=== PATIENT | female | born 1935 | race Caucasian/White ===

== ENCOUNTER 2020-06-15 11:13 | Inpatient (IN) ==
[2020-06-15] MEDS ORDERED: METOPROLOL TARTRATE 1 MG/ML VIAL IV STA ×2 (11:43→13:14)
[2020-06-15] MEDS ORDERED: FUROSEMIDE 40 MG/4 ML VIAL IV STA (11:43)
[2020-06-15 11:58] LABS: Basophils # (auto) 0.02 K/uL (0-0.2); Basophils % (auto) 0.1 %; Eosinophils # (auto) 0.01 K/uL (0-0.5); Eosinophils % (auto) 0.1 %; Hematocrit (blood only) 38.4 % (37-47); Hemoglobin 12.8 g/dL (12.0-16.0); Immature Granulocytes # (auto) 0.07 K/uL (0.00-0.02); Immature Granulocytes % (auto) 0.4 %; Lymphocytes # (auto) 1.89 K/uL (1.2-3.4); Lymphocytes % (auto) 11.7 %; Mean Corpuscular Hemoglobin 28.5 pg (25-34); Mean Corpuscular Hgb Conc 33.3 g/dL (32-36); Mean Corpuscular Volume 85.5 fL (80-100); Mean Platelet Volume 10.3 fL (7.4-10.4); Neutrophils # (auto) 12.91 K/uL (1.4-6.5); Neutrophils % (auto) 79.7 %; Platelet Count 317 K/uL (130-400); RDW Coefficient of Variation 15.2 % (11.5-14.5); RDW Standard Deviation 47.4 fL (36.4-46.3); Red Blood Count 4.49 M/uL (4.2-5.4)
[2020-06-15 12:24] LABS: Alanine Aminotransferase 39 U/L (12-78); Albumin Globulin Ratio 0.8 (0.9-2); Albumin Level 3.6 gm/dl (3.4-5.0); Alkaline Phosphatase 94 U/L (45-117); Aspartate Aminotransferase 27 U/L (15-37); BUN Creatinine Ratio 18.6 (10-20); Bilirubin,Total 0.8 mg/dl (0.2-1); Blood Urea Nitrogen 21 mg/dl (7-18); Calcium 9.2 mg/dl (8.5-10.1); Carbon Dioxide 23 mmol/L (21-32); Chloride 102 mmol/L (98-107); Creatinine Clr Calc Pharmacy 38.3 ml/min; Est GFR (African American) 52.4; Est GFR (Non-African American) 45.2; Globulin 4.6 gm/dl (2.5-4.0); Glucose 245 mg/dl (70-99); Magnesium 2.2 mg/dl (1.8-2.4); NT Pro B Type Natriuretic Pept 5803 pg/ml (0-1800); Potassium 4.8 mmol/L (3.5-5.1); Sodium 134 mmol/L (136-145); Total Protein 8.2 gm/dl (6.4-8.2); Troponin I < 0.015 ng/ml (0-0.045)
--- NOTE | 2020-06-15 12:33 | XRay Report ---
XR chest 1V portable HISTORY: Dyspnea COMPARISON: Chest 02/29/2016. FINDINGS: No pneumothorax. Small bilateral pleural effusions and bibasilar airspace opacities. The he art is mildly enlarged. There is mild diffuse interstitial thickening. Advanced degenerative changes within the shoulders. IMPRESSION: 1. Cardiomegaly and mild congestive change. 2. Small bilateral pleural effusions and bibasilar densities. This could represent atelectasis or pne umonia. ACT 112: Negative or not required by law. Electronically signed by: Brendan Carrillo M.D. 06/15/2020 12:32 PM
[2020-06-15] MEDS ORDERED: NovoLIN-R INSULIN PER UNIT CHARGE SC STA (13:11)
[2020-06-15] MEDS ORDERED: CARBOHYDRATES FOR HYPOGLYCEMIA PO PRN (15:18)
[2020-06-15] MEDS ORDERED: DEXTROSE 50% 50 ML SYRINGE IV PRN (15:18)
[2020-06-15] MEDS ORDERED: GLUCOSE 10 TABS/TUBE PO PRN (15:18)
[2020-06-15] MEDS ORDERED: GLUCOSE 40% GEL 15 GM TUBE PO PRN (15:18)
[2020-06-15] MEDS ORDERED: GLUCAGON FOR INJ 1 MG VIAL SQ PRN (15:18)
[2020-06-15] MEDS ORDERED: ACETAMINOPHEN 325 MG TAB PO PRN (15:18)
[2020-06-15] MEDS ORDERED: Heparin IV Standard *NO* Bolus IV SCH (15:30)
[2020-06-15] MEDS ORDERED: PHARMACY GLYCEMIC MGMT CONSULT PRN (15:40)
--- NOTE | 2020-06-15 16:09 | Emergency Department Note ---
History of Present Illness General Chief complaint: Congestion Stated complaint: CONGESTION W/COUGH Time Seen by Provider: 06/15/20 11:33 Source: patient and RN notes reviewed Mode of arrival: ambulatory Limitations: no limitations and clinical acuity (SOB, tachycardia) History of Present Illness Provider complaint: Shortness of breath, cough Maximum Pain Intensity: 5 This patient is an 85-year-old female who presents emergency department with several days worth of a cough. Home health nurses encouraged her to be evaluated last evening however the patient's son brought her to the emergency department today. The patient states she has had some increased work of breathing overnight and is having some difficulty lying flat. She denies any known fevers or chest pain. She denies any palpitations. She has had no vomiting or abdominal pain. She denies any dysuria. Patient denies any known Covid exposures. She denies any known history of heart problems. Home Medications Home Medications Medication Instructions Recorded Confirmed Type lisinopril 20 mg PO BID #0 06/24/10 06/15/20 History metoprolol tartrate 50 mg PO PM #0 06/24/10 06/15/20 History metoprolol tartrate 100 mg PO QAM #0 06/24/10 06/15/20 History acetaminophen [Tylenol Extra 500 mg PO HS #0 09/04/10 06/15/20 History Strength] aspirin 81 mg PO QAM 30 Days #30 tab 02/27/16 06/15/20 History nitroglycerin [Nitrostat] 0.4 mg BUCCAL DIRECTED PRN #0 02/27/16 06/15/20 History btl rosuvastatin 40 mg PO PM #0 tab 02/27/16 06/15/20 History amlodipine 10 mg PO QAM 06/15/20 06/15/20 History ezetimibe 10 mg PO QAM 06/15/20 06/15/20 History metformin 1,000 mg PO BID 06/15/20 06/15/20 History triamcinolone acetonide 1 applic TOPICAL BID 06/15/20 06/15/20 History Allergies Allergy/AdvReac Type Severity Reaction Status Date / Time itraconazole Allergy Intermediate HIVES Verified 06/15/20 12:26 Iodinated Contrast Media Allergy Unknown ` Verified 06/15/20 12:26 codeine AdvReac Mild N/V Verified 06/15/20 12:26 morphine AdvReac Mild N/V Verified 06/15/20 12:26 Imidazole Antifungals Allergy Unknown . Uncoded 06/15/20 12:26 Past Med/Surg History Medical History Hypertension Myocardial infarction Social History Smoking Status: Never smoker Hx Alcohol Use: No Hx Substance Use: No Preferred Language: Armenian Communication Ability: Effective Bottom Turning Lathe Tender Required: No Beliefs That Will Affect Care: None Current Living Situation: Alone Other Information That Helps Us Care for You: No Feels Safe at Home: Yes Assistive Devices: Oxygen - Continuous and Walker Review of Systems See HPI for pertinent positives & negatives. and A total of 10 systems reviewed and were otherwise negative Physical Exam Vital Signs Vital Signs - 24 hr 06/15/20 11:15 06/15/20 11:40 06/15/20 11:46 Temperature 37.1 C Temperature Source Oral Pulse Rate 129 H 105 H 123 H Pulse Rate from SpO2 Sensor 109 H 126 H Respiratory Rate 24 31 H 31 H Respiratory Effort / Characteristics Short of Breath Blood Pressure 124/80 Blood Pressure Mean 102 Blood Pressure Position Sitting Pulse Oximetry 90 97 97 Oxygen Delivery Method Room Air Oxygen Flow Rate Sepsis Recent Fever Within 48 Hours No Sepsis New/Unexplained Change in Mental Status N/A Sepsis Action Taken by Nursing No Action Required Oxygen Flow Rate - Titration Pulse Oximetry Post Tiitration 06/15/20 11:47 06/15/20 11:52 06/15/20 11:57 Temperature Temperature Source Pulse Rate 112 H 112 H Pulse Rate from SpO2 Sensor 106 H Respiratory Rate 32 H Respiratory Effort / Characteristics Blood Pressure 124/80 Blood Pressure Mean Blood Pressure Position Pulse Oximetry 96 97 Oxygen Delivery Method Nasal Cannula Oxygen Flow Rate 2 4 Sepsis Recent Fever Within 48 Hours Sepsis New/Unexplained Change in Mental Status Sepsis Action Taken by Nursing Oxygen Flow Rate - Titration Pulse Oximetry Post Tiitration 06/15/20 12:00 06/15/20 12:03 06/15/20 12:30 Temperature Temperature Source Pulse Rate 97 H 98 H Pulse Rate from SpO2 Sensor 99 H 95 H Respiratory Rate 33 H 29 H Respiratory Effort / Characteristics Blood Pressure 136/94 Blood Pressure Mean 112 Blood Pressure Position Pulse Oximetry 96 85 L 94 Oxygen Delivery Method Room Air Oxygen Flow Rate 2 2 Sepsis Recent Fever Within 48 Hours Sepsis New/Unexplained Change in Mental Status Sepsis Action Taken by Nursing Oxygen Flow Rate - Titration 4 Pulse Oximetry Post Tiitration 97 06/15/20 12:56 06/15/20 13:00 06/15/20 13:01 Temperature Temperature Source Pulse Rate 100 H 101 H 94 H Pulse Rate from SpO2 Sensor 107 H 108 H 103 H Respiratory Rate 27 H 29 H 26 H Respiratory Effort / Characteristics Blood Pressure 118/64 Blood Pressure Mean 73 Blood Pressure Position Pulse Oximetry 94 93 95 Oxygen Delivery Method Oxygen Flow Rate 2 2 2 Sepsis Recent Fever Within 48 Hours Sepsis New/Unexplained Change in Mental Status Sepsis Action Taken by Nursing Oxygen Flow Rate - Titration Pulse Oximetry Post Tiitration 06/15/20 13:02 Temperature Temperature Source Pulse Rate 113 H Pulse Rate from SpO2 Sensor 126 H Respiratory Rate 30 H Respiratory Effort / Characteristics Blood Pressure 132/80 Blood Pressure Mean 114 Blood Pressure Position Pulse Oximetry 93 Oxygen Delivery Method Oxygen Flow Rate 2 Sepsis Recent Fever Within 48 Hours Sepsis New/Unexplained Change in Mental Status Sepsis Action Taken by Nursing Oxygen Flow Rate - Titration Pulse Oximetry Post Tiitration Vital signs reviewed. Noted to be tachycardic and hypoxic General: Somewhat ill-appearing 85-year-old female, in no significant distress. HEENT: No scleral icterus, PERRLA, neck supple. Atraumatic. Cardiovascular: Tachycardic and irregular, no extra sounds. Pulmonary: Coarse breath sounds to the bases with faint scattered wheezes bilaterally, increased work of breathing. Abdomen: Soft, nontender, nondistended, positive bowel sounds. Musculoskeletal: Atraumatic, minimal peripheral edema. Neurologic: Patient awake alert and oriented x 3 Skin: Warm, dry, no rash Course Administered Medications Amlodipine Besylate (Amlodipine Besylate 5 Mg Tab) 10 mg PO QAM [facility] Stop: 07/16/20 08:59 Last Admin: 06/16/20 08:15 Dose: 10 mg Documented by: [id number] Aspirin (Aspirin 81 Mg Ectab) 81 mg PO QAM [facility] Stop: 07/16/20 08:59 Last Admin: 06/17/20 07:45 Dose: 81 mg Documented by: [id number] Admin: 06/16/20 08:16 Dose: 81 mg Documented by: [id number] Diltiazem HCl (Diltiazem Hcl 30 Mg Tab) 30 mg PO TID [facility] Stop: 11/26/20 08:59 Last Admin: 06/17/20 13:38 Dose: 30 mg Documented by: [id number] Admin: 06/17/20 09:33 Dose: 30 mg Documented by: [id number] Ezetimibe (Ezetimibe 10 Mg Tablet) 10 mg PO QAM [facility] Stop: 07/16/20 08:59 Last Admin: 06/17/20 07:45 Dose: 10 mg Documented by: [id number] Admin: 06/16/20 08:15 Dose: 10 mg Documented by: [id number] Guaifenesin (Guaifenesin 600 Mg Tabcr) 600 mg PO Q12 [facility] Stop: 07/17/20 09:59 Last Admin: 06/17/20 09:58 Dose: 600 mg Documented by: [id number] Heparin Sodium/Dextrose (Heparin Sodium/Dextrose) 25,000 units in 500 mls @ 22 mls/hr IV .[id number] [facility]; Protocol Stop: 07/15/20 15:17 Last Admin: 06/17/20 15:46 Dose: 1,100 units/hr, 22 mls/hr Documented by: [id number] Cosigned by: [id number] Titration: 06/17/20 14:50 Dose: 1,100 units/hr, 22 mls/hr Documented by: [id number] Cosigned by: [id number] Titration: 06/17/20 11:31 Dose: 1,100 units/hr, 22 mls/hr Documented by: [id number] Cosigned by: [id number] Titration: 06/17/20 10:41 Dose: 0 units/hr, 0 mls/hr Documented by: [id number] Cosigned by: [id number] Titration: 06/17/20 06:52 Dose: 1,300 units/hr, 26 mls/hr Documented by: [id number] Cosigned by: [id number] Titration: 06/17/20 04:26 Dose: 1,300 units/hr, 26 mls/hr Documented by: [id number] Cosigned by: [id number] Admin: 06/16/20 16:44 Dose: 1,150 units/hr, 23 mls/hr Documented by: [id number] Cosigned by: [id number] Titration: 06/16/20 14:59 Dose: 1,150 units/hr, 23 mls/hr Documented by: [id number] Cosigned by: [id number] Titration: 06/16/20 07:05 Dose: 1,150 units/hr, 23 mls/hr Documented by: [id number] Cosigned by: [id number] Titration: 06/16/20 06:59 Dose: 1,150 units/hr, 23 mls/hr Documented by: [id number] Cosigned by: [id number] Titration: 06/15/20 19:08 Dose: 1,150 units/hr, 23 mls/hr Documented by: [id number] Cosigned by: [id number] Admin: 06/15/20 17:14 Dose: 1,150 units/hr, 23 mls/hr Documented by: [id number] Cosigned by: [id number] Furosemide 40 mg/ Syringe 4 mls @ 4 mls/min IV Q12H [facility] Stop: 07/15/20 19:59 Last Admin: 06/17/20 07:44 Dose: 4 mls/min Documented by: [id number] Admin: 06/16/20 19:44 Dose: 4 mls/min Documented by: [id number] Admin: 06/16/20 08:17 Dose: 4 mls/min Documented by: [id number] Admin: 06/15/20 19:12 Dose: 4 mls/min Documented by: [id number] Ceftriaxone Sodium 2,000 mg/ (Dextrose) 70 mls @ 100 mls/hr IV Q24H [facility]; Protocol Stop: 06/24/20 07:59 Last Infusion: 06/17/20 08:50 Dose: 0 mls/hr Documented by: [id number] Admin: 06/17/20 08:03 Dose: 100 mls/hr Documented by: [id number] Insulin Aspart (Insulin Aspart 100 Units/Ml 3 Ml Pen) 0 units SC ACHS [facility]; Protocol Stop: 07/15/20 16:29 Last Admin: 06/17/20 12:35 Dose: 11 units Documented by: [id number] Cosigned by: [id number] Admin: 06/17/20 09:02 Dose: 8 units Documented by: [id number] Cosigned by: [id number] Admin: 06/16/20 20:47 Dose: 3 units Documented by: [id number] Cosigned by: [id number] Admin: 06/16/20 17:40 Dose: 5 units Documented by: [id number] Cosigned by: [id number] Admin: 06/16/20 12:22 Dose: 10 units Documented by: [id number] Cosigned by: [id number] Admin: 06/16/20 08:18 Dose: 5 units Documented by: [id number] Cosigned by: [id number] Admin: 06/15/20 20:36 Dose: 1 units Documented by: [id number] Cosigned by: [id number] Admin: 06/15/20 17:18 Dose: 5 units Documented by: [id number] Cosigned by: [id number] Insulin Glargine (Insulin Glargine Solostar 100 Units/Ml 3 Ml Pen) 10 units SC BID [facility]; Protocol Stop: 07/17/20 08:59 Last Admin: 06/17/20 09:02 Dose: 10 units Documented by: [id number] Cosigned by: [id number] Lisinopril (Lisinopril 20 Mg Tab) 20 mg PO BID [facility] Stop: 07/15/20 20:59 Last Admin: 06/17/20 07:46 Dose: 20 mg Documented by: [id number] Admin: 06/16/20 19:51 Dose: 20 mg Documented by: [id number] Admin: 06/16/20 08:15 Dose: 20 mg Documented by: [id number] Admin: 06/15/20 20:24 Dose: 20 mg Documented by: [id number] Metoprolol Tartrate (Metoprolol Tartrate 1 Mg/Ml Vial) 5 mg IV Q6 PRN PRN Reason: HR > 110 Stop: 07/15/20 15:17 Last Admin: 06/17/20 01:10 Dose: 5 mg Documented by: [id number] Admin: 06/15/20 19:04 Dose: 5 mg Documented by: [id number] Metoprolol Tartrate (Metoprolol Tartrate 100 Mg Tab) 100 mg PO BID [facility] Stop: 07/17/20 08:59 Last Admin: 06/17/20 07:45 Dose: 100 mg Documented by: [id number] Potassium Chloride (Potassium Chloride 20 Meq Tabcr) 40 meq PO BID [facility] Stop: 07/16/20 09:29 Last Admin: 06/17/20 07:45 Dose: 40 meq Documented by: [id number] Admin: 06/16/20 19:51 Dose: 40 meq Documented by: [id number] Admin: 06/16/20 11:17 Dose: 40 meq Documented by: [id number] Rosuvastatin Calcium (Rosuvastatin Calcium 20 Mg Tab) 40 mg PO PM [facility] Stop: 07/15/20 20:59 Last Admin: 06/16/20 19:50 Dose: 40 mg Documented by: [id number] Admin: 06/15/20 20:21 Dose: 40 mg Documented by: [id number] Triamcinolone Acetonide (Triamcinolone Acet 0.1% Oint 15 Gm Tube) 1 appln TOP BID [facility] Stop: 07/15/20 20:59 Last Admin: 06/17/20 07:45 Dose: 1 appln Documented by: [id number] Admin: 06/16/20 19:51 Dose: 1 appln Documented by: [id number] Admin: 06/16/20 08:25 Dose: 1 appln Documented by: [id number] Admin: 06/15/20 20:22 Dose: 1 appln Documented by: [id number] Discontinued Medications Diltiazem HCl (Diltiazem Hcl 5 Mg/Ml 5 Ml Vial) 20 mg IV NOW STA Stop: 06/17/20 02:28 Last Admin: 06/17/20 03:10 Dose: 20 mg Documented by: [id number] Cosigned by: [id number] Furosemide (Furosemide 40 Mg/4 Ml Vial) 40 mg IV NOW STA Stop: 06/15/20 11:44 Last Admin: 06/15/20 11:57 Dose: 40 mg Documented by: [id number] Magnesium Sulfate/Dextrose (Magnesium Sulfate / D5w) 1 gm in 100 mls @ 50 mls/hr IV ONE ONE Stop: 06/17/20 04:23 Last Infusion: 06/17/20 05:43 Dose: 0 mls/hr Documented by: [id number] Admin: 06/17/20 03:07 Dose: 50 mls/hr Documented by: [id number] Doxycycline Hyclate 100 mg/ (Dextrose) 110 mls @ 50 mls/hr IV NOW STA Stop: 06/17/20 05:39 Last Infusion: 06/17/20 05:43 Dose: 0 mls/hr Documented by: [id number] Admin: 06/17/20 03:43 Dose: 50 mls/hr Documented by: [id number] Heparin Sodium (Porcine) 3,000 (units/ Syringe) 3 mls @ 10 mls/min IV ONE ONE Stop: 06/17/20 04:16 Last Admin: 06/17/20 04:26 Dose: 10 mls/min Documented by: [id number] Cosigned by: [id number] Insulin Glargine (Insulin Glargine Solostar 100 Units/Ml 3 Ml Pen) 8 units SC ONE ONE Stop: 06/15/20 21:01 Last Admin: 06/15/20 21:15 Dose: 8 units Documented by: [id number] Cosigned by: [id number] Insulin Glargine (Insulin Glargine Solostar 100 Units/Ml 3 Ml Pen) 8 units SC BID [facility]; Protocol Stop: 07/16/20 08:59 Last Admin: 06/16/20 20:46 Dose: 8 units Documented by: [id number] Cosigned by: [id number] Admin: 06/16/20 08:17 Dose: 8 units Documented by: [id number] Cosigned by: [id number] Insulin Human Regular (Novolin-R Insulin Per Unit Charge) 4 units SC NOW STA Stop: 06/15/20 13:12 Last Admin: 06/15/20 13:31 Dose: 4 units Documented by: [id number] Cosigned by: [id number] Magnesium Oxide (Magnesium Oxide 400 Mg Tab) 400 mg PO NOW ONE Stop: 06/16/20 10:01 Last Admin: 06/16/20 11:17 Dose: 400 mg Documented by: [id number] Metoprolol Tartrate (Metoprolol Tartrate 1 Mg/Ml Vial) 5 mg IV NOW STA Stop: 06/15/20 11:44 Last Admin: 06/15/20 11:57 Dose: 5 mg Documented by: [id number] Metoprolol Tartrate (Metoprolol Tartrate 1 Mg/Ml Vial) 5 mg IV NOW STA Stop: 06/15/20 13:15 Last Admin: 06/15/20 13:31 Dose: 5 mg Documented by: [id number] Metoprolol Tartrate (Metoprolol Tartrate 50 Mg Tab) 50 mg PO PM [facility] Stop: 07/15/20 20:59 Last Admin: 06/16/20 19:51 Dose: 50 mg Documented by: [id number] Admin: 06/15/20 20:23 Dose: 50 mg Documented by: [id number] Metoprolol Tartrate (Metoprolol Tartrate 100 Mg Tab) 100 mg PO QAM [facility] Stop: 07/16/20 08:59 Last Admin: 06/16/20 08:16 Dose: 100 mg Documented by: [id number] Potassium Chloride (Potassium Chloride 10 Meq Tabcr) 50 meq PO NOW STA Stop: 06/17/20 02:25 Last Admin: 06/17/20 02:57 Dose: 50 meq Documented by: [id number] Critical Care Time Critical Care Time: Yes Total Critical Care Time: 35 I have personally spent greater than 35 minutes of critical care time in the direct management of this patient. This includes bedside care, interpretation of diagnostic studies, and testing, discussion with consultants, patient, and family members, and other required patient management activities. This 35 minutes is in excess of all separately billable procedures. Medical Decision Making Differential Diagnosis DDx: Dysrhythmia, reactive airway disease, pneumonia, pneumothorax, COPD, CHF, infections, cardiac ischemia, pulmonary embolism, musculoskeletal, gastrointestinal, as well as other pathologies. Medical Records Attestation: I reviewed the patient's medical records. Home Medications Current Medication List: was personally reviewed by me Laboratory Data Attestation: I reviewed the patient's lab results. Result diagrams: 06/17/20 02:45 06/17/20 02:45 Lab Results 06/15/20 06/15/20 06/15/20 Range/Units 11:41 11:41 11:41 WBC 16.20 H (4.8-10.8) K/uL RBC 4.49 (4.2-5.4) M/uL Hgb 12.8 (12.0-16.0) g/dL Hct 38.4 (37-47) % MCV 85.5 (80-100) fL MCH 28.5 (25-34) pg MCHC 33.3 (32-36) g/dL RDW Std Deviation 47.4 H (36.4-46.3) fL RDW Coeff of Matt 15.2 H (11.5-14.5) % Plt Count 317 (130-400) K/uL MPV 10.3 (7.4-10.4) fL Immature Gran % (Auto) 0.4 % Neut % (Auto) 79.7 % Lymph % (Auto) 11.7 % [place] % (Auto) 8.0 % Eos % (Auto) 0.1 % Baso % (Auto) 0.1 % Neut # (Auto) 12.91 H (1.4-6.5) K/uL Lymph # (Auto) 1.89 (1.2-3.4) K/uL [place] # (Auto) 1.30 H (0.11-0.59) K/uL Eos # (Auto) 0.01 (0-0.5) K/uL Baso # (Auto) 0.02 (0-0.2) K/uL Immature Gran # (Auto) 0.07 H (0.00-0.02) K/uL PT Cancelled INR Cancelled APTT Cancelled PTT Ratio Cancelled Sodium 134 L (136-145) mmol/L Potassium 4.8 (3.5-5.1) mmol/L Chloride 102 (98-107) mmol/L Carbon Dioxide 23 (21-32) mmol/L Anion Gap 9.0 (3-11) BUN 21 H (7-18) mg/dl Creatinine 1.11 (0.6-1.2) mg/dl Est Cr Clr Drug Dosing 38.3 ml/min Est GFR ( Amer) 52.4 Est GFR (Non-Af Amer) 45.2 BUN/Creatinine Ratio 18.6 (10-20) Glucose 245 H (70-99) mg/dl Calcium 9.2 (8.5-10.1) mg/dl Magnesium 2.2 (1.8-2.4) mg/dl Total Bilirubin 0.8 (0.2-1) mg/dl AST 27 (15-37) U/L ALT 39 (12-78) U/L Alkaline Phosphatase 94 (45-117) U/L Troponin I < 0.015 (0-0.045) ng/ml NT-Pro-B Natriuret Pep 5803 H (0-1800) pg/ml Total Protein 8.2 (6.4-8.2) gm/dl Albumin 3.6 (3.4-5.0) gm/dl Globulin 4.6 H (2.5-4.0) gm/dl Albumin/Globulin Ratio 0.8 L (0.9-2) Specimen Hemolysis COVID-19 Eval Order COVID-19 PCR (Negative) 06/15/20 06/15/20 06/15/20 Range/Units 12:00 12:00 12:28 WBC (4.8-10.8) K/uL RBC (4.2-5.4) M/uL Hgb (12.0-16.0) g/dL Hct (37-47) % MCV (80-100) fL MCH (25-34) pg MCHC (32-36) g/dL RDW Std Deviation (36.4-46.3) fL RDW Coeff of Matt (11.5-14.5) % Plt Count (130-400) K/uL MPV (7.4-10.4) fL Immature Gran % (Auto) % Neut % (Auto) % Lymph % (Auto) % [place] % (Auto) % Eos % (Auto) % Baso % (Auto) % Neut # (Auto) (1.4-6.5) K/uL Lymph # (Auto) (1.2-3.4) K/uL [place] # (Auto) (0.11-0.59) K/uL Eos # (Auto) (0-0.5) K/uL Baso # (Auto) (0-0.2) K/uL Immature Gran # (Auto) (0.00-0.02) K/uL PT Cancelled INR Cancelled APTT Cancelled PTT Ratio Cancelled Sodium (136-145) mmol/L Potassium (3.5-5.1) mmol/L Chloride (98-107) mmol/L Carbon Dioxide (21-32) mmol/L Anion Gap (3-11) BUN (7-18) mg/dl Creatinine (0.6-1.2) mg/dl Est Cr Clr Drug Dosing ml/min Est GFR ( Amer) Est GFR (Non-Af Amer) BUN/Creatinine Ratio (10-20) Glucose (70-99) mg/dl Calcium (8.5-10.1) mg/dl Magnesium (1.8-2.4) mg/dl Total Bilirubin (0.2-1) mg/dl AST (15-37) U/L ALT (12-78) U/L Alkaline Phosphatase (45-117) U/L Troponin I (0-0.045) ng/ml NT-Pro-B Natriuret Pep (0-1800) pg/ml Total Protein (6.4-8.2) gm/dl Albumin (3.4-5.0) gm/dl Globulin (2.5-4.0) gm/dl Albumin/Globulin Ratio (0.9-2) Specimen Hemolysis COVID-19 Eval Order Covid19 Done at [facility] COVID-19 PCR NEGATIVE (Negative) Imaging Data Radiologist's Impression: XR chest 1V portable HISTORY: Dyspnea COMPARISON: Chest 02/29/2016. FINDINGS: No pneumothorax. Small bilateral pleural effusions and bibasilar airspace opacities. The heart is mildly enlarged. There is mild diffuse interstitial thickening. Advanced degenerative changes within the shoulders. IMPRESSION: 1. Cardiomegaly and mild congestive change. 2. Small bilateral pleural effusions and bibasilar densities. This could represent atelectasis or pneumonia. ACT 112: Negative or not required by law. Electronically signed by: Brendan Carrillo M.D. 06/15/2020 12:32 PM Dictated: 06/15/20 1231 Transcribed: 06/15/20 1231 ECG Data Attestation: I personally reviewed and interpreted this ECG as follows: Indication: + SOB/dyspnea and + tachycardia Rate (beats per minute): 108 Rhythm: + atrial fibrillation ECG Intervals/blocks: + Prolonged QT (460) ECG ST segments: + Nonspecific ST abnormalities ECG Findings: + Other (poor quality baseline for interpretation) Blood Pressure Blood Pressure Findings: Normal blood pressure Blood Pressure Disposition: did not require urgent referral MDM Narrative This pt was evaluated and appeared to be in no distress. IV access was obtained and lab work was drawn. An order was placed for cardiac monitoring and pt was noted to be in an atrial fibrillation w RVR at 129 bpm. Pt was medicated with metoprolol 5 mg IV x2 doses, 40 mg IV lasix. COVID swab was obtained and is negative. CXR reveals congestive change with bilateral pleural effusions. Pt HR was much better controlled. Lab work reveals neg trop and elevated BNP. Pt's case was d/w the hospitalist service who will evaluate pt for further management. Impression & Plan Atrial fibrillation with RVR, CHF exacerbation Discharge Plan Visit Data Chief Complaint: Congestion Stated Complaint: CONGESTION W/COUGH ED Provider: Arlen Paiz Discharge Problem: Atrial fibrillation with RVR, CHF exacerbation Patient Disposition: Admitted As Inpatient Discharge Instructions Interventions: ED Discharge Assessment Last Done: 06/15/20 14:26 Discharge Problem: CHF exacerbation Qualifiers: Heart failure type: unspecified Qualified Code(s): I50.9 - Heart failure, unspecified
[2020-06-15 17:06] LABS: INR 1.1 (0.9-1.1); Partial Thromboplastin Ratio 0.9; Partial Thromboplastin Time 25.8 Seconds (21.0-31.0); Prothrombin Time 11.4 Seconds (9.0-12.0)
[2020-06-15] MEDS: HEPARIN SODIUM/DEXTROSE 25,000 UNITS/500 ML BAG IV SCH (17:14)
[2020-06-15] MEDS: INSULIN ASPART 100 UNITS/ML 3 ML PEN SC SCH ×2 (17:18→20:36)
[2020-06-15 17:26] LABS: Appearance Urine Clear (Clear); Bacteria Urine Automated Negative (Negative); Bilirubin Urine Negative (Negative); Blood Urine Negative (Negative); Color Urine Yellow; Epithelial Cell Urine Auto 0-5 /lpf (0-5); Glucose Urine UA Negative (Negative); Ketones Urine Negative (Negative); Leukocyte Esterase Urine Negative (Negative); Nitrite Urine Negative (Negative); Protein Urine Trace (Negative); RBC Urine Automated 0-4 /hpf (0-4); Specific Gravity Urine 1.013 (1.000-1.030); Urobilinogen Urine Negative (Negative); WBC Urine Automated 0 /hpf (0-5)
--- NOTE | 2020-06-15 18:37 | History & Physical Report ---
Date of Service June 15, 2020 Assessment & Plan (1) CHF exacerbation: 5-year-old female with history of diastolic CHF, CAD, status post stent placement, aortic stenosis, diabetes, hypertension, Presenting with shortness of breath that started this morning. Acute on chronic CHF exacerbation, diastolic type Usually on Lasix 20 mg p.o. daily Start Lasix 40 mg every 12 hours Echocardiogram ordered Monitor diuresis Fluid restriction Continue metoprolol tartrate [employer] Operations Agent consulted Atrial fibrillation RVR Likely secondary to #1 Blood pressure stable, asymptomatic Continue usual metoprolol p.o. 100 mg in a.m., 50 mg at bedtime IV Lopressor as needed for heart rate more than 110 Chads vasc score 6--> start heparin drip standard dosing with no bolus History of CAD, status post stent placement Continue metoprolol, Crestor, aspirin Hypertension Continue amlodipine and terazosin next Diabetes type 2 Usually on glimepiride and Metformin, hold for now Start sliding scale DVT prophylaxis Will be on heparin drip Status Full code per patient Disposition Lives alone at home with caregivers Of care discussed with patient and her daughter Corry at bedside in detail and at length All questions were answered They are understanding, agreeable, comfortable with the plan of care Admission and Anticipated Discharge Date Admission Date: June 15, 2020 History of Present Illness 85-year-old female with history of diastolic CHF, CAD status post stent placement, aortic valve stenosis, diabetes, hypertension Presenting with shortness of breath this morning. Patient states that she has noticed increased leg swelling for the past few days. She takes Lasix 20 mg daily. This morning, patient started to have progressive shortness of breath, associated with cough of yellow sputum. Denies chest pain, palpitations, dizziness, nausea or vomiting. Patient was then brought to the ER for evaluation. At the ER, patient was received with blood pressure of 124/80, heart rate 123, respiratory rate 31, saturating 96% on 2 L of nasal cannula. Chest x-ray showed small pleural effusions and bilateral airspace opacities. BNP elevated at 5803. EKG showed atrial fibrillation in RVR Patient given Lasix 40 mg IV and metoprolol tartrate IV 10 mg. On exam, the patient was seen sitting up in bed, on 2 L of nasal cannula, comfortable, not in distress. Reports feeling improved compared to earlier today. Denies active shortness of breath, chest pain, palpitations, dizziness, nausea vomiting during the time of my exam No other symptoms Denies history of intracranial hemorrhage, GI bleed, but she did have episode of epistaxis a few years ago. Primary Care Provider: Víctor Wright DO Allergies Allergy/AdvReac Type Severity Reaction Status Date / Time itraconazole Allergy Intermediate HIVES Verified 06/15/20 12:26 Iodinated Contrast Media Allergy Unknown ` Verified 06/15/20 12:26 codeine AdvReac Mild N/V Verified 06/15/20 12:26 morphine AdvReac Mild N/V Verified 06/15/20 12:26 Imidazole Antifungals Allergy Unknown . Uncoded 06/15/20 12:26 Home Medications Home Medications Medication Instructions Recorded Confirmed Type lisinopril 20 mg PO BID #0 06/24/10 06/15/20 History metoprolol tartrate 50 mg PO PM #0 06/24/10 06/15/20 History metoprolol tartrate 100 mg PO QAM #0 06/24/10 06/15/20 History acetaminophen [Tylenol Extra 500 mg PO HS #0 09/04/10 06/15/20 History Strength] aspirin 81 mg PO QAM 30 Days #30 tab 02/27/16 06/15/20 History nitroglycerin [Nitrostat] 0.4 mg BUCCAL DIRECTED PRN #0 02/27/16 06/15/20 History btl rosuvastatin 40 mg PO PM #0 tab 02/27/16 06/15/20 History amlodipine 10 mg PO QAM 06/15/20 06/15/20 History ezetimibe 10 mg PO QAM 06/15/20 06/15/20 History metformin 1,000 mg PO BID 06/15/20 06/15/20 History triamcinolone acetonide 1 applic TOPICAL BID 06/15/20 06/15/20 History Past Med/Surg History Medical History (Updated 06/15/20 @ 18:33 by Jabari Pham MD) Hypertension Myocardial infarction Social History Smoking Status: Never smoker Hx Alcohol Use: No Hx Substance Use: No Preferred Language: Korean Communication Ability: Effective Sausage Linker Required: No Beliefs That Will Affect Care: None Current Living Situation: Alone Other Information That Helps Us Care for You: No Feels Safe at Home: Yes Assistive Devices: Walker and Wheelchair Review of Systems Review of Systems: All systems reviewed & are unremarkable except as noted in Subjective Physical Exam Physical Exam: General- oriented x 3, not in distress, speaks in sentences with no effort or accessory muscle use Head- atraumatic Eyes- PERRL, EOMI, anicteric ENT- oropharynx clear Neck- supple, positive JVD, no adenopathy, no thyromegaly; carotids +2/2, no bruits appreciated Lungs-positive crackles bilateral mid to base Heart-mildly tachycardic, 109, irregularly regular rhythm, murmur difficult to assess, no gallop, no rub appreciated Abdomen- normal bowel sounds, nondistended, soft, nontender, no masses or hepatosplenomegaly Extremities-grade 1 bilateral lower extremity edema, but no erythema/warmth/tenderness; peripheral pulses intact Neuro- alert, oriented x 3; CN 2-12 grossly intact; motor 5/5 bilaterally;sensation 100% on all extremities; no other gross focal neurologic deficits Skin- warm & dry Results & Data Results & Data ([facility]) Vital Signs (Past 12 Hours) Vital Signs Temp Pulse Pulse Resp BP BP Pulse Ox 06/15/20 16:34 108 H 06/15/20 15:19 36.6 C 106 H 26 H 131/79 91 06/15/20 14:30 99 H 28 H 139/72 94 06/15/20 14:00 97 H 24 138/88 93 06/15/20 13:31 119 H 138/71 06/15/20 13:30 107 H 26 H 138/71 94 06/15/20 13:02 113 H 30 H 132/80 93 06/15/20 13:01 94 H 26 H 95 06/15/20 13:00 101 H 29 H 93 06/15/20 12:56 100 H 27 H 118/64 94 06/15/20 12:30 98 H 29 H 94 06/15/20 12:03 85 L 06/15/20 12:00 97 H 33 H 136/94 96 06/15/20 11:57 112 H 124/80 06/15/20 11:52 97 06/15/20 11:47 112 H 32 H 96 06/15/20 11:46 123 H 31 H 124/80 97 06/15/20 11:40 105 H 31 H 97 06/15/20 11:15 37.1 C 129 H 24 90 Laboratory Results Laboratory Results - last 24 hr 06/15/20 06/15/20 06/15/20 11:41 11:41 11:41 WBC 16.20 H RBC 4.49 Hgb 12.8 Hct 38.4 MCV 85.5 MCH 28.5 MCHC 33.3 RDW Std Deviation 47.4 H RDW Coeff of Matt 15.2 H Plt Count 317 MPV 10.3 Immature Gran % (Auto) 0.4 Neut % (Auto) 79.7 Lymph % (Auto) 11.7 [place] % (Auto) 8.0 Eos % (Auto) 0.1 Baso % (Auto) 0.1 Neut # (Auto) 12.91 H Lymph # (Auto) 1.89 [place] # (Auto) 1.30 H Eos # (Auto) 0.01 Baso # (Auto) 0.02 Immature Gran # (Auto) 0.07 H PT Cancelled INR Cancelled APTT Cancelled PTT Ratio Cancelled Sodium 134 L Potassium 4.8 Chloride 102 Carbon Dioxide 23 Anion Gap 9.0 BUN 21 H Creatinine 1.11 Est Cr Clr Drug Dosing 38.3 Est GFR ( Amer) 52.4 Est GFR (Non-Af Amer) 45.2 BUN/Creatinine Ratio 18.6 Glucose 245 H POC Glucose Calcium 9.2 Magnesium 2.2 Total Bilirubin 0.8 AST 27 ALT 39 Alkaline Phosphatase 94 Troponin I < 0.015 NT-Pro-B Natriuret Pep 5803 H Total Protein 8.2 Albumin 3.6 Globulin 4.6 H Albumin/Globulin Ratio 0.8 L Specimen Hemolysis Urine Color Urine Appearance Urine pH Ur Specific [place] Urine Protein Urine Glucose (UA) Urine Ketones Urine Blood Urine Nitrite Urine Bilirubin Urine Urobilinogen Ur Leukocyte Esterase Urine WBC (Auto) Urine RBC (Auto) U Hyaline Cast (Auto) U Epithel Cells (Auto) Urine Bacteria (Auto) COVID-19 Eval Order COVID-19 PCR 06/15/20 06/15/20 06/15/20 12:00 12:00 12:28 WBC RBC Hgb Hct MCV MCH MCHC RDW Std Deviation RDW Coeff of Matt Plt Count MPV Immature Gran % (Auto) Neut % (Auto) Lymph % (Auto) [place] % (Auto) Eos % (Auto) Baso % (Auto) Neut # (Auto) Lymph # (Auto) [place] # (Auto) Eos # (Auto) Baso # (Auto) Immature Gran # (Auto) PT Cancelled INR Cancelled APTT Cancelled PTT Ratio Cancelled Sodium Potassium Chloride Carbon Dioxide Anion Gap BUN Creatinine Est Cr Clr Drug Dosing Est GFR ( Amer) Est GFR (Non-Af Amer) BUN/Creatinine Ratio Glucose POC Glucose Calcium Magnesium Total Bilirubin AST ALT Alkaline Phosphatase Troponin I NT-Pro-B Natriuret Pep Total Protein Albumin Globulin Albumin/Globulin Ratio Specimen Hemolysis Urine Color Urine Appearance Urine pH Ur Specific [place] Urine Protein Urine Glucose (UA) Urine Ketones Urine Blood Urine Nitrite Urine Bilirubin Urine Urobilinogen Ur Leukocyte Esterase Urine WBC (Auto) Urine RBC (Auto) U Hyaline Cast (Auto) U Epithel Cells (Auto) Urine Bacteria (Auto) COVID-19 Eval Order Covid19 Done at [facility] COVID-19 PCR NEGATIVE 06/15/20 06/15/20 06/15/20 16:37 16:44 Unknown WBC RBC Hgb Hct MCV MCH MCHC RDW Std Deviation RDW Coeff of Matt Plt Count MPV Immature Gran % (Auto) Neut % (Auto) Lymph % (Auto) [place] % (Auto) Eos % (Auto) Baso % (Auto) Neut # (Auto) Lymph # (Auto) [place] # (Auto) Eos # (Auto) Baso # (Auto) Immature Gran # (Auto) PT 11.4 INR 1.1 APTT 25.8 PTT Ratio 0.9 Sodium Potassium Chloride Carbon Dioxide Anion Gap BUN Creatinine Est Cr Clr Drug Dosing Est GFR ( Amer) Est GFR (Non-Af Amer) BUN/Creatinine Ratio Glucose POC Glucose 177 H Calcium Magnesium Total Bilirubin AST ALT Alkaline Phosphatase Troponin I NT-Pro-B Natriuret Pep Total Protein Albumin Globulin Albumin/Globulin Ratio Specimen Hemolysis Urine Color Yellow Urine Appearance Clear Urine pH 7.0 Ur Specific [place] 1.013 Urine Protein Trace H Urine Glucose (UA) Negative Urine Ketones Negative Urine Blood Negative Urine Nitrite Negative Urine Bilirubin Negative Urine Urobilinogen Negative Ur Leukocyte Esterase Negative Urine WBC (Auto) 0 Urine RBC (Auto) 0-4 U Hyaline Cast (Auto) 1-5 U Epithel Cells (Auto) 0-5 Urine Bacteria (Auto) Negative COVID-19 Eval Order COVID-19 PCR Code Status & VTE Plan VTE Prophylaxis Plan VTE Prophylaxis will be ordered: Yes
[2020-06-15] MEDS: METOPROLOL TARTRATE 1 MG/ML VIAL IV PRN (19:04)
[2020-06-15] MEDS: FUROSEMIDE 40 MG in SYRINGE 0 ML IV SCH (19:12)
[2020-06-15] MEDS ORDERED: FUROSEMIDE 40 MG/4 ML VIAL IV SCH (20:00)
--- NOTE | 2020-06-15 20:02 | Pharmacy Report ---
Glycemic Control Consultation - Date of Service June 15, 2020 - Scope Scope: Glycemic Pharmacist consulted for glycemic control and to write orders per [facility] inpatient glycemic control protocol. - Objective Weight: 81.2 kg Accuchecks BSG (last 24hrs): 06/15/20 06/15/20 11:41 16:37 Glucose 245 H POC Glucose 177 H Laboratory Data (last 24hrs): 06/15/20 11:41 Potassium 4.8 Carbon Dioxide 23 Anion Gap 9.0 Creatinine 1.11 Est Cr Clr Drug Dosing 38.3 - Recent Pertinent Medications Outpatient Anti-diabetic Regimen: * Metformin 1 g PO BIDM * Glimepiride 1 mg PO daily * A1c ordered for tomorrow (06/16) - Assessment & Plan Assessment & Plan: ASSESSMENT: * PRAKASH is an 85 year old female admitted on 06/15 with increasing shortness of breath * Patient found to be in Afib w/ RVR + exacerbation of CHF * BSG in ED of 245 mg/dL - given 4 units of SC Novolin R * BSG at time of admission is 177 mg/dL - will cover with Novolog and give one- time Lantus this evening * Maintained on PO antidiabetic medications as an outpatient (HbA1c pending for tomorrow morning) PLAN FOR INPATIENT GLYCEMIC CONTROL: * Holding outpatient oral diabetes medications * Basal insulin * Lantus 8 units SC x 1 this evening * Reassess basal dose in AM * Bolus insulin * NovoLog per scale ACHS or Q6hrs while NPO * Goal Range: Low 120 mg/dL - High 160 mg/dL * Correction Factor: 30 mg/dL/unit * Nutritional / Prandial insulin per carb ratio of 1 unit per 10 grams CHO consumed * Please note that the plan above was derived based on current level of insulin resistance and hospital stress. These recommendations are appropriate for inpatient admission only. Plan of care upon discharge will need to be reassessed to avoid potential outpatient hypo/hyperglycemia. Thank you.
[2020-06-15] MEDS: ROSUVASTATIN CALCIUM 20 MG TAB PO SCH (20:21)
[2020-06-15] MEDS: TRIAMCINOLONE ACET 0.1% OINT 15 GM TUBE TOP SCH (20:22)
[2020-06-15] MEDS: METOPROLOL TARTRATE 50 MG TAB PO SCH (20:23)
[2020-06-15] MEDS: lisinopril 20 MG TAB PO SCH (20:24)
[2020-06-15] MEDS ORDERED: INSULIN GLARGINE SOLOSTAR 100 UNITS/ML 3 ML PEN SC ONE (21:00)
[2020-06-16 00:07] LABS: Partial Thromboplastin Ratio 1.8
--- NOTE | 2020-06-16 06:20 | Electrocardiogram Report ---
Test Reason : Blood Pressure : / mmHG Vent. Rate : 108 BPM Atrial Rate : 084 BPM P-R Int : 000 ms QRS Dur : 086 ms QT Int : 344 ms P-R-T Axes : 000 077 -03 degrees QTc Int : 460 ms Poor data quality, interpretation may be adversely affected Atrial fibrillation with rapid ventricular response Nonspecific ST and T wave abnormality Abnormal ECG When compared with ECG of 27-FEB-2016 21:18, Criteria for Inferior infarct are no longer Present Confirmed by Ravi Rodriguez ([id number]) on 06/16/2020 6:20:32 AM Referred By: Confirmed By:Ravi Rodriguez
[2020-06-16 06:32] LABS: Estimated Average Glucose 186 mg/dl; Hemoglobin A1C 8.1 % (4.5-5.6); Partial Thromboplastin Ratio 1.8
[2020-06-16] MEDS: EZETIMIBE 10 MG TABLET PO SCH (08:15)
[2020-06-16] MEDS: lisinopril 20 MG TAB PO SCH ×2 (08:15→19:51)
[2020-06-16] MEDS: ASPIRIN 81 MG ECTAB PO SCH (08:16)
--- NOTE | 2020-06-16 08:16 | Hospitalist Progress Note ---
Date of Service June 16, 2020 Assessment & Plan (1) CHF exacerbation: 85 yo F with history of diastolic CHF, CAD, status post stent placement, aortic stenosis, diabetes, hypertension, Presenting with shortness of breath that started morning of admission. Acute on chronic CHF exacerbation, diastolic type Usually on Lasix 20 mg p.o. daily Started Lasix 40 mg IV every 12 hours on admission, will continue Potassium PO 40 mg BID Echocardiogram ordered Monitor diuresis Fluid restriction Continue metoprolol tartrate [employer] consulted Atrial fibrillation RVR Likely secondary to #1 Blood pressure stable, asymptomatic Continue usual metoprolol p.o. 100 mg in a.m., 50 mg at bedtime IV Lopressor as needed for heart rate more than 110 Chads vasc score 6--> start heparin drip standard dosing with no bolus History of CAD, status post stent placement Continue metoprolol, Crestor, aspirin Hypertension Continue amlodipine and terazosin next Diabetes type 2 Usually on glimepiride and Metformin, hold for now Start sliding scale DVT prophylaxis Will be on heparin drip Code Status : Full code per patient Disposition: Lives alone at home with caregivers Plan ff care discussed with patient and her daughter Corry at bedside in detail and at length All questions were answered They are understanding, agreeable, comfortable with the plan of care Admission and Anticipated Discharge Date Admission Date: June 15, 2020 Subjective Patient is lying in bed, in no acute distress. Currently she denies any increased shortness of breath, however she is using supplemental oxygen via nasal cannula. Has occasional cough. Denies fevers chills. Denies abdominal pain, nausea or vomiting. Review of Systems Review of Systems: All systems reviewed & are unremarkable except as noted in HPI & below Constitutional: no fever and no chills Respiratory: + cough and + dyspnea Cardiovascular: no chest pain and no palpitations Gastrointestinal: no abdominal pain, no nausea and no vomiting Physical Exam Physical Exam: General: Elderly female lying in bed, in no acute distress, WD/WN HEENT: Normocephalic, atraumatic. PERRL, EOMI, Anicteric sclera. Moist mucous membranes. Neck: No JVD. No bruit. Cardiovascular: irregularly irregular, unable to appreciate murmur, rub or gallop. Pulmonary: Poor air movement in the bilateral bases with crackles. No wheezing or rhonchi Abdomen: Bowel sounds x 4, soft. No rebound, guarding or tenderness. No organomegaly. Extremities: No clubbing, cyanosis. +1 bilateral lower extremity pitting edema. +2 pedal pulses bilaterally. Neuro: Alert and oriented x3, no facial asymmetry, speech fluent, moves all 4 extremities spontaneously Skin: Warm and dry. Results & Data Results & Data ([facility]) Vital Signs (Past 12 Hours) Vital Signs Temp Pulse Pulse Resp BP Pulse Ox 06/16/20 07:12 37.0 C 101 H 18 150/83 H 92 06/16/20 04:47 36.9 C 102 H 18 133/70 94 06/16/20 00:04 113 H 06/15/20 23:22 36.9 C 101 H 20 157/80 H 92 Laboratory Results 06/16/20 06/16/20 06/16/20 Range/Units 07:33 05:43 05:43 WBC (4.8-10.8) K/uL RBC (4.2-5.4) M/uL Hgb (12.0-16.0) g/dL Hct (37-47) % MCV (80-100) fL MCH (25-34) pg MCHC (32-36) g/dL RDW Std Deviation (36.4-46.3) fL RDW Coeff of Matt (11.5-14.5) % Plt Count (130-400) K/uL MPV (7.4-10.4) fL Immature Gran % (Auto) % Neut % (Auto) % Lymph % (Auto) % [place] % (Auto) % Eos % (Auto) % Baso % (Auto) % Neut # (Auto) (1.4-6.5) K/uL Lymph # (Auto) (1.2-3.4) K/uL [place] # (Auto) (0.11-0.59) K/uL Eos # (Auto) (0-0.5) K/uL Baso # (Auto) (0-0.2) K/uL Immature Gran # (Auto) (0.00-0.02) K/uL PT INR APTT 50.0 H* PTT Ratio 1.8 Sodium (136-145) mmol/L Potassium (3.5-5.1) mmol/L Chloride (98-107) mmol/L Carbon Dioxide (21-32) mmol/L Anion Gap (3-11) BUN (7-18) mg/dl Creatinine (0.6-1.2) mg/dl Est Cr Clr Drug Dosing ml/min Est GFR ( Amer) Est GFR (Non-Af Amer) BUN/Creatinine Ratio (10-20) Glucose (70-99) mg/dl POC Glucose 167 H (70-99) mg/dl Estimat Average Glucose 186 mg/dl Hemoglobin A1c 8.1 H (4.5-5.6) % Calcium (8.5-10.1) mg/dl Phosphorus (2.5-4.9) mg/dl Magnesium (1.8-2.4) mg/dl Total Bilirubin (0.2-1) mg/dl AST (15-37) U/L ALT (12-78) U/L Alkaline Phosphatase (45-117) U/L Troponin I (0-0.045) ng/ml NT-Pro-B Natriuret Pep (0-1800) pg/ml Total Protein (6.4-8.2) gm/dl Albumin (3.4-5.0) gm/dl Globulin (2.5-4.0) gm/dl Albumin/Globulin Ratio (0.9-2) Specimen Hemolysis Urine Color Urine Appearance (Clear) Urine pH (4.5-7.5) Ur Specific [place] (1.000-1.030) Urine Protein (Negative) Urine Glucose (UA) (Negative) Urine Ketones (Negative) Urine Blood (Negative) Urine Nitrite (Negative) Urine Bilirubin (Negative) Urine Urobilinogen (Negative) Ur Leukocyte Esterase (Negative) Urine WBC (Auto) (0-5) /hpf Urine RBC (Auto) (0-4) /hpf U Hyaline Cast (Auto) (0-5) /lpf U Epithel Cells (Auto) (0-5) /lpf Urine Bacteria (Auto) (Negative) COVID-19 Eval Order COVID-19 PCR (Negative) 06/16/20 06/16/20 06/15/20 Range/Units 05:42 05:42 Unknown WBC 13.53 H (4.8-10.8) K/uL RBC 4.04 L (4.2-5.4) M/uL Hgb 11.3 L (12.0-16.0) g/dL Hct 34.3 L (37-47) % MCV 84.9 (80-100) fL MCH 28.0 (25-34) pg MCHC 32.9 (32-36) g/dL RDW Std Deviation 47.1 H (36.4-46.3) fL RDW Coeff of Matt 15.2 H (11.5-14.5) % Plt Count 284 (130-400) K/uL MPV 10.0 (7.4-10.4) fL Immature Gran % (Auto) % Neut % (Auto) % Lymph % (Auto) % [place] % (Auto) % Eos % (Auto) % Baso % (Auto) % Neut # (Auto) (1.4-6.5) K/uL Lymph # (Auto) (1.2-3.4) K/uL [place] # (Auto) (0.11-0.59) K/uL Eos # (Auto) (0-0.5) K/uL Baso # (Auto) (0-0.2) K/uL Immature Gran # (Auto) (0.00-0.02) K/uL PT INR APTT PTT Ratio Sodium 136 (136-145) mmol/L Potassium 3.5 D (3.5-5.1) mmol/L Chloride 102 (98-107) mmol/L Carbon Dioxide 26 (21-32) mmol/L Anion Gap 8.0 (3-11) BUN 18 (7-18) mg/dl Creatinine 0.91 (0.6-1.2) mg/dl Est Cr Clr Drug Dosing 43.4 ml/min Est GFR ( Amer) 66.7 Est GFR (Non-Af Amer) 57.5 BUN/Creatinine Ratio 20.0 (10-20) Glucose 154 H (70-99) mg/dl POC Glucose (70-99) mg/dl Estimat Average Glucose mg/dl Hemoglobin A1c (4.5-5.6) % Calcium 8.6 (8.5-10.1) mg/dl Phosphorus 3.4 (2.5-4.9) mg/dl Magnesium 2.0 (1.8-2.4) mg/dl Total Bilirubin 0.7 (0.2-1) mg/dl AST 17 (15-37) U/L ALT 30 (12-78) U/L Alkaline Phosphatase 79 (45-117) U/L Troponin I (0-0.045) ng/ml NT-Pro-B Natriuret Pep (0-1800) pg/ml Total Protein 6.6 (6.4-8.2) gm/dl Albumin 3.0 L (3.4-5.0) gm/dl Globulin 3.6 (2.5-4.0) gm/dl Albumin/Globulin Ratio 0.8 L (0.9-2) Specimen Hemolysis Urine Color Yellow Urine Appearance Clear (Clear) Urine pH 7.0 (4.5-7.5) Ur Specific [place] 1.013 (1.000-1.030) Urine Protein Trace H (Negative) Urine Glucose (UA) Negative (Negative) Urine Ketones Negative (Negative) Urine Blood Negative (Negative) Urine Nitrite Negative (Negative) Urine Bilirubin Negative (Negative) Urine Urobilinogen Negative (Negative) Ur Leukocyte Esterase Negative (Negative) Urine WBC (Auto) 0 (0-5) /hpf Urine RBC (Auto) 0-4 (0-4) /hpf U Hyaline Cast (Auto) 1-5 (0-5) /lpf U Epithel Cells (Auto) 0-5 (0-5) /lpf Urine Bacteria (Auto) Negative (Negative) COVID-19 Eval Order COVID-19 PCR (Negative) 06/15/20 06/15/20 06/15/20 Range/Units 23:22 20:23 16:44 WBC (4.8-10.8) K/uL RBC (4.2-5.4) M/uL Hgb (12.0-16.0) g/dL Hct (37-47) % MCV (80-100) fL MCH (25-34) pg MCHC (32-36) g/dL RDW Std Deviation (36.4-46.3) fL RDW Coeff of Matt (11.5-14.5) % Plt Count (130-400) K/uL MPV (7.4-10.4) fL Immature Gran % (Auto) % Neut % (Auto) % Lymph % (Auto) % [place] % (Auto) % Eos % (Auto) % Baso % (Auto) % Neut # (Auto) (1.4-6.5) K/uL Lymph # (Auto) (1.2-3.4) K/uL [place] # (Auto) (0.11-0.59) K/uL Eos # (Auto) (0-0.5) K/uL Baso # (Auto) (0-0.2) K/uL Immature Gran # (Auto) (0.00-0.02) K/uL PT 11.4 INR 1.1 APTT 49.0 H* 25.8 PTT Ratio 1.8 0.9 Sodium (136-145) mmol/L Potassium (3.5-5.1) mmol/L Chloride (98-107) mmol/L Carbon Dioxide (21-32) mmol/L Anion Gap (3-11) BUN (7-18) mg/dl Creatinine (0.6-1.2) mg/dl Est Cr Clr Drug Dosing ml/min Est GFR ( Amer) Est GFR (Non-Af Amer) BUN/Creatinine Ratio (10-20) Glucose (70-99) mg/dl POC Glucose 186 H (70-99) mg/dl Estimat Average Glucose mg/dl Hemoglobin A1c (4.5-5.6) % Calcium (8.5-10.1) mg/dl Phosphorus (2.5-4.9) mg/dl Magnesium (1.8-2.4) mg/dl Total Bilirubin (0.2-1) mg/dl AST (15-37) U/L ALT (12-78) U/L Alkaline Phosphatase (45-117) U/L Troponin I (0-0.045) ng/ml NT-Pro-B Natriuret Pep (0-1800) pg/ml Total Protein (6.4-8.2) gm/dl Albumin (3.4-5.0) gm/dl Globulin (2.5-4.0) gm/dl Albumin/Globulin Ratio (0.9-2) Specimen Hemolysis Urine Color Urine Appearance (Clear) Urine pH (4.5-7.5) Ur Specific [place] (1.000-1.030) Urine Protein (Negative) Urine Glucose (UA) (Negative) Urine Ketones (Negative) Urine Blood (Negative) Urine Nitrite (Negative) Urine Bilirubin (Negative) Urine Urobilinogen (Negative) Ur Leukocyte Esterase (Negative) Urine WBC (Auto) (0-5) /hpf Urine RBC (Auto) (0-4) /hpf U Hyaline Cast (Auto) (0-5) /lpf U Epithel Cells (Auto) (0-5) /lpf Urine Bacteria (Auto) (Negative) COVID-19 Eval Order COVID-19 PCR (Negative) 06/15/20 06/15/20 06/15/20 Range/Units 16:37 12:28 12:00 WBC (4.8-10.8) K/uL RBC (4.2-5.4) M/uL Hgb (12.0-16.0) g/dL Hct (37-47) % MCV (80-100) fL MCH (25-34) pg MCHC (32-36) g/dL RDW Std Deviation (36.4-46.3) fL RDW Coeff of Matt (11.5-14.5) % Plt Count (130-400) K/uL MPV (7.4-10.4) fL Immature Gran % (Auto) % Neut % (Auto) % Lymph % (Auto) % [place] % (Auto) % Eos % (Auto) % Baso % (Auto) % Neut # (Auto) (1.4-6.5) K/uL Lymph # (Auto) (1.2-3.4) K/uL [place] # (Auto) (0.11-0.59) K/uL Eos # (Auto) (0-0.5) K/uL Baso # (Auto) (0-0.2) K/uL Immature Gran # (Auto) (0.00-0.02) K/uL PT Cancelled INR Cancelled APTT Cancelled PTT Ratio Cancelled Sodium (136-145) mmol/L Potassium (3.5-5.1) mmol/L Chloride (98-107) mmol/L Carbon Dioxide (21-32) mmol/L Anion Gap (3-11) BUN (7-18) mg/dl Creatinine (0.6-1.2) mg/dl Est Cr Clr Drug Dosing ml/min Est GFR ( Amer) Est GFR (Non-Af Amer) BUN/Creatinine Ratio (10-20) Glucose (70-99) mg/dl POC Glucose 177 H (70-99) mg/dl Estimat Average Glucose mg/dl Hemoglobin A1c (4.5-5.6) % Calcium (8.5-10.1) mg/dl Phosphorus (2.5-4.9) mg/dl Magnesium (1.8-2.4) mg/dl Total Bilirubin (0.2-1) mg/dl AST (15-37) U/L ALT (12-78) U/L Alkaline Phosphatase (45-117) U/L Troponin I (0-0.045) ng/ml NT-Pro-B Natriuret Pep (0-1800) pg/ml Total Protein (6.4-8.2) gm/dl Albumin (3.4-5.0) gm/dl Globulin (2.5-4.0) gm/dl Albumin/Globulin Ratio (0.9-2) Specimen Hemolysis Urine Color Urine Appearance (Clear) Urine pH (4.5-7.5) Ur Specific [place] (1.000-1.030) Urine Protein (Negative) Urine Glucose (UA) (Negative) Urine Ketones (Negative) Urine Blood (Negative) Urine Nitrite (Negative) Urine Bilirubin (Negative) Urine Urobilinogen (Negative) Ur Leukocyte Esterase (Negative) Urine WBC (Auto) (0-5) /hpf Urine RBC (Auto) (0-4) /hpf U Hyaline Cast (Auto) (0-5) /lpf U Epithel Cells (Auto) (0-5) /lpf Urine Bacteria (Auto) (Negative) COVID-19 Eval Order COVID-19 PCR NEGATIVE (Negative) 06/15/20 06/15/20 06/15/20 Range/Units 12:00 11:41 11:41 WBC (4.8-10.8) K/uL RBC (4.2-5.4) M/uL Hgb (12.0-16.0) g/dL Hct (37-47) % MCV (80-100) fL MCH (25-34) pg MCHC (32-36) g/dL RDW Std Deviation (36.4-46.3) fL RDW Coeff of Matt (11.5-14.5) % Plt Count (130-400) K/uL MPV (7.4-10.4) fL Immature Gran % (Auto) % Neut % (Auto) % Lymph % (Auto) % [place] % (Auto) % Eos % (Auto) % Baso % (Auto) % Neut # (Auto) (1.4-6.5) K/uL Lymph # (Auto) (1.2-3.4) K/uL [place] # (Auto) (0.11-0.59) K/uL Eos # (Auto) (0-0.5) K/uL Baso # (Auto) (0-0.2) K/uL Immature Gran # (Auto) (0.00-0.02) K/uL PT Cancelled INR Cancelled APTT Cancelled PTT Ratio Cancelled Sodium 134 L (136-145) mmol/L Potassium 4.8 (3.5-5.1) mmol/L Chloride 102 (98-107) mmol/L Carbon Dioxide 23 (21-32) mmol/L Anion Gap 9.0 (3-11) BUN 21 H (7-18) mg/dl Creatinine 1.11 (0.6-1.2) mg/dl Est Cr Clr Drug Dosing 38.3 ml/min Est GFR ( Amer) 52.4 Est GFR (Non-Af Amer) 45.2 BUN/Creatinine Ratio 18.6 (10-20) Glucose 245 H (70-99) mg/dl POC Glucose (70-99) mg/dl Estimat Average Glucose mg/dl Hemoglobin A1c (4.5-5.6) % Calcium 9.2 (8.5-10.1) mg/dl Phosphorus (2.5-4.9) mg/dl Magnesium 2.2 (1.8-2.4) mg/dl Total Bilirubin 0.8 (0.2-1) mg/dl AST 27 (15-37) U/L ALT 39 (12-78) U/L Alkaline Phosphatase 94 (45-117) U/L Troponin I < 0.015 (0-0.045) ng/ml NT-Pro-B Natriuret Pep 5803 H (0-1800) pg/ml Total Protein 8.2 (6.4-8.2) gm/dl Albumin 3.6 (3.4-5.0) gm/dl Globulin 4.6 H (2.5-4.0) gm/dl Albumin/Globulin Ratio 0.8 L (0.9-2) Specimen Hemolysis Urine Color Urine Appearance (Clear) Urine pH (4.5-7.5) Ur Specific [place] (1.000-1.030) Urine Protein (Negative) Urine Glucose (UA) (Negative) Urine Ketones (Negative) Urine Blood (Negative) Urine Nitrite (Negative) Urine Bilirubin (Negative) Urine Urobilinogen (Negative) Ur Leukocyte Esterase (Negative) Urine WBC (Auto) (0-5) /hpf Urine RBC (Auto) (0-4) /hpf U Hyaline Cast (Auto) (0-5) /lpf U Epithel Cells (Auto) (0-5) /lpf Urine Bacteria (Auto) (Negative) COVID-19 Eval Order Covid19 Done at [facility] COVID-19 PCR (Negative) 06/15/20 Range/Units 11:41 WBC 16.20 H (4.8-10.8) K/uL RBC 4.49 (4.2-5.4) M/uL Hgb 12.8 (12.0-16.0) g/dL Hct 38.4 (37-47) % MCV 85.5 (80-100) fL MCH 28.5 (25-34) pg MCHC 33.3 (32-36) g/dL RDW Std Deviation 47.4 H (36.4-46.3) fL RDW Coeff of Matt 15.2 H (11.5-14.5) % Plt Count 317 (130-400) K/uL MPV 10.3 (7.4-10.4) fL Immature Gran % (Auto) 0.4 % Neut % (Auto) 79.7 % Lymph % (Auto) 11.7 % [place] % (Auto) 8.0 % Eos % (Auto) 0.1 % Baso % (Auto) 0.1 % Neut # (Auto) 12.91 H (1.4-6.5) K/uL Lymph # (Auto) 1.89 (1.2-3.4) K/uL [place] # (Auto) 1.30 H (0.11-0.59) K/uL Eos # (Auto) 0.01 (0-0.5) K/uL Baso # (Auto) 0.02 (0-0.2) K/uL Immature Gran # (Auto) 0.07 H (0.00-0.02) K/uL PT INR APTT PTT Ratio Sodium (136-145) mmol/L Potassium (3.5-5.1) mmol/L Chloride (98-107) mmol/L Carbon Dioxide (21-32) mmol/L Anion Gap (3-11) BUN (7-18) mg/dl Creatinine (0.6-1.2) mg/dl Est Cr Clr Drug Dosing ml/min Est GFR ( Amer) Est GFR (Non-Af Amer) BUN/Creatinine Ratio (10-20) Glucose (70-99) mg/dl POC Glucose (70-99) mg/dl Estimat Average Glucose mg/dl Hemoglobin A1c (4.5-5.6) % Calcium (8.5-10.1) mg/dl Phosphorus (2.5-4.9) mg/dl Magnesium (1.8-2.4) mg/dl Total Bilirubin (0.2-1) mg/dl AST (15-37) U/L ALT (12-78) U/L Alkaline Phosphatase (45-117) U/L Troponin I (0-0.045) ng/ml NT-Pro-B Natriuret Pep (0-1800) pg/ml Total Protein (6.4-8.2) gm/dl Albumin (3.4-5.0) gm/dl Globulin (2.5-4.0) gm/dl Albumin/Globulin Ratio (0.9-2) Specimen Hemolysis Urine Color Urine Appearance (Clear) Urine pH (4.5-7.5) Ur Specific [place] (1.000-1.030) Urine Protein (Negative) Urine Glucose (UA) (Negative) Urine Ketones (Negative) Urine Blood (Negative) Urine Nitrite (Negative) Urine Bilirubin (Negative) Urine Urobilinogen (Negative) Ur Leukocyte Esterase (Negative) Urine WBC (Auto) (0-5) /hpf Urine RBC (Auto) (0-4) /hpf U Hyaline Cast (Auto) (0-5) /lpf U Epithel Cells (Auto) (0-5) /lpf Urine Bacteria (Auto) (Negative) COVID-19 Eval Order COVID-19 PCR (Negative) Medications Administered Current Inpatient Medications Acetaminophen (Acetaminophen 325 Mg Tab) 650 mg PO Q4H PRN PRN Reason: Pain or Fever Stop: 07/15/20 15:17 Amlodipine Besylate (Amlodipine Besylate 5 Mg Tab) 10 mg PO [facility] Stop: 07/16/20 08:59 Last Admin: 06/16/20 08:15 Dose: 10 mg Documented by: Aspirin (Aspirin 81 Mg Ectab) [facility] Stop: 07/16/20 08:59 Last Admin: 06/16/20 08:16 Dose: 81 mg Documented by: Dextrose (Dextrose 50% 50 Ml Syringe) 25 - 50 ml IV UD PRN; Protocol PRN Reason: Hypoglycemia Protocol Stop: 07/15/20 15:17 Ezetimibe (Ezetimibe 10 Mg Tablet) 10 mg PO [facility] Stop: 07/16/20 08:59 Last Admin: 06/16/20 08:15 Dose: 10 mg Documented by: Glucagon (Glucagon For Inj 1 Mg Vial) 1 mg SQ UD PRN; Protocol PRN Reason: Hypoglycemia Protocol Stop: 07/15/20 15:17 Glucose (Glucose 10 Tabs/Tube) 4 - 8 tabs PO UD PRN; Protocol PRN Reason: Hypoglycemia Protocol Stop: 07/15/20 15:17 Glucose (Glucose 40% Gel 15 Gm Tube) 15 - 30 gm PO UD PRN; Protocol PRN Reason: Hypoglycemia Protocol Stop: 07/15/20 15:17 Heparin Sodium/Dextrose (Heparin Sodium/Dextrose) 25,000 units in 500 mls @ 23 mls/hr IV .[id number] [facility]; Protocol Stop: 07/15/20 15:17 Last Titration: 06/16/20 07:05 Dose: 1,150 units/hr, 23 mls/hr Documented by: Furosemide 40 mg/ Syringe 4 mls @ 4 mls/min IV Q12H [facility] Stop: 07/15/20 19:59 Last Admin: 06/16/20 08:17 Dose: 4 mls/min Documented by: Insulin Aspart (Insulin Aspart 100 Units/Ml 3 Ml Pen) 0 units SC ACHS [facility] Stop: 07/15/20 16:29 Last Admin: 06/16/20 08:18 Dose: 5 units Documented by: Insulin Glargine (Insulin Glargine Solostar 100 Units/Ml 3 Ml Pen) 8 units SC BID [facility]; Protocol Stop: 07/16/20 08:59 Last Admin: 06/16/20 08:17 Dose: 8 units Documented by: Lisinopril (Lisinopril 20 Mg Tab) 20 mg PO BID [facility] Stop: 07/15/20 20:59 Last Admin: 06/16/20 08:15 Dose: 20 mg Documented by: Metoprolol Tartrate (Metoprolol Tartrate 1 Mg/Ml Vial) 5 mg IV Q6 PRN PRN Reason: HR > 110 Stop: 07/15/20 15:17 Last Admin: 06/15/20 19:04 Dose: 5 mg Documented by: Metoprolol Tartrate (Metoprolol Tartrate 50 Mg Tab) 50 mg PO PM [facility] Stop: 07/15/20 20:59 Last Admin: 06/15/20 20:23 Dose: 50 mg Documented by: Metoprolol Tartrate (Metoprolol Tartrate 100 Mg Tab) 100 mg PO QAM [facility] Stop: 07/16/20 08:59 Last Admin: 06/16/20 08:16 Dose: 100 mg Documented by: Miscellaneous (Carbohydrates For Hypoglycemia ) 15 - 30 gm PO UD PRN PRN Reason: Hypoglycemia Protocol Stop: 07/15/20 15:17 Miscellaneous Information (Pharmacy Glycemic Mgmt Consult) 1 ea N/A UD PRN PRN Reason: Consult Stop: 07/15/20 15:39 Potassium Chloride (Potassium Chloride 20 Meq Tabcr) 40 meq PO BID [facility] Stop: 07/16/20 09:29 Potassium Chloride (Potassium Chloride 20 Meq Tabcr) 40 meq PO NOW STA Stop: 06/16/20 09:36 Rosuvastatin Calcium (Rosuvastatin Calcium 20 Mg Tab) 40 mg PO PM [facility] Stop: 07/15/20 20:59 Last Admin: 06/15/20 20:21 Dose: 40 mg Documented by: Triamcinolone Acetonide (Triamcinolone Acet 0.1% Oint 15 Gm Tube) 1 appln TOP BID [facility] Stop: 07/15/20 20:59 Last Admin: 06/16/20 08:25 Dose: 1 appln Documented by:
[2020-06-16] MEDS: FUROSEMIDE 40 MG in SYRINGE 0 ML IV SCH ×2 (08:17→19:44)
[2020-06-16] MEDS: INSULIN GLARGINE SOLOSTAR 100 UNITS/ML 3 ML PEN SC SCH ×2 (08:17→20:46)
[2020-06-16] MEDS: INSULIN ASPART 100 UNITS/ML 3 ML PEN SC SCH ×4 (08:18→20:47)
[2020-06-16] MEDS: TRIAMCINOLONE ACET 0.1% OINT 15 GM TUBE TOP SCH ×2 (08:25→19:51)
[2020-06-16 08:36] LABS: Hematocrit (blood only) 34.3 % (37-47); Hemoglobin 11.3 g/dL (12.0-16.0); Mean Corpuscular Hgb Conc 32.9 g/dL (32-36); Mean Corpuscular Volume 84.9 fL (80-100); Platelet Count 284 K/uL (130-400); RDW Coefficient of Variation 15.2 % (11.5-14.5); RDW Standard Deviation 47.1 fL (36.4-46.3); Red Blood Count 4.04 M/uL (4.2-5.4); White Blood Count 13.53 K/uL (4.8-10.8)
[2020-06-16] MEDS ORDERED: amLODIPine BESYLATE 5 MG TAB PO SCH (09:00)
[2020-06-16] MEDS ORDERED: METOPROLOL TARTRATE 100 MG TAB PO SCH (09:00)
[2020-06-16 09:24] LABS: Albumin Globulin Ratio 0.8 (0.9-2); Bilirubin,Total 0.7 mg/dl (0.2-1); Calcium 8.6 mg/dl (8.5-10.1); Creatinine Clr Calc Pharmacy 43.4 ml/min; Est GFR (African American) 66.7; Est GFR (Non-African American) 57.5; Globulin 3.6 gm/dl (2.5-4.0); Phosphorus 3.4 mg/dl (2.5-4.9); Potassium 3.5 mmol/L (3.5-5.1); Total Protein 6.6 gm/dl (6.4-8.2)
[2020-06-16] MEDS ORDERED: POTASSIUM CHLORIDE CRTAB 20 MEQ TABCR PO STA (09:35)
--- NOTE | 2020-06-16 09:54 | Cardiology Consultation ---
Date of Consultation June 16, 2020 Assessment & Plan (1) CHF exacerbation: (2) Atrial fibrillation with RVR: (3) Hypertension: (4) Chronic venous insufficiency: (5) Aortic stenosis: (6) Mitral regurgitation: (7) Cardiomyopathy: The patient does have remote history of atrial fibrillation. She is asymptomatic from an atrial fibrillation standpoint but my suspicion is that she went into AFib resulting in her decompensation. Echocardiogram shows unchanged valvular disease with mildly reduced LV systolic function, likely due to tachycardia. No sign of active ischemia. Agree with Lasix 40 mg IV twice daily. Continue strict I's and O's. Will supplement potassium as well. Will hold amlodipine going forward in [place] she may need Cardizem for further rate control. Continue current dose of metoprolol but may need to be uptitrated as necessary for rate control. Continue to follow on telemetry. History of Present Illness Reason for Consultation: Atrial fibrillation with rapid ventricular response and acute decompensated heart failure Requesting Physician: Dr. Madrid Attending Physician: Anup Bach MD History of Present Illness It was my pleasure to see Mrs. Mckinley in consultation today June 16, 2020. She is a very pleasant 85-year-old woman who normally follows with Dr. Giordano and Sergio Davila of our Cardiology practice. She presented to [facility] on June 15, 2020 with complaints of shortness of breath. She states that she has been in her normal state of health as of late but the day before presentation someone told her that she appeared to be breathing heavy year. She states that she did notice at that point but over the next several hours she started to become significantly winded. She denied experiencing any concomitant chest pain, palpitations, lightheadedness or dizziness. She tried to take her p.r.n. Lasix at home without any significant benefit. Upon arrival to the emergency department she was found to be significantly volume overloaded and in atrial fibrillation with rapid ventricular response. She was given IV Lasix and states that her breathing is significantly improved since admission. She continues to deny any chest pain or palpitations. Past medical history as per most recent outpatient visit: 1. Chronic multifactorial fluid overload - diastolic congestive heart failure, venous insufficiency, medications. 2. Intolerance to torsemide (dizziness) as well as chlorthalidone and hydrochlorothiazide (hyponatremia). 3. Aortic stenosis. Mild via May 2018 and April 2019 resting echocardiogram. 4. Mildly enlarged aortic root. 5. Hypertension. 6. ASCVD. History of postoperative non-ST elevation myocardial infarction in July 2010. Status post bare metal stenting to critical proximal circumflex lesion. Residual coronary artery disease with a 50% ostial LAD lesion as well as a 40% mid RCA lesion. Stable. 7. Paroxysmal atrial fibrillation in setting of severe sepsis during hospitalization 02/2016. Without documented recurrence. 8. Dyslipidemia. LDL goal less than 70 mg/dL. Zetia 10 mg/day added on 05/22/2019. 9. Carotid artery disease. Duplex in July 2014 revealed mild bilateral internal carotid artery disease. Carotid duplex on May 22, 2019 revealed moderate (50 to 69%) right internal carotid artery stenosis and mild (less than 50%) left internal carotid artery stenosis. 10. Type II diabetes mellitus. Followed by PCP Allergies Allergy/AdvReac Type Severity Reaction Status Date / Time itraconazole Allergy Intermediate HIVES Verified 06/15/20 12:26 Iodinated Contrast Media Allergy Unknown ` Verified 06/15/20 12:26 codeine AdvReac Mild N/V Verified 06/15/20 12:26 morphine AdvReac Mild N/V Verified 06/15/20 12:26 Imidazole Antifungals Allergy Unknown . Uncoded 06/15/20 12:26 Home Medications Home Medications Medication Instructions Recorded Confirmed Type lisinopril 20 mg PO BID #0 06/24/10 06/15/20 History metoprolol tartrate 50 mg PO PM #0 06/24/10 06/15/20 History metoprolol tartrate 100 mg PO QAM #0 06/24/10 06/15/20 History acetaminophen [Tylenol Extra 500 mg PO HS #0 09/04/10 06/15/20 History Strength] aspirin 81 mg PO QAM 30 Days #30 tab 02/27/16 06/15/20 History nitroglycerin [Nitrostat] 0.4 mg BUCCAL DIRECTED PRN #0 02/27/16 06/15/20 History btl rosuvastatin 40 mg PO PM #0 tab 02/27/16 06/15/20 History amlodipine 10 mg PO QAM 06/15/20 06/15/20 History ezetimibe 10 mg PO QAM 06/15/20 06/15/20 History metformin 1,000 mg PO BID 06/15/20 06/15/20 History triamcinolone acetonide 1 applic TOPICAL BID 06/15/20 06/15/20 History Patient History Medical History Hypertension Myocardial infarction Social History Smoking Status: Never smoker Hx Alcohol Use: No Hx Substance Use: No Preferred Language: Serbian Communication Ability: Effective Company Dancer Required: No Beliefs That Will Affect Care: None Current Living Situation: Alone Other Information That Helps Us Care for You: No Feels Safe at Home: Yes Assistive Devices: Walker Review of Systems Review of Systems: All systems reviewed & are unremarkable except as noted in HPI & below Physical Exam Physical Exam: General: Awake, alert and oriented x 3. No acute distress. HEENT: Normocephalic, atraumatic. Pupils equal, round and reactive to light and accommodation. Extraocular muscles are intact. Anicteric sclera. Moist mucous membranes. Neck: No JVD. No bruit. Cardiovascular: irregularly irregular, unable to appreciate murmur, rub or gallop. Pulmonary: Poor air movement in the bilateral bases with crackles. No wheezing or rhonchi Abdomen: Bowel sounds x 4, soft. No rebound, guarding or tenderness. No organomegaly. Extremities: No clubbing, cyanosis. Plus one bilateral lower extremity pitting edema. +2 pedal pulses bilaterally. Skin: Warm and dry. Results & Data ([facility]) Vital Signs (Past 12 Hours) Vital Signs Temp Pulse Pulse Resp BP Pulse Ox 06/16/20 09:26 96 H 06/16/20 07:12 37.0 C 101 H 18 150/83 H 92 06/16/20 04:47 36.9 C 102 H 18 133/70 94 06/16/20 00:04 113 H 06/15/20 23:22 36.9 C 101 H 20 157/80 H 92
[2020-06-16] MEDS ORDERED: MAGNESIUM OXIDE 400 MG TAB PO ONE (10:00)
[2020-06-16] MEDS: POTASSIUM CHLORIDE CRTAB 20 MEQ TABCR PO SCH ×2 (11:17→19:51)
[2020-06-16] MEDS: HEPARIN SODIUM/DEXTROSE 25,000 UNITS/500 ML BAG IV SCH (16:44)
[2020-06-16] MEDS: ROSUVASTATIN CALCIUM 20 MG TAB PO SCH (19:50)
[2020-06-16] MEDS: METOPROLOL TARTRATE 50 MG TAB PO SCH (19:51)
[2020-06-17] MEDS: METOPROLOL TARTRATE 1 MG/ML VIAL IV PRN (01:10)
[2020-06-17] MEDS ORDERED: MAGNESIUM SULFATE / D5W 1 GM/100 ML BAG IV ONE (02:24)
[2020-06-17] MEDS ORDERED: POTASSIUM CHLORIDE 10 MEQ TABCR PO STA (02:24)
[2020-06-17] MEDS ORDERED: dilTIAZem HCl 5 MG/ML 5 ML VIAL IV STA (02:27)
[2020-06-17 03:07] LABS: Basophils # (auto) 0.02 K/uL (0-0.2); Basophils % (auto) 0.1 %; Hematocrit (blood only) 34.7 % (37-47); Hemoglobin 11.6 g/dL (12.0-16.0); Immature Granulocytes # (auto) 0.06 K/uL (0.00-0.02); Immature Granulocytes % (auto) 0.3 %; Lymphocytes # (auto) 1.95 K/uL (1.2-3.4); Lymphocytes % (auto) 10.8 %; Mean Corpuscular Hemoglobin 28.4 pg (25-34); Mean Corpuscular Hgb Conc 33.4 g/dL (32-36); Mean Platelet Volume 9.8 fL (7.4-10.4); Monocytes # (auto) 2.35 K/uL (0.11-0.59); Neutrophils # (auto) 13.68 K/uL (1.4-6.5); Neutrophils % (auto) 75.8 %; Platelet Count 307 K/uL (130-400); RDW Coefficient of Variation 15.3 % (11.5-14.5); RDW Standard Deviation 47.8 fL (36.4-46.3); Red Blood Count 4.08 M/uL (4.2-5.4); White Blood Count 18.06 K/uL (4.8-10.8)
[2020-06-17 03:26] LABS: BUN Creatinine Ratio 19.4 (10-20); Calcium 8.6 mg/dl (8.5-10.1); Est GFR (African American) 56.7; Magnesium 2.1 mg/dl (1.8-2.4); Phosphorus 2.9 mg/dl (2.5-4.9); Potassium 4.1 mmol/L (3.5-5.1)
[2020-06-17] MEDS ORDERED: DOXYCYCLINE HYCLATE 100 MG in DEXTROSE 5% 100 ML IV STA (03:28)
[2020-06-17 03:30] LABS: Partial Thromboplastin Ratio 1.6; Partial Thromboplastin Time 44.7 Seconds (21.0-31.0)
[2020-06-17] MEDS ORDERED: HEPARIN IV BOLUS 3,000 UNITS in SYRINGE 0 ML IV ONE (04:15)
--- NOTE | 2020-06-17 07:18 | Communication Note ---
Date of Service: June 17, 2020 Rapid A. fib overnight. Patient comfortable as per RN. No cough symptoms reported as per RN. AP Rapid A. fib Possible sepsis secondary to atypical pneumonia (cough symptoms as per HP, increasing white count, possible bibasilar infiltrates on chest x-ray) Cardizem bolus 1 dose now Increase Lopressor dosing to 100 twice daily Doxycycline for possible atypical pneumonia Will relay to AM provider.
--- NOTE | 2020-06-17 07:41 | Hospitalist Progress Note ---
Date of Service June 17, 2020 Assessment & Plan (1) CHF exacerbation: 85 yo F with history of diastolic CHF, CAD, status post stent placement, aortic stenosis, diabetes, hypertension, Presenting with shortness of breath that started morning of admission. Acute on chronic CHF exacerbation, diastolic type Usually on Lasix 20 mg p.o. daily Started Lasix 40 mg IV every 12 hours on admission, will hold now in the setting of possible infection Potassium PO 40 mg BID Echocardiogram obtained -shows severe concentric LVH, mildly reduced LV systolic function with mild global hypokinesis EF 45 to 50%. Grade 3 diastolic dysfunction. Aortic valve poorly visualized, moderately calcified with mild aortic stenosis and moderate aortic regurg. Mild mitral regurg. Severe left atrial enlargement. Monitor diuresis Fluid restriction Continue metoprolol tartrate Internet Marketing Executive consulted -given continued tachycardia, Cardizem started Leukocytosis White blood cell count is now 18,000 (up from 13K), concern for possible pneumonia/sepsis Patient started on antibiotic coverage for community-acquired pneumonia, ceftriaxone and doxycycline Procalcitonin and lactic acid ordered Repeat chest x-ray ordered Continue to closely monitor Atrial fibrillation RVR Likely secondary to #1/ #2 Blood pressure stable, asymptomatic Continue usual metoprolol p.o. 100 mg in a.m., 50 mg at bedtime IV Lopressor as needed for heart rate more than 110 Chads vasc score 6--> start heparin drip standard dosing with no bolus Metoprolol now increased per cardiology, also patient started on Cardizem took control heart rate (06/17) History of CAD, status post stent placement Continue metoprolol, Crestor, aspirin Hypertension Continue amlodipine and terazosin next Diabetes type 2 Usually on glimepiride and Metformin, hold for now Cont. sliding scale DVT prophylaxis Will be on heparin drip Code Status : Full code per patient Disposition: Lives alone at home with caregivers Admission and Anticipated Discharge Date Admission Date: June 15, 2020 Subjective Overnight patient became more tachycardic, also leukocytosis worsened. Concern for possible underlying pneumonia/sepsis. Started on doxycycline by systems engineering manager. We will repeat chest x-ray, and ceftriaxone for now, obtain procalcitonin, and lactic acid. Patient denies any complaints, however she looks short of breath. She is tachypneic. Continues to be tachycardic. Cardizem started by cardiology to slow down the heart rate. Patient denies any fevers chills, chest pain, palpitations. Abdominal pain, nausea or vomiting. Review of Systems Review of Systems: All systems reviewed & are unremarkable except as noted in HPI & below Constitutional: no fever and no chills Respiratory: + cough and + dyspnea Cardiovascular: no chest pain and no palpitations Gastrointestinal: no abdominal pain, no nausea and no vomiting Physical Exam Physical Exam: General: Elderly female lying in bed, in no acute distress, WD/WN HEENT: Normocephalic, atraumatic. PERRL, EOMI, Anicteric sclera. Moist mucous membranes. Neck: No JVD. No bruit. Cardiovascular: + tachycardic, irregularly irregular, unable to appreciate murmur, rub or gallop. Pulmonary: Poor air movement in the bilateral bases with crackles. No wheezing or rhonchi Abdomen: Bowel sounds x 4, soft. No rebound, guarding or tenderness. No organomegaly. Extremities: No clubbing, cyanosis. +1 bilateral lower extremity pitting edema. +2 pedal pulses bilaterally. Neuro: Alert and oriented x3, no facial asymmetry, speech fluent, moves all 4 extremities spontaneously Skin: Warm and dry. Results & Data Results & Data ([facility]) Vital Signs (Past 12 Hours) Vital Signs Temp Pulse Pulse Resp BP BP Pulse Ox 06/17/20 04:00 37.2 C 130 H 26 H 123/76 91 06/17/20 01:10 125 H 120/70 06/17/20 00:06 93 H 06/16/20 21:46 37.3 C 97 H 18 120/70 92 Laboratory Results 06/17/20 06/17/20 06/17/20 Range/Units 02:45 02:45 02:45 WBC 18.06 H (4.8-10.8) K/uL RBC 4.08 L (4.2-5.4) M/uL Hgb 11.6 L (12.0-16.0) g/dL Hct 34.7 L (37-47) % MCV 85.0 (80-100) fL MCH 28.4 (25-34) pg MCHC 33.4 (32-36) g/dL RDW Std Deviation 47.8 H (36.4-46.3) fL RDW Coeff of Matt 15.3 H (11.5-14.5) % Plt Count 307 (130-400) K/uL MPV 9.8 (7.4-10.4) fL Immature Gran % (Auto) 0.3 % Neut % (Auto) 75.8 % Lymph % (Auto) 10.8 % [place] % (Auto) 13.0 % Eos % (Auto) 0.0 % Baso % (Auto) 0.1 % Neut # (Auto) 13.68 H (1.4-6.5) K/uL Lymph # (Auto) 1.95 (1.2-3.4) K/uL [place] # (Auto) 2.35 H (0.11-0.59) K/uL Eos # (Auto) 0.00 (0-0.5) K/uL Baso # (Auto) 0.02 (0-0.2) K/uL Immature Gran # (Auto) 0.06 H (0.00-0.02) K/uL APTT 44.7 H (21.0-31.0) Seconds PTT Ratio 1.6 Sodium 138 (136-145) mmol/L Potassium 4.1 D (3.5-5.1) mmol/L Chloride 105 (98-107) mmol/L Carbon Dioxide 26 (21-32) mmol/L Anion Gap 7.0 (3-11) BUN 20 H (7-18) mg/dl Creatinine 1.04 (0.6-1.2) mg/dl Est Cr Clr Drug Dosing 38.0 ml/min Est GFR ( Amer) 56.7 Est GFR (Non-Af Amer) 49.0 BUN/Creatinine Ratio 19.4 (10-20) Glucose 154 H (70-99) mg/dl POC Glucose (70-99) mg/dl Calcium 8.6 (8.5-10.1) mg/dl Phosphorus 2.9 (2.5-4.9) mg/dl Magnesium 2.1 (1.8-2.4) mg/dl Total Bilirubin (0.2-1) mg/dl AST (15-37) U/L ALT (12-78) U/L Alkaline Phosphatase (45-117) U/L Total Protein (6.4-8.2) gm/dl Albumin (3.4-5.0) gm/dl Globulin (2.5-4.0) gm/dl Albumin/Globulin Ratio (0.9-2) 06/16/20 06/16/20 06/16/20 Range/Units 19:47 16:35 11:33 WBC (4.8-10.8) K/uL RBC (4.2-5.4) M/uL Hgb (12.0-16.0) g/dL Hct (37-47) % MCV (80-100) fL MCH (25-34) pg MCHC (32-36) g/dL RDW Std Deviation (36.4-46.3) fL RDW Coeff of Matt (11.5-14.5) % Plt Count (130-400) K/uL MPV (7.4-10.4) fL Immature Gran % (Auto) % Neut % (Auto) % Lymph % (Auto) % [place] % (Auto) % Eos % (Auto) % Baso % (Auto) % Neut # (Auto) (1.4-6.5) K/uL Lymph # (Auto) (1.2-3.4) K/uL [place] # (Auto) (0.11-0.59) K/uL Eos # (Auto) (0-0.5) K/uL Baso # (Auto) (0-0.2) K/uL Immature Gran # (Auto) (0.00-0.02) K/uL APTT (21.0-31.0) Seconds PTT Ratio Sodium (136-145) mmol/L Potassium (3.5-5.1) mmol/L Chloride (98-107) mmol/L Carbon Dioxide (21-32) mmol/L Anion Gap (3-11) BUN (7-18) mg/dl Creatinine (0.6-1.2) mg/dl Est Cr Clr Drug Dosing ml/min Est GFR ( Amer) Est GFR (Non-Af Amer) BUN/Creatinine Ratio (-20) Glucose (70-99) mg/dl POC Glucose 221 H 144 H 174 H (70-99) mg/dl Calcium (8.5-10.1) mg/dl Phosphorus (2.5-4.9) mg/dl Magnesium (1.8-2.4) mg/dl Total Bilirubin (0.2-1) mg/dl AST (15-37) U/L ALT (12-78) U/L Alkaline Phosphatase (45-117) U/L Total Protein (6.4-8.2) gm/dl Albumin (3.4-5.0) gm/dl Globulin (2.5-4.0) gm/dl Albumin/Globulin Ratio (0.9-2) 06/16/20 06/16/20 Range/Units 05:42 05:42 WBC 13.53 H (4.8-10.8) K/uL RBC 4.04 L (4.2-5.4) M/uL Hgb 11.3 L (12.0-16.0) g/dL Hct 34.3 L (37-47) % MCV 84.9 (80-100) fL MCH 28.0 (25-34) pg MCHC 32.9 (32-36) g/dL RDW Std Deviation 47.1 H (36.4-46.3) fL RDW Coeff of Matt 15.2 H (11.5-14.5) % Plt Count 284 (130-400) K/uL MPV 10.0 (7.4-10.4) fL Immature Gran % (Auto) % Neut % (Auto) % Lymph % (Auto) % [place] % (Auto) % Eos % (Auto) % Baso % (Auto) % Neut # (Auto) (1.4-6.5) K/uL Lymph # (Auto) (1.2-3.4) K/uL [place] # (Auto) (0.11-0.59) K/uL Eos # (Auto) (0-0.5) K/uL Baso # (Auto) (0-0.2) K/uL Immature Gran # (Auto) (0.00-0.02) K/uL APTT (21.0-31.0) Seconds PTT Ratio Sodium 136 (136-145) mmol/L Potassium 3.5 D (3.5-5.1) mmol/L Chloride 102 (98-107) mmol/L Carbon Dioxide 26 (21-32) mmol/L Anion Gap 8.0 (3-11) BUN 18 (7-18) mg/dl Creatinine 0.91 (0.6-1.2) mg/dl Est Cr Clr Drug Dosing 43.4 ml/min Est GFR ( Amer) 66.7 Est GFR (Non-Af Amer) 57.5 BUN/Creatinine Ratio 20.0 (10-20) Glucose 154 H (70-99) mg/dl POC Glucose (70-99) mg/dl Calcium 8.6 (8.5-10.1) mg/dl Phosphorus 3.4 (2.5-4.9) mg/dl Magnesium 2.0 (1.8-2.4) mg/dl Total Bilirubin 0.7 (0.2-1) mg/dl AST 17 (15-37) U/L ALT 30 (12-78) U/L Alkaline Phosphatase 79 (45-117) U/L Total Protein 6.6 (6.4-8.2) gm/dl Albumin 3.0 L (3.4-5.0) gm/dl Globulin 3.6 (2.5-4.0) gm/dl Albumin/Globulin Ratio 0.8 L (0.9-2) Medications Administered Current Inpatient Medications Acetaminophen (Acetaminophen 325 Mg Tab) 650 mg PO Q4H PRN PRN Reason: Pain or Fever Stop: 07/15/20 15:17 Amlodipine Besylate (Amlodipine Besylate 5 Mg Tab) [facility] Stop: 07/16/20 08:59 Last Admin: 06/16/20 08:15 Dose: 10 mg Documented by: Aspirin (Aspirin 81 Mg Ectab) 81 mg PO QAM [facility] Stop: 07/16/20 08:59 Last Admin: 06/16/20 08:16 Dose: 81 mg Documented by: Dextrose (Dextrose 50% 50 Ml Syringe) 25 - 50 ml IV UD PRN; Protocol PRN Reason: Hypoglycemia Protocol Stop: 07/15/20 15:17 Doxycycline Hyclate (Doxycycline Hyclate 100 Mg Cap) 100 mg PO BID [facility] Stop: 06/24/20 20:59 Ezetimibe (Ezetimibe 10 Mg Tablet) 10 mg PO QAM [facility] Stop: 07/16/20 08:59 Last Admin: 06/16/20 08:15 Dose: 10 mg Documented by: Glucagon (Glucagon For Inj 1 Mg Vial) 1 mg SQ UD PRN; Protocol PRN Reason: Hypoglycemia Protocol Stop: 07/15/20 15:17 Glucose (Glucose 10 Tabs/Tube) 4 - 8 tabs PO UD PRN; Protocol PRN Reason: Hypoglycemia Protocol Stop: 07/15/20 15:17 Glucose (Glucose 40% Gel 15 Gm Tube) 15 - 30 gm PO UD PRN; Protocol PRN Reason: Hypoglycemia Protocol Stop: 07/15/20 15:17 Heparin Sodium/Dextrose (Heparin Sodium/Dextrose) 25,000 units in 500 mls @ 26 mls/hr IV .[id number] [facility]; Protocol Stop: 07/15/20 15:17 Last Titration: 06/17/20 06:52 Dose: 1,300 units/hr, 26 mls/hr Documented by: Furosemide 40 mg/ Syringe 4 mls @ 4 mls/min IV Q12H [facility] Stop: 07/15/20 19:59 Last Admin: 06/16/20 19:44 Dose: 4 mls/min Documented by: Ceftriaxone Sodium 2,000 mg/ (Dextrose) 70 mls @ 100 mls/hr IV Q24H [facility]; Protocol Stop: 06/24/20 07:59 Insulin Aspart (Insulin Aspart 100 Units/Ml 3 Ml Pen) 0 units SC ACHS [facility]; Protocol Stop: 07/15/20 16:29 Last Admin: 06/16/20 20:47 Dose: 3 units Documented by: Insulin Glargine (Insulin Glargine Solostar 100 Units/Ml 3 Ml Pen) 8 units SC BID [facility]; Protocol Stop: 07/16/20 08:59 Last Admin: 06/16/20 20:46 Dose: 8 units Documented by: Lisinopril (Lisinopril 20 Mg Tab) 20 mg PO BID [facility] Stop: 07/15/20 20:59 Last Admin: 06/16/20 19:51 Dose: 20 mg Documented by: Metoprolol Tartrate (Metoprolol Tartrate 1 Mg/Ml Vial) 5 mg IV Q6 PRN PRN Reason: HR > 110 Stop: 07/15/20 15:17 Last Admin: 06/17/20 01:10 Dose: 5 mg Documented by: Metoprolol Tartrate (Metoprolol Tartrate 100 Mg Tab) 100 mg PO BID [facility] Stop: 07/17/20 08:59 Miscellaneous (Carbohydrates For Hypoglycemia ) 15 - 30 gm PO UD PRN PRN Reason: Hypoglycemia Protocol Stop: 07/15/20 15:17 Miscellaneous Information (Pharmacy Glycemic Mgmt Consult) 1 ea N/A UD PRN PRN Reason: Consult Stop: 07/15/20 15:39 Potassium Chloride (Potassium Chloride 20 Meq Tabcr) 40 meq PO BID [facility] Stop: 07/16/20 09:29 Last Admin: 06/16/20 19:51 Dose: 40 meq Documented by: Rosuvastatin Calcium (Rosuvastatin Calcium 20 Mg Tab) 40 mg PO PM [facility] Stop: 07/15/20 20:59 Last Admin: 06/16/20 19:50 Dose: 40 mg Documented by: Triamcinolone Acetonide (Triamcinolone Acet 0.1% Oint 15 Gm Tube) 1 appln TOP BID [facility] Stop: 07/15/20 20:59 Last Admin: 06/16/20 19:51 Dose: 1 appln Documented by:
[2020-06-17] MEDS: FUROSEMIDE 40 MG in SYRINGE 0 ML IV SCH (07:44)
[2020-06-17] MEDS: ASPIRIN 81 MG ECTAB PO SCH (07:45)
[2020-06-17] MEDS: POTASSIUM CHLORIDE CRTAB 20 MEQ TABCR PO SCH ×2 (07:45→20:49)
[2020-06-17] MEDS: METOPROLOL TARTRATE 100 MG TAB PO SCH ×2 (07:45→20:48)
[2020-06-17] MEDS: EZETIMIBE 10 MG TABLET PO SCH (07:45)
[2020-06-17] MEDS: TRIAMCINOLONE ACET 0.1% OINT 15 GM TUBE TOP SCH ×2 (07:45→20:49)
[2020-06-17] MEDS: lisinopril 20 MG TAB PO SCH ×2 (07:46→20:50)
[2020-06-17] MEDS: cefTRIAXone SODIUM 2,000 MG in DEXTROSE 5% 50 ML IV SCH (08:03)
--- NOTE | 2020-06-17 08:51 | XRay Report ---
XR chest 1V portable CLINICAL HISTORY: follow up COMPARISON STUDY: Chest radiograph June 15, 2020. FINDINGS: Incidental note is made of severe osteoarthritis of both shoulders. There is no pneumothora x. Small bilateral pleural effusions persist. Pulmonary edema has slightly improved. There are persis tent bibasilar opacities. Cardiomegaly is again noted. IMPRESSION: 1. Pulmonary edema, slightly improved since prior exam. 2. Small bilateral pleural effusions with bibasilar opacities that may reflect atelectasis or consoli dation. ACT 112: Negative or not required by law. Electronically signed by: Hesham Rodrigues M.D. 06/17/2020 8:49 AM
[2020-06-17] MEDS: INSULIN GLARGINE SOLOSTAR 100 UNITS/ML 3 ML PEN SC SCH ×2 (09:02→20:47)
[2020-06-17] MEDS: INSULIN ASPART 100 UNITS/ML 3 ML PEN SC SCH ×4 (09:02→20:48)
[2020-06-17] MEDS: dilTIAZem HCL 30 MG TAB PO SCH ×3 (09:33→20:45)
[2020-06-17] MEDS: guaiFENesin 600 MG TABCR PO SCH ×2 (09:58→20:50)
--- NOTE | 2020-06-17 09:58 | Cardiology Progress Note ---
Date of Service June 17, 2020 Assessment & Plan (1) CHF exacerbation: (2) Atrial fibrillation with RVR: (3) Hypertension: (4) Chronic venous insufficiency: (5) Aortic stenosis: (6) Mitral regurgitation: (7) Cardiomyopathy: Pt is visibly more short of breath today but denies complaint possible pneumonia discovered overnight and started on abx output has slowed but renal function remains stable will hold off on further lasix at this point and follow volume status clinically given possible infection cont metoprolol, will increase to 100mg po bid po cardizem given this AM but if rates do not improve will start gtt dig may be of benefit but now concerned for possible tachy terry should she convert cont tele (8) Pneumonia: Admission and Anticipated Discharge Date Admission Date: June 15, 2020 Subjective Pt seen and examined. Chart reviewed. More sob overnight. Now require O2 mask. States that she feels well and states that her breathing is improving. Denies cp, sob, palpitations, lightheadedness or dizziness. tele reviewed: afib with rvr in 110's persistently Review of Systems Review of Systems: All systems reviewed & are unremarkable except as noted in HPI & below Physical Exam Physical Exam: General: Awake, alert and oriented x 3. No acute distress. Some conversational dyspnea HEENT: Normocephalic, atraumatic. Pupils equal, round and reactive to light and accommodation. Extraocular muscles are intact. Anicteric sclera. Moist mucous membranes. Neck: No JVD. No bruit. Cardiovascular: irregularly irregular, unable to appreciate murmur, rub or gallop. Pulmonary: Clear to auscultation bilaterally. No rales, rhonchi, or wheezing. Abdomen: Bowel sounds x 4, soft. No rebound, guarding or tenderness. No organomegaly. Extremities: No clubbing, cyanosis or edema. +2 pedal pulses bilaterally. Skin: Warm and dry. Results & Data ([facility]) Vital Signs (Past 12 Hours) Vital Signs Temp Pulse Pulse Pulse Resp BP BP 06/17/20 07:30 37 C 110 H 20 155/69 H 06/17/20 04:00 37.2 C 130 H 26 H 06/17/20 01:10 125 H 120/70 06/17/20 00:06 93 H BP Pulse Ox 06/17/20 07:30 90 06/17/20 04:00 123/76 91 06/17/20 01:10 06/17/20 00:06
[2020-06-17 10:36] LABS: Partial Thromboplastin Ratio 4.1
[2020-06-17 10:39] LABS: Partial Thromboplastin Time 114.6 Seconds (21.0-31.0)
--- NOTE | 2020-06-17 14:41 | Pharmacy Report ---
Pharmacy Glycemic Short Note 2 - Date of Service June 17, 2020 - Glycemic Short BSG Results (Last 24 hours): 06/16/20 06/16/20 06/17/20 16:35 19:47 02:45 Glucose 154 H POC Glucose 144 H 221 H 06/17/20 06/17/20 06/17/20 08:02 12:11 13:52 Glucose POC Glucose 180 H 352 H* 298 H OUTPATIENT ANTIDIABETIC REGIMEN: * Metformin 1gm PO BID * Glimepiride 1mg PO daily * HbA1c: 8.1% (06/16/20) ASSESSMENT: * Ms Mckinley received 39 units of insulin yesterday, with relatively well- controlled BSGs. * Basal: 16 units, Prandial/Correctional: 23 units * Basal insulin increased this morning for fasting BSG 180mg/dL * Pre-lunch BSG was markedly elevated today (352mg/dL). This is unexpected and the cause is unclear. * Novolog parameters were tightened slightly and will add overnight accu-rhianna cks in case hyperglycemia persists. PLAN FOR INPATIENT GLYCEMIC CONTROL: * Hold outpatient oral diabetes medications * Basal insulin * Lantus 10 units SQ BID * Bolus insulin * NovoLog per scale ACHS or Q6hrs while NPO, plus 0000 and 0400 until hyperglycemia has resolved * Goal Range: Low 120 mg/dL - High 160 mg/dL * Correction Factor: 20 mg/dL/unit * Nutritional / Prandial insulin per carb ratio of 1 unit per 7 grams CHO consumed PLAN FOR DISCHARGE: * Patient's A1c (8.1%) indicates acceptable glycemic control for an 85yo with multiple comorbidities. * Expect that pt may resume home regimen on discharge, as long as she does not report having episodes of hypoglycemia.
[2020-06-17] MEDS: HEPARIN SODIUM/DEXTROSE 25,000 UNITS/500 ML BAG IV SCH (15:46)
[2020-06-17 18:52] LABS: Partial Thromboplastin Ratio 2.1
[2020-06-17 19:15] LABS: Partial Thromboplastin Time 59.2 Seconds (21.0-31.0)
[2020-06-17] MEDS: DOXYCYCLINE HYCLATE 100 MG CAP PO SCH (20:46)
[2020-06-17] MEDS: ROSUVASTATIN CALCIUM 20 MG TAB PO SCH (20:50)
[2020-06-18] MEDS ORDERED: XOPENEX/ATROVENT 1.25mg/0.5MG NEB COMBO NEB PRN (00:49)
[2020-06-18] MEDS: INSULIN ASPART 100 UNITS/ML 3 ML PEN SC SCH ×6 (00:50→21:59)
[2020-06-18] MEDS ORDERED: methylPREDNISolone 20 MG in SYRINGE 0 ML IV STA (00:50)
[2020-06-18] MEDS ORDERED: COUGH DROP (SUGAR FREE) LOZ 24 LOZ/1 BOX BUCCAL PRN (00:54)
[2020-06-18] MEDS ORDERED: LEVALBUTEROL 1.25MG/0.5ML NEB INH PRN (01:00)
[2020-06-18] MEDS ORDERED: IPRATROPIUM BROMIDE NEB SOLN 0.02% 2.5 ML VIAL INH PRN (01:00)
[2020-06-18 06:46] LABS: Partial Thromboplastin Ratio 2.3
[2020-06-18 06:47] LABS: Partial Thromboplastin Time 63.3 Seconds (21.0-31.0)
[2020-06-18 07:00] LABS: BUN Creatinine Ratio 22.4 (10-20); Calcium 8.5 mg/dl (8.5-10.1); Creatinine Clr Calc Pharmacy 28.1 ml/min; Est GFR (African American) 38.9; Est GFR (Non-African American) 33.6; Hematocrit (blood only) 33.6 % (37-47); Hemoglobin 10.8 g/dL (12.0-16.0); Magnesium 2.4 mg/dl (1.8-2.4); Mean Corpuscular Hemoglobin 27.9 pg (25-34); Mean Corpuscular Hgb Conc 32.1 g/dL (32-36); Mean Corpuscular Volume 86.8 fL (80-100); Mean Platelet Volume 10.4 fL (7.4-10.4); Phosphorus 3.2 mg/dl (2.5-4.9); Platelet Count 302 K/uL (130-400); Potassium 5.3 mmol/L (3.5-5.1); RDW Coefficient of Variation 16.1 % (11.5-14.5); RDW Standard Deviation 51.5 fL (36.4-46.3); Red Blood Count 3.87 M/uL (4.2-5.4); White Blood Count 19.31 K/uL (4.8-10.8)
[2020-06-18] MEDS ORDERED: INSULIN GLARGINE SOLOSTAR 100 UNITS/ML 3 ML PEN SC ONE ×3 (09:00→22:00)
[2020-06-18] MEDS: cefTRIAXone SODIUM 2,000 MG in DEXTROSE 5% 50 ML IV SCH (09:11)
[2020-06-18] MEDS: POTASSIUM CHLORIDE CRTAB 20 MEQ TABCR PO SCH (09:13)
[2020-06-18] MEDS: guaiFENesin 600 MG TABCR PO SCH ×2 (09:13→21:59)
[2020-06-18] MEDS: lisinopril 20 MG TAB PO SCH (09:13)
[2020-06-18] MEDS: ASPIRIN 81 MG ECTAB PO SCH (09:13)
[2020-06-18] MEDS: EZETIMIBE 10 MG TABLET PO SCH (09:13)
[2020-06-18] MEDS: TRIAMCINOLONE ACET 0.1% OINT 15 GM TUBE TOP SCH ×2 (09:14→21:58)
[2020-06-18] MEDS: METOPROLOL TARTRATE 100 MG TAB PO SCH ×2 (09:14→21:59)
[2020-06-18] MEDS: DOXYCYCLINE HYCLATE 100 MG CAP PO SCH ×2 (09:14→22:00)
[2020-06-18] MEDS: dilTIAZem HCL 30 MG TAB PO SCH ×3 (09:14→21:57)
--- NOTE | 2020-06-18 10:01 | Cardiology Progress Note ---
Date of Service June 18, 2020 Assessment & Plan (1) CHF exacerbation: (2) Atrial fibrillation with RVR: (3) Hypertension: (4) Chronic venous insufficiency: (5) Aortic stenosis: (6) Mitral regurgitation: (7) Cardiomyopathy: She is responding very well to heart rate control along with antibiotic therapy. Clinically improving. Will continue current doses of metoprolol Will change to Cardizem CD in the a.m. 120 mg daily. Continue heparin for now. Did discuss at lengths the risks and benefits of anticoagulation therapy for cardioembolic prophylaxis. Patient is not very ambulatory at baseline but she does live at home. She has family visiting often and her granddaughter notes that there there with her for every meal Would consider initiation of Eliquis blood believe PT OT eval would be warranted 1st. Will order at this time. cont tele (8) Pneumonia: Admission and Anticipated Discharge Date Admission Date: June 15, 2020 Subjective Patient seen and examined, chart reviewed. Granddaughter at bedside. Patient states she is feeling better today. Breathing is much easier and she is no longer requiring oxygen via mask. Denies chest pain, palpitations, lightheadedness, dizziness or syncope. Telemetry reviewed: Atrial fibrillation with rates controlled in the 70s to 80s. Review of Systems Review of Systems: All systems reviewed & are unremarkable except as noted in HPI & below Physical Exam Physical Exam: General: Awake, alert and oriented x 3. No acute distress. Some conversational dyspnea HEENT: Normocephalic, atraumatic. Pupils equal, round and reactive to light and accommodation. Extraocular muscles are intact. Anicteric sclera. Moist mucous membranes. Neck: No JVD. No bruit. Cardiovascular: irregularly irregular, unable to appreciate murmur, rub or gallop. Pulmonary: Clear to auscultation bilaterally. No rales, rhonchi, or wheezing. Abdomen: Bowel sounds x 4, soft. No rebound, guarding or tenderness. No organomegaly. Extremities: No clubbing, cyanosis or edema. +2 pedal pulses bilaterally. Skin: Warm and dry. Results & Data ([facility]) Vital Signs (Past 12 Hours) Vital Signs Temp Pulse Pulse Resp BP Pulse Ox 06/18/20 08:00 83 06/18/20 07:40 37.3 C 72 16 130/68 92 06/18/20 04:38 36.8 C 78 20 137/79 91 06/18/20 00:38 37.3 C 76 26 H 151/82 H 96 (1) CHF exacerbation Heart failure type: unspecified Qualified Code(s): I50.9 - Heart failure, unspecified
[2020-06-18] MEDS: HEPARIN SODIUM/DEXTROSE 25,000 UNITS/500 ML BAG IV SCH (11:51)
[2020-06-18] MEDS ORDERED: INSULIN HUMAN REGULAR PER UNIT 5 UNITS in SYRINGE 0 ML IV ONE (12:15)
--- NOTE | 2020-06-18 14:08 | Pharmacy Report ---
Pharmacy Glycemic Short Note 2 - Date of Service June 18, 2020 - Glycemic Short BSG Results (Last 24 hours): 06/17/20 06/17/20 06/18/20 16:12 20:32 00:35 Glucose POC Glucose 229 H 225 H 191 H 06/18/20 06/18/20 06/18/20 05:19 05:44 07:22 Glucose 222 H POC Glucose 239 H 233 H 06/18/20 06/18/20 11:33 11:35 Glucose POC Glucose 404 H* 333 H* OUTPATIENT ANTIDIABETIC REGIMEN: * Metformin 1gm PO BID * Glimepiride 1mg PO daily * HbA1c: 8.1% (06/16/20) ASSESSMENT: 06/18: * Patient received total 53 units of insulin yesterday: 20 units basal + 33 units bolus * Fasting BSG was high this AM at 222 mg/dl. Post prandial BSGs have also been elevated since yesterday. It tiesha to 333 mg/dl before lunch today in spite of increased Lantus dose of 20 units given this AM and tightened Novolog parameters with breakfast today. * Patient was given regular IV insulin 5 unit bolus for the BSG above 300 around noon today. Also Novolog parameters were further tightened with lunch. * Lantus HS dose based on a BSG scale is ordered for tonight. 06/17: * Ms Mckinley received 39 units of insulin yesterday, with relatively well- controlled BSGs. * Basal: 16 units, Prandial/Correctional: 23 units * Basal insulin increased this morning for fasting BSG 180mg/dL * Pre-lunch BSG was markedly elevated today (352mg/dL). This is unexpected and the cause is unclear. * Novolog parameters were tightened slightly and will add overnight accu- checks in case hyperglycemia persists. PLAN FOR INPATIENT GLYCEMIC CONTROL: * Hold outpatient oral diabetes medications * Basal insulin: increased * Lantus 20 units SQ this AM * Lantus 10-15 units based on BSG scale SQ at HS * Bolus insulin: tightened * NovoLog per scale ACHS or Q6hrs while NPO, plus 0000 and 0400 until hyperglycemia has resolved * Goal Range: Low 120 mg/dL - High 160 mg/dL * Correction Factor: 12 mg/dL/unit * Nutritional / Prandial insulin per carb ratio of 1 unit per 5 grams CHO consumed PLAN FOR DISCHARGE: * Patient's A1c (8.1%) indicates acceptable glycemic control for an 85yo with multiple comorbidities. * Expect that pt may resume home regimen on discharge, as long as she does not r eport having episodes of hypoglycemia.
--- NOTE | 2020-06-18 18:17 | Hospitalist Progress Note ---
Date of Service June 18, 2020 Assessment & Plan (1) CHF exacerbation: Acute on chronic CHF exacerbation, diastolic type/HFpEF Usually on Lasix 20 mg p.o. daily Patient started with aggressive diuresis with Lasix 40 mg IV every 12 hours Kept on hold for now for acute renal failure DC potassium supplement for borderline hyperkalemia Echocardiogram obtained -shows severe concentric LVH, mildly reduced LV systolic function with mild global hypokinesis EF 45 to 50%. Grade 3 diastolic dysfunction. Aortic valve poorly visualized, moderately calcified with mild aortic stenosis and moderate aortic regurg. Mild mitral regurg. Severe left atrial enlargement. Fluid restriction Continue metoprolol tartrate Meter Attendant consult appreciated: On p.o. Cardizem Acute renal failure on CKD stage III To diuresis, hold Lasix, and lisinopril Hyperkalemia: Due to above, hold p.o. potassium supplement, ordered. Hold the lisinopril Repeat BMP Leukocytosis White blood cell count is now 19,000 (up from 18K), Patient started on antibiotic coverage for community-acquired pneumonia, ceftriaxone and doxycycline Procalcitonin and lactic acid within limit, blood cultures no growth Ordered for urine culture, repeat CBC in a.m. Atrial fibrillation RVR Stable secondary to decompensated CHF Patient started on Cardizem during this admission by cardiology At present on sinus rhythm rate, Patient is continued on metoprolol Chads vasc score 6--> start heparin drip standard dosing with no bolus Will need long-term anticoagulation, possible Eliquis, PT OT eval requested to assess fall risk Type 2 diabetes: On oral meds at home, Hypoglycemic episode noted possible secondary to acute illness Hemoglobin A1c 8.1 Pharmacy consulted for glycemic management appreciate input, patient is continued with basal Lantus and insulin sliding scale History of CAD, status post stent placement Continue metoprolol, Crestor, aspirin DVT prophylaxis on heparin drip Code Status : Full code per patient Disposition: Lives alone at home with caregivers Ordered for PT OT evaluation Admission and Anticipated Discharge Date Admission Date: June 15, 2020 Subjective Reports of feeling better today, She is requiring supplemental oxygen via nasal cannula (was not on home O2) Complain of orthopnea, does have some dyspnea on exertion, no cough noted chest heaviness or chest pain Offers no other complain Review of Systems Review of Systems: All systems reviewed & are unremarkable except as noted in HPI & below Physical Exam Constitutional: WD/WN, vitals as above Eyes: PERRL, conjunctivae normal, anicteric sclerae ENMT: external ear and nose normal, oropharynx normal Neck: trachea midline, no thyromegaly Respiratory: normal respiratory effort; no respiratory distress and no cough Auscultation: + rales Cardiovascular: Rate/Rhythm: regular rate and regular rhythm Extremities: no edema Gastrointestinal (Abdomen): Percussion/Palpation: abdomen soft; abdomen nontender Musculoskeletal: no cyanosis or clubbing, extremities motor strength 5/5 Neurologic: PERRL, EOMI, accommodation nl, no face palsy, no dysarthria Psychiatric: A+Ox3, euthymic affect Results & Data Results & Data ([facility]) Vital Signs (Past 12 Hours) Vital Signs Temp Pulse Pulse Resp BP Pulse Ox 06/18/20 16:00 74 06/18/20 15:33 36.8 C 71 18 122/57 L 93 06/18/20 11:31 36.7 C 89 18 124/72 98 06/18/20 08:00 83 06/18/20 07:40 37.3 C 72 16 130/68 92 (1) CHF exacerbation Heart failure type: unspecified Qualified Code(s): I50.9 - Heart failure, unspecified
[2020-06-18 18:55] LABS: BUN Creatinine Ratio 27.3 (10-20); Calcium 8.6 mg/dl (8.5-10.1); Creatinine Clr Calc Pharmacy 26.5 ml/min; Est GFR (African American) 36.1; Est GFR (Non-African American) 31.2
[2020-06-18] MEDS ORDERED: INSULIN HUMAN REGULAR PER UNIT 10 UNITS in SYRINGE 0 ML IV STA (18:59)
[2020-06-18] MEDS ORDERED: INSULIN HUMAN REGULAR PER UNIT 10 UNITS in SYRINGE 0 ML IV ONE (19:00)
--- NOTE | 2020-06-18 19:03 | Communication Note ---
Date of Service: June 18, 2020 P.m. lab work reviewed, worsening of hyperkalemia potassium 6.1 Creatinine worsened to 1.5, Ordered for 10 unit of IV insulin-for hyperkalemia, IV dextrose not ordered as patient is persistently hyperglycemic-BSG above 300 Ordered for gentle hydration NSS at 80 mL/h for 1 L only Repeat BMP at midnight, Nephrology consult requested Rayna Álvarez MD
[2020-06-18] MEDS ORDERED: SODIUM CHLORIDE 0.9% 1000ML 1,000 ML IV SCH (19:15)
[2020-06-18] MEDS: ROSUVASTATIN CALCIUM 20 MG TAB PO SCH (21:58)
[2020-06-19] MEDS: INSULIN ASPART 100 UNITS/ML 3 ML PEN SC SCH ×6 (00:55→21:13)
[2020-06-19 00:58] LABS: BUN Creatinine Ratio 32.9 (10-20); Calcium 8.1 mg/dl (8.5-10.1); Creatinine Clr Calc Pharmacy 31.2 ml/min; Est GFR (African American) 44.1; Est GFR (Non-African American) 38.1; Potassium 5.3 mmol/L (3.5-5.1)
[2020-06-19 06:32] LABS: Hematocrit (blood only) 34.8 % (37-47); Hemoglobin 11.1 g/dL (12.0-16.0); Mean Corpuscular Hemoglobin 27.6 pg (25-34); Mean Corpuscular Hgb Conc 31.9 g/dL (32-36); Mean Corpuscular Volume 86.6 fL (80-100); Mean Platelet Volume 9.8 fL (7.4-10.4); Platelet Count 347 K/uL (130-400); RDW Coefficient of Variation 15.8 % (11.5-14.5); RDW Standard Deviation 50.6 fL (36.4-46.3); Red Blood Count 4.02 M/uL (4.2-5.4); White Blood Count 22.19 K/uL (4.8-10.8)
[2020-06-19 06:51] LABS: Partial Thromboplastin Ratio 2.1
[2020-06-19 06:52] LABS: Partial Thromboplastin Time 57.6 Seconds (21.0-31.0)
[2020-06-19 07:01] LABS: BUN Creatinine Ratio 34.2 (10-20); Calcium 8.4 mg/dl (8.5-10.1); Creatinine Clr Calc Pharmacy 35.1 ml/min; Est GFR (African American) 50.8; Est GFR (Non-African American) 43.8
[2020-06-19] MEDS: ASPIRIN 81 MG ECTAB PO SCH (08:49)
[2020-06-19] MEDS: DOXYCYCLINE HYCLATE 100 MG CAP PO SCH ×2 (08:49→21:12)
[2020-06-19] MEDS: dilTIAZem HCL 120 MG CAPCR PO SCH (08:49)
[2020-06-19] MEDS: EZETIMIBE 10 MG TABLET PO SCH (08:49)
[2020-06-19] MEDS: cefTRIAXone SODIUM 2,000 MG in DEXTROSE 5% 50 ML IV SCH (08:49)
[2020-06-19] MEDS: dilTIAZem HCL 30 MG TAB PO SCH ×2 (08:50→10:16)
[2020-06-19] MEDS: guaiFENesin 600 MG TABCR PO SCH ×2 (08:50→21:11)
[2020-06-19] MEDS: METOPROLOL TARTRATE 100 MG TAB PO SCH ×2 (08:50→21:12)
[2020-06-19] MEDS ORDERED: INSULIN GLARGINE SOLOSTAR 100 UNITS/ML 3 ML PEN SC ONE (09:00)
[2020-06-19] MEDS: HEPARIN SODIUM/DEXTROSE 25,000 UNITS/500 ML BAG IV SCH (09:04)
[2020-06-19] MEDS: TRIAMCINOLONE ACET 0.1% OINT 15 GM TUBE TOP SCH ×2 (09:06→21:16)
--- NOTE | 2020-06-19 09:46 | Nephrology Consultation ---
Date of Consultation June 19, 2020 Assessment & Plan (1) History of acute renal failure: baseline creatinine 1.1; no exposure to IV contrast; prerenal and resolved wtih holding lisinopril and diuretics. no hemodynamic extremes this admission; peak creatinine 1.5 yesterday evening, resolved to baseline today. admission urinalysis remarkable only for trace dipstick protein -resume diuretics lasix 20 MG iv bid -daily bmp -repeat UACM only if FLORENCE recurs -hold lisinopril until d/c Present on Admission?: No (2) History of hyperkalemia: on high dose K supplements, bid ACEI and w/ lasix on hold >> -ACEI d/c'd -lasix resumed as above -hold K for now -no need for low K diet -recheck bmp 1700 today ordered >>based on this increased lasix to 30 mg IV tid Present on Admission?: No (3) CHF exacerbation: even this admission based on i/o -resume lower dose IV lasix as above -bmp as above -cont FR 1.2L Present on Admission?: Yes History of Present Illness Reason for Consultation: hyperkalemia Requesting Physician: Dr Álvarez Attending Physician: Rayna Álvarez MD History of Present Illness 85 y/o F whom I' m asked to see for hyperkalemia, FLORENCE after she was admitted 06/15 for HFpEF exacerbation and AF w/ RVR. Other PMH includes ASCVD, CAD s/p coronary stent 2009, mild , pAF transiently in past w/o recurrence until this admission, HTN, DM. Noted yesterday evening to have worsened creatinine to 1.5 and K 6.1, managed w/ 10 units IV insulin and NS at 80 Ml/hr overnight. K this AM 5.o, creat 1.1. She is on 4L NC, is 900 mL positive past 24 hrs and about even for the admission. Lasix 40 mg iv bid held currently; last dose was 06/17 AM. She takes 20 mg po daily as OP. Home dose of BID Lisinopril on hold > last dose yesterday AM. Pt had been on 40 mEq bid K supplements from 06/16 AM through yesterday AM. Pt w/ hx of intolerance to torsemide and TZ diuretics per cardiology service which knows her well Allergies Allergy/AdvReac Type Severity Reaction Status Date / Time itraconazole Allergy Intermediate HIVES Verified 06/15/20 12:26 Iodinated Contrast Media Allergy Unknown ` Verified 06/15/20 12:26 codeine AdvReac Mild N/V Verified 06/15/20 12:26 morphine AdvReac Mild N/V Verified 06/15/20 12:26 Imidazole Antifungals Allergy Unknown . Uncoded 06/15/20 12:26 Home Medications Home Medications Medication Instructions Recorded Confirmed Type lisinopril 20 mg PO BID #0 06/24/10 06/15/20 History metoprolol tartrate 50 mg PO PM #0 06/24/10 06/15/20 History metoprolol tartrate 100 mg PO QAM #0 06/24/10 06/15/20 History acetaminophen [Tylenol Extra 500 mg PO HS #0 09/04/10 06/15/20 History Strength] aspirin 81 mg PO QAM 30 Days #30 tab 02/27/16 06/15/20 History nitroglycerin [Nitrostat] 0.4 mg BUCCAL DIRECTED PRN #0 02/27/16 06/15/20 History btl rosuvastatin 40 mg PO PM #0 tab 02/27/16 06/15/20 History amlodipine 10 mg PO QAM 06/15/20 06/15/20 History ezetimibe 10 mg PO QAM 06/15/20 06/15/20 History metformin 1,000 mg PO BID 06/15/20 06/15/20 History triamcinolone acetonide 1 applic TOPICAL BID 06/15/20 06/15/20 History Patient History Medical History (Updated 06/19/20 @ 09:56 by Batsheva Connor MD, PhD) ASCVD (arteriosclerotic cardiovascular disease) Diabetes Hypertension Myocardial infarction Social History Smoking Status: Never smoker Hx Alcohol Use: No Hx Substance Use: No Preferred Language: Kyrgyz Communication Ability: Effective [place] [employer]inter Required: No Beliefs That Will Affect Care: None Current Living Situation: Alone Other Information That Helps Us Care for You: No Feels Safe at Home: Yes Assistive Devices: Oxygen - Continuous Review of Systems Review of Systems: All systems reviewed & are unremarkable except as noted in HPI & below Respiratory: + cough (productive) and + dyspnea (improving) Cardiovascular: + edema (improving) Musculoskeletal: + joint pain (slight R shoulder) Physical Exam Constitutional: well developed and well nourished; no acute distress Eyes: EOM intact bilaterally ENMT: Ears: no external ear abnormality Nose: no external nose abnormality Mouth: + dry oral mucous membranes Neck: no nuchal rigidity Respiratory: normal respiratory effort, + labored breathing, + cough (thick) and + prolonged expiratory phase Auscultation: + diminished lung sounds Cardiovascular: RRR, no murmur, no edema Gastrointestinal (Abdomen): Inspection/Auscultation: normal bowel sounds Percussion/Palpation: abdomen soft; abdomen nontender Musculoskeletal: Extremities: + abnormal strength (2 person assist to sit forward in bed) Skin: no rashes, warm and dry normal turgor Neurologic: ruiz, fluent speech, no tremor; generalized weakness Psychiatric: A+Ox3, euthymic affect Genitourinary: bridges w/ ampe urine Results & Data ([facility]) Vital Signs (Past 12 Hours) Vital Signs Temp Pulse Pulse Resp BP Pulse Ox 06/19/20 07:26 36.9 C 78 20 127/64 92 06/19/20 07:05 75 06/19/20 04:02 36.4 C L 67 18 118/72 93 06/18/20 23:20 36.8 C 66 24 112/68 92 Laboratory Results 06/19/20 06:17 06/19/20 06:17 Diagnostic Findings cxr 06/17 1. Pulmonary edema, slightly improved since prior exam. 2. Small bilateral pleural effusions with bibasilar opacities that may reflect atelectasis or consolidation. TTE 06/16 severe CLVH; EF 45%; grade 3 D dysfnx; can't see aortic valve well (1) CHF exacerbation Heart failure type: unspecified Qualified Code(s): I50.9 - Heart failure, unspecified
[2020-06-19] MEDS ORDERED: FUROSEMIDE 20 MG in SYRINGE 0 ML IV SCH (10:15)
--- NOTE | 2020-06-19 14:25 | Pharmacy Report ---
Pharmacy Glycemic Short Note 2 - Date of Service June 19, 2020 - Glycemic Short BSG Results (Last 24 hours): 06/18/20 06/18/20 06/18/20 16:54 18:07 20:10 Glucose 307 H* POC Glucose 292 H 321 H* 06/18/20 06/19/20 06/19/20 20:11 00:23 00:46 Glucose 193 H POC Glucose 313 H* 185 H 06/19/20 06/19/20 06/19/20 03:55 06:17 07:54 Glucose 164 H POC Glucose 148 H 185 H 06/19/20 11:43 Glucose POC Glucose 263 H OUTPATIENT ANTIDIABETIC REGIMEN: * Metformin 1gm PO BID * Glimepiride 1mg PO daily * HbA1c: 8.1% (06/16/20) ASSESSMENT: 06/19: * Pt received total 128 units of insulin yesterday: 35 units basal + 93 units bolus. This is a significant increase from the day before. * Fasting BSG was 164 this AM. Post prandial BSGs yesterday were all elevated. * Lantus dose increased this AM and tonight based on weight and stress factor of 3 on the insulin calculator. * Last night, the Novolog parameters were tightened further. Will continue this. 06/18: * Patient received total 53 units of insulin yesterday: 20 units basal + 33 units bolus * Fasting BSG was high this AM at 222 mg/dl. Post prandial BSGs have also been elevated since yesterday. It tiesha to 333 mg/dl before lunch today in spite of increased Lantus dose of 20 units given this AM and tightened Novolog parameters with breakfast today. * Patient was given regular IV insulin 5 unit bolus for the BSG above 300 around noon today. Also Novolog parameters were further tightened with lunch. * Lantus HS dose based on a BSG scale is ordered for tonight. 06/17: * Ms Mckinley received 39 units of insulin yesterday, with relatively well- controlled BSGs. * Basal: 16 units, Prandial/Correctional: 23 units * Basal insulin increased this morning for fasting BSG 180mg/dL * Pre-lunch BSG was markedly elevated today (352mg/dL). This is unexpected and the cause is unclear. * Novolog parameters were tightened slightly and will add overnight accu- checks in case hyperglycemia persists. PLAN FOR INPATIENT GLYCEMIC CONTROL: * Hold outpatient oral diabetes medications * Basal insulin: increased * Lantus 25 units SQ BID * Bolus insulin: tightened * NovoLog per scale ACHS or Q6hrs while NPO, plus 0000 and 0400 until hyperglycemia has resolved * Goal Range: Low 120 mg/dL - High 150 mg/dL * Correction Factor: 10 mg/dL/unit * Nutritional / Prandial insulin per carb ratio of 1 unit per 4 grams CHO consumed PLAN FOR DISCHARGE: * Patient's A1c (8.1%) indicates acceptable glycemic control for an 85yo with multiple comorbidities. * Expect that pt may resume home regimen on discharge, as long as she does not report having episodes of hypoglycemia.
--- NOTE | 2020-06-19 15:18 | Cardiology Consultation ---
Date of Consultation June 19, 2020 Assessment & Plan (1) CHF exacerbation: (2) Atrial fibrillation with RVR: (3) Hypertension: (4) Chronic venous insufficiency: (5) Aortic stenosis: (6) Mitral regurgitation: (7) Cardiomyopathy: She is responding very well to heart rate control along with antibiotic therapy. Clinically improving. Will continue current doses of metoprolol Cardizem CD started today. At this point given significant ambulatory dysfunction do not believe that she is a long-term anticoagulation candidate. Can continue heparin while inpatient. Medical treatment as per the primary team Okay to DC telemetry from a cardiac standpoint. (8) Pneumonia: History of Present Illness Attending Physician: Rayna Álvarez MD History of Present Illness Error: This note is a cardiac reevaluation. Patient seen and examined, chart reviewed. States that she is doing okay today. States her breathing is still not back to baseline despite being on sup plemental O2 but denies any other complaints. Denies chest pain, palpitations, lightheadedness, dizziness or syncope. Telemetry reviewed: Atrial fibrillation rate controlled with rates in the 70s to 80s. Allergies Allergy/AdvReac Type Severity Reaction Status Date / Time itraconazole Allergy Intermediate HIVES Verified 06/15/20 12:26 Iodinated Contrast Media Allergy Unknown ` Verified 06/15/20 12:26 codeine AdvReac Mild N/V Verified 06/15/20 12:26 morphine AdvReac Mild N/V Verified 06/15/20 12:26 Imidazole Antifungals Allergy Unknown . Uncoded 06/15/20 12:26 Home Medications Home Medications Medication Instructions Recorded Confirmed Type lisinopril 20 mg PO BID #0 06/24/10 06/15/20 History metoprolol tartrate 50 mg PO PM #0 06/24/10 06/15/20 History metoprolol tartrate 100 mg PO QAM #0 06/24/10 06/15/20 History acetaminophen [Tylenol Extra 500 mg PO HS #0 09/04/10 06/15/20 History Strength] aspirin 81 mg PO QAM 30 Days #30 tab 02/27/16 06/15/20 History nitroglycerin [Nitrostat] 0.4 mg BUCCAL DIRECTED PRN #0 02/27/16 06/15/20 History btl rosuvastatin 40 mg PO PM #0 tab 02/27/16 06/15/20 History amlodipine 10 mg PO QAM 06/15/20 06/15/20 History ezetimibe 10 mg PO QAM 06/15/20 06/15/20 History metformin 1,000 mg PO BID 06/15/20 06/15/20 History triamcinolone acetonide 1 applic TOPICAL BID 06/15/20 06/15/20 History Patient History Medical History (Updated 06/19/20 @ 09:56 by Batsheva Connor MD, PhD) ASCVD (arteriosclerotic cardiovascular disease) Diabetes Hypertension Myocardial infarction Social History Smoking Status: Never smoker Hx Alcohol Use: No Hx Substance Use: No Preferred Language: Jordanian Communication Ability: Effective Tread [place] Required: No Beliefs That Will Affect Care: None Current Living Situation: Alone Other Information That Helps Us Care for You: No Feels Safe at Home: Yes Assistive Devices: Oxygen - Continuous Review of Systems Review of Systems: All systems reviewed & are unremarkable except as noted in HPI & below Physical Exam Physical Exam: General: Awake, alert and oriented x 3. No acute distress. Some conversational dyspnea HEENT: Normocephalic, atraumatic. Pupils equal, round and reactive to light and accommodation. Extraocular muscles are intact. Anicteric sclera. Moist mucous membranes. Neck: No JVD. No bruit. Cardiovascular: irregularly irregular, unable to appreciate murmur, rub or gallop. Pulmonary: Clear to auscultation bilaterally. No rales, rhonchi, or wheezing. Abdomen: Bowel sounds x 4, soft. No rebound, guarding or tenderness. No organomegaly. Extremities: No clubbing, cyanosis or edema. +2 pedal pulses bilaterally. Skin: Warm and dry. Results & Data ([facility]) Vital Signs (Past 12 Hours) Vital Signs Temp Pulse Pulse Resp BP Pulse Ox 06/19/20 11:40 36.8 C 70 22 121/61 93 06/19/20 07:26 36.9 C 78 20 127/64 92 06/19/20 07:05 75 06/19/20 04:02 36.4 C L 67 18 118/72 93 (1) CHF exacerbation Heart failure type: unspecified Qualified Code(s): I50.9 - Heart failure, unspecified
[2020-06-19 17:17] LABS: BUN Creatinine Ratio 32.8 (10-20); Calcium 8.5 mg/dl (8.5-10.1); Est GFR (African American) 52.4; Est GFR (Non-African American) 45.2; Potassium 4.7 mmol/L (3.5-5.1)
--- NOTE | 2020-06-19 18:30 | Hospitalist Progress Note ---
Date of Service June 19, 2020 Assessment & Plan (1) CHF exacerbation: Acute on chronic CHF exacerbation, diastolic type/HFpEF presented with vol overload /pulmonary congestion /hypoxia Lasix resumed 40 mg IV TID cont to monitor vol status cardiology following Echocardiogram -shows severe concentric LVH, mildly reduced LV systolic function with mild global hypokinesis EF 45 to 50%. Grade 3 diastolic dysfunction. Aortic valve poorly visualized, moderately calcified with mild aortic stenosis and moderate aortic regurg. Mild mitral regurg. Severe left atrial enlargement. Fluid restriction 1200ml/day Acute renal failure on CKD stage III cr improved to baseline after holding diuretics ( Lasix and ACEI ) appreciate input from Nephrology Lasix resumed Hyperkalemia: resolved cont to follow labs Leukocytosis WBC 22k with no focal source of infection /follow daily CBC with diff /ordered for peripheral blood smear cont on antibiotic coverage for community-acquired pneumonia, ceftriaxone and doxycycline ordered for repeat blood culture repeat Lactic acid /procalcitonin -normal pt reports of loose bowel movement ordered for stool C diff will start empirically with PO vancomycin Atrial fibrillation RVR Stable secondary to decompensated CHF Patient started on Cardizem during this admission by cardiology At present on sinus rhythm rate, Patient is continued on metoprolol Chads vasc score 6--> start heparin drip standard dosing with no bolus Will need long-term anticoagulation, possible Eliquis, PT OT eval requested to assess fall risk Type 2 diabetes: On oral meds at home, Hypoglycemic episode noted possible secondary to acute illness Hemoglobin A1c 8.1 Pharmacy consulted for glycemic management appreciate input, patient is continued with basal Lantus and insulin sliding scale History of CAD, status post stent placement Continue metoprolol, Crestor, aspirin DVT prophylaxis on heparin drip Code Status : Full code per patient Disposition: Lives alone at home with caregivers Ordered for PT OT evaluation Admission and Anticipated Discharge Date Admission Date: June 15, 2020 Subjective remains significantly hypoxic on 4 L 02 via nasal canula ( was not on home 02 ) says : experiencing SOB with minimum exertion , feels very weak no cough /no fever or chills has episodes of loose bowel movements today Review of Systems Gastrointestinal: + diarrhea/loose stools Physical Exam Constitutional: WD/WN, vitals as above Eyes: PERRL, conjunctivae normal, anicteric sclerae ENMT: external ear and nose normal, oropharynx normal Neck: trachea midline, no thyromegaly Respiratory: normal respiratory effort; no respiratory distress and no cough Auscultation: + rales Cardiovascular: Rate/Rhythm: regular rate and regular rhythm Extremities: no edema Gastrointestinal (Abdomen): Percussion/Palpation: abdomen soft; abdomen nontender Musculoskeletal: no cyanosis or clubbing, extremities motor strength 5/5 Neurologic: PERRL, EOMI, accommodation nl, no face palsy, no dysarthria Psychiatric: A+Ox3, euthymic affect Results & Data Results & Data ([facility]) Vital Signs (Past 12 Hours) Vital Signs Temp Pulse Pulse Resp BP Pulse Ox 06/19/20 16:41 94 H 06/19/20 13:21 36.5 C 95 H 18 155/51 H 93 06/19/20 11:40 36.8 C 70 22 121/61 93 06/19/20 07:26 36.9 C 78 20 127/64 92 06/19/20 07:05 75 (1) CHF exacerbation Heart failure type: unspecified Qualified Code(s): I50.9 - Heart failure, unspecified
[2020-06-19] MEDS: FUROSEMIDE 30 MG in SYRINGE 0 ML IV SCH (21:11)
[2020-06-19] MEDS: ROSUVASTATIN CALCIUM 20 MG TAB PO SCH (21:12)
[2020-06-19] MEDS: INSULIN GLARGINE SOLOSTAR 100 UNITS/ML 3 ML PEN SC SCH (21:16)
[2020-06-20] MEDS: INSULIN ASPART 100 UNITS/ML 3 ML PEN SC SCH ×6 (00:30→21:27)
[2020-06-20 06:40] LABS: Basophils # (auto) 0.02 K/uL (0-0.2); Basophils % (auto) 0.1 %; Eosinophils # (auto) 0.03 K/uL (0-0.5); Eosinophils % (auto) 0.2 %; Hematocrit (blood only) 34.9 % (37-47); Hemoglobin 11.3 g/dL (12.0-16.0); Immature Granulocytes # (auto) 0.05 K/uL (0.00-0.02); Immature Granulocytes % (auto) 0.4 %; Mean Corpuscular Hemoglobin 27.8 pg (25-34); Mean Corpuscular Hgb Conc 32.4 g/dL (32-36); Mean Corpuscular Volume 85.7 fL (80-100); Mean Platelet Volume 9.9 fL (7.4-10.4); Monocytes # (auto) 1.25 K/uL (0.11-0.59); Neutrophils # (auto) 10.02 K/uL (1.4-6.5); Neutrophils % (auto) 72.3 %; Nucleated RBC # (auto) 0.02 K/uL (0-0); Nucleated RBC % (auto) 0.2 %; Platelet Count 419 K/uL (130-400); RDW Coefficient of Variation 15.4 % (11.5-14.5); RDW Standard Deviation 48.8 fL (36.4-46.3); Red Blood Count 4.07 M/uL (4.2-5.4); White Blood Count 13.87 K/uL (4.8-10.8)
[2020-06-20 07:09] LABS: BUN Creatinine Ratio 30.2 (10-20); Calcium 8.6 mg/dl (8.5-10.1); Creatinine Clr Calc Pharmacy 38.3 ml/min; Est GFR (African American) 57.4; Est GFR (Non-African American) 49.5; Potassium 4.1 mmol/L (3.5-5.1)
[2020-06-20 07:25] LABS: Partial Thromboplastin Ratio 1.8
[2020-06-20 07:51] LABS: Partial Thromboplastin Time 49.3 Seconds (21.0-31.0)
[2020-06-20] MEDS: HEPARIN SODIUM/DEXTROSE 25,000 UNITS/500 ML BAG IV SCH (08:28)
[2020-06-20] MEDS: INSULIN GLARGINE SOLOSTAR 100 UNITS/ML 3 ML PEN SC SCH ×2 (08:31→21:24)
[2020-06-20] MEDS: DOXYCYCLINE HYCLATE 100 MG CAP PO SCH ×2 (08:50→21:26)
[2020-06-20] MEDS: cefTRIAXone SODIUM 2,000 MG in DEXTROSE 5% 50 ML IV SCH (08:50)
[2020-06-20] MEDS: ASPIRIN 81 MG ECTAB PO SCH (08:50)
[2020-06-20] MEDS: FUROSEMIDE 30 MG in SYRINGE 0 ML IV SCH ×3 (08:50→21:25)
[2020-06-20] MEDS: EZETIMIBE 10 MG TABLET PO SCH (08:51)
[2020-06-20] MEDS: dilTIAZem HCL 120 MG CAPCR PO SCH (08:51)
[2020-06-20] MEDS: METOPROLOL TARTRATE 100 MG TAB PO SCH ×2 (08:51→21:26)
[2020-06-20] MEDS: guaiFENesin 600 MG TABCR PO SCH ×2 (08:51→21:26)
[2020-06-20] MEDS: TRIAMCINOLONE ACET 0.1% OINT 15 GM TUBE TOP SCH ×2 (08:51→21:24)
--- NOTE | 2020-06-20 09:44 | Nephrology Progress Note ---
Date of Service June 20, 2020 Assessment & Plan (1) History of acute renal failure: baseline creatinine 1.1; no exposure to IV contrast; prerenal and resolved wtih holding lisinopril and diuretics. no hemodynamic extremes this admission; peak creatinine 1.5 10 PM, resolved to baseline 06/19 adn remains there today. admission urinalysis remarkable only for trace dipstick protein -continue diuretics lasix 30 MG iv tid -daily bmp -repeat UACM only if FLORENCE recurs -hold lisinopril until d/c (2) History of hyperkalemia: due to high dose K supplements, bid ACEI and w/ lasix on hold >> resolved quickly w/ medical tx -ACEI d/c'd for now -lasix resumed as above -no need for low K diet >>>given K trend, I will resume some standing K dosing 40 mEq daily and recheck bmp 1600 today; may need dose adjustments (3) CHF exacerbation: even this admission based on i/o -resume lower dose IV lasix as above -bmp as above -cont FR 1.2L Admission and Anticipated Discharge Date Admission Date: June 15, 2020 Subjective seen on rounds this am at 0900; breathing unchanged; edema better. minimal po but no abd pain. no diarreha. Review of Systems Review of Systems: All systems reviewed & are unremarkable except as noted in HPI & below Respiratory: + cough Physical Exam Constitutional: well developed and well nourished; no acute distress Eyes: EOM intact bilaterally ENMT: Ears: no external ear abnormality Nose: no external nose abnormality Mouth: + dry oral mucous membranes Neck: no nuchal rigidity Respiratory: normal respiratory effort, + labored breathing (less so than y ) and + cough (thick) Auscultation: + diminished lung sounds Cardiovascular: RRR, no murmur, no edema Gastrointestinal (Abdomen): Inspection/Auscultation: normal bowel sounds Percussion/Palpation: abdomen soft; abdomen nontender Musculoskeletal: Extremities: + abnormal strength (2 person assist to sit forward in bed) Skin: no rashes, warm and dry normal turgor Neurologic: ruiz, fluent speech, 2 person assist to lean forward in bed Psychiatric: A+Ox3, euthymic affect Genitourinary: bridges w/ ample clear urine Results & Data ([facility]) Vital Signs (Past 12 Hours) Vital Signs Temp Pulse Pulse Resp BP Pulse Ox 06/20/20 07:18 75 06/20/20 07:00 36.6 C 113 H 18 117/82 96 06/20/20 03:48 36.6 C 73 18 138/73 93 06/20/20 00:20 74 06/19/20 23:00 36.8 C 72 18 146/65 H 93 Laboratory Results 06/20/20 05:04 06/20/20 05:04 (1) CHF exacerbation Heart failure type: unspecified Qualified Code(s): I50.9 - Heart failure, unspecified
[2020-06-20] MEDS ORDERED: POTASSIUM CHLORIDE CRTAB 20 MEQ TABCR PO ONE (10:00)
[2020-06-20] MEDS ORDERED: APIXABAN 2.5 MG TAB PO SCH (10:15)
[2020-06-20 10:20] LABS: Base Excess ABG -0.5 mEq/L (-9-1.8); HCO3 ABG 23 mmol/L (19-24); Oxygen Saturation ABG 96.6 % (90-95); PCO2 ABG 32 mmHg (35-46); PO2 ABG 82 mmHg (80-95); pH ABG 7.47 (7.35-7.45)
[2020-06-20 10:21] LABS: Allen Test Pos (Pos)
--- NOTE | 2020-06-20 11:00 | Cardiology Progress Note ---
Date of Service June 20, 2020 Assessment & Plan (1) CHF exacerbation: (2) Atrial fibrillation with RVR: (3) Hypertension: (4) Chronic venous insufficiency: (5) Aortic stenosis: (6) Mitral regurgitation: (7) Cardiomyopathy: She is responding very well to heart rate control along with antibiotic therapy. Clinically improving. Will continue current doses of metoprolol and Cardizem CD. Given the fact that she lives alone with significant ambulatory dysfunction I do not believe that she is a long-term anticoagulation candidate. Can continue heparin will inpatient. Okay to DC telemetry from a cardiac standpoint. (8) Pneumonia: Admission and Anticipated Discharge Date Admission Date: June 15, 2020 Subjective Patient seen and examined, chart reviewed. States that she feels relatively well. Breathing is improved but still requiring supplemental O2. Denies chest pain, palpitations, lightheadedness, dizziness or syncope. Telemetry reviewed: Atrial fibrillation rate controlled in the 70s to 80s. Review of Systems Review of Systems: All systems reviewed & are unremarkable except as noted in HPI & below Physical Exam Physical Exam: General: Awake, alert and oriented x 3. No acute distress. HEENT: Normocephalic, atraumatic. Pupils equal, round and reactive to light and accommodation. Extraocular muscles are intact. Anicteric sclera. Moist mucous membranes. Neck: No JVD. No bruit. Cardiovascular: irregularly irregular, unable to appreciate murmur, rub or gallop. Pulmonary: Clear to auscultation bilaterally. No rales, rhonchi, or wheezing. Abdomen: Bowel sounds x 4, soft. No rebound, guarding or tenderness. No organomegaly. Extremities: No clubbing, cyanosis or edema. +2 pedal pulses bilaterally. Skin: Warm and dry. Results & Data ([facility]) Vital Signs (Past 12 Hours) Vital Signs Temp Pulse Pulse Resp BP Pulse Ox 06/20/20 07:18 75 06/20/20 07:00 36.6 C 113 H 18 117/82 96 06/20/20 03:48 36.6 C 73 18 138/73 93 06/20/20 00:20 74 06/19/20 23:00 36.8 C 72 18 146/65 H 93 (1) CHF exacerbation Heart failure type: unspecified Qualified Code(s): I50.9 - Heart failure, unspecified
[2020-06-20] MEDS ORDERED: APIXABAN 2.5 MG TAB PO ONE (11:15)
[2020-06-20] MEDS: RASPBERRY SYRUP 5 ML UDP PO SCH ×2 (11:57→17:29)
[2020-06-20] MEDS: VANCOMYCIN HCL 125 MG/2.5ML SOLN PO SCH ×2 (11:57→18:06)
[2020-06-20] MEDS: LACTOBACILLUS ACIDOPHILUS 1 GM PACK PO SCH ×2 (11:58→17:28)
--- NOTE | 2020-06-20 13:25 | XRay Report ---
XR chest 1V portable CLINICAL HISTORY: Shortness of breath COMPARISON STUDY: 06/17/2020 FINDINGS: The heart is enlarged. There is continued radiographic evidence of pulmonary edema, slightl y progressive with bilateral pleural effusions. Bilateral basilar airspace opacities while nonspecifi c likely represent compressive atelectatic change[. There are advanced arthritic changes within the s houlders. IMPRESSION: 1. Progressive pulmonary edema 2. Persistent bilateral pleural effusions with bibasilar opacity statistically representing compressi ve atelectasis ACT 112: Negative or not required by law. Electronically signed by: Brent Caballero M.D. 06/20/2020 1:24 PM
--- NOTE | 2020-06-20 13:32 | XRay Report ---
XR hip RT 2V w pelvis HISTORY: 85 years-old Female hip pain acute right-sided hip pain without reported trauma COMPARISON: CT abdomen pelvis 02/27/2000 TECHNIQUE: AP view the pelvis with 2 views the right hip FINDINGS: Demineralized appearance the bones. Degenerative changes of the lumbar spine. Moderate fecal retentio n. Orthopedic anchors are noted within the right greater trochanter. Bilateral hip total joint arthro plasties. No evidence of hardware complication, acute fracture or dislocation. IMPRESSION: 1. No acute fracture or dislocation. 2. Bilateral hip total joint arthroplasties without evidence of hardware complication. ACT 112: Negative or not required by law. The above report was generated using voice recognition software. It may contain grammatical, syntax o r spelling errors. Electronically signed by: Juan Hebert M.D. 06/20/2020 1:31 PM
[2020-06-20 14:11] LABS: Appearance Urine Clear (Clear); Bacteria Urine Automated Negative (Negative); Bilirubin Urine Negative (Negative); Blood Urine 2+ (Negative); Color Urine Yellow; Epithelial Cell Urine Auto >30 /lpf (0-5); Glucose Urine UA Negative (Negative); Ketones Urine Negative (Negative); Leukocyte Esterase Urine 1+ (Negative); Nitrite Urine Negative (Negative); Protein Urine 1+ (Negative); RBC Urine Automated >30 /hpf (0-4); Specific Gravity Urine 1.018 (1.000-1.030); Urobilinogen Urine Negative (Negative)
[2020-06-20 16:04] LABS: BUN Creatinine Ratio 27.9 (10-20); Calcium 8.7 mg/dl (8.5-10.1); Creatinine Clr Calc Pharmacy 36.2 ml/min; Est GFR (African American) 53.6; Est GFR (Non-African American) 46.3; Potassium 4.7 mmol/L (3.5-5.1)
--- NOTE | 2020-06-20 18:43 | Hospitalist Progress Note ---
Date of Service June 20, 2020 Assessment & Plan (1) CHF exacerbation: Acute on chronic CHF exacerbation, diastolic type/HFpEF presented with vol overload /pulmonary congestion /hypoxia Patient was on aggressive diuresis, continue to be hypoxic, requiring supplem ental O2 4 L(was not on home O2 prior to admission) Chest x-ray shows progression of pulmonary edema, Lasix was kept on hold for acute renal failure, renal function normalized Lasix resumed, Added torsemide, We will discussed with nephrology for diuretics adjustments Echocardiogram -shows severe concentric LVH, mildly reduced LV systolic function with mild global hypokinesis EF 45 to 50%. Grade 3 diastolic dysfunction. Aortic valve poorly visualized, moderately calcified with mild aortic stenosis and moderate aortic regurg. Mild mitral regurg. Severe left atrial enlargement. Fluid restriction 1200ml/day Acute renal failure on CKD stage III cr improved to baseline after holding diuretics ( Lasix and ACEI ) appreciate input from Nephrology Lasix resumed /Lasix dose needs to be adjusted, will discuss with nephrology Hyperkalemia: resolved cont to follow labs Leukocytosis Improved, WBC 13 K now Blood cultures no growth repeat Lactic acid /procalcitonin -normal No further episode of loose bowel movements ordered for stool C diff DC PO vancomycin Atrial fibrillation RVR Stable secondary to decompensated CHF Patient started on Cardizem during this admission by cardiology Patient is continued on metoprolol Chads vasc score 6--> was on IV heparin, changed to p.o. Eliquis for long-term anticoagulation Type 2 diabetes: On oral meds at home, Hypoglycemic episode noted possible secondary to acute illness Hemoglobin A1c 8.1 Pharmacy consulted for glycemic management appreciate input, patient is continued with basal Lantus and insulin sliding scale History of CAD, status post stent placement Continue metoprolol, Crestor, aspirin DVT prophylaxis Eliquis Code Status : Full code per patient Disposition: Lives alone at home with caregivers Ordered for PT OT evaluation-significant deconditioning noted, will benefit with short-term rehab, less than 3 hours daily physical therapy: Patient's daughter present at bedside, updated, agreeable with the plan of care and short-term rehab after discharge from hospital Admission and Anticipated Discharge Date Admission Date: June 15, 2020 Subjective Patient still requiring 4 L oxygen, gets short of breath with minimum activity Denies of any complaint of chest pain chest heaviness or palpitation No cough no fever or chills Daughter present at bedside updated Physical Exam Constitutional: WD/WN, vitals as above Eyes: PERRL, conjunctivae normal, anicteric sclerae ENMT: external ear and nose normal, oropharynx normal Neck: trachea midline, no thyromegaly Respiratory: normal respiratory effort; no respiratory distress and no cough Auscultation: + rales Cardiovascular: Rate/Rhythm: + irregularly irregular Extremities: no edema Gastrointestinal (Abdomen): Percussion/Palpation: abdomen soft; abdomen nontender Musculoskeletal: no cyanosis or clubbing, extremities motor strength 5/5 Neurologic: PERRL, EOMI, accommodation nl, no face palsy, no dysarthria Psychiatric: A+Ox3, euthymic affect Results & Data Results & Data ([facility]) Vital Signs (Past 12 Hours) Vital Signs Temp Pulse Pulse Resp BP Pulse Ox 06/20/20 16:39 36.9 C 70 20 131/79 97 06/20/20 15:09 73 06/20/20 12:07 86 139/78 06/20/20 11:31 37.1 C 97 H 18 170/68 H 94 06/20/20 07:18 75 06/20/20 07:00 36.6 C 113 H 18 117/82 96 (1) CHF exacerbation Heart failure type: unspecified Qualified Code(s): I50.9 - Heart failure, unspecified
[2020-06-20] MEDS: TORSEMIDE 10 MG TAB PO SCH (20:57)
[2020-06-20] MEDS: APIXABAN 5 MG TABLET PO SCH (21:25)
[2020-06-20] MEDS: ROSUVASTATIN CALCIUM 20 MG TAB PO SCH (21:25)
[2020-06-21] MEDS: RASPBERRY SYRUP 5 ML UDP PO SCH ×2 (00:17→05:22)
[2020-06-21] MEDS: VANCOMYCIN HCL 125 MG/2.5ML SOLN PO SCH ×2 (00:17→05:22)
[2020-06-21 06:27] LABS: Basophils # (auto) 0.01 K/uL (0-0.2); Basophils % (auto) 0.1 %; Eosinophils # (auto) 0.04 K/uL (0-0.5); Eosinophils % (auto) 0.3 %; Hematocrit (blood only) 35.6 % (37-47); Hemoglobin 11.7 g/dL (12.0-16.0); Immature Granulocytes # (auto) 0.06 K/uL (0.00-0.02); Immature Granulocytes % (auto) 0.5 %; Lymphocytes # (auto) 2.15 K/uL (1.2-3.4); Lymphocytes % (auto) 17.6 %; Mean Corpuscular Hemoglobin 27.7 pg (25-34); Mean Corpuscular Hgb Conc 32.9 g/dL (32-36); Mean Corpuscular Volume 84.2 fL (80-100); Mean Platelet Volume 9.3 fL (7.4-10.4); Monocytes # (auto) 1.23 K/uL (0.11-0.59); Neutrophils # (auto) 8.76 K/uL (1.4-6.5); Neutrophils % (auto) 71.5 %; Platelet Count 403 K/uL (130-400); RDW Standard Deviation 46.3 fL (36.4-46.3); Red Blood Count 4.23 M/uL (4.2-5.4); White Blood Count 12.25 K/uL (4.8-10.8)
[2020-06-21 06:38] LABS: Partial Thromboplastin Ratio 1.1; Partial Thromboplastin Time 30.6 Seconds (21.0-31.0)
[2020-06-21 07:12] LABS: BUN Creatinine Ratio 24.4 (10-20); Calcium 8.9 mg/dl (8.5-10.1); Creatinine Clr Calc Pharmacy 36.3 ml/min; Est GFR (African American) 54.8; Est GFR (Non-African American) 47.3; Potassium 3.8 mmol/L (3.5-5.1)
[2020-06-21] MEDS: METOPROLOL TARTRATE 100 MG TAB PO SCH ×2 (08:08→20:24)
[2020-06-21] MEDS: FUROSEMIDE 30 MG in SYRINGE 0 ML IV SCH (08:09)
[2020-06-21] MEDS: LACTOBACILLUS ACIDOPHILUS 1 GM PACK PO SCH ×3 (08:09→17:33)
[2020-06-21] MEDS: EZETIMIBE 10 MG TABLET PO SCH (08:09)
[2020-06-21] MEDS: TORSEMIDE 10 MG TAB PO SCH (08:09)
[2020-06-21] MEDS: dilTIAZem HCL 120 MG CAPCR PO SCH (08:09)
[2020-06-21] MEDS: ASPIRIN 81 MG ECTAB PO SCH (08:09)
[2020-06-21] MEDS: guaiFENesin 600 MG TABCR PO SCH ×2 (08:10→20:25)
[2020-06-21] MEDS: DOXYCYCLINE HYCLATE 100 MG CAP PO SCH ×2 (08:10→20:25)
[2020-06-21] MEDS: TRIAMCINOLONE ACET 0.1% OINT 15 GM TUBE TOP SCH ×2 (08:10→20:24)
[2020-06-21] MEDS: APIXABAN 5 MG TABLET PO SCH ×2 (08:10→20:23)
[2020-06-21] MEDS: POTASSIUM CHLORIDE CRTAB 20 MEQ TABCR PO SCH (08:10)
[2020-06-21] MEDS: INSULIN ASPART 100 UNITS/ML 3 ML PEN SC SCH ×4 (08:27→20:21)
[2020-06-21] MEDS ORDERED: INSULIN GLARGINE SOLOSTAR 100 UNITS/ML 3 ML PEN SC ONE (09:00)
--- NOTE | 2020-06-21 10:30 | Nephrology Progress Note ---
Date of Service June 21, 2020 Assessment & Plan (1) History of acute renal failure: baseline creatinine 1.1; no exposure to IV contrast; prerenal and resolved wtih holding lisinopril and diuretics. no hemodynamic extremes this admission; peak creatinine 1.5 06/18 PM, resolved to baseline 06/19 adn remains there today. admission urinalysis remarkable only for trace dipstick protein -We will increase Lasix to 80 mg twice daily -daily bmp -hold lisinopril until d/c (2) History of hyperkalemia: due to high dose K supplements, bid ACEI and w/ lasix on hold >> resolved quickly w/ medical tx -ACEI d/c'd for now -lasix resumed as above -no need for low K diet (3) CHF exacerbation: even this admission based on i/o. Patient continues to require oxygen by nasal cannula. -We will continue Lasix -bmp as above -cont FR 1.2L Admission and Anticipated Discharge Date Admission Date: June 15, 2020 Subjective Patient reports to be feeling fine. She still requiring oxygen by nasal cannula. She is intermittently confused. Heart rate is controlled. She was only -200 mL Review of Systems Review of Systems: All systems reviewed & are unremarkable except as noted in HPI & below Physical Exam Physical Exam: General exam: Appears comfortable, no acute distress HEENT: Pupils are equal and reactive to light Neck: No JVD, neck is supple trachea is midline Respiratory system: Reduced breath sounds bilaterally. Gastrointestinal: Abdomen is soft, non distended, non tender, bowel sounds are present CVS: Regular rate and rhythm. No murmurs, rubs or gallops Musculoskeletal: No joint or muscle tenderness Extremities: Non tender, no edema, peripheral pulses are present Neuro: Oriented, no tremors, no focal neurological deficits Skin: No rashes Results & Data ([facility]) Vital Signs (Past 12 Hours) Vital Signs Temp Pulse Pulse Resp BP Pulse Ox 06/21/20 08:15 36.8 C 104 H 18 123/69 93 06/21/20 07:22 94 H 06/21/20 03:30 36.6 C 89 20 144/73 H 94 06/21/20 00:12 36.7 C 68 21 126/75 97 Laboratory Results 06/21/20 06:05 06/21/20 06:05 WBC 12.25 H RBC 4.23 MCV 84.2 MCH 27.7 MCHC 32.9 RDW Std Deviation 46.3 RDW Coeff of Matt 15.0 H Plt Count 403 H MPV 9.3 (1) CHF exacerbation Heart failure type: unspecified Qualified Code(s): I50.9 - Heart failure, unspecified
[2020-06-21] MEDS: FUROSEMIDE 80 MG in SYRINGE 0 ML IV SCH ×2 (11:30→20:19)
--- NOTE | 2020-06-21 14:35 | Cardiology Progress Note ---
Date of Service June 21, 2020 Assessment & Plan (1) CHF exacerbation: (2) Atrial fibrillation with RVR: (3) Hypertension: (4) Chronic venous insufficiency: (5) Aortic stenosis: (6) Mitral regurgitation: (7) Cardiomyopathy: She is responding very well to heart rate control along with antibiotic therapy. Continue current doses of metoprolol and Cardizem. May increase Cardizem as needed for rapid ventricular response. I had a long discussion with the patient and her granddaughter in regards to long-term anticoagulation and potentially fatal bleeding with falls. They both agree that she is not an anticoagulation candidate based on her ambulatory status. Can continue heparin while inpatient. Medical treatment as per the primary team. Diuretics being managed by our nephrology colleagues. Okay to DC telemetry from a cardiac standpoint. (8) Pneumonia: Admission and Anticipated Discharge Date Admission Date: June 15, 2020 Subjective Patient seen and examined, chart reviewed. Granddaughter at bedside. Patient states that she is feeling relatively well today except for her breathing. Still requiring oxygen supplementation. States that she is urinating without issue. Denies chest pain, palpitations, lightheadedness, dizziness or syncope. Telemetry reviewed: Atrial fibrillation rate controlled. Review of Systems Review of Systems: All systems reviewed & are unremarkable except as noted in HPI & below Physical Exam Physical Exam: General: Awake, alert and oriented x 3. No acute distress. HEENT: Normocephalic, atraumatic. Pupils equal, round and reactive to light and accommodation. Extraocular muscles are intact. Anicteric sclera. Moist mucous membranes. Neck: No JVD. No bruit. Cardiovascular: irregularly irregular, unable to appreciate murmur, rub or g allop. Pulmonary: Clear to auscultation bilaterally. No rales, rhonchi, or wheezing. Abdomen: Bowel sounds x 4, soft. No rebound, guarding or tenderness. No organomegaly. Extremities: No clubbing, cyanosis or edema. +2 pedal pulses bilaterally. Skin: Warm and dry. Results & Data ([facility]) Vital Signs (Past 12 Hours) Vital Signs Temp Pulse Pulse Resp BP Pulse Ox 06/21/20 12:07 36.9 C 93 H 17 137/88 91 06/21/20 08:15 36.8 C 104 H 18 123/69 93 06/21/20 07:22 94 H 06/21/20 03:30 36.6 C 89 20 144/73 H 94 (1) CHF exacerbation Heart failure type: unspecified Qualified Code(s): I50.9 - Heart failure, unspecified
--- NOTE | 2020-06-21 15:02 | Pharmacy Report ---
Pharmacy Glycemic Short Note 2 - Date of Service June 21, 2020 - Glycemic Short BSG Results (Last 24 hours): 06/20/20 06/20/20 06/20/20 15:33 16:55 20:46 Glucose 174 H POC Glucose 172 H 140 H 06/21/20 06/21/20 06/21/20 06:05 08:01 11:27 Glucose 97 POC Glucose 90 128 H OUTPATIENT ANTIDIABETIC REGIMEN: * Metformin 1gm PO BID * Glimepiride 1mg PO daily * HbA1c: 8.1% (06/16/20) ASSESSMENT: 06/21: * Pt received total of 71 units of insulin which is significantly less than the day before (101 units). * Heparin drip was discontinued yesterday. * Fasting BSG this AM = 90 mg/dl. Since pt has required less insulin, her basal dose was reduced to 15 units this AM. HS Lantus dose ordered based on a BSG scale. * Novolog carb ratio was also loosened. Nurse said pt has been eating less at meals. 06/19: * Pt received total 128 units of insulin yesterday: 35 units basal + 93 units bolus. This is a significant increase from the day before. * Fasting BSG was 164 this AM. Post prandial BSGs yesterday were all elevated. * Lantus dose increased this AM and tonight based on weight and stress factor of 3 on the insulin calculator. * Last night, the Novolog parameters were tightened further. Will continue this. 06/18: * Patient received total 53 units of insulin yesterday: 20 units basal + 33 units bolus * Fasting BSG was high this AM at 222 mg/dl. Post prandial BSGs have also been elevated since yesterday. It tiesha to 333 mg/dl before lunch today in spite of increased Lantus dose of 20 units given this AM and tightened Novolog parameters with breakfast today. * Patient was given regular IV insulin 5 unit bolus for the BSG above 300 around noon today. Also Novolog parameters were further tightened with lunch. * Lantus HS dose based on a BSG scale is ordered for tonight. PLAN FOR INPATIENT GLYCEMIC CONTROL: * Hold outpatient oral diabetes medications * Basal insulin: decreased * Lantus 15 units SQ today AM * Lantus 10-15 units HS today based on BSG scale. * Bolus insulin: loosened * NovoLog per scale ACHS or Q6hrs while NPO * Goal Range: Low 120 mg/dL - High 150 mg/dL * Correction Factor: 10 mg/dL/unit * Nutritional / Prandial insulin per carb ratio of 1 unit per 5 grams CHO consumed PLAN FOR DISCHARGE: * Patient's A1c (8.1%) indicates acceptable glycemic control for an 85yo with multiple comorbidities. * Expect that pt may resume home regimen on discharge, as long as she does not report having episodes of hypoglycemia.
--- NOTE | 2020-06-21 17:59 | Hospitalist Progress Note ---
Date of Service June 21, 2020 Assessment & Plan (1) CHF exacerbation: Acute on chronic CHF exacerbation, diastolic type/HFpEF presented with vol overload /pulmonary congestion /hypoxia hypoxia improved , now on 2 L 02 Lasix dose increased to 80 mg IV twice daily, appreciate input from nephrology Echocardiogram -shows severe concentric LVH, mildly reduced LV systolic function with mild global hypokinesis EF 45 to 50%. Grade 3 diastolic dysfunction. Aortic valve poorly visualized, moderately calcified with mild aortic stenosis and moderate aortic regurg. Mild mitral regurg. Severe left atrial enlarge ment. Fluid restriction 1200ml/day CONFUSION /POSSIBLE [facility]OSPITAL ACQUIRED DELIRIUM : nursing reports : pt was seeing animals in her room but able to get reoriented easily as nursing corrects her no agitation or combativeness cont to monitor Acute renal failure on CKD stage III cr improved to baseline after holding diuretics ( Lasix and ACEI ) appreciate input from Nephrology Continue high-dose Lasix 80 mg IV twice daily repeat BMP in a.m. Hyperkalemia: resolved cont to follow labs Leukocytosis Continues to improve WBC 1312 now No evidence of infection Blood cultures no growth repeat Lactic acid /procalcitonin -normal Atrial fibrillation RVR Stable possible caused secondary to decompensated CHF or vice versa Patient started on Cardizem during this admission by cardiology Patient is continued on metoprolol Chads vasc score 6--> was on IV heparin, changed to p.o. Eliquis for long-term anticoagulation Appreciate tissue coordinator input and discussion with family members, Due to patient's high risk for fall remains a poor candidate for long-term ant icoagulation We will continue Eliquis during this hospital stay Patient will discharge home with aspirin only, continue PT OT patient will benefit with short-term rehab post discharge Type 2 diabetes: On oral meds at home, Hypoglycemic episode noted possible secondary to acute illness Hemoglobin A1c 8.1 Pharmacy consulted for glycemic management appreciate input, patient is continued with basal Lantus and insulin sliding scale History of CAD, status post stent placement Continue metoprolol, Crestor, aspirin DVT prophylaxis Eliquis Code Status : Full code per patient Disposition: Lives alone at home with caregivers Ordered for PT OT evaluation-significant deconditioning noted, will benefit with short-term rehab, less than 3 hours daily physical therapy: Admission and Anticipated Discharge Date Admission Date: June 15, 2020 Subjective pt was having episodes of confusion on and off through out the day breathing much better on 2 L o2 no cough or fever or chills Review of Systems Review of Systems: All systems reviewed & are unremarkable except as noted in HPI & below Physical Exam Constitutional: WD/WN, vitals as above Eyes: PERRL, conjunctivae normal, anicteric sclerae ENMT: external ear and nose normal, oropharynx normal Neck: trachea midline, no thyromegaly Respiratory: normal respiratory effort; no respiratory distress and no cough Auscultation: + rales Cardiovascular: Rate/Rhythm: + irregularly irregular Extremities: no edema Gastrointestinal (Abdomen): Percussion/Palpation: abdomen soft; abdomen nontender Musculoskeletal: no cyanosis or clubbing, extremities motor strength 5/5 Neurologic: PERRL, EOMI, accommodation nl, no face palsy, no dysarthria Psychiatric: A+Ox3, euthymic affect Results & Data Results & Data ([facility]) Vital Signs (Past 12 Hours) Vital Signs Temp Pulse Pulse Resp BP Pulse Ox 06/21/20 16:07 36.3 C L 74 18 138/74 98 06/21/20 15:00 82 06/21/20 12:07 36.9 C 93 H 17 137/88 91 06/21/20 08:15 36.8 C 104 H 18 123/69 93 06/21/20 07:22 94 H (1) CHF exacerbation Heart failure type: unspecified Qualified Code(s): I50.9 - Heart failure, unspecified
[2020-06-21] MEDS: INSULIN GLARGINE SOLOSTAR 100 UNITS/ML 3 ML PEN SC SCH (20:20)
[2020-06-21] MEDS: ROSUVASTATIN CALCIUM 20 MG TAB PO SCH (20:22)
[2020-06-22 05:54] LABS: Partial Thromboplastin Ratio 1.1; Partial Thromboplastin Time 29.7 Seconds (21.0-31.0)
[2020-06-22 06:09] LABS: BUN Creatinine Ratio 27.7 (10-20); Creatinine Clr Calc Pharmacy 34.7 ml/min; Est GFR (African American) 52.4; Est GFR (Non-African American) 45.2
[2020-06-22] MEDS: dilTIAZem HCL 120 MG CAPCR PO SCH (08:43)
[2020-06-22] MEDS: TRIAMCINOLONE ACET 0.1% OINT 15 GM TUBE TOP SCH ×2 (08:43→21:46)
[2020-06-22] MEDS: LACTOBACILLUS ACIDOPHILUS 1 GM PACK PO SCH ×3 (08:43→17:28)
[2020-06-22] MEDS: APIXABAN 5 MG TABLET PO SCH ×2 (08:43→21:45)
[2020-06-22] MEDS: ASPIRIN 81 MG ECTAB PO SCH (08:43)
[2020-06-22] MEDS: DOXYCYCLINE HYCLATE 100 MG CAP PO SCH ×2 (08:44→21:53)
[2020-06-22] MEDS: FUROSEMIDE 80 MG in SYRINGE 0 ML IV SCH ×2 (08:44→21:47)
[2020-06-22] MEDS: EZETIMIBE 10 MG TABLET PO SCH (08:44)
[2020-06-22] MEDS: guaiFENesin 600 MG TABCR PO SCH ×2 (08:44→21:49)
[2020-06-22] MEDS: INSULIN GLARGINE SOLOSTAR 100 UNITS/ML 3 ML PEN SC SCH ×2 (08:44→21:47)
[2020-06-22] MEDS: INSULIN ASPART 100 UNITS/ML 3 ML PEN SC SCH ×4 (08:44→21:51)
[2020-06-22] MEDS: METOPROLOL TARTRATE 100 MG TAB PO SCH ×2 (08:44→21:44)
[2020-06-22] MEDS: POTASSIUM CHLORIDE CRTAB 20 MEQ TABCR PO SCH (08:44)
--- NOTE | 2020-06-22 10:27 | Nephrology Progress Note ---
Date of Service June 22, 2020 Assessment & Plan (1) History of acute renal failure: baseline creatinine 1.1; no exposure to IV contrast; prerenal and resolved with holding lisinopril and diuretics. no hemodynamic extremes this admission; peak creatinine 1.5 06/18 PM, resolved to baseline 06/19 adn remains there today. admission urinalysis remarkable only for trace dipstick protein. -We we will continue Lasix to 80 mg twice daily -daily bmp -hold lisinopril until d/c (2) History of hyperkalemia: due to high dose K supplements, bid ACEI and w/ lasix on hold >> resolved quickly w/ medical tx. Potassium of 4 today. -ACEI d/c'd for now -no need for low K diet (3) CHF exacerbation: even this admission based on i/o. Patient continues to require oxygen by nasal cannula. -We will continue Lasix -bmp as above -cont FR 1.2L Admission and Anticipated Discharge Date Admission Date: June 15, 2020 Subjective Patient feels better today. She denies shortness of breath. She is on oxygen 2 L by nasal cannula. Review of Systems Review of Systems: All systems reviewed & are unremarkable except as noted in HPI & below Physical Exam Physical Exam: General exam: Appears comfortable, no acute distress HEENT: Pupils are equal and reactive to light Neck: No JVD, neck is supple trachea is midline Respiratory system: Clear breath sounds bilaterally. Gastrointestinal: Abdomen is soft, non distended, non tender, bowel sounds are present CVS: Regular rate and rhythm. No murmurs, rubs or gallops Musculoskeletal: No joint or muscle tenderness Extremities: Non tender, no edema, peripheral pulses are present Neuro: Oriented, no tremors, no focal neurological deficits Skin: No rashes Results & Data ([facility]) Vital Signs (Past 12 Hours) Vital Signs Temp Pulse Resp BP Pulse Ox 06/22/20 07:40 36.8 C 98 H 16 154/85 H 94 06/22/20 05:46 36.7 C 82 18 158/83 H 95 Laboratory Results 06/22/20 05:18 (1) CHF exacerbation Heart failure type: unspecified Qualified Code(s): I50.9 - Heart failure, unspecified
--- NOTE | 2020-06-22 13:12 | Cardiology Progress Note ---
Date of Service June 22, 2020 Assessment & Plan (1) CHF exacerbation: (2) Atrial fibrillation with RVR: (3) Hypertension: (4) Chronic venous insufficiency: (5) Aortic stenosis: (6) Mitral regurgitation: (7) Cardiomyopathy: She is responding very well to heart rate control along with antibiotic therapy. Continue current doses of metoprolol and Cardizem. May increase Cardizem as needed for rapid ventricular response. I had a long discussion with the patient and her son in regards to long-term anticoagulation and potentially fatal bleeding with falls. They both agree that she is not an anticoagulation candidate based on her ambulatory status. Can continue heparin while inpatient. Medical treatment as per the primary team. Diuretics being managed by our nephrology colleagues. Okay to DC telemetry from a cardiac standpoint. (8) Pneumonia: Admission and Anticipated Discharge Date Admission Date: June 15, 2020 Subjective Patient seen and examined, chart reviewed. Son at bedside. Patient states that she is feeling relatively well today and feels that her breathing is improving. Still requiring oxygen supplementation. States that she is urinating without issue. Denies chest pain, palpitations, lightheadedness, dizziness or syncope. Telemetry reviewed: Atrial fibrillation rate controlled. Review of Systems Review of Systems: All systems reviewed & are unremarkable except as noted in HPI & below Physical Exam Physical Exam: General: Awake, alert and oriented x 3. No acute distress. HEENT: Normocephalic, atraumatic. Pupils equal, round and reactive to light an d accommodation. Extraocular muscles are intact. Anicteric sclera. Moist mucous membranes. Neck: No JVD. No bruit. Cardiovascular: irregularly irregular, unable to appreciate murmur, rub or gall op. Pulmonary: Clear to auscultation bilaterally. No rales, rhonchi, or wheezing. Abdomen: Bowel sounds x 4, soft. No rebound, guarding or tenderness. No organomegaly. Extremities: No clubbing, cyanosis or edema. +2 pedal pulses bilaterally. Skin: Warm and dry. Results & Data ([facility]) Vital Signs (Past 12 Hours) Vital Signs Temp Pulse Resp BP Pulse Ox 06/22/20 07:40 36.8 C 98 H 16 154/85 H 94 06/22/20 05:46 36.7 C 82 18 158/83 H 95 (1) CHF exacerbation Heart failure type: unspecified Qualified Code(s): I50.9 - Heart failure, unspecified
--- NOTE | 2020-06-22 17:25 | Hospitalist Progress Note ---
Date of Service June 22, 2020 Assessment & Plan (1) CHF exacerbation: Acute on chronic CHF exacerbation, diastolic type/HFpEF presented with vol overload /pulmonary congestion /hypoxia hypoxia improved , now on 2 L 02 Lasix dose increased to 80 mg IV twice daily, appreciate input from nephrology Echocardiogram -shows severe concentric LVH, mildly reduced LV systolic function with mild global hypokinesis EF 45 to 50%. Grade 3 diastolic dysfunction. Aortic valve poorly visualized, moderately calcified with mild aortic stenosis and moderate aortic regurg. Mild mitral regurg. Severe left atrial enlarge ment. Fluid restriction 1200ml/day CONFUSION /[facility] ACQUIRED DELIRIUM : nursing reports : pt was seeing animals in her room but able to get reoriented easily as nursing corrects her no agitation or combativeness cont to monitor Acute renal failure on CKD stage III cr improved to baseline after holding diuretics ( Lasix and ACEI ) appreciate input from Nephrology Continue high-dose Lasix 80 mg IV twice daily repeat BMP in a.m. Hyperkalemia: resolved cont to follow labs Leukocytosis Continues to improve WBC 1312 now No evidence of infection Blood cultures no growth repeat Lactic acid /procalcitonin -normal Atrial fibrillation RVR Stable possible caused secondary to decompensated CHF or vice versa Patient started on Cardizem during this admission by cardiology Patient is continued on metoprolol Chads vasc score 6--> was on IV heparin, changed to p.o. Eliquis for long-term anticoagulation Appreciate specialist physicians input and discussion with family members, Due to patient's high risk for fall remains a poor candidate for long-term ant icoagulation We will continue Eliquis during this hospital stay Patient will discharge home with aspirin only, continue PT OT patient will benefit with short-term rehab post discharge Type 2 diabetes: On oral meds at home, Hypoglycemic episode noted possible secondary to acute illness Hemoglobin A1c 8.1 Pharmacy consulted for glycemic management appreciate input, patient is continued with basal Lantus and insulin sliding scale History of CAD, status post stent placement Continue metoprolol, Crestor, aspirin DVT prophylaxis Eliquis Code Status : Full code per patient Disposition: Lives alone at home with caregivers Ordered for PT OT evaluation-significant deconditioning noted, will benefit with short-term rehab, less than 3 hours daily physical therapy: Admission and Anticipated Discharge Date Admission Date: June 15, 2020 Subjective more awake and alert today no confusion or agitation noted very forgetful but recalls easily with minimum cue no sob or cough hypoxia improved on 2 L 02 via nasal canula Physical Exam Constitutional: WD/WN, vitals as above Eyes: PERRL, conjunctivae normal, anicteric sclerae ENMT: external ear and nose normal, oropharynx normal Neck: trachea midline, no thyromegaly Respiratory: normal respiratory effort; no respiratory distress and no cough Auscultation: + rales Cardiovascular: Rate/Rhythm: + irregularly irregular Extremities: no edema Gastrointestinal (Abdomen): Percussion/Palpation: abdomen soft; abdomen nontender Musculoskeletal: no cyanosis or clubbing, extremities motor strength 5/5 Neurologic: PERRL, EOMI, accommodation nl, no face palsy, no dysarthria Psychiatric: A+Ox3, euthymic affect Results & Data Results & Data ([facility]) Vital Signs (Past 12 Hours) Vital Signs Temp Pulse Resp BP Pulse Ox 06/22/20 15:18 36.5 C 67 18 143/72 H 97 06/22/20 07:40 36.8 C 98 H 16 154/85 H 94 06/22/20 05:46 36.7 C 82 18 158/83 H 95 (1) CHF exacerbation Heart failure type: unspecified Qualified Code(s): I50.9 - Heart failure, unspecified
[2020-06-22] MEDS: ROSUVASTATIN CALCIUM 20 MG TAB PO SCH (21:45)
[2020-06-23 07:21] LABS: Partial Thromboplastin Ratio 1.1; Partial Thromboplastin Time 30.3 Seconds (21.0-31.0)
[2020-06-23 07:48] LABS: Creatinine Clr Calc Pharmacy 31.5 ml/min; Est GFR (African American) 46.8; Est GFR (Non-African American) 40.4
[2020-06-23] MEDS: LACTOBACILLUS ACIDOPHILUS 1 GM PACK PO SCH ×3 (08:46→17:15)
[2020-06-23] MEDS: EZETIMIBE 10 MG TABLET PO SCH (08:47)
[2020-06-23] MEDS: ASPIRIN 81 MG ECTAB PO SCH (08:47)
[2020-06-23] MEDS: APIXABAN 5 MG TABLET PO SCH (08:47)
[2020-06-23] MEDS: dilTIAZem HCL 120 MG CAPCR PO SCH (08:47)
[2020-06-23] MEDS: guaiFENesin 600 MG TABCR PO SCH ×2 (08:48→20:53)
[2020-06-23] MEDS: FUROSEMIDE 80 MG in SYRINGE 0 ML IV SCH (08:48)
[2020-06-23] MEDS: POTASSIUM CHLORIDE CRTAB 20 MEQ TABCR PO SCH (08:48)
[2020-06-23] MEDS: METOPROLOL TARTRATE 100 MG TAB PO SCH ×2 (08:48→20:54)
[2020-06-23] MEDS: TRIAMCINOLONE ACET 0.1% OINT 15 GM TUBE TOP SCH ×2 (08:50→20:52)
[2020-06-23] MEDS: INSULIN ASPART 100 UNITS/ML 3 ML PEN SC SCH ×4 (08:53→20:48)
[2020-06-23] MEDS: INSULIN GLARGINE SOLOSTAR 100 UNITS/ML 3 ML PEN SC SCH ×2 (08:53→20:37)
--- NOTE | 2020-06-23 10:00 | Pharmacy Report ---
Pharmacy Glycemic Short Note 2 - Date of Service June 23, 2020 - Glycemic Short BSG Results (Last 24 hours): OUTPATIENT ANTIDIABETIC REGIMEN: * Metformin 1gm PO BID * Glimepiride 1mg PO daily * HbA1c: 8.1% (06/16/20) ASSESSMENT: 06/23: * Ninfa received a total of 48 units of insulin yesterday * 25 units basal + 23 units bolus * BSGs were 521-443-829-136 mg/dL - adequate control * Fasting BSG this AM was 146 mg/dL - controlled * Fasting BSGs have been trending upwards over the last 72 hours: 90-119-146 mg/dL * Will increase HS basal scale this evening * Lunchtime BSG was 191 mg/dL * No changes necessary to Novolog parameters 06/21: * Pt received total of 71 units of insulin which is significantly less than the day before (101 units). * Heparin drip was discontinued yesterday. * Fasting BSG this AM = 90 mg/dl. Since pt has required less insulin, her basal dose was reduced to 15 units this AM. HS Lantus dose ordered based on a BSG scale. * Novolog carb ratio was also loosened. Nurse said pt has been eating less at meals. PLAN FOR INPATIENT GLYCEMIC CONTROL: * Hold outpatient oral diabetes medications * Basal insulin - increased * Lantus 15 units SC qAM * Lantus 15-20 units SC HS per scale (see eMAR for more details) * Bolus insulin - tightened goal range * NovoLog per scale ACHS or Q6hrs while NPO * Goal Range: Low 110 mg/dL - High 140 mg/dL * Correction Factor: 10 mg/dL/unit * Nutritional / Prandial insulin per carb ratio of 1 unit per 5 grams CHO consumed PLAN FOR DISCHARGE: * Patient's A1c (8.1%) indicates acceptable glycemic control for an 85yo with multiple comorbidities. * Expect that pt may resume home regimen on discharge, as long as she does not report having episodes of hypoglycemia.
--- NOTE | 2020-06-23 17:11 | Hospitalist Progress Note ---
Date of Service June 23, 2020 Assessment & Plan (1) CHF exacerbation: Acute on chronic CHF exacerbation, diastolic type/HFpEF resolved volume status stable now presented with vol overload /pulmonary congestion /hypoxia hypoxia improved , now on 2 L 02 Lasix dose changed to 80 mg po twice daily, appreciate input from nephrology Echocardiogram -shows severe concentric LVH, mildly reduced LV systolic function with mild global hypokinesis EF 45 to 50%. Grade 3 diastolic dysfunction. Aortic valve poorly visualized, moderately calcified with mild aortic stenosis and moderate aortic regurg. Mild mitral regurg. Severe left atrial enlargement. Fluid restriction 1200ml/day CONFUSION /[facility] ACQUIRED DELIRIUM : resolved awake and alert and oriented answering questions appropriately no confusion or agitation Acute renal failure on CKD stage III resolved ,cr improved to baseline appreciate input from Nephrology on Lasix 80 mg PO twice daily repeat BMP in a.m. Hyperkalemia: resolved d/c lisinopril Leukocytosis resolved No evidence of infection Blood cultures no growth repeat Lactic acid /procalcitonin -normal Atrial fibrillation RVR remains in rate control on metoprolol/added Diltiazem Appreciate ingot header input and discussion with family members, Due to patient's high risk for fall remains a poor candidate for long-term anticoagulation Eliquis D/lobo Pt will be discharged on aspirin only Type 2 diabetes: On oral meds at home, Hemoglobin A1c 8.1 Pharmacy consulted for glycemic management appreciate input, patient is continued with basal Lantus and insulin sliding scale History of CAD, status post stent placement Continue metoprolol, Crestor, aspirin DVT prophylaxis Eliquis Code Status : Full code per patient Disposition: Lives alone at home with caregivers plan to return home with home health tomorrow Admission and Anticipated Discharge Date Admission Date: June 15, 2020 Subjective pt sitting up chair , feels much better , no cough or SOB,no fever or chills on 2 L wants to return home with home health and home PT Review of Systems Review of Systems: All systems reviewed & are unremarkable except as noted in HPI & below Physical Exam Constitutional: WD/WN, vitals as above Eyes: PERRL, conjunctivae normal, anicteric sclerae ENMT: external ear and nose normal, oropharynx normal Neck: trachea midline, no thyromegaly Respiratory: normal respiratory effort; no respiratory distress and no cough Cardiovascular: Rate/Rhythm: + irregularly irregular Extremities: no edema Gastrointestinal (Abdomen): Percussion/Palpation: abdomen soft; abdomen nontender Musculoskeletal: no cyanosis or clubbing, extremities motor strength 5/5 Neurologic: PERRL, EOMI, accommodation nl, no face palsy, no dysarthria Psychiatric: A+Ox3, euthymic affect Results & Data Results & Data ([facility]) Vital Signs (Past 12 Hours) Vital Signs Temp Pulse Resp BP BP Pulse Ox 06/23/20 16:00 99 06/23/20 15:35 16 99 06/23/20 15:11 36.3 C L 68 16 122/69 99 06/23/20 07:15 36.8 C 96 H 18 123/62 98 (1) CHF exacerbation Heart failure type: unspecified Qualified Code(s): I50.9 - Heart failure, unspecified
[2020-06-23] MEDS: FUROSEMIDE 80 MG TAB PO SCH (17:21)
[2020-06-23] MEDS: ROSUVASTATIN CALCIUM 20 MG TAB PO SCH (20:52)
[2020-06-23 20:54] LABS: Appearance Urine Clear (Clear); Bacteria Urine Automated Negative (Negative); Bilirubin Urine Negative (Negative); Blood Urine 1+ (Negative); Color Urine Yellow; Epithelial Cell Urine Auto 20-30 /lpf (0-5); Glucose Urine UA Negative (Negative); Ketones Urine Negative (Negative); Leukocyte Esterase Urine Negative (Negative); Nitrite Urine Negative (Negative); Protein Urine Trace (Negative); Specific Gravity Urine 1.015 (1.000-1.030); Urobilinogen Urine Negative (Negative)
[2020-06-24] MEDS: ASPIRIN 81 MG ECTAB PO SCH (08:35)
[2020-06-24] MEDS: TRIAMCINOLONE ACET 0.1% OINT 15 GM TUBE TOP SCH ×2 (08:35→20:29)
[2020-06-24] MEDS: EZETIMIBE 10 MG TABLET PO SCH (08:35)
[2020-06-24] MEDS: FUROSEMIDE 80 MG TAB PO SCH ×2 (08:35→17:37)
[2020-06-24] MEDS: LACTOBACILLUS ACIDOPHILUS 1 GM PACK PO SCH ×3 (08:35→17:39)
[2020-06-24] MEDS: guaiFENesin 600 MG TABCR PO SCH ×2 (08:35→20:29)
[2020-06-24] MEDS: POTASSIUM CHLORIDE CRTAB 20 MEQ TABCR PO SCH (08:35)
[2020-06-24] MEDS: dilTIAZem HCL 120 MG CAPCR PO SCH (08:36)
[2020-06-24] MEDS: METOPROLOL TARTRATE 100 MG TAB PO SCH ×2 (08:36→20:29)
[2020-06-24] MEDS: INSULIN ASPART 100 UNITS/ML 3 ML PEN SC SCH ×4 (08:42→20:33)
[2020-06-24] MEDS: INSULIN GLARGINE SOLOSTAR 100 UNITS/ML 3 ML PEN SC SCH ×2 (08:42→20:32)
--- NOTE | 2020-06-24 12:04 | Hospitalist Progress Note ---
Date of Service June 24, 2020 Assessment & Plan (1) CHF exacerbation: Acute hypoxemic resp failure : due to decompensated CHF respiratory status improved asked resp to to do 2 step exercise for home 02 assessment -unable to complete pt is 96% in RA , non ambulatory /wheel chair bound at baseline will keep pt off 02 today if any episode of desaturation noted , will need ABG in room air to qualify for home 02 pt will be on continued Pulse 0x Acute on chronic CHF exacerbation, diastolic type/HFpEF resolved volume status stable now no hypoxia or SOB /orthpnea now will reduce Lasix dose to 40 mg BID , will be discharged home on that dose Echocardiogram -shows severe concentric LVH, mildly reduced LV systolic function with mild global hypokinesis EF 45 to 50%. Grade 3 diastolic dysfunction. Aortic valve poorly visualized, moderately calcified with mild aortic stenosis and moderate aortic regurg. Mild mitral regurg. Severe left atrial enlargement. Fluid restriction 1200ml/day CONFUSION /[facility] ACQUIRED DELIRIUM : resolved awake and alert and oriented answering questions appropriately no confusion or agitation Acute renal failure on CKD stage III resolved ,cr improved to baseline appreciate input from Nephrology Hyperkalemia: resolved d/c lisinopril Atrial fibrillation RVR remains in rate control on metoprolol/added Diltiazem Appreciate medical technologist blood bank input and discussion with family members, Due to patient's high risk for fall remains a poor candidate for long-term anticoagulation Felicia D/lobo Pt will be discharged on aspirin only Type 2 diabetes: On oral meds at home, Hemoglobin A1c 8.1 Pharmacy consulted for glycemic management appreciate input, patient is continued with basal Lantus and insulin sliding scale History of CAD, status post stent placement Continue metoprolol, Crestor, aspirin DVT prophylaxis Eliquis Code Status : Full code per patient Disposition: Lives alone at home with caregivers plan to return home with home health tomorrow 06/25/20 Dr Arenas will follow this patient starting from tomorrow Admission and Anticipated Discharge Date Admission Date: June 15, 2020 Subjective sitting up on chair , feels fine no complain of SOB or cough . very pleasant feels comfortable to return home with home health Physical Exam Constitutional: WD/WN, vitals as above Eyes: PERRL, conjunctivae normal, anicteric sclerae ENMT: external ear and nose normal, oropharynx normal Neck: trachea midline, no thyromegaly Respiratory: normal respiratory effort; no respiratory distress and no cough Auscultation: + rales Cardiovascular: Rate/Rhythm: + irregularly irregular Extremities: no edema Gastrointestinal (Abdomen): Percussion/Palpation: abdomen soft; abdomen nontender Musculoskeletal: no cyanosis or clubbing, extremities motor strength 5/5 Neurologic: PERRL, EOMI, accommodation nl, no face palsy, no dysarthria Psychiatric: A+Ox3, euthymic affect Results & Data Results & Data ([facility]) Vital Signs (Past 12 Hours) Vital Signs Temp Pulse Resp BP BP Pulse Ox 06/24/20 07:30 36.7 C 58 L 16 151/79 H 93 06/24/20 00:05 36.4 C L 68 18 118/70 97 (1) CHF exacerbation Heart failure type: unspecified Qualified Code(s): I50.9 - Heart failure, unspecified
[2020-06-24] MEDS: ROSUVASTATIN CALCIUM 20 MG TAB PO SCH (20:29)
[2020-06-25] MEDS: ASPIRIN 81 MG ECTAB PO SCH (07:30)
[2020-06-25] MEDS: guaiFENesin 600 MG TABCR PO SCH (07:30)
[2020-06-25] MEDS: FUROSEMIDE 80 MG TAB PO SCH (07:30)
[2020-06-25] MEDS: LACTOBACILLUS ACIDOPHILUS 1 GM PACK PO SCH ×2 (07:30→12:52)
[2020-06-25] MEDS: EZETIMIBE 10 MG TABLET PO SCH (07:30)
[2020-06-25] MEDS: dilTIAZem HCL 120 MG CAPCR PO SCH (07:30)
[2020-06-25] MEDS: POTASSIUM CHLORIDE CRTAB 20 MEQ TABCR PO SCH (07:31)
[2020-06-25] MEDS: TRIAMCINOLONE ACET 0.1% OINT 15 GM TUBE TOP SCH (07:31)
[2020-06-25] MEDS: METOPROLOL TARTRATE 100 MG TAB PO SCH (07:31)
--- NOTE | 2020-06-25 08:43 | Pharmacy Report ---
Pharmacy Glycemic Short Note 2 - Date of Service June 25, 2020 - Glycemic Short BSG Results (Last 24 hours): 06/24/20 06/24/20 06/24/20 12:10 17:11 20:28 POC Glucose 211 H 138 H 161 H 06/25/20 08:24 POC Glucose 103 H OUTPATIENT ANTIDIABETIC REGIMEN: * Metformin 1gm PO BID * Glimepiride 1mg PO daily * HbA1c: 8.1% (06/16/20) ASSESSMENT: 06/25: * Ninfa received 67 units of insulin yesterday with adequate glycemic control: * 35 units of basal and 32 units of bolus * BSGs: 119, 211, 138, 161 * Fasting BSG is at goal (119 mg/dL). Since her basal needs have remained relatively stable the past few days, I will change Lantus order to set dose of 16 units BID rather than dose per scale. * Post prandial BSGs improved yesterday after tightening carb ratio from 5 to 4. Will continue same today. 06/23: * Ninfa received a total of 48 units of insulin yesterday * 25 units basal + 23 units bolus * BSGs were [phone] mg/dL - adequate control * Fasting BSG this AM was 146 mg/dL - controlled * Fasting BSGs have been trending upwards over the last 72 hours: 90-119-146 mg/dL * Will increase HS basal scale this evening * Lunchtime BSG was 191 mg/dL * No changes necessary to Novolog parameters 06/21: * Pt received total of 71 units of insulin which is significantly less than the day before (101 units). * Heparin drip was discontinued yesterday. * Fasting BSG this AM = 90 mg/dl. Since pt has required less insulin, her basal dose was reduced to 15 units this AM. HS Lantus dose ordered based on a BSG scale. * Novolog carb ratio was also loosened. Nurse said pt has been eating less at m eals. PLAN FOR INPATIENT GLYCEMIC CONTROL: * Hold outpatient oral diabetes medications * Basal insulin * Lantus 16 units SC BID * Bolus insulin - tightened carb coverage on 06/24 * NovoLog per scale ACHS or Q6hrs while NPO * Goal Range: Low 110 mg/dL - High 140 mg/dL * Correction Factor: 10 mg/dL/unit * Nutritional / Prandial insulin per carb ratio of 1 unit per 4 grams CHO consumed PLAN FOR DISCHARGE: * Patient's A1c (8.1%) indicates acceptable glycemic control for an 85yo with multiple comorbidities. * Expect that pt may resume home regimen on discharge, as long as she does not report having episodes of hypoglycemia.
[2020-06-25] MEDS ORDERED: INSULIN GLARGINE SOLOSTAR 100 UNITS/ML 3 ML PEN SC SCH ×2 (09:00)
[2020-06-25] MEDS: INSULIN ASPART 100 UNITS/ML 3 ML PEN SC SCH ×2 (09:14→12:53)
[2020-06-25 10:04] LABS: BUN Creatinine Ratio 30.8 (10-20); Calcium 9.4 mg/dl (8.5-10.1); Creatinine Clr Calc Pharmacy 32.8 ml/min; Est GFR (African American) 49.2; Est GFR (Non-African American) 42.5; Potassium 3.5 mmol/L (3.5-5.1)
--- NOTE | 2020-06-25 14:18 | Ultrasound Report ---
US venous doppler UE RT HISTORY: 85 years-old Female r/o DVT acute pain and swelling of the right upper extremity COMPARISON: None TECHNIQUE: Multiple real-time sonographic images of the right upper extremity deep venous structures were obtained assessing grayscale appearance, color and spectral flow FINDINGS: Normal flow, compressibility, phasicity and augmentation of the right upper extremity deep venous str uctures. IMPRESSION: No sonographic evidence of deep venous thrombosis. ACT 112: Negative or not required by law. The above report was generated using voice recognition software. It may contain grammatical, syntax o r spelling errors. Electronically signed by: Juan Hebert M.D. 06/25/2020 2:16 PM
--- NOTE | 2020-06-25 15:00 | Hospitalist Progress Note ---
Date of Service delayed entry date of service 06/25/20 June 25, 2020 Assessment & Plan (1) CHF exacerbation: Acute on chronic CHF exacerbation, Systolic and Diastolic Type resolved given IV Lasix, improved volume status stable now no hypoxia or SOB /orthopnea now transitioned to Lasix dose to 40 mg BID Fluid restriction 1200ml/day Echocardiogram -shows severe concentric LVH, mildly reduced LV systolic function with mild global hypokinesis EF 45 to 50%. Grade 3 diastolic dysfunction. Aortic valve poorly visualized, moderately calcified with mild aortic stenosis and moderate aortic regurg. Mild mitral regurg. Severe left atrial enlargement. Acute hypoxemic resp failure : due to decompensated CHF respiratory status improved per Dr. Álvarez's notes: asked resp to to do 2 step exercise for home 02 assessment -unable to complete pt is 96% in RA , non ambulatory /wheel chair bound at baseline Hospital Acquired Delirium resolved Acute Renal Failure, on CKD stage III resolved ,creatinine improved to baseline appreciate input from Nephrology Hyperkalemia: resolved d/c lisinopril Atrial fibrillation RVR remains rate controlled on metoprolol, added Diltiazem Due to patient's high risk for fall remains a poor candidate for long-term anticoagulation Eliquis discontinued Pt will be discharged on aspirin only Type 2 diabetes: On oral meds at home, Hemoglobin A1c 8.1 History of CAD, status post stent placement Continue metoprolol, Crestor, aspirin DVT prophylaxis Eliquis Code Status : Full code per patient Disposition: Lives alone at home with caregivers return home with home health Admission and Anticipated Discharge Date Admission Date: June 15, 2020 Subjective ff up for CHF exacerbation seen resting in bed, sitting up, watching TV states she feels fine overall denies shortness of breath, chest pain, palpitations, dizziness no arm pain denies other symptoms states she is ready for discharge Review of Systems Review of Systems: All systems reviewed & are unremarkable except as noted in Subjective Physical Exam Physical Exam: General- oriented x 2, not in distress, speaks in sentences with no effort or accessory muscle use Eyes- anicteric Neck- no JVD Lungs- clear breath sounds bilaterally, no rales/wheezes Heart- normal rate, regular rhythm; no murmurs Abdomen- normal bowel sounds, nondistended, soft, nontender Extremities- (+) RUE mild-moderate edema but no warmth/tenderness/erythema, no pretibial edema, no calf tenderness Neuro- alert, oriented x 2; no gross focal neurologic deficits Skin- warm & dry Results & Data Results & Data ([facility]) Vital Signs (Past 12 Hours) Vital Signs Temp Pulse Resp BP Pulse Ox 06/25/20 07:21 36.6 C 72 18 147/74 H 96 Laboratory Results noted and reviewed (1) CHF exacerbation Heart failure type: unspecified Qualified Code(s): I50.9 - Heart failure, unspecified
[2020-06-25] MEDS ORDERED: FUROSEMIDE 40 MG TAB PO SCH (17:00)
--- NOTE | 2020-06-27 11:23 | Discharge Summary ---
Date of Service June 27, 2020 Admission HPI Per Admitting Provider 85-year-old female with history of diastolic CHF, CAD status post stent placement, aortic valve stenosis, diabetes, hypertension Presenting with shortness of breath this morning. Patient states that she has noticed increased leg swelling for the past few days. She takes Lasix 20 mg daily. This morning, patient started to have progressive shortness of breath, associated with cough of yellow sputum. Denies chest pain, palpitations, dizziness, nausea or vomiting. Patient was then brought to the ER for evaluation. At the ER, patient was received with blood pressure of 124/80, heart rate 123, respiratory rate 31, saturating 96% on 2 L of nasal cannula. Chest x-ray showed small pleural effusions and bilateral airspace opacities. BNP elevated at 5803. EKG showed atrial fibrillation in RVR Patient given Lasix 40 mg IV and metoprolol tartrate IV 10 mg. On exam, the patient was seen sitting up in bed, on 2 L of nasal cannula, comfortable, not in distress. Reports feeling improved compared to earlier today. Denies active shortness of breath, chest pain, palpitations, dizziness, nausea vomiting during the time of my exam No other symptoms Denies history of intracranial hemorrhage, GI bleed, but she did have episode of epistaxis a few years ago. Admission Exam Per Admitting Provider General- oriented x 3, not in distress, speaks in sentences with no effort or accessory muscle use Head- atraumatic Eyes- PERRL, EOMI, anicteric ENT- oropharynx clear Neck- supple, positive JVD, no adenopathy, no thyromegaly; carotids +2/2, no bruits appreciated Lungs-positive crackles bilateral mid to base Heart-mildly tachycardic, 109, irregularly regular rhythm, murmur difficult to assess, no gallop, no rub appreciated Abdomen- normal bowel sounds, nondistended, soft, nontender, no masses or hepatosplenomegaly Extremities-grade 1 bilateral lower extremity edema, but no erythema/warmth/tenderness; peripheral pulses intact Neuro- alert, oriented x 3; CN 2-12 grossly intact; motor 5/5 bilaterally;sensation 100% on all extremities; no other gross focal neurologic deficits Skin- warm & dry Principal Diagnosis Acute on chronic CHF exacerbation, Systolic and Diastolic Type Discharge Exam General- oriented x 2, not in distress, speaks in sentences with no effort or accessory muscle use Eyes- anicteric Neck- no JVD Lungs- clear breath sounds bilaterally, no rales/wheezes Heart- normal rate, regular rhythm; no murmurs Abdomen- normal bowel sounds, nondistended, soft, nontender Extremities- (+) RUE mild-moderate edema but no warmth/tenderness/erythema, no pretibial edema, no calf tenderness Neuro- alert, oriented x 2; no gross focal neurologic deficits Skin- warm & dry Discharge Data Allergies Allergy/AdvReac Type Severity Reaction Status Date / Time itraconazole Allergy Intermediate HIVES Verified 06/15/20 12:26 Iodinated Contrast Media Allergy Unknown ` Verified 06/15/20 12:26 codeine AdvReac Mild N/V Verified 06/15/20 12:26 morphine AdvReac Mild N/V Verified 06/15/20 12:26 Imidazole Antifungals Allergy Unknown . Uncoded 06/15/20 12:26 Consultations 06/15/20 15:18 Consult Cardiology Routine 06/18/20 18:59 Consult Nephrology Routine Ordered Studies 06/25/20 11:30 US venous doppler UE RT Stat FINDINGS: Normal flow, compressibility, phasicity and augmentation of the right upper extremity deep venous structures. IMPRESSION: No sonographic evidence of deep venous thrombosis. Hospital Course (1) CHF exacerbation: Acute on chronic CHF exacerbation, Systolic and Diastolic Type resolved given IV Lasix, improved Quill Fixer consulted volume status stable now no hypoxia or SOB /orthopnea now transitioned to Lasix dose to 40 mg BID Fluid restriction 1200ml/day Echocardiogram -shows severe concentric LVH, mildly reduced LV systolic function with mild global hypokinesis EF 45 to 50%. Grade 3 diastolic dysfunction. Aortic valve poorly visualized, moderately calcified with mild aortic stenosis and moderate aortic regurg. Mild mitral regurg. Severe left atrial enlargement. Acute hypoxemic respiratory failure due to decompensated CHF respiratory status improved per Dr. Álvarez's notes: asked resp to to do 2 step exercise for home 02 assessment -unable to complete pt is 96% in RA , non ambulatory /wheel chair bound at baseline Hospital Acquired Delirium resolved Acute Renal Failure, on CKD stage III resolved ,creatinine improved to baseline consulted Nephrology Hyperkalemia: resolved d/c lisinopril Atrial fibrillation RVR remains rate controlled on metoprolol, added Diltiazem Due to patient's high risk for fall remains a poor candidate for long-term anticoagulation Eliquis discontinued Pt will be discharged on aspirin only Type 2 diabetes: On oral meds at home, Hemoglobin A1c 8.1 History of CAD, status post stent placement Continue metoprolol, Crestor, aspirin DVT prophylaxis Eliquis Code Status : Full code per patient Disposition: Lives alone at home with caregivers return home with home health Total Time Total Time Spent Total Time Spent (In Minutes): 50 minutes Discharge Plan Discharge Items Patient Disposition: Home - Home Health Services Reason For Visit: CHF EXACERBATION, A FIB IN RVR Discharge Diagnosis: CONGESTIVE HEART FAILURE ATRIAL FIBRILLATION ACUTE RENAL FAILURE Activity: Resume your previous activity Non-emergency contact: Primary Care Provider Call non-emergency contact if: you have any medication questions, your symptoms worsen, your pain is not controlled and you have a fever Follow-up/Referrals: Víctor Wright DO [Primary Care Provider] - 06/27/20 10:00 am (Date & Time 06/27/2020 10:00 AM Provider Víctor Wright DO Department General Internal Medicine [facility] ) Diet: Carb Consistent or DM2 Fluids: 1200ml (5 cups) Ambulatory Orders: Basic Metabolic Panel (Routine) Timeframe: 1 Week Location: Determined by Patient Ordered By: Rayna Patterson Attending Provider Instructions: PLEASE REVIEW YOUR NEW MEDICATION LIST AND FOLLOW INSTRUCTIONS CAREFULLY. DO NOT TAKE HIGH DOSE ASPIRIN , ALEVE , MOTRIN , IBUPROFEN , NAPROXEN -NO NSAID'S WILL CAUSE FURTHER DAMAGE TO YOUR KIDNEYS CALL PRIMARY CARE PHYSICIAN OR RETURN TO THE ER IMMEDIATELY IF WITH RECURRENCE OF SYMPTOMS, INCLUDING SWELLING OF LEGS, SHORTNESS OF BREATH, ETC. Call 911 and go to the Emergency Room if: * You have tightness or pain in your chest that does not go away with rest or Nitroglycerin * You are very short of breath even with rest Call your doctor if any of the following symptoms or problems start or get worse: * Shortness of breath or difficulty breathing * Wake up at night short of breath * Chest pain * Cough * Swelling of your hands, fee, or legs * More fatigued or tired with your normal activity * Palpitations - sudden fast heart beats WEIGHT * Weigh yourself every morning after using the bathroom. * Use the same scale. * Wear the same amount of clothing. * Write your weight down on your chart. * Call your doctor if you gain more than 2-3 pounds in 1-2 days. MEDICATIONS * Use this discharge instruction sheet for instructions. * Take your medications at the time your doctor ordered. * Do not skip a dose of your medicines. * If you miss a dose of medicine, take as soon as possible, but DO NOT DOUBLE A DOSE. * Read your medicine information when you get home. * Know all of the side effects of your medicine. * Call your doctor's office if you have any side effects. * Be sure all of your doctors know what medicine and herbs you take (including cold, flu, and herbal medicine). * Pain Medicine: If you do not get relief from your pain, please call your doctor for help. Take the following with you to your follow-up doctor appointments: * Weight Chart * Medication List * List of questions Do not drink excessive alcohol, beer or wine. Pending Studies at Discharge: Yes Studies:: BASIC METABOLIC PANEL IN 1 WEEK Stand-Alone Forms: [facility] PPTV, Smoking Cessation Medications and DC Order Prescriptions: New potassium chloride [Klor-Con M20] 20 mEq Tablet,Er Particles/Crystals 20 meq PO QAM 30 Days Qty: 30 RF: 0 diltiazem HCl 120 mg Capsule,Extended Release 24hr 120 mg PO QAM 30 Days Qty: 30 RF: 0 furosemide [Lasix] 40 mg tablet 40 mg PO BID Qty: 60 RF: 3 Continued metoprolol tartrate 50 mg Tablet 50 mg PO PM Qty: 0 RF: 0 metoprolol tartrate 50 mg Tablet 100 mg PO QAM Qty: 0 RF: 0 acetaminophen [Tylenol Extra Strength] 500 mg Tablet 500 mg PO HS Qty: 0 RF: 0 nitroglycerin [Nitrostat] 0.4 mg Tablet, Sublingual 0.4 mg buccal DIRECTED PRN (Reason: Chest Pain) Qty: 0 RF: 0 rosuvastatin 40 mg Tablet 40 mg PO PM Qty: 0 RF: 0 aspirin 81 mg Tablet,Delayed Release (Dr/Ec) 81 mg PO QAM 30 Days Qty: 30 RF: 3 metformin 1,000 mg tablet 1,000 mg PO BID RF: 0 triamcinolone acetonide 0.1 % ointment 1 applic TOPICAL BID RF: 0 ezetimibe 10 mg tablet 10 mg PO QAM RF: 0 Discontinued lisinopril 20 mg Tablet 20 mg PO BID Qty: 0 RF: 0 amlodipine 10 mg tablet 10 mg PO QAM RF: 0 Discharge Orders: Discharge Order (Routine); Ordered 06/25/20 Ordered By: Jabari Elizabeth/Other Patient Handouts: Managing Type 2 Diabetes Admission Data Admit Date/Time: 06/15/20 13:26 Attending Provider: Jabari Pham Admit Provider: Jabari Pham Primary Care Provider: Víctor Wright Other Providers: Jabari Pham ; Anup Bach ; Michael Murdock ; Batsheva Connor ; [facility] ; Rayna Álvarez Other Interventions: Discharge Summary Assessment (RN) Last Done: 06/25/20 15:40
--- NOTE | 2020-07-07 14:18 | Coding Query ---
To promote full compliance with coding requirements relating to patient care, provider participation is requested in all cases of bus driver/monitor uncertainty. Please assist us with the question(s) below: Coding Question(s): The diagnosis(es) below was documented beginning on 06/17/20 Communication Note and in Progress Notes after that until 06/19/20, then subsequently fell off all further documentation. Please indicate if it is still a possible diagnosis or ruled out. Physician's Response(s): SEPSIS ( ) Diagnosed and POA ( ) Diagnosed and not POA ( x ) Ruled out ( ) Other (please specify) PNEUMONIA ( ) Diagnosed and POA ( ) Diagnosed and not POA ( x ) Ruled out ( ) Other (please specify) MTDD
--- NOTE | 2020-07-07 14:20 | Coding Query ---
PRESENT ON ADMISSION QUERY To promote full compliance with coding requirements relating to pateint care, physician participation is requested in all cases of business records manager uncertainty. Please assist us with the question(s) below: Please place an X within the parenthesis (x). The following diagnosis listed in this patient's medical record require physician assistance to determine if they were present on admission (POA) or not. Please advise for each diagnosis whether it was present on admission, not present on admission, or if it was clinically undetermined. 1. ACUTE HYPOXEMIC RESPIRATORY FAILURE (documentation begins on Progress Note 06/24/20) ( x) Present On Admission ( ) Not Present On Admission ( ) Clinically Undetermined Thank you Anna Saha *Definition of the present on admission (POA)-Present on admission is defined as present at the time the order for inpatient admission occurs. Conditions that develop during an outpatient encounter prior to a written order for inpatient admission (including emergency department, observation, or outpatient surgery) are considered present on admission. MTDD
--- NOTE | 2020-07-07 14:32 | Coding Query ---
CODING QUERY To promote full compliance with coding requirements relating to patient care, provider participation is requested in all cases of physiotherapy practice manager uncertainty. Please assist us with the question(s) below: Coding Question(s): The CHF Exacerbation is documented on H&P and early Progress Notes as Acute on Chronic CHF exacerbation, Diastolic type and on Progress Note 06/25/20 and on Discharge Summary it is documented as Acute on Chronic exacerbation, Systolic and Diastolic type. Please clarify below, in your clinical opinion, regarding the type of CHF Exacerbation. ( ) Diastolic CHF Exacerbation - Acute on Chronic CHF exacerbation, Diastolic type ( x ) Systolic and Diastolic CHF Exacerbation - Acute on Chronic CHF exacerbation, Systolic and Diastolic type ( ) Other CHF Exacerbation type: Please Specify Physician's Response(s): Thank you Anna Saha Principal Diagnosis: "that condition established after study, to be chiefly responsible for occasioning the admission of the patient to the hospital for care." Co-Existing Principal Diagnosis: "when two or more diagnoses equally meet the criteria for principal diagnosis as determined by the circumstances of admission, diagnostic work up, and/or therapy provided, and the Alphabetic Index, Tabular List, or another coding guideline does not provide sequencing direction, any one of the diagnoses may be sequenced first." "When the physician has documented what appears to be a current diagnosis in the body of the record, but has not included the diagnosis in the final diagnostic statement, the physician should be asked whether the diagnosis should be added." (Source Coding [facility] 2 QTR90. p3-4) RYNE
== END 2020-06-25 16:23 | disposition home health service (06) | DRG 291 ==
LOC: ED 11:13 → SUATTDRO 13:26 → 2N 13:26 → 3N 06-22 20:15

== ENCOUNTER 2022-09-02 10:43 | Inpatient (IN) ==
[~2022-09-02 10:43] MED LIST: diphenhydrAMINE 50 MG/ML VIAL IV ONE; methylPREDNISolone 40 MG in SYRINGE 0 ML IV ONE
[2022-09-02] MEDS ORDERED: OPTIRAY 320 500ml IV ONE (10:58)
--- NOTE | 2022-09-02 10:59 | Emergency Department Note ---
Impression & Plan Stroke-like symptom, Ischemic cerebrovascular accident (CVA) ED Provider Note NAME: KELLI KAPADIA AGE: 87 SEX: F : 1935 ARRIVES VIA: Ambulance INFORMANT: Patient, EMS personnel, the patient's family members ED PROVIDER(S): Linus Braun DO CHIEF COMPLAINT: Strokelike symptoms HPI: The patient is an 87-year-old female who presented to the emergency department for an evaluation of strokelike symptoms. The patient had an acute onset of strokelike symptoms at 09 30 this morning. Apparently she did wake up at her normal time. She did have breakfast in the usual fashion. The patient was noted to have an acute change in her mental status including a facial droop and left-sided weakness at approximately 930. 911 was called. The patient was made a stroke alert prior to arrival. At this time the patient does not have any complaints. She denies having any nausea vomiting or headache. She does have a history of atrial fibrillation and currently does not take anticoagulation because of a fall risk. She does have a history of underlying dementia. ROS: See above HPI for pertinent positives & negatives. A total of 10 systems reviewed and were otherwise negative. PAST MEDICAL HISTORY: See Below PAST SURGICAL HISTORY: See Below FAMILY HISTORY: See Below SOCIAL HISTORY: See Below HOME MEDICATIONS: See Below ALLERGIES: See Below VITALS: See Below PHYSICAL EXAMINATION: GENERAL: Patient is awake and alert. She is somewhat anxious appearing. EYES: The conjunctivae are clear. The pupils are round and reactive. EARS, NOSE, MOUTH AND THROAT: The nose is without any evidence of any deformity. NECK: The neck is nontender and supple. RESPIRATORY: Normal respiratory effort is noted there is no evidence of wheezing rhonchi or rales CARDIOVASCULAR: Tachycardic and irregular heart sounds were noted auscultation. GASTROINTESTINAL: The abdomen is soft. Abdomen is nontender. MUSCULOSKELETAL/EXTREMITIES: There is no evidence of gross deformity full range of motion is noted in the hips and shoulders. SKIN: Skin is warm and dry. Trace pedal edema was noted. NEUROLOGIC: Patient is awake and following commands. She appears to be oriented to person place but not time. She is unable to move her left upper or left lower extremity. Speech is dysarthric. MEDICAL DECISION MAKING: The patient is an 87-year-old female who presented to the emergency department for an evaluation of strokelike symptoms. The patient reportedly had an acute onset of left-sided facial droop left upper and left lower extremity weakness. The patient had significant findings on my initial evaluation. The onset of symptoms was at approximately 09 30 according to the visiting nurse. History was obtained from prehospital personnel. The patient has a history of atrial fibrillation but does not take blood thinners because she is a fall risk. The patient was made a stroke alert prior to arrival. Plain CT did not show any acute disease. For this reason the patient was considered a good candidate for thrombolytics. I discussed the patient's condition with her son. He was agreeable and verbally consented to thrombolytics. There was a slight delay in thrombolytic administration as the patient required premedication before she received a CT angiography because of a dye allergy and also we had to wait for the patient's son to arrive so I could explain the risks and benefits of thrombolytics. She was reevaluated multiple times. I discussed her condition with the on-call [facility] hospitalist. I also discussed the patient's condition with the [facility] telestroke neurologist. Triage Nursing notes reviewed. Prior medical records reviewed Vital Signs: reviewed and remarkable for no significant abnormalities Differential diagnosis: Infection, dehydration, metabolic abnormality, hypo/hyperglycemia, electrolyte disturbance, anemia, hypoxia, cardiac sources, intracerebral event, toxicologic, neurologic, as well as other pathologies. ER treatment provided: See below Diagnostics interpreted by me: ECG: EKG was obtained in the emergency department. My interpretation is atrial fibrillation at 107 bpm. No PVCs were noted. Nonspecific ST segment abnormalities were appreciated. This was compared to a tracing from March 07, 2021. No changes were noted. Cardiac Monitoring: An order was placed for continuous cardiac monitoring. The monitor shows a rate of 80 bpm with atrial fibrillation. Laboratory studies: As stated above and show below. Imaging studies: See below. Radiographic imaging was reviewed by myself Consultation(s): I discussed this case with Dr. Quiros who is on-call for the telestroke neurology group with [facility] I discussed this case with the [facility] Hospitalist group. ED COURSE: Procedures: none Critical Care: I have personally spent greater than 45 minutes of critical care time in the direct management of this patient. This includes bedside care, interpretation of diagnostic studies, and testing, discussion with consultants, patient, and family members, and other required patient management activities. This 45 minutes is in excess of all separately billable procedures. 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 CKD (chronic kidney disease), stage III Combined systolic and diastolic heart failure Diabetes Diabetes mellitus, type II History of hyperkalemia Hypertension Mitral regurgitation Myocardial infarction Persistent atrial fibrillation Skin ulcer of sacrum Surgical History History of hip replacement Hx of tonsillectomy Family History Other Alzheimer disease Cancer Social History Smoking Status: Never smoker Hx Alcohol Use: No Hx Substance Use: No Preferred Language: Slovenian Communication Ability: Effective Human Resources Representative Required: No Beliefs That Will Affect Care: Jain Current Living Situation: Alone Current Living Situation Comment: home health care during days Feels Safe at Home: Yes Safety Concerns: Feels Safe At This Time Assistive Devices: Wheelchair Allergies Allergies Allergy/AdvReac Type Severity Reaction Status Date / Time itraconazole Allergy Intermediate HIVES Verified 03/07/21 08:36 Imidazole Alkylating Agents Allergy Unknown Unknown Unverified 03/07/21 08:36 Iodinated Contrast Media Allergy Unknown ` Verified 03/07/21 08:36 codeine AdvReac Mild N/V Verified 03/07/21 08:36 morphine AdvReac Mild N/V Verified 03/07/21 08:36 Home Meds Home Medications Medication Instructions Recorded Confirmed metoprolol tartrate 50 mg tablet 50 mg PO PM ##0 06/24/10 09/02/22 metoprolol tartrate 50 mg tablet 100 mg PO QAM ##0 06/24/10 09/02/22 acetaminophen 500 mg tablet 500 mg PO HS ##0 09/04/10 09/02/22 (Tylenol Extra Strength) aspirin 81 mg tablet,delayed 81 mg PO QAM 30 days #30 tabs 02/27/16 09/02/22 release nitroglycerin 0.4 mg sublingual 0.4 mg buccal DIRECTED PRN 02/27/16 09/02/22 tablet (Nitrostat) Chest Pain #0 BTLS rosuvastatin 40 mg tablet 40 mg PO PM #0 tabs 02/27/16 09/02/22 ezetimibe 10 mg tablet 10 mg PO QAM 06/15/20 09/02/22 glimepiride 1 mg tablet 1 mg PO DAILYBB 03/07/21 09/02/22 hydrocortisone 2.5 % topical cream 1 applic topical BID 03/07/21 09/02/22 potassium chloride 20 mEq 20 meq PO DAILY 03/07/21 09/02/22 tablet,extended release(part/cryst) (Klor-Con M) docusate sodium 100 mg tablet 100 mg PO BID PRN Constipation 09/02/22 09/02/22 meclizine 25 mg tablet 25 mg PO TID PRN Vertigo 09/02/22 09/02/22 metformin 500 mg tablet 1,000 mg PO BID 09/02/22 09/02/22 tamsulosin 0.4 mg capsule 0.4 mg PO DAILY 09/02/22 09/02/22 Previous Rx's Medication Instructions Recorded furosemide 40 mg tablet (Lasix) 40 mg PO BID #60 tabs 06/25/20 Results & Data (ED) Vital Signs Vital Signs - 24 hr 09/02/22 10:58 09/02/22 11:23 09/02/22 11:31 Pulse Rate 100 H Pulse Rate [Apical] 84 82 Pulse Rhythm [Apical] Irregular Respiratory Rate 16 16 19 Respiratory Effort / Characteristics Spontaneous Spontaneous Respiratory Depth Normal Normal Respiratory Pattern Regular Regular Blood Pressure 131/71 Blood Pressure [Right Arm] 144/65 H 122/78 Blood Pressure Mean 91 Blood Pressure Mean [Right Arm] 91 92 Blood Pressure Position Lying Blood Pressure Position [Right Arm] Semi-fowlers Pulse Oximetry 94 96 97 Oxygen Delivery Method Room Air Room Air Nasal Cannula Oxygen Flow Rate 2 Sepsis Recent Fever Within 48 Hours No Sepsis New/Unexplained Change in Mental Status No Sepsis Action Taken by Nursing No Action Required 09/02/22 11:42 09/02/22 11:57 09/02/22 12:13 Pulse Rate Pulse Rate [Apical] 99 H 86 87 Pulse Rhythm [Apical] Respiratory Rate 15 22 19 Respiratory Effort / Characteristics Respiratory Depth Respiratory Pattern Blood Pressure Blood Pressure [Right Arm] 136/96 119/79 134/63 Blood Pressure Mean Blood Pressure Mean [Right Arm] 109 92 86 Blood Pressure Position Blood Pressure Position [Right Arm] Pulse Oximetry 96 97 97 Oxygen Delivery Method Room Air Nasal Cannula Nasal Cannula Oxygen Flow Rate 2 2 2 Sepsis Recent Fever Within 48 Hours Sepsis New/Unexplained Change in Mental Status Sepsis Action Taken by [facility] Medications Current Medication List: was personally reviewed by me Laboratory Data Attestation: I reviewed the patient's lab results. 09/02/22 11:06 09/02/22 11:06 Lab Results 09/02/22 09/02/22 09/02/22 Range/Units 11:01 11:06 11:06 WBC 11.15 H (4.8-10.8) K/ul RBC 3.69 L (3.93-5.22) M/uL Hgb 10.7 L (12.0-16.0) g/dl Hct 32.0 L (34.1-44.9) % MCV 86.7 (80.0-100.0) fL MCH 29.0 (25.0-34.0) pg MCHC 33.4 (32.0-36.0) g/dL RDW Std Deviation 54.8 H (36.4-46.3) fL RDW Coeff of Matt 17.3 H (11.5-14.5) % Plt Count 258 (130-400) K/uL MPV 10.1 (9.4-12.3) fL Immature Gran % (Auto) 0.4 % Neut % (Auto) 57.4 % Lymph % (Auto) 30.3 % Randolph % (Auto) 10.5 % Eos % (Auto) 0.8 % Baso % (Auto) 0.6 % Neut # (Auto) 6.40 (1.4-6.5) K/uL Lymph # (Auto) 3.38 (1.2-3.4) K/uL Randolph # (Auto) 1.17 H (0.24-0.82) K/uL Eos # (Auto) 0.09 (0-0.50) K/uL Baso # (Auto) 0.07 (0-0.2) K/uL Immature Gran # (Auto) 0.04 H (0.00-0.02) K/uL PT 12.4 H (9.0-12.0) Seconds INR 1.2 H (0.9-1.1) APTT 27.7 (21.0-31.0) Seconds PTT Ratio 1.0 Sodium (136-145) mmol/L Potassium (3.5-5.1) mmol/L Chloride (98-107) mmol/L Carbon Dioxide (21-32) mmol/L Anion Gap (3-11) BUN (6-23) mg/dl Creatinine (0.6-1.2) mg/dl Est Cr Clr Drug Dosing ml/min Est GFR ( Amer) ml/min Est GFR (Non-Af Amer) ml/min BUN/Creatinine Ratio (10-20) Glucose (70-99(Fasting)) mg/dl POC Glucose 155 H (70-99) mg/dl Calcium (8.5-10.1) mg/dl Magnesium (1.7-2.4) mg/dl Total Bilirubin (0.2-1.0) mg/dl AST (13-39) U/L ALT (7-52) U/L Alkaline Phosphatase (34-104) U/L Troponin I High Sens (0-14) pg/ml Total Protein (6.0-8.3) gm/dl Albumin (3.4-5.0) gm/dl Globulin (2.5-4.0) gm/dl Albumin/Globulin Ratio (0.9-2) Urine Color Urine Appearance (Clear) Urine pH (4.5-7.5) Ur Specific Hessel (1.000-1.030) Urine Protein (Negative) Urine Glucose (UA) (Negative) Urine Ketones (Negative) Urine Blood (Negative) Urine Nitrite (Negative) Urine Bilirubin (Negative) Urine Urobilinogen (Negative) Ur Leukocyte Esterase (Negative) Urine WBC (Auto) (0-5) /hpf Urine RBC (Auto) (0-4) /hpf U Hyaline Cast (Auto) (0-5) /lpf U Epithel Cells (Auto) (0-5) /lpf Urine Bacteria (Auto) (Negative) SARS-CoV-2, RNA, NAAT (NEGATIVE) 09/02/22 09/02/22 09/02/22 Range/Units 11:06 11:10 11:55 WBC (4.8-10.8) K/ul RBC (3.93-5.22) M/uL Hgb (12.0-16.0) g/dl Hct (34.1-44.9) % MCV (80.0-100.0) fL MCH (25.0-34.0) pg MCHC (32.0-36.0) g/dL RDW Std Deviation (36.4-46.3) fL RDW Coeff of Matt (11.5-14.5) % Plt Count (130-400) K/uL MPV (9.4-12.3) fL Immature Gran % (Auto) % Neut % (Auto) % Lymph % (Auto) % Randolph % (Auto) % Eos % (Auto) % Baso % (Auto) % Neut # (Auto) (1.4-6.5) K/uL Lymph # (Auto) (1.2-3.4) K/uL Randolph # (Auto) (0.24-0.82) K/uL Eos # (Auto) (0-0.50) K/uL Baso # (Auto) (0-0.2) K/uL Immature Gran # (Auto) (0.00-0.02) K/uL PT (9.0-12.0) Seconds INR (0.9-1.1) APTT (21.0-31.0) Seconds PTT Ratio Sodium 135 L (136-145) mmol/L Potassium 4.1 (3.5-5.1) mmol/L Chloride 103 (98-107) mmol/L Carbon Dioxide 24 (21-32) mmol/L Anion Gap 8 (3-11) BUN 24 H (6-23) mg/dl Creatinine 1.03 (0.6-1.2) mg/dl Est Cr Clr Drug Dosing 33.0 ml/min Est GFR ( Amer) 56.6 ml/min Est GFR (Non-Af Amer) 48.8 ml/min BUN/Creatinine Ratio 23.3 H (10-20) Glucose 152 H (70-99(Fasting)) mg/dl POC Glucose (70-99) mg/dl Calcium 9.0 (8.5-10.1) mg/dl Magnesium 2.1 (1.7-2.4) mg/dl Total Bilirubin 0.5 (0.2-1.0) mg/dl AST 22 (13-39) U/L ALT 28 (7-52) U/L Alkaline Phosphatase 46 (34-104) U/L Troponin I High Sens 31.3 H (0-14) pg/ml Total Protein 6.0 (6.0-8.3) gm/dl Albumin 3.4 (3.4-5.0) gm/dl Globulin 2.6 (2.5-4.0) gm/dl Albumin/Globulin Ratio 1.3 (0.9-2) Urine Color Yellow Urine Appearance Clear (Clear) Urine pH 6.0 (4.5-7.5) Ur Specific Hessel 1.021 (1.000-1.030) Urine Protein Trace H (Negative) Urine Glucose (UA) Negative (Negative) Urine Ketones Negative (Negative) Urine Blood Negative (Negative) Urine Nitrite Negative (Negative) Urine Bilirubin Negative (Negative) Urine Urobilinogen Negative (Negative) Ur Leukocyte Esterase Negative (Negative) Urine WBC (Auto) 1-5 (0-5) /hpf Urine RBC (Auto) 0-4 (0-4) /hpf U Hyaline Cast (Auto) 1-5 (0-5) /lpf U Epithel Cells (Auto) 5-10 H (0-5) /lpf Urine Bacteria (Auto) Negative (Negative) SARS-CoV-2, RNA, NAAT NEGATIVE (NEGATIVE) Administered Medications Parenteral Electrolytes (Normosol-R) 1,000 mls @ 75 mls/hr IV .[id number] BIJU Stop: 10/02/22 14:59 Last Admin: 09/03/22 03:26 Dose: 75 mls/hr Documented By: Infusion: 09/03/22 03:26 Dose: 75 mls/hr Documented By: Admin: 09/02/22 15:00 Dose: 75 mls/hr Documented By: VEENA Insulin Aspart (Insulin Aspart Per Unit) 0 units SC ACHS BIJU Stop: 10/02/22 20:59 Last Admin: 09/03/22 07:13 Dose: Not Given Documented By: KRISTAN Co-signed By: REBA Admin: 09/02/22 19:57 Dose: Not Given Documented By: REBA Metoprolol Tartrate (Metoprolol Tartrate 50 Mg Tab) 50 mg PO PM BIJU Stop: 10/02/22 20:59 Last Admin: 09/02/22 19:33 Dose: 50 mg Documented By: REBA Rosuvastatin Calcium (Rosuvastatin Calcium 20 Mg Tab) 40 mg PO PM BIJU Stop: 10/02/22 20:59 Last Admin: 09/02/22 23:00 Dose: 40 mg Documented By: AMB Discontinued Medications Diphenhydramine HCl (Diphenhydramine 50 Mg/Ml Vial) 50 mg IV ONE ONE Stop: 09/02/22 10:35 Last Admin: 09/02/22 10:43 Dose: 50 mg Documented By: FABI Gadobutrol (Gadobutrol 65ml Vial) 6.5 ml IV ONCE ONE Stop: 09/02/22 18:53 Last Admin: 09/02/22 18:53 Dose: 6.5 ml Documented By: MANAN Methylprednisolone 40 mg/ (Syringe) 0.64 mls @ 1.5 mls/min IV ONE ONE Stop: 09/02/22 10:35 Last Admin: 09/02/22 11:22 Dose: Not Given Documented By: FABI Tenecteplase 16 mg/ Syringe 3.2 mls @ 38.4 mls/min IV NOW ONE; Protocol Stop: 09/02/22 11:23 Last Admin: 09/02/22 11:25 Dose: 38.4 mls/min Documented By: FABI Co-signed By: LOBITO Sodium Chloride (Nss) 500 mls @ 999 mls/hr IV .Q31M ONE Stop: 09/02/22 11:53 Last Infusion: 09/02/22 11:59 Dose: 0 mls/hr Documented By: Admin: 09/02/22 11:27 Dose: 999 mls/hr Documented By: FABI Ioversol (Optiray 320 500ml) 108 ml IV ONCE ONE Stop: 09/02/22 10:59 Last Admin: 09/02/22 10:48 Dose: 108 ml Documented By: FERMÍN Methylprednisolone (Methylprednisolone 40 Mg/Ml Vial) Confirm Administered Dose 40 mg .ROUTE .STK-MED ONE Stop: 09/02/22 10:42 Last Admin: 09/02/22 10:43 Dose: 40 mg Documented By: FABI Miscellaneous (Icu Protocol For Hyperglycemia) 1 each N/A ACHS BIJU Stop: 09/04/22 16:29 Last Admin: 09/03/22 07:13 Dose: Not Given Documented By: Admin: 09/02/22 19:56 Dose: Not Given Documented By: Admin: 09/02/22 16:49 Dose: Not Given Documented By: VEENA Sodium Chloride (Sodium Chloride 0.9% 10ml Flush) 20 ml IV NOW STA Stop: 09/02/22 11:13 Last Admin: 09/02/22 11:29 Dose: 20 ml Documented By: ML Imaging Data Radiologist's Impression: Chest X-Ray 09/02/22 10:34 XR chest 1V portable CLINICAL HISTORY: neuro deficit, acute stroke suspected TECHNIQUE: Single frontal radiograph of the chest was obtained. Comparison: Comparison is made to chest radiograph 03/07/2021 FINDINGS: No lines and tubes are seen. Cardiomegaly is noted. The aortic arch is calcified. Reticular interstitial opacities are seen. No evidence of pleural effusion or pneumothorax. Extensive degenerative changes are seen in the right shoulder joint. IMPRESSION: No acute chest disease. ACT 112: Negative or not required by law. Electronically signed by: Raphael Sage M.D. 09/02/2022 11:[address] 09/02/22 10:[address] OF THE BRAIN; CT ANGIOGRAM OF THE BRAIN; CT ANGIOGRAM OF THE NECK CLINICAL HISTORY: Strokelike symptoms. Neurological deficits. COMPARISON STUDY: CT of the brain dated 03/07/2021. TECHNIQUE: Unenhanced axial CT scan of the brain is performed. Subsequently, following the IV administration of 108 of Optiray 320, CT angiogram of the head and neck was performed from the aortic arch to the vertex. Images are reviewed in the axial, sagittal, and coronal planes. 3-D MIPS images are created and assessed. IV contrast was administered without complication. All measurements were calculated based on NASCET criteria. A dose lowering technique was utilized adhering to the principles of ALARA. CT DOSE: 1538.39 mGy.cm FINDINGS: Brain parenchyma: There is age-related involutional change noting moderate subcortical and periventricular microangiopathic disease. There is no hemorrhage, mass effect, or evidence of acute territorial ischemia by CT criteria. There is no evidence of enhancing mass lesion on the angiogram phase images. The ventricles, sulci, and cisterns are prominent secondary to involutional change. Modi-white matter differentiation is preserved. A subcentimeter colloid cyst is suggested at the roof of the third ventricle. No extra-axial fluid collection is seen. Thoracic aorta: There is atherosclerotic calcification of the thoracic aorta. Visualized portions of the thoracic aorta are normal in caliber. The aortic arch demonstrates standard 3-vessel anatomy. Right carotid arterial system: The right common carotid artery is widely patent. Advanced atherosclerotic plaque in the carotid bulb causes approximately 50% stenosis at the origin of the right internal carotid artery. The remainder of the right internal carotid artery is widely patent, as is the external carotid artery. Left carotid arterial system: The left common carotid artery is widely patent, as are the left internal and external carotid arteries. Atherosclerotic plaque and irregularity is seen throughout. Vertebral arteries: The vertebral arteries are widely patent bilaterally and codominant. Subclavian arteries: Widely patent bilaterally. Intracranial vasculature: There is atherosclerotic calcification of the cavernous carotid and vertebral arteries. The internal carotid arteries are patent at the skull base, as are the anterior and middle cerebral arteries bilaterally. 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 This is difficult to assess due to advanced calcified plaque. The left A1 segment is atretic. There is origin of the right posterior cerebral artery. The vertebrobasilar system and posterior cerebral arteries are patent. Atherosclerotic plaque and irregularity seen throughout both vertebral arteries. The vertebral arteries are codominant. No aneurysm or focal vessel cut off seen throughout the intracranial circulation. Jugular veins: Patent bilaterally. The left transverse sinus is diminutive. Dural sinuses: Patent. Lung apices: Partially visualized upper lobe lung parenchyma appears clear. Soft tissues: The visualized pharyngeal soft tissues are normal in appearance noting angiographic phase technique. The oropharyngeal airway appears widely patent. The salivary and thyroid glands are normal in appearance. No cervical lymphadenopathy is seen. Skeletal structures: The skeletal structures are osteopenic. The calvarium appears intact. The cervical spine is maintained noting advanced spondylosis. No lytic or blastic lesion is seen. Orbits: The bony orbits are intact. Orbital contents are normal as visualized noting bilateral ocular lens implant. Sinuses and mastoids: The paranasal sinuses are clear. The mastoid air cells are well pneumatized. IMPRESSION: 1. There is no hemorrhage, mass effect, or evidence of acute territorial ischemia by CT criteria. 2. 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 3. The remaining intracranial vessels are patent. 4. Atherosclerotic plaque causes approximately 50% focal stenosis at the origin of the right internal carotid artery. 5. Otherwise unremarkable CT angiogram of the neck. ACT 112: Negative or not required by law. Electronically signed by: Brenton Dalal M.D. 09/02/2022 11:10 AM Head CTA 09/02/22 10:[address] OF THE BRAIN; CT ANGIOGRAM OF THE BRAIN; CT ANGIOGRAM OF THE NECK CLINICAL HISTORY: Strokelike symptoms. Neurological deficits. COMPARISON STUDY: CT of the brain dated 03/07/2021. TECHNIQUE: Unenhanced axial CT scan of the brain is performed. Subsequently, following the IV administration of 108 of Optiray 320, CT angiogram of the head and neck was performed from the aortic arch to the vertex. Images are reviewed in the axial, sagittal, and coronal planes. 3-D MIPS images are created and assessed. IV contrast was administered without complication. All measurements were calculated based on NASCET criteria. A dose lowering technique was utilized adhering to the principles of ALARA. CT DOSE: 1538.39 mGy.cm FINDINGS: Brain parenchyma: There is age-related involutional change noting moderate subcortical and periventricular microangiopathic disease. There is no hemorrhag e, mass effect, or evidence of acute territorial ischemia by CT criteria. There is no evidence of enhancing mass lesion on the angiogram phase images. The ventricles, sulci, and cisterns are prominent secondary to involutional change. Modi-white matter differentiation is preserved. A subcentimeter colloid cyst is suggested at the roof of the third ventricle. No extra-axial fluid collection is seen. Thoracic aorta: There is atherosclerotic calcification of the thoracic aorta. Visualized portions of the thoracic aorta are normal in caliber. The aortic arch demonstrates standard 3-vessel anatomy. Right carotid arterial system: The right common carotid artery is widely patent. Advanced atherosclerotic plaque in the carotid bulb causes approximately 50% stenosis at the origin of the right internal carotid artery. The remainder of the right internal carotid artery is widely patent, as is the external carotid artery. Left carotid arterial system: The left common carotid artery is widely patent, as are the left internal and external carotid arteries. Atherosclerotic plaque and irregularity is seen throughout. Vertebral arteries: The vertebral arteries are widely patent bilaterally and codominant. Subclavian arteries: Widely patent bilaterally. Intracranial vasculature: There is atherosclerotic calcification of the cavernous carotid and vertebral arteries. The internal carotid arteries are patent at the skull base, as are the anterior and middle cerebral arteries bilaterally. 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 This is difficult to assess due to advanced calcified plaque. The left A1 segment is atretic. There is origin of the right posterior cerebral artery. The vertebrobasilar system and posterior cerebral arteries are patent. Atherosclerotic plaque and irregularity seen throughout both vertebral arteries. The vertebral arteries are codominant. No aneurysm or focal vessel cut off seen throughout the intracranial circulation. Jugular veins: Patent bilaterally. The left transverse sinus is diminutive. Dural sinuses: Patent. Lung apices: Partially visualized upper lobe lung parenchyma appears clear. Soft tissues: The visualized pharyngeal soft tissues are normal in appearance noting angiographic phase technique. The oropharyngeal airway appears widely patent. The salivary and thyroid glands are normal in appearance. No cervical lymphadenopathy is seen. Skeletal structures: The skeletal structures are osteopenic. The calvarium appears intact. The cervical spine is maintained noting advanced spondylosis. No lytic or blastic lesion is seen. Orbits: The bony orbits are intact. Orbital contents are normal as visualized noting bilateral ocular lens implant. Sinuses and mastoids: The paranasal sinuses are clear. The mastoid air cells are well pneumatized. IMPRESSION: 1. There is no hemorrhage, mass effect, or evidence of acute territorial ischemia by CT criteria. 2. 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 3. The remaining intracranial vessels are patent. 4. Atherosclerotic plaque causes approximately 50% focal stenosis at the origin of the right internal carotid artery. 5. Otherwise unremarkable CT angiogram of the neck. ACT 112: Negative or not required by law. Electronically signed by: Brenton Dalal M.D. 09/02/2022 11:10 AM Neck CTA 09/02/22 10:[address] OF THE BRAIN; CT ANGIOGRAM OF THE BRAIN; CT ANGIOGRAM OF THE NECK CLINICAL HISTORY: Strokelike symptoms. Neurological deficits. COMPARISON STUDY: CT of the brain dated 03/07/2021. TECHNIQUE: Unenhanced axial CT scan of the brain is performed. Subsequently, following the IV administration of 108 of Optiray 320, CT angiogram of the head and neck was performed from the aortic arch to the vertex. Images are reviewed in the axial, sagittal, and coronal planes. 3-D MIPS images are created and assessed. IV contrast was administered without complication. All measurements were calculated based on NASCET criteria. A dose lowering technique was utilized adhering to the principles of ALARA. CT DOSE: 1538.39 mGy.cm FINDINGS: Brain parenchyma: There is age-related involutional change noting moderate subcortical and periventricular microangiopathic disease. There is no hemorrhage, mass effect, or evidence of acute territorial ischemia by CT crit eria. There is no evidence of enhancing mass lesion on the angiogram phase images. The ventricles, sulci, and cisterns are prominent secondary to involutional change. Modi-white matter differentiation is preserved. A subcentimeter colloid cyst is suggested at the roof of the third ventricle. No extra-axial fluid collection is seen. Thoracic aorta: There is atherosclerotic calcification of the thoracic aorta. Visualized portions of the thoracic aorta are normal in caliber. The aortic arch demonstrates standard 3-vessel anatomy. Right carotid arterial system: The right common carotid artery is widely patent. Advanced atherosclerotic plaque in the carotid bulb causes approximately 50% stenosis at the origin of the right internal carotid artery. The remainder of the right internal carotid artery is widely patent, as is the external carotid artery. Left carotid arterial system: The left common carotid artery is widely patent, as are the left internal and external carotid arteries. Atherosclerotic plaque and irregularity is seen throughout. Vertebral arteries: The vertebral arteries are widely patent bilaterally and codominant. Subclavian arteries: Widely patent bilaterally. Intracranial vasculature: There is atherosclerotic calcification of the cavernous carotid and vertebral arteries. The internal carotid arteries are patent at the skull base, as are the anterior and middle cerebral arteries bilaterally. 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 This is difficult to assess due to advanced calcified plaque. The left A1 segment is atretic. There is origin of the right posterior cerebral artery. The vertebrobasilar system and posterior cerebral arteries are patent. Atherosclerotic plaque and irregularity seen throughout both vertebral arteries. The vertebral arteries are codominant. No aneurysm or focal vessel cut off seen throughout the intracranial circulation. Jugular veins: Patent bilaterally. The left transverse sinus is diminutive. Dural sinuses: Patent. Lung apices: Partially visualized upper lobe lung parenchyma appears clear. Soft tissues: The visualized pharyngeal soft tissues are normal in appearance noting angiographic phase technique. The oropharyngeal airway appears widely patent. The salivary and thyroid glands are normal in appearance. No cervical lymphadenopathy is seen. Skeletal structures: The skeletal structures are osteopenic. The calvarium appears intact. The cervical spine is maintained noting advanced spondylosis. No lytic or blastic lesion is seen. Orbits: The bony orbits are intact. Orbital contents are normal as visualized noting bilateral ocular lens implant. Sinuses and mastoids: The paranasal sinuses are clear. The mastoid air cells are well pneumatized. IMPRESSION: 1. There is no hemorrhage, mass effect, or evidence of acute territorial ischemia by CT criteria. 2. 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 3. The remaining intracranial vessels are patent. 4. Atherosclerotic plaque causes approximately 50% focal stenosis at the origin of the right internal carotid artery. 5. Otherwise unremarkable CT angiogram of the neck. ACT 112: Negative or not required by law. Electronically signed by: Brenton Dalal M.D. 09/02/2022 11:10 AM Discharge Plan Visit Data Chief Complaint: Stroke Alert Stated Complaint: STROKE SX ED Provider: Linus Braun Discharge Problem: Stroke-like symptom, Ischemic cerebrovascular accident (CVA) Patient Disposition: Admitted As Inpatient Discharge Instructions Interventions: ED Discharge Assessment Last Done: 09/02/22 13:14
--- NOTE | 2022-09-02 11:11 | CT Scan Report ---
UNENHANCED CT OF THE BRAIN; CT ANGIOGRAM OF THE BRAIN; CT ANGIOGRAM OF THE NECK CLINICAL HISTORY: Strokelike symptoms. Neurological deficits. COMPARISON STUDY: CT of the brain dated 03/07/2021. TECHNIQUE: Unenhanced axial CT scan of the brain is performed. Subsequently, following the IV adminis tration of 108 of Optiray 320, CT angiogram of the head and neck was performed from the aortic arch t o the vertex. Images are reviewed in the axial, sagittal, and coronal planes. 3-D MIPS images are cre ated and assessed. IV contrast was administered without complication. All measurements were calculate d based on NASCET criteria. A dose lowering technique was utilized adhering to the principles of ALA RA. CT DOSE: 1538.39 mGy.cm FINDINGS: Brain parenchyma: There is age-related involutional change noting moderate subcortical and periventri cular microangiopathic disease. There is no hemorrhage, mass effect, or evidence of acute territorial ischemia by CT criteria. There is no evidence of enhancing mass lesion on the angiogram phase images . The ventricles, sulci, and cisterns are prominent secondary to involutional change. Modi-white robert er differentiation is preserved. A subcentimeter colloid cyst is suggested at the roof of the third v entricle. No extra-axial fluid collection is seen. Thoracic aorta: There is atherosclerotic calcification of the thoracic aorta. Visualized portions of the thoracic aorta are normal in caliber. The aortic arch demonstrates standard 3-vessel anatomy. Right carotid arterial system: The right common carotid artery is widely patent. Advanced atheroscler otic plaque in the carotid bulb causes approximately 50% stenosis at the origin of the right internal carotid artery. The remainder of the right internal carotid artery is widely patent, as is the exter nal carotid artery. Left carotid arterial system: The left common carotid artery is widely patent, as are the left internal affairs investigator al and external carotid arteries. Atherosclerotic plaque and irregularity is seen throughout. Vertebral arteries: The vertebral arteries are widely patent bilaterally and codominant. Subclavian arteries: Widely patent bilaterally. Intracranial vasculature: There is atherosclerotic calcification of the cavernous carotid and vertebr al arteries. The internal carotid arteries are patent at the skull base, as are the anterior and midd le cerebral arteries bilaterally. There is moderate to high-grade stenosis of the left cavernous barrett tid artery seen on axial image #99. This is difficult to assess due to advanced calcified plaque. The left A1 segment is atretic. There is origin of the right posterior cerebral artery. The verteb robasilar system and posterior cerebral arteries are patent. Atherosclerotic plaque and irregularity seen throughout both vertebral arteries. The vertebral arteries are codominant. No aneurysm or focal vessel cut off seen throughout the intracranial circulation. Jugular veins: Patent bilaterally. The left transverse sinus is diminutive. Dural sinuses: Patent. Lung apices: Partially visualized upper lobe lung parenchyma appears clear. Soft tissues: The visualized pharyngeal soft tissues are normal in appearance noting angiographic pha se technique. The oropharyngeal airway appears widely patent. The salivary and thyroid glands are nor mal in appearance. No cervical lymphadenopathy is seen. Skeletal structures: The skeletal structures are osteopenic. The calvarium appears intact. The cervic al spine is maintained noting advanced spondylosis. No lytic or blastic lesion is seen. Orbits: The bony orbits are intact. Orbital contents are normal as visualized noting bilateral ocular lens implant. Sinuses and mastoids: The paranasal sinuses are clear. The mastoid air cells are well pneumatized. IMPRESSION: 1. There is no hemorrhage, mass effect, or evidence of acute territorial ischemia by CT criteria. 2. 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 3. The remaining intracranial vessels are patent. 4. Atherosclerotic plaque causes approximately 50% focal stenosis at the origin of the right internal carotid artery. 5. Otherwise unremarkable CT angiogram of the neck. ACT 112: Negative or not required by law. Electronically signed by: Brenton Dalal M.D. 09/02/2022 11:10 AM
[2022-09-02] MEDS ORDERED: STAT IV STA (11:12)
[2022-09-02] MEDS ORDERED: SODIUM CHLORIDE 0.9% 10ML FLUSH IV STA (11:12)
[2022-09-02] MEDS ORDERED: No Aspirin within 24hrs of THROMBOLYTIC-Stroke PO SCH (11:15)
[2022-09-02] MEDS ORDERED: TENECTEPLASE 16 MG in SYRINGE 0 ML IV ONE (11:22)
[2022-09-02] MEDS ORDERED: SODIUM CHLORIDE 0.9% 500 ML IV ONE (11:23)
[2022-09-02 11:27] LABS: Basophils # (auto) 0.07 K/uL (0-0.2); Basophils % (auto) 0.6 %; Eosinophils # (auto) 0.09 K/uL (0-0.50); Eosinophils % (auto) 0.8 %; Hemoglobin 10.7 g/dl (12.0-16.0); Immature Granulocytes # (auto) 0.04 K/uL (0.00-0.02); Immature Granulocytes % (auto) 0.4 %; Lymphocytes # (auto) 3.38 K/uL (1.2-3.4); Lymphocytes % (auto) 30.3 %; Mean Corpuscular Hgb Conc 33.4 g/dL (32.0-36.0); Mean Corpuscular Volume 86.7 fL (80.0-100.0); Mean Platelet Volume 10.1 fL (9.4-12.3); Monocytes # (auto) 1.17 K/uL (0.24-0.82); Monocytes % (auto) 10.5 %; Neutrophils % (auto) 57.4 %; Platelet Count 258 K/uL (130-400); RDW Coefficient of Variation 17.3 % (11.5-14.5); RDW Standard Deviation 54.8 fL (36.4-46.3); Red Blood Count 3.69 M/uL (3.93-5.22); White Blood Count 11.15 K/ul (4.8-10.8)
--- NOTE | 2022-09-02 11:37 | XRay Report ---
XR chest 1V portable CLINICAL HISTORY: neuro deficit, acute stroke suspected TECHNIQUE: Single frontal radiograph of the chest was obtained. Comparison: Comparison is made to chest radiograph 03/07/2021 FINDINGS: No lines and tubes are seen. Cardiomegaly is noted. The aortic arch is calcified. Reticular interstit ial opacities are seen. No evidence of pleural effusion or pneumothorax. Extensive degenerative nobles es are seen in the right shoulder joint. IMPRESSION: No acute chest disease. ACT 112: Negative or not required by law. Electronically signed by: Raphael Sage M.D. 09/02/2022 11:36 AM
[2022-09-02 11:50] LABS: Albumin Globulin Ratio 1.3 (0.9-2); Albumin Level 3.4 gm/dl (3.4-5.0); BUN Creatinine Ratio 23.3 (10-20); Bilirubin,Total 0.5 mg/dl (0.2-1.0); Est GFR (African American) 56.6 ml/min; Est GFR (Non-African American) 48.8 ml/min; Globulin 2.6 gm/dl (2.5-4.0); INR 1.2 (0.9-1.1); Magnesium 2.1 mg/dl (1.7-2.4); Partial Thromboplastin Time 27.7 Seconds (21.0-31.0); Potassium 4.1 mmol/L (3.5-5.1); Prothrombin Time 12.4 Seconds (9.0-12.0)
[2022-09-02 11:54] LABS: Troponin I High Sensitivity 31.3 pg/ml (0-14)
--- NOTE | 2022-09-02 12:06 | History & Physical Report ---
Date of Service September 02, 2022 Assessment & Plan (1) Left-sided weakness: Plan: This is an 87-year-old female with PMH of chronic combined systolic and diastolic heart failure, CAD status post stent placement history of atrial fibrillation not anticoagulated due to fall risk, type 2 diabetes, hypertension, aortic valve stenosis, CAD, CKD 3 and other medical problems listed below who presents with left-sided weakness at 930 this morning. Presenting with new left-sided weakness and facial droop noted at 915 this morning History of atrial fibrillation not on anticoagulation due to fall risk Was a stroke alert and is status post TNKase Head/neck CTA with no e/o hemorrhage, mass-effect or acute territorial ischemia by CT criteria. [id number] stenosis of L cavernous carotid artery. Atherosclerotic plaque causes approx.50% focal stenosis of the R ICA MRI brain with/without contrast and echo with bubble study pending Will be monitored in the ICU following post TNKase protocol Repeat CT head 24 hours post TNK Continue statin therapy, PT OT evaluation and neuro consultation (2) Diabetes mellitus, type II: Plan: A1c 6.9 in Jul 2022 Hold home agents SSI while in-patient BSG AC HS (3) Persistent atrial fibrillation: Plan: Continue Lopressor twice daily, not on anticoagulation historically due to fall risk. EKG independently reviewed with reviewed with a flutter at [address] changes. Managed by [facility] (4) Aortic stenosis: (5) Combined systolic and diastolic heart failure: Plan: Appears euvolemic. Chest x-ray without any acute findings. Monitor volume status closely (6) Hypertension: Plan: Normotensive. SBP < 180 and DBP <105 for 24 hours following TNK (7) CKD (chronic kidney disease), stage III: Plan: Creatinine at baseline. Continue to monitor with daily BMP (8) Skin ulcer of sacrum: Plan: History of sacral skin ulcer Per outpatient chart. Repositioning, wound care nurse as needed Code status: Per son (who is POA along with his sister), want FULL code for now but will readdress once sister is also at bedside PCP: Cecile Dispo: Admitted to ICU Patient seen in collaboration with Dr. Belle. Please see addendum. History of Present Illness Chief Complaint: Strokelike symptoms Primary Care Provider: Yesi Huber, DO This is an 87-year-old female with PMH of chronic combined systolic and diastolic heart failure, CAD status post stent placement history of atrial fibrillation not anticoagulated due to fall risk, type 2 diabetes, hypertension, aortic valve stenosis, CAD, CKD 3 and other medical problems listed below who presents with left-sided weakness at 915 this morning. Did wake up at her normal time and had breakfast and took medications without issue. Patient is wheelchair-bound and requires help to transfer but when home health providers were preparing to transfer, they noted profound weakness on left side. Was then brought in by EMS for further evaluation and stroke alert was called. Due to ongoing weakness and facial droop in the ED, patient was administered TNK and underwent Lauren telestroke evaluation. Patient states she is feeling better but still foggy. Is alert and oriented to self, son at bedside. Knows she is in [place] but surprised when she is in the hospital and not oriented to situation. Son states she has history of dementia with intermittent disorientation, especially in moments of stress. Still with weakness and inability to move left upper extremity independently. Also feeling weak in left lower extremity. Denies any fever, chills, recent illness, lightheadedness, chest pain, shortness of breath, nausea, vomiting, abdominal pain, dysuria, diar hiro constipation. Allergies Allergy/AdvReac Type Severity Reaction Status Date / Time itraconazole Allergy Intermediate HIVES Verified 03/07/21 08:36 Imidazole Alkylating Agents Allergy Unknown Unknown Unverified 03/07/21 08:36 Iodinated Contrast Media Allergy Unknown ` Verified 03/07/21 08:36 codeine AdvReac Mild N/V Verified 03/07/21 08:36 morphine AdvReac Mild N/V Verified 03/07/21 08:36 Home Medications Medication Instructions Recorded Confirmed Type metoprolol tartrate 50 mg tablet 50 mg PO PM ##0 06/24/10 09/02/22 History metoprolol tartrate 50 mg tablet 100 mg PO QAM ##0 06/24/10 09/02/22 History acetaminophen 500 mg tablet 500 mg PO HS ##0 09/04/10 09/02/22 History (Tylenol Extra Strength) aspirin 81 mg tablet,delayed 81 mg PO QAM 30 days #30 tabs 02/27/16 09/02/22 History release nitroglycerin 0.4 mg sublingual 0.4 mg buccal DIRECTED PRN 02/27/16 09/02/22 History tablet (Nitrostat) Chest Pain #0 BTLS rosuvastatin 40 mg tablet 40 mg PO PM #0 tabs 02/27/16 09/02/22 History ezetimibe 10 mg tablet 10 mg PO QAM 06/15/20 09/02/22 History furosemide 40 mg tablet (Lasix) 40 mg PO BID #60 tabs 06/25/20 09/02/22 Rx glimepiride 1 mg tablet 1 mg PO DAILYBB 03/07/21 09/02/22 History hydrocortisone 2.5 % topical cream 1 applic topical BID 03/07/21 09/02/22 History potassium chloride 20 mEq 20 meq PO DAILY 03/07/21 09/02/22 History tablet,extended release(part/cryst) (Klor-Con M) docusate sodium 100 mg tablet 100 mg PO BID PRN Constipation 09/02/22 09/02/22 History meclizine 25 mg tablet 25 mg PO TID PRN Vertigo 09/02/22 09/02/22 History metformin 500 mg tablet 1,000 mg PO BID 09/02/22 09/02/22 History tamsulosin 0.4 mg capsule 0.4 mg PO DAILY 09/02/22 09/02/22 History 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 CKD (chronic kidney disease), stage III Combined systolic and diastolic heart failure Diabetes Diabetes mellitus, type II History of hyperkalemia Hypertension Mitral regurgitation Myocardial infarction Persistent atrial fibrillation Skin ulcer of sacrum Surgical History History of hip replacement Hx of tonsillectomy Family History Other Alzheimer disease Cancer Social History Smoking Status: Never smoker Hx Alcohol Use: No Hx Substance Use: No Preferred Language: Swazi Communication Ability: Effective Locks Tender Required: No Beliefs That Will Affect Care: Sabianist Current Living Situation: Alone Current Living Situation Comment: home health care during days Feels Safe at Home: Yes Safety Concerns: Feels Safe At This Time Assistive Devices: Wheelchair Review of Systems Review of Systems: At least ten systems reviewed and negative except as noted in the HPI. Physical Exam Physical Exam: General Appearance: WD/WN, vitals as above, NAD, lying in bed, pleasant, able to communicate with slowed response Head: normocephalic, atraumatic Eyes: normal inspection, PERRL, conjunctivae normal, anicteric sclerae ENT: external ear and nose normal, oropharynx normal Neck: normal visual inspection, trachea midline, no thyromegaly Respiratory: normal respiratory effort, lungs clear to auscultation, no wheeze, rales, rhonchi. No accessory muscle use Cardiovascular: irregular rate & rhythm, no murmur, normal peripheral pulses, trace BLE edema. Vessels: no JVD Chest: normal inspection of chest Abdomen/GI: normal bowel sounds, soft, nontender, no hepatosplenomegaly Extremities/Musculoskeletal: no cyanosis or clubbing, extremities motor strength 5/5 Neurologic: PERRL, EOMI, accommodation nl, + left facial droop, speech with mild dysarthria. LUE passive ROM with L hand contracted, 2/5 KEVIN, LLE 3/5 Psychiatric: A+O x self only, euthymic affect Skin: no rashes, normal color, warm/dry Results & Data Results & Data ([facility] [place]) Vital Signs (Past 12 Hours) Vital Signs Pulse Pulse Resp BP BP Pulse Ox O2 Del Method 09/02/22 11:57 86 22 119/79 97 Nasal Cannula 09/02/22 11:42 99 H 15 136/96 96 Room Air 09/02/22 11:31 82 19 122/78 97 Nasal Cannula 09/02/22 11:23 84 16 144/65 H 96 Room Air 09/02/22 10:58 100 H 16 131/71 94 Room Air O2 Flow Rate 09/02/22 11:57 2 09/02/22 11:42 2 09/02/22 11:31 2 09/02/22 11:23 09/02/22 10:58 Laboratory Results Short CBC 09/02/22 Range/Units 11:06 WBC 11.15 H (4.8-10.8) K/ul Hgb 10.7 L (12.0-16.0) g/dl Hct 32.0 L (34.1-44.9) % Plt Count 258 (130-400) K/uL BMP 09/02/22 11:06 Sodium 135 L Potassium 4.1 Chloride 103 Carbon Dioxide 24 BUN 24 H Creatinine 1.03 Glucose 152 H Calcium 9.0 Liver Function 09/02/22 Range/Units 11:06 Total Bilirubin 0.5 (0.2-1.0) mg/dl AST 22 (13-39) U/L ALT 28 (7-52) U/L Alkaline Phosphatase 46 (34-104) U/L Albumin 3.4 (3.4-5.0) gm/dl Diagnostic Findings Chest X-Ray 09/02/22 10:34 XR chest 1V portable CLINICAL HISTORY: neuro deficit, acute stroke suspected TECHNIQUE: Single frontal radiograph of the chest was obtained. Comparison: Comparison is made to chest radiograph 03/07/2021 FINDINGS: No lines and tubes are seen. Cardiomegaly is noted. The aortic arch is calcified. Reticular interstitial opacities are seen. No evidence of pleural effusion or pneumothorax. Extensive degenerative changes are seen in the right shoulder joint. IMPRESSION: No acute chest disease. ACT 112: Negative or not required by law. Electronically signed by: Raphael Sage M.D. 09/02/2022 11:[address] 09/02/22 10:[address] OF THE BRAIN; CT ANGIOGRAM OF THE BRAIN; CT ANGIOGRAM OF THE NECK CLINICAL HISTORY: Strokelike symptoms. Neurological deficits. COMPARISON STUDY: CT of the brain dated 03/07/2021. TECHNIQUE: Unenhanced axial CT scan of the brain is performed. Subsequently, following the IV administration of 108 of Optiray 320, CT angiogram of the head and neck was performed from the aortic arch to the vertex. Images are reviewed in the axial, sagittal, and coronal planes. 3-D MIPS images are created and assessed. IV contrast was administered without complication. All measurements were calculated based on NASCET criteria. A dose lowering technique was utilized adhering to the principles of ALARA. CT DOSE: 1538.39 mGy.cm FINDINGS: Brain parenchyma: There is age-related involutional change noting moderate subcortical and periventricular microangiopathic disease. There is no hemorrhage, mass effect, or evidence of acute territorial ischemia by CT criteria. There is no evidence of enhancing mass lesion on the angiogram phase images. The ventricles, sulci, and cisterns are prominent secondary to involutional change. Modi-white matter differentiation is preserved. A subcentimeter colloid cyst is suggested at the roof of the third ventricle. No extra-axial fluid collection is seen. Thoracic aorta: There is atherosclerotic calcification of the thoracic aorta. Visualized portions of the thoracic aorta are normal in caliber. The aortic arch demonstrates standard 3-vessel anatomy. Right carotid arterial system: The right common carotid artery is widely patent. Advanced atherosclerotic plaque in the carotid bulb causes approximately 50% stenosis at the origin of the right internal carotid artery. The remainder of the right internal carotid artery is widely patent, as is the external carotid artery. Left carotid arterial system: The left common carotid artery is widely patent, as are the left internal and external carotid arteries. Atherosclerotic plaque and irregularity is seen throughout. Vertebral arteries: The vertebral arteries are widely patent bilaterally and codominant. Subclavian arteries: Widely patent bilaterally. Intracranial vasculature: There is atherosclerotic calcification of the cavernous carotid and vertebral arteries. The internal carotid arteries are patent at the skull base, as are the anterior and middle cerebral arteries bilaterally. 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 This is difficult to assess due to advanced calcified plaque. The left A1 segment is atretic. There is origin of the right posterior cerebral artery. The vertebrobasilar system and posterior cerebral arteries are patent. Atherosclerotic plaque and irregularity seen throughout both vertebral arteries. The vertebral arteries are codominant. No aneurysm or focal vessel cut off seen throughout the intracranial circulation. Jugular veins: Patent bilaterally. The left transverse sinus is diminutive. Dural sinuses: Patent. Lung apices: Partially visualized upper lobe lung parenchyma appears clear. Soft tissues: The visualized pharyngeal soft tissues are normal in appearance noting angiographic phase technique. The oropharyngeal airway appears widely patent. The salivary and thyroid glands are normal in appearance. No cervical lymphadenopathy is seen. Skeletal structures: The skeletal structures are osteopenic. The calvarium appears intact. The cervical spine is maintained noting advanced spondylosis. No lytic or blastic lesion is seen. Orbits: The bony orbits are intact. Orbital contents are normal as visualized noting bilateral ocular lens implant. Sinuses and mastoids: The paranasal sinuses are clear. The mastoid air cells are well pneumatized. IMPRESSION: 1. There is no hemorrhage, mass effect, or evidence of acute territorial ischemia by CT criteria. 2. 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 3. The remaining intracranial vessels are patent. 4. Atherosclerotic plaque causes approximately 50% focal stenosis at the origin of the right internal carotid artery. 5. Otherwise unremarkable CT angiogram of the neck. ACT 112: Negative or not required by law. Electronically signed by: Brenton Dalal M.D. 09/02/2022 11:10 AM Head CTA 09/02/22 10:[address] OF THE BRAIN; CT ANGIOGRAM OF THE BRAIN; CT ANGIOGRAM OF THE NECK CLINICAL HISTORY: Strokelike symptoms. Neurological deficits. COMPARISON STUDY: CT of the brain dated 03/07/2021. TECHNIQUE: Unenhanced axial CT scan of the brain is performed. Subsequently, following the IV administration of 108 of Optiray 320, CT angiogram of the head and neck was performed from the aortic arch to the vertex. Images are reviewed in the axial, sagittal, and coronal planes. 3-D MIPS images are created and assessed. IV contrast was administered without complication. All measurements were calculated based on NASCET criteria. A dose lowering technique was utilized adhering to the principles of ALARA. CT DOSE: 1538.39 mGy.cm FINDINGS: Brain parenchyma: There is age-related involutional change noting moderate subcortical and periventricular microangiopathic disease. There is no hemorrhage, mass effect, or evidence of acute territorial ischemia by CT criteria. There is no evidence of enhancing mass lesion on the angiogram phase images. The ventricles, sulci, and cisterns are prominent secondary to involutional change. Modi-white matter differentiation is preserved. A subcentimeter colloid cyst is suggested at the roof of the third ventricle. No extra-axial fluid collection is seen. Thoracic aorta: There is atherosclerotic calcification of the thoracic aorta. Visualized portions of the thoracic aorta are normal in caliber. The aortic arch demonstrates standard 3-vessel anatomy. Right carotid arterial system: The right common carotid artery is widely patent. Advanced atherosclerotic plaque in the carotid bulb causes approximately 50% stenosis at the origin of the right internal carotid artery. The remainder of the right internal carotid artery is widely patent, as is the external carotid artery. Left carotid arterial system: The left common carotid artery is widely patent, as are the left internal and external carotid arteries. Atherosclerotic plaque and irregularity is seen throughout. Vertebral arteries: The vertebral arteries are widely patent bilaterally and codominant. Subclavian arteries: Widely patent bilaterally. Intracranial vasculature: There is atherosclerotic calcification of the cavernous carotid and vertebral arteries. The internal carotid arteries are patent at the skull base, as are the anterior and middle cerebral arteries bilaterally. 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 This is difficult to assess due to advanced calcified plaque. The left A1 segment is atretic. There is origin of the right posterior cerebral artery. The vertebrobasilar system and posterior cerebral arteries are patent. Atherosclerotic plaque and irregularity seen throughout both vertebral arteries. The vertebral arteries are codominant. No aneurysm or focal vessel cut off seen throughout the intracranial circulation. Jugular veins: Patent bilaterally. The left transverse sinus is diminutive. Dural sinuses: Patent. Lung apices: Partially visualized upper lobe lung parenchyma appears clear. Soft tissues: The visualized pharyngeal soft tissues are normal in appearance noting angiographic phase technique. The oropharyngeal airway appears widely patent. The salivary and thyroid glands are normal in appearance. No cervical lymphadenopathy is seen. Skeletal structures: The skeletal structures are osteopenic. The calvarium appears intact. The cervical spine is maintained noting advanced spondylosis. No lytic or blastic lesion is seen. Orbits: The bony orbits are intact. Orbital contents are normal as visualized noting bilateral ocular lens implant. Sinuses and mastoids: The paranasal sinuses are clear. The mastoid air cells are well pneumatized. IMPRESSION: 1. There is no hemorrhage, mass effect, or evidence of acute territorial ischemia by CT criteria. 2. 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 3. The remaining intracranial vessels are patent. 4. Atherosclerotic plaque causes approximately 50% focal stenosis at the origin of the right internal carotid artery. 5. Otherwise unremarkable CT angiogram of the neck. ACT 112: Negative or not required by law. Electronically signed by: Brenton Dalal M.D. 09/02/2022 11:10 AM Neck CTA 09/02/22 10:[address] OF THE BRAIN; CT ANGIOGRAM OF THE BRAIN; CT ANGIOGRAM OF THE NECK CLINICAL HISTORY: Strokelike symptoms. Neurological deficits. COMPARISON STUDY: CT of the brain dated 03/07/2021. TECHNIQUE: Unenhanced axial CT scan of the brain is performed. Subsequently, following the IV administration of 108 of Optiray 320, CT angiogram of the head and neck was performed from the aortic arch to the vertex. Images are reviewed in the axial, sagittal, and coronal planes. 3-D MIPS images are created and assessed. IV contrast was administered without complication. All measurements were calculated based on NASCET criteria. A dose lowering technique was utilized adhering to the principles of ALARA. CT DOSE: 1538.39 mGy.cm FINDINGS: Brain parenchyma: There is age-related involutional change noting moderate subcortical and periventricular microangiopathic disease. There is no hemorrhage, mass effect, or evidence of acute territorial ischemia by CT criteria. There is no evidence of enhancing mass lesion on the angiogram phase images. The ventricles, sulci, and cisterns are prominent secondary to involutional change. Modi-white matter differentiation is preserved. A s ubcentimeter colloid cyst is suggested at the roof of the third ventricle. No extra-axial fluid collection is seen. Thoracic aorta: There is atherosclerotic calcification of the thoracic aorta. Visualized portions of the thoracic aorta are normal in caliber. The aortic arch demonstrates standard 3-vessel anatomy. Right carotid arterial system: The right common carotid artery is widely patent. Advanced atherosclerotic plaque in the carotid bulb causes approximately 50% stenosis at the origin of the right internal carotid artery. The remainder of the right internal carotid artery is widely patent, as is the external carotid artery. Left carotid arterial system: The left common carotid artery is widely patent, as are the left internal and external carotid arteries. Atherosclerotic plaque and irregularity is seen throughout. Vertebral arteries: The vertebral arteries are widely patent bilaterally and codominant. Subclavian arteries: Widely patent bilaterally. Intracranial vasculature: There is atherosclerotic calcification of the cavernous carotid and vertebral arteries. The internal carotid arteries are patent at the skull base, as are the anterior and middle cerebral arteries bilaterally. 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 This is difficult to assess due to advanced calcified plaque. The left A1 segment is atretic. There is origin of the right posterior cerebral artery. The vertebrobasilar system and posterior cerebral arteries are patent. Atherosclerotic plaque and irregularity seen throughout both vertebral arteries. The vertebral arteries are codominant. No aneurysm or focal vessel cut off seen throughout the intracranial circulation. Jugular veins: Patent bilaterally. The left transverse sinus is diminutive. Dural sinuses: Patent. Lung apices: Partially visualized upper lobe lung parenchyma appears clear. Soft tissues: The visualized pharyngeal soft tissues are normal in appearance noting angiographic phase technique. The oropharyngeal airway appears widely patent. The salivary and thyroid glands are normal in appearance. No cervical lymphadenopathy is seen. Skeletal structures: The skeletal structures are osteopenic. The calvarium appears intact. The cervical spine is maintained noting advanced spondylosis. No lytic or blastic lesion is seen. Orbits: The bony orbits are intact. Orbital contents are normal as visualized noting bilateral ocular lens implant. Sinuses and mastoids: The paranasal sinuses are clear. The mastoid air cells are well pneumatized. IMPRESSION: 1. There is no hemorrhage, mass effect, or evidence of acute territorial ischemia by CT criteria. 2. 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 3. The remaining intracranial vessels are patent. 4. Atherosclerotic plaque causes approximately 50% focal stenosis at the origin of the right internal carotid artery. 5. Otherwise unremarkable CT angiogram of the neck. ACT 112: Negative or not required by law. Electronically signed by: Brenton Dalal M.D. 09/02/2022 11:10 AM Supervising Physician Co-Signing Physician Notes The patient is an 87-year-old female who is wheelchair-bound with multiple medication problems who presented as a stroke alert. She had left-sided weakness and left-sided facial droop that was concerning. Daughter states that she underwent an angioplasty of her tibial artery on 08/[address] Boykin from outpatient vascular surgery. She was told she has 100% occlusions of her arteries (report unavailable) and no intervention was pursued beyond that. The following day on 09/01 she was confused and weak generally. This predated her acute left-sided weakness that was seen this morning. She was administered to neck to place [place] 25 in the ER and was transferred to the ICU for monitoring. She reports no headache, no visual changes and states she feels somewhat better. She does have some rust colored sputum that is present but no hank bleeding. At baseline daughter reports that she has some dementia/disorientation. She is also wheelchair-bound secondary to severe osteoarthritis for the last 5+ years. Patient denies any pain or trouble breathing. On physical exam she appears well-nourished well-developed and in no acute distress. She has a clear strength deficit unable to move her left upper extremity at all. Her left hand is balled up in a fist. She was somewhat resistant to left upper extremity passive movement. There is no hank facial drooping by my exam now. Sensation is normal to the face and cranial nerves are intact (2 through 12). She is able to move her right leg but has minimal to no movement of her left leg. She has an arterial ulcer on the tip of the left great toe and there is no evidence of atheromatous emboli in her feet or toes bilaterally. Feet are cool to touch at the distal forefoot bilaterally. Cardiac and pulmonary exam is unremarkable. Skin is warm and dry. Work-up includes a CBC with a white count of 11, H&H of 10.7/32 and a normal platelet count. Chemistry is within normal limits, highly sensitive troponin is elevated in setting of stroke to 32. Urine is benign CTA of the head and neck revealed moderate to high-grade stenosis of the left cavernous carotid artery and plaque causing approximately 50% stenosis at the origin of the right internal carotid artery. Chest x-ray reveals no acute disease. Brain MRI is pending. EKG reveals atrial flutter with variable AV block. Overall this is a 87-year-old female who is wheelchair-bound with peripheral arterial disease and chronic atrial fib/flutter without anticoagulation presenting with acute stroke. Presumed stroke is of cardiac etiology however this may also be related to atherosclerotic plaque seen on CTA of head and neck that is age-related. We will ask cardiology for an opinion on anticoagulation at this point given recent events. She will continue to remain in the ICU status post fibrinolytic administration for close monitoring. MEds and workup as above. I did speak with her son this evening and confirmed with him that patient and family would like to be a DNR CODE STATUS. This was updated in the chart. DO Yoshi
[2022-09-02 12:14] LABS: Appearance Urine Clear (Clear); Bacteria Urine Automated Negative (Negative); Bilirubin Urine Negative (Negative); Blood Urine Negative (Negative); Color Urine Yellow; Glucose Urine UA Negative (Negative); Ketones Urine Negative (Negative); Leukocyte Esterase Urine Negative (Negative); Nitrite Urine Negative (Negative); Protein Urine Trace (Negative); RBC Urine Automated 0-4 /hpf (0-4); Specific Gravity Urine 1.021 (1.000-1.030); Urobilinogen Urine Negative (Negative)
--- NOTE | 2022-09-02 13:30 | Electrocardiogram Report ---
Test Reason : Blood Pressure : / mmHG Vent. Rate : 107 BPM Atrial Rate : 288 BPM P-R Int : 000 ms QRS Dur : 094 ms QT Int : 342 ms P-R-T Axes : 000 045 015 degrees QTc Int : 456 ms Atrial flutter with variable A-V block Nonspecific ST and T wave abnormality Abnormal ECG When compared with ECG of 07-MAR-2021 08:48, HR has increased by 29 bpm Otherwise no significant change Confirmed by Ketan Roberts ([id number]) on 09/02/2022 1:30:45 PM Referred By: ED Confirmed By:Ketan Roberts
[2022-09-02] MEDS ORDERED: LABETALOL HCL IV 5 MG/ML 20ML IV PRN (13:55)
[2022-09-02] MEDS ORDERED: PHARMACIST DISCHARGE MED REC CONSULT PRN (13:55)
--- NOTE | 2022-09-02 14:37 | Critical Care Consultation ---
Date of Consultation September 02, 2022 Assessment & Plan (1) Left-sided weakness: Reason Critically Ill: 87-year-old female presenting with acute onset of WAS left facial droop and LEFT-sided weakness who received TNKase in the setting of CVA symptoms requiring close hemodynamic monitoring and neurochecks status post thrombolytic administration. NEURO - * CAM ICU: Positive * CVA: * Patient presenting with new LEFT-sided weakness and LEFT-sided facial droop. She is status post TNKase administration. * Admitted to ICU for frequent neurochecks and post TNKase protocol. * Follow-up CT head brain in 24 hours post TNKase administration. * Would obtain echocardiogram for evaluation of possible cardiac source in the A. fib patient. Of note, there had been extensive discussion with cardiology during previous admission on 06/22/2020 at the risks for long- term anticoagulation given her frequency of falls and risk for catastrophic bleeding. At that point, shared decision-making was to opt out of of long- term anticoagulation therapy. * Continue with patient's home antihypertensives and statin therapy. * PT/OT evaluation when appropriate. * Appreciate neurology consultation CARDIAC/VASCULAR - * Elevated Troponin: * Of questionable significance at this point in the patient in chronic A. fib w/ CKD III. * EKG w/o acute findings. * Patient w/o complaints of chest pain. * Trend trops to peak. * Will be obtaining echo as part of Neuro w/o. * A. fib: * Chronic - managed by [facility] cardiology. * Continue metoprolol dosing as tolerated. * Currently rate controlled. * EKG: A. flutter @ [address] elevations noted. QTc 456 ms. * Monitor on telemetry. RESPIRATORY - * No h/o pulmonary disease. * Saturating well on room air. * Will need swallow eval for risk of aspiration s/p CVA. GI/NUTRITION - * NPO until she passes swallow evaluation. RENAL/LYTES - * CKD III * No significant electrolyte derangements at this time. * Gentle hydration while NPO - * Marquez in place - Strict I&Os. ENDO - * DMII: * BSGs per unit protocol. ISS --> gtt per unit policy. HEME - * Stable H&H * Monitor for s/s bleeding s/p TNKase administration. ID - * No apparent infectious sources at this time. LINES/IV ACCESS - * PIVs x2 * Marquez DVT PROPHYLAXIS - * Hold on chemoprophylaxis s/p TNKase administration. * SCDs I have personally spent 37 minutes of critical care time in the direct management of this patient. This is a life/limb threatening event. This includes time spent evaluating patient, direct bedside care, chart review, placing orders, interpretation of diagnostic studies, discussion with consultants, patient, and family members, as well as other required patient management activities. This time is exclusive of all separately billable procedures, and teaching time and separate from and in addition to any other critical care service time. Thank you for allowing us to participate in the care of this patient. Please refer to my attending physician's documentation for any further recommendations. (2) Persistent atrial fibrillation: (3) Diabetes mellitus, type II: (4) Hypertension: (5) Elevated troponin: Supervising Physician Co-Signing Physician Notes Patient reviewed. EMR reviewed. Discussed with OLGA. Agree with assessment plan as noted. Complete post stroke order set. Neurology consultation pending. Echocardiogram and MRI of the brain. Observe for signs of bleeding status post thrombolytics. Follow-up CT scan in 24 hours. If negative, patient can transfer out of the ICU to the floor. Will follow while in the ICU History of Present Illness Reason for Consultation: CVA Requesting Physician: Dr. Yoshi DO Attending Physician: Jaelyn Belle DO History of Present Illness Patient is an 87-year-old female with a significant past medical history of hypertension, prior NH, cardiomyopathy, type 2 diabetes, A. fib, CHF, and CKD 3. She was enjoying her typical state of health up until neither this morning when she was noted to have a slight LEFT-sided facial droop and LEFT upper extremity weakness. She was promptly brought to the emergency department where she was evaluated by teleneurology and did TNKase for acute presumed thromboembolic CVA. Post tPA, the patient has persistent LEFT upper extremity weakness with a slight LEFT-sided facial droop. She is pleasantly demented and provides no significant historical information otherwise. Allergies Allergy/AdvReac Type Severity Reaction Status Date / Time itraconazole Allergy Intermediate HIVES Verified 03/07/21 08:36 Imidazole Alkylating Agents Allergy Unknown Unknown Unverified 03/07/21 08:36 Iodinated Contrast Media Allergy Unknown ` Verified 03/07/21 08:36 codeine AdvReac Mild N/V Verified 03/07/21 08:36 morphine AdvReac Mild N/V Verified 03/07/21 08:36 Home Medications Medication Instructions Recorded Confirmed Type metoprolol tartrate 50 mg tablet 50 mg PO PM ##0 06/24/10 09/02/22 History metoprolol tartrate 50 mg tablet 100 mg PO QAM ##0 06/24/10 09/02/22 History acetaminophen 500 mg tablet 500 mg PO HS ##0 09/04/10 09/02/22 History (Tylenol Extra Strength) aspirin 81 mg tablet,delayed 81 mg PO QAM 30 days #30 tabs 02/27/16 09/02/22 History release nitroglycerin 0.4 mg sublingual 0.4 mg buccal DIRECTED PRN 02/27/16 09/02/22 History tablet (Nitrostat) Chest Pain #0 BTLS rosuvastatin 40 mg tablet 40 mg PO PM #0 tabs 02/27/16 09/02/22 History ezetimibe 10 mg tablet 10 mg PO QAM 06/15/20 09/02/22 History furosemide 40 mg tablet (Lasix) 40 mg PO BID #60 tabs 06/25/20 09/02/22 Rx glimepiride 1 mg tablet 1 mg PO DAILYBB 03/07/21 09/02/22 History hydrocortisone 2.5 % topical cream 1 applic topical BID 03/07/21 09/02/22 History potassium chloride 20 mEq 20 meq PO DAILY 03/07/21 09/02/22 History tablet,extended release(part/cryst) (Klor-Con M) docusate sodium 100 mg tablet 100 mg PO BID PRN Constipation 09/02/22 09/02/22 History meclizine 25 mg tablet 25 mg PO TID PRN Vertigo 09/02/22 09/02/22 History metformin 500 mg tablet 1,000 mg PO BID 09/02/22 09/02/22 History tamsulosin 0.4 mg capsule 0.4 mg PO DAILY 09/02/22 09/02/22 History Patient History Medical History Aortic stenosis ASCVD (arteriosclerotic cardiovascular disease) 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 CKD (chronic kidney disease), stage III Combined systolic and diastolic heart failure Diabetes Diabetes mellitus, type II History of hyperkalemia Hypertension Mitral regurgitation Myocardial infarction Persistent atrial fibrillation Skin ulcer of sacrum Surgical History History of hip replacement Hx of tonsillectomy Family History Other Alzheimer disease Cancer Social History Smoking Status: Never smoker Hx Alcohol Use: No Hx Substance Use: No Preferred Language: [place] Communication Ability: Effective Broadcast Correspondent Required: No Beliefs That Will Affect Care: Druze Current Living Situation: Alone Current Living Situation Comment: home health care during days Feels Safe at Home: Yes Safety Concerns: Feels Safe At This Time Assistive Devices: Wheelchair Review of Systems Review of Systems: Limited secondary to patient's mental status. Offers no significant complaints of pain otherwise per Physical Exam Physical Exam: VITAL SIGNS - Vital signs and nursing notes were reviewed. GENERAL - 87-year-old female appearing her stated age who is in no acute distress. Pleasantly demented. HEAD - Normocephalic, Atraumatic. EYES - PERRL with EOMI bilaterally. Sclera anicteric. EARS - No deformities of external structures noted on gross examination bilaterally. NOSE - Midline and without cyanosis. No epistaxis or purulent drainage noted. MOUTH/OROPHARYNX - Without perioral cyanosis. Buccal mucosa pink and moist. NECK - Neck with FROM. Supple to palpation. No nuchal rigidity. LUNGS - Chest wall symmetric without accessory muscle use, intercostals retractions, or central cyanosis. Normal vesicular breath sounds CTA B/L. No wheezes, rales, or rhonchi appreciated. CARDIAC - RRR with S1/S2. No murmur, rubs, or gallops appreciated. ABDOMEN - Abdominal contour flat without pulsations or visible masses. BS normoactive all four quadrants. No tenderness, palpable masses, hepatosplenomegaly, or ascites noted. EXTREMITIES - No pretibial edema present. LUE weakness. Able to slightly wiggle fingers. NEUROLOGIC - Slight LEFT sided facial droop. LUE near flaccid paralysis. LLE weakness when compared to the right. Difficult to assess otherwise 2/2 baseline mental status. PSYCH - Alert and oriented to person and location. Pleasantly demented. Results & Data Results & Data ([facility]) Vital Signs (Past 12 Hours) Vital Signs Pulse Pulse Resp BP BP Pulse Ox O2 Del Method 09/02/22 13:45 80 20 138/48 L 95 Room Air 09/02/22 13:14 89 23 137/63 98 Nasal Cannula 09/02/22 12:58 83 18 140/64 96 Nasal Cannula 09/02/22 12:43 85 23 148/69 H 96 Nasal Cannula 09/02/22 12:28 78 18 145/68 H 96 Nasal Cannula 09/02/22 12:13 87 19 134/63 97 Nasal Cannula 09/02/22 11:57 86 22 119/79 97 Nasal Cannula 09/02/22 11:42 99 H 15 136/96 96 Room Air 09/02/22 11:31 82 19 122/78 97 Nasal Cannula 09/02/22 11:23 84 16 144/65 H 96 Room Air 09/02/22 10:58 100 H 16 131/71 94 Room Air O2 Flow Rate 09/02/22 13:45 09/02/22 13:14 2 09/02/22 12:58 2 09/02/22 12:43 2 09/02/22 12:28 2 09/02/22 12:13 2 09/02/22 11:57 2 09/02/22 11:42 2 09/02/22 11:31 2 09/02/22 11:23 09/02/22 10:58 Coding Level of Care Code Critical Care 1st 30-74 mins Diagnoses Left-sided weakness R53.1 Persistent atrial fibrillation I48.19 Diabetes mellitus, type II E11.9 Hypertension I10 Elevated troponin R77.8 Time Spent (min) 37
[2022-09-02] MEDS: NORMOSOL-R 1,000 ML IV SCH (15:00)
[2022-09-02] MEDS: ICU Protocol for HYPERglycemia SCH ×2 (16:49→19:56)
[2022-09-02] MEDS ORDERED: GLUCAGON FOR INJ 1 MG VIAL SQ PRN (17:13)
[2022-09-02] MEDS ORDERED: GLUCOSE 10 TAB/TUBE PO PRN (17:13)
[2022-09-02] MEDS ORDERED: CARBOHYDRATES FOR HYPOGLYCEMIA PO PRN (17:13)
[2022-09-02] MEDS ORDERED: GLUCOSE 40% GEL 15 GM TUBE PO PRN (17:13)
[2022-09-02] MEDS ORDERED: DEXTROSE 50% 50 ML SYRINGE IV PRN (17:13)
[2022-09-02] MEDS ORDERED: GADOXETATE DISODIUM IV ONE (18:49)
[2022-09-02] MEDS ORDERED: GADOBUTROL 65ML VIAL IV ONE (18:52)
[2022-09-02] MEDS: METOPROLOL TARTRATE 50 MG TAB PO SCH (19:33)
[2022-09-02] MEDS: INSULIN ASPART PER UNIT SC SCH (19:57)
--- NOTE | 2022-09-02 22:27 | Magnetic Resonance Report ---
MR brain wo/w con CLINICAL HISTORY: left sided weakness TECHNIQUE: Multiplanar and multisequence MR images of the brain were obtained prior to and following administration of gadolinium contrast. Comparison: Comparison is made to CTA head 09/02/2022 FINDINGS: Exam is limited by patient motion. No abnormal restricted diffusion is identified. Foci of T2 and FLA IR hyperintensity are noted in the paraventricular areas consistent with chronic small vessel ischemi c disease. Ex vacuo ventriculomegaly and sulcal enlargement is noted compatible with diffuse encephal omalacia. No mass or abnormal enhancement is seen. There is no mass effect or midline shift. There is no evidence of acute intraparenchymal hemorrhage. No extra axial fluid collections are seen. The cor pus callosum, pituitary gland, and cerebellar tonsils appear grossly unremarkable. Flow voids of the major intracranial arterial vessels are identified. The imaged portions of the para nasal sinuses, mastoid air cells, and orbits are unremarkable. IMPRESSION: Highly limited exam due to patient motion. No evidence of acute infarct. ACT 112: Negative or not required by law. Electronically signed by: Raphael Sage M.D. 09/02/2022 10:25 PM
[2022-09-02] MEDS: ROSUVASTATIN CALCIUM 20 MG TAB PO SCH (23:00)
[2022-09-03] MEDS: NORMOSOL-R 1,000 ML IV SCH ×2 (03:26→20:44)
[2022-09-03] MEDS: ICU Protocol for HYPERglycemia SCH (07:13)
[2022-09-03] MEDS: INSULIN ASPART PER UNIT SC SCH ×4 (07:13→21:00)
--- NOTE | 2022-09-03 08:26 | Critical Care Progress Note ---
Date of Service September 03, 2022 Assessment & Plan (1) Left-sided weakness: Plan: Reason Critically Ill: 87-year-old female presenting with acute onset of left facial droop and LEFT-sided weakness who received TNKase in the setting of CVA symptoms requiring close hemodynamic monitoring and neuro checks status post thrombolytic administration. NEURO - * CAM ICU: Negative * CVA: * Patient presented with new LEFT-sided weakness and LEFT-sided facial droop. Now s/p TNKase administration. * Follow-up CT head brain 24 hours post TNKase administration. * Possible cardiac source in the A. fib patient. Of note, there had been extensive discussion with cardiology during previous admission on 06/22/2020 at the risks for long-term anticoagulation given her frequency of falls and risk for catastrophic bleeding. At that point, shared decision-making was to opt out of of long-term anticoagulation therapy. * Continue with home antihypertensives and statin therapy. * PT/OT evaluation when appropriate. * Appreciate neurology consultation CARDIAC/VASCULAR - * Elevated Troponin: * Of questionable significance at this point in the patient in chronic A. fib w/ CKD III. Trend, however suspect due to demand * EKG w/o acute findings * Echo pending * A. fib: * Chronic - managed by [facility] cardiology. Remains in afib on tele. * Continue metoprolol dosing as tolerated. RESPIRATORY - * No h/o pulmonary disease. * Saturating well on room air. * Swallow eval for risk of aspiration s/p CVA. GI/NUTRITION - * NPO until she passes swallow evaluation. RENAL/LYTES - * CKD III * No significant electrolyte derangements at this time. * Gentle hydration while NPO - * Marquez in place - Strict I&Os. ENDO - * DMII: * BSGs per unit protocol. ISS --> gtt per unit policy. HEME - * Stable H&H * Monitor for s/s bleeding s/p TNKase administration. ID - * No apparent infectious sources at this time. LINES/IV ACCESS - * PIVs x2 * Marquez DVT PROPHYLAXIS - * Hold on chemoprophylaxis s/p TNKase administration. * SCDs Thank you for allowing us to participate in the care of this patient. Please refer to my attending physician's documentation for any further recommendations. (2) Diabetes mellitus, type II: (3) Persistent atrial fibrillation: (4) Elevated troponin: (5) Skin ulcer of sacrum: Admission and Anticipated Discharge Date Admission Date: September 02, 2022 Supervising Physician Co-Signing Physician Notes Patient seen and examined. EMR reviewed. Discussed with family practice resident as well as with critical care nurse at bedside and on multidisciplinary rounds. Patient is not had any bleeding complications associated with thrombolytic administration. She remains about the same clinically. Her blood pressures have been within acceptable parameters. She is pending physical therapy occupational therapy and speech therapy consultations. Echocardiogram pending. MRI reviewed. Suspect that this stroke is related to cardioembolic phenomenon. Unfortunately the patient's not been felt to be a candidate for long-term anticoagulation with her atrial fibrillation. Unfortunately I suspect these events may continue to occur if the patient is not anticoagulated. This represents somewhat of a therapeutic dilemma for this patient and will need to be addressed with her family and caregivers prior to discharge. Will complete a follow-up CT scan around noon. If there is no evidence of hemorrhage, the patient can be transferred to the floor. Critical care services will then sign off. Subjective Patient seen at bedside this morning. Thinks she is somewhat improved from yesterday but didn't sleep well and still having left sided weakness. Denies headache, chest pain, sob, abd pain, N/V. Review of Systems Review of Systems: All systems reviewed & are unremarkable except as noted in HPI & below Physical Exam Physical Exam: GENERAL - in no acute distress. Pleasantly demented. HEENT - Normocephalic, Atraumatic. EOMI bilaterally. Sclera anicteric. Moist mucous membranes. LUNGS - Chest wall symmetric without accessory muscle use, intercostals retractions, or central cyanosis. Normal vesicular breath sounds CTA B/L. No wheezes, rales, or rhonchi appreciated. CARDIAC - RRR with S1/S2. No murmur, rubs, or gallops appreciated. ABDOMEN - BS normoactive all four quadrants. No tenderness, palpable masses, hepatosplenomegaly, or ascites noted. EXTREMITIES - No lower extremity edema. NEUROLOGIC - Slight LEFT sided facial droop. 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 LLE weakness when compared to the right. Difficult to assess otherwise 2/2 baseline mental status. PSYCH - Alert and oriented to person. Results & Data Results & Data ([facility]) Vital Signs (Past 12 Hours) Vital Signs Temp Pulse Pulse Resp BP BP Pulse Ox 09/03/22 06:27 36.5 C 96 H 20 141/61 H 96 09/03/22 07:56 09/03/22 07:51 142/70 H 09/03/22 07:27 36.5 C 91 H 20 96 09/03/22 05:27 36.8 C 74 21 134/60 94 09/03/22 04:27 36.4 C L 86 23 131/76 93 09/03/22 03:27 72 21 141/64 H 95 09/03/22 02:27 80 24 140/58 L 95 09/03/22 01:27 36.5 C 85 18 141/70 H 93 09/03/22 00:27 36.5 C 84 18 124/57 L 95 09/03/22 00:21 94 H 09/02/22 23:27 36.8 C 79 20 141/66 H 96 09/02/22 22:27 36.7 C 91 H 21 136/64 96 09/02/22 21:27 85 18 132/55 L 100 09/02/22 20:27 36.5 C 78 18 137/80 91 09/02/22 21:00 87 14 140/68 97 09/02/22 20:30 75 25 H 137/80 96 O2 Del Method 09/03/22 06:27 Room Air 09/03/22 07:56 Room Air 09/03/22 07:51 09/03/22 07:27 Room Air 09/03/22 05:27 Room Air 09/03/22 04:27 Room Air 09/03/22 03:27 Room Air 09/03/22 02:27 Room Air 09/03/22 01:27 Room Air 09/03/22 00:27 Room Air 09/03/22 00:21 09/02/22 23:27 Room Air 09/02/22 22:27 Room Air 09/02/22 21:27 Room Air 09/02/22 20:27 Room Air 09/02/22 21:00 09/02/22 20:30 Laboratory Results 09/02/22 09/02/22 09/02/22 Range/Units Unknown 11:55 11:10 WBC (4.8-10.8) K/ul RBC (3.93-5.22) M/uL Hgb (12.0-16.0) g/dl Hct (34.1-44.9) % MCV (80.0-100.0) fL MCH (25.0-34.0) pg MCHC (32.0-36.0) g/dL RDW Std Deviation (36.4-46.3) fL RDW Coeff of Matt (11.5-14.5) % Plt Count (130-400) K/uL MPV (9.4-12.3) fL Immature Gran % (Auto) % Neut % (Auto) % Lymph % (Auto) % Tate % (Auto) % Eos % (Auto) % Baso % (Auto) % Neut # (Auto) (1.4-6.5) K/uL Lymph # (Auto) (1.2-3.4) K/uL Tate # (Auto) (0.24-0.82) K/uL Eos # (Auto) (0-0.50) K/uL Baso # (Auto) (0-0.2) K/uL Immature Gran # (Auto) (0.00-0.02) K/uL PT (9.0-12.0) Seconds INR (0.9-1.1) APTT (21.0-31.0) Seconds PTT Ratio Sodium (136-145) mmol/L Potassium (3.5-5.1) mmol/L Chloride (98-107) mmol/L Carbon Dioxide (21-32) mmol/L Anion Gap (3-11) BUN (6-23) mg/dl Creatinine (0.6-1.2) mg/dl Est Cr Clr Drug Dosing ml/min Est GFR ( Amer) ml/min Est GFR (Non-Af Amer) ml/min BUN/Creatinine Ratio (10-20) Glucose (70-99(Fasting)) mg/dl POC Glucose (70-99) mg/dl Calcium (8.5-10.1) mg/dl Magnesium (1.7-2.4) mg/dl Total Bilirubin (0.2-1.0) mg/dl AST (13-39) U/L ALT (7-52) U/L Alkaline Phosphatase (34-104) U/L Troponin I High Sens (0-14) pg/ml Total Protein (6.0-8.3) gm/dl Albumin (3.4-5.0) gm/dl Globulin (2.5-4.0) gm/dl Albumin/Globulin Ratio (0.9-2) Urine Color Yellow Urine Appearance Clear (Clear) Urine pH 6.0 (4.5-7.5) Ur Specific Erie 1.021 (1.000-1.030) Urine Protein Trace H (Negative) Urine Glucose (UA) Negative (Negative) Urine Ketones Negative (Negative) Urine Blood Negative (Negative) Urine Nitrite Negative (Negative) Urine Bilirubin Negative (Negative) Urine Urobilinogen Negative (Negative) Ur Leukocyte Esterase Negative (Negative) Urine WBC (Auto) 1-5 (0-5) /hpf Urine RBC (Auto) 0-4 (0-4) /hpf U Hyaline Cast (Auto) 1-5 (0-5) /lpf U Epithel Cells (Auto) 5-10 H (0-5) /lpf Urine Bacteria (Auto) Negative (Negative) Nasal Screen MRSA (PCR) Negative (Negative) SARS-CoV-2, RNA, NAAT NEGATIVE (NEGATIVE) 09/02/22 09/02/22 09/02/22 Range/Units 11:06 11:06 11:06 WBC 11.15 H (4.8-10.8) K/ul RBC 3.69 L (3.93-5.22) M/uL Hgb 10.7 L (12.0-16.0) g/dl Hct 32.0 L (34.1-44.9) % MCV 86.7 (80.0-100.0) fL MCH 29.0 (25.0-34.0) pg MCHC 33.4 (32.0-36.0) g/dL RDW Std Deviation 54.8 H (36.4-46.3) fL RDW Coeff of Matt 17.3 H (11.5-14.5) % Plt Count 258 (130-400) K/uL MPV 10.1 (9.4-12.3) fL Immature Gran % (Auto) 0.4 % Neut % (Auto) 57.4 % Lymph % (Auto) 30.3 % Tate % (Auto) 10.5 % Eos % (Auto) 0.8 % Baso % (Auto) 0.6 % Neut # (Auto) 6.40 (1.4-6.5) K/uL Lymph # (Auto) 3.38 (1.2-3.4) K/uL Tate # (Auto) 1.17 H (0.24-0.82) K/uL Eos # (Auto) 0.09 (0-0.50) K/uL Baso # (Auto) 0.07 (0-0.2) K/uL Immature Gran # (Auto) 0.04 H (0.00-0.02) K/uL PT 12.4 H (9.0-12.0) Seconds INR 1.2 H (0.9-1.1) APTT 27.7 (21.0-31.0) Seconds PTT Ratio 1.0 Sodium 135 L (136-145) mmol/L Potassium 4.1 (3.5-5.1) mmol/L Chloride 103 (98-107) mmol/L Carbon Dioxide 24 (21-32) mmol/L Anion Gap 8 (3-11) BUN 24 H (6-23) mg/dl Creatinine 1.03 (0.6-1.2) mg/dl Est Cr Clr Drug Dosing 33.0 ml/min Est GFR ( Amer) 56.6 ml/min Est GFR (Non-Af Amer) 48.8 ml/min BUN/Creatinine Ratio 23.3 H (10-20) Glucose 152 H (70-99(Fasting)) mg/dl POC Glucose (70-99) mg/dl Calcium 9.0 (8.5-10.1) mg/dl Magnesium 2.1 (1.7-2.4) mg/dl Total Bilirubin 0.5 (0.2-1.0) mg/dl AST 22 (13-39) U/L ALT 28 (7-52) U/L Alkaline Phosphatase 46 (34-104) U/L Troponin I High Sens 31.3 H (0-14) pg/ml Total Protein 6.0 (6.0-8.3) gm/dl Albumin 3.4 (3.4-5.0) gm/dl Globulin 2.6 (2.5-4.0) gm/dl Albumin/Globulin Ratio 1.3 (0.9-2) Urine Color Urine Appearance (Clear) Urine pH (4.5-7.5) Ur Specific Erie (1.000-1.030) Urine Protein (Negative) Urine Glucose (UA) (Negative) Urine Ketones (Negative) Urine Blood (Negative) Urine Nitrite (Negative) Urine Bilirubin (Negative) Urine Urobilinogen (Negative) Ur Leukocyte Esterase (Negative) Urine WBC (Auto) (0-5) /hpf Urine RBC (Auto) (0-4) /hpf U Hyaline Cast (Auto) (0-5) /lpf U Epithel Cells (Auto) (0-5) /lpf Urine Bacteria (Auto) (Negative) Nasal Screen MRSA (PCR) (Negative) SARS-CoV-2, RNA, NAAT (NEGATIVE) 09/02/22 Range/Units 11:01 WBC (4.8-10.8) K/ul RBC (3.93-5.22) M/uL Hgb (12.0-16.0) g/dl Hct (34.1-44.9) % MCV (80.0-100.0) fL MCH (25.0-34.0) pg MCHC (32.0-36.0) g/dL RDW Std Deviation (36.4-46.3) fL RDW Coeff of Matt (11.5-14.5) % Plt Count (130-400) K/uL MPV (9.4-12.3) fL Immature Gran % (Auto) % Neut % (Auto) % Lymph % (Auto) % Tate % (Auto) % Eos % (Auto) % Baso % (Auto) % Neut # (Auto) (1.4-6.5) K/uL Lymph # (Auto) (1.2-3.4) K/uL Tate # (Auto) (0.24-0.82) K/uL Eos # (Auto) (0-0.50) K/uL Baso # (Auto) (0-0.2) K/uL Immature Gran # (Auto) (0.00-0.02) K/uL PT (9.0-12.0) Seconds INR (0.9-1.1) APTT (21.0-31.0) Seconds PTT Ratio Sodium (136-145) mmol/L Potassium (3.5-5.1) mmol/L Chloride (98-107) mmol/L Carbon Dioxide (21-32) mmol/L Anion Gap (3-11) BUN (6-23) mg/dl Creatinine (0.6-1.2) mg/dl Est Cr Clr Drug Dosing ml/min Est GFR ( Amer) ml/min Est GFR (Non-Af Amer) ml/min BUN/Creatinine Ratio (10-20) Glucose (70-99(Fasting)) mg/dl POC Glucose 155 H (70-99) mg/dl Calcium (8.5-10.1) mg/dl Magnesium (1.7-2.4) mg/dl Total Bilirubin (0.2-1.0) mg/dl AST (13-39) U/L ALT (7-52) U/L Alkaline Phosphatase (34-104) U/L Troponin I High Sens (0-14) pg/ml Total Protein (6.0-8.3) gm/dl Albumin (3.4-5.0) gm/dl Globulin (2.5-4.0) gm/dl Albumin/Globulin Ratio (0.9-2) Urine Color Urine Appearance (Clear) Urine pH (4.5-7.5) Ur Specific Erie (1.000-1.030) Urine Protein (Negative) Urine Glucose (UA) (Negative) Urine Ketones (Negative) Urine Blood (Negative) Urine Nitrite (Negative) Urine Bilirubin (Negative) Urine Urobilinogen (Negative) Ur Leukocyte Esterase (Negative) Urine WBC (Auto) (0-5) /hpf Urine RBC (Auto) (0-4) /hpf U Hyaline Cast (Auto) (0-5) /lpf U Epithel Cells (Auto) (0-5) /lpf Urine Bacteria (Auto) (Negative) Nasal Screen MRSA (PCR) (Negative) SARS-CoV-2, RNA, NAAT (NEGATIVE) Resident Activity Tracking Resident Involvement: Resident Care Provided Care Provided: Adult Hospital Medicine
--- NOTE | 2022-09-03 08:53 | Cardiology Consultation ---
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 Presumed cause of CVA due to cardiac etiology (AFIB) differential cause possibly related to atherosclerotic plaque seen on CTA of head and neck. -Echo with questionable senile amyloid characteristics. No evidence of shunting- per preliminary report -CHADsVASC of 8 (age 2, female, HTN, CHF, arthrosclerotic disease, CVA 2), formally on AC- discontinued in 2019 due to fall risk. However, patient is now wheel chair bound with 24 hour care. -HS trop minimally elevated, no angina symptoms- EKG without acute ST segment changes. Trop elevation not off premise service representative of ACS. Recommendations: Brain MRI again showing-- "There is restricted diffusion identified in the high right frontoparietal cortex consistent with an acute to subacute SHAYY territory infarct. There are foci of hemorrhage within the infarcted territory with mild mass effect. This is best seen on the axial gradient echo sequence". Patient does have significant risk factors encouraging the use of anticoagulation including new CVA, permanent afib with high CHADsVASC, and possible senile amyloid. However, due to CVA associated hemorrhage seen on MRI yesterday will hold off starting AC until cleared by lj douglas. Patient is due for CT later this morning. Case discussed with Dr. Murdock- will follow. Supervising Physician Co-Signing Physician Notes Patient seen and examined, chart, telemetry reviewed. 87-year-old frail female cared for at home but wheelchair-bound. Longstanding A. fib flutter currently not anticoagulated due to concerns regarding falls and bleeding issues. Presents now with acute right-sided stroke treated with thrombolytic therapy with post imaging small area of focal hemorrhage Patient awake but with left-sided deficit Impression/plan: Well outlined as above. [id number] 2 score of 8 with acute stroke. Will recommend anticoagulation once hemorrhagic risk resolved other cardiac issues stable. History of Present Illness Reason for Consultation: CVA status post TNKase. Persistent A. fib Requesting Physician: Storm hospitalist Attending Physician: Thalia Tolbert MD History of Present Illness 87-year-old female with peripheral arterial disease and chronic atrial fib/flutter without anticoagulation who initially presented to the [facility] emergency department due to left-sided weakness and facial droop yesterday around 9:15 AM. Patient was diagnosed with an acute CVA and did receive TNKase in the emergency room. Patient is a very poor historian and history was limited to chart review and nursing eval. Patient is primarily wheelchair bound and has 24 hour care at home. Currently she is denying and chest pain, sob, or palpitations. Notes ongoing weakness of her left arm and leg. Patient follows with Sergio Davila PA-C as an outpatient. EKG: Atrial flutter 107 bpm Telemetry: atrial fibrillation 80-100s with PVCs Labs: WBC 11.15, hemoglobin 10.7, Platelets 258, sodium 135, creatinine 1.03, potassium 4.1, magnesium 2.1, high-sensitivity troponin 31.3, COVID-negative Head CT 09/02: No hemorrhage or evidence of acute territorial ischemia, moderate to high-grade stenosis of the left cavernous carotid artery, atherosclerotic plaque of the right internal carotid artery of approximately 50% Brain MRI 09/02: Acute to subacute SHAYY territory infarct there are foci of hemorrhage within the infarcted territory with mild mass-effect. Echocardiogram 09/03. Formal results pending. Preliminary review revealed a low normal LVEF, moderate aortic stenosis with mild AI. Severe MR. No shunting. Imaging consistent with senile amyloid. 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 Status post BMS to protocol proximal left circumflex lesion. Residual coronary artery disease with 50% ostial LAD lesion as well as 40% mid RCA lesion Tachybradycardia syndrome Permanent atrial fibrillation/flutter-anticoagulation discontinued 05/2020 Severe nosebleeds on aspirin and Plavix, 2010 History of rectal bleeding-treated for posterior midline anal fissure, 2012 Hypertension Dyslipidemia Carotid artery disease Type 2 diabetes Allergies Allergy/AdvReac Type Severity Reaction Status Date / Time itraconazole Allergy Intermediate HIVES Verified 03/07/21 08:36 Imidazole Alkylating Agents Allergy Unknown Unknown Unverified 03/07/21 08:36 Iodinated Contrast Media Allergy Unknown ` Verified 03/07/21 08:36 codeine AdvReac Mild N/V Verified 03/07/21 08:36 morphine AdvReac Mild N/V Verified 03/07/21 08:36 Home Medications Medication Instructions Recorded Confirmed Type metoprolol tartrate 50 mg tablet 50 mg PO PM ##0 06/24/10 09/02/22 History metoprolol tartrate 50 mg tablet 100 mg PO QAM ##0 06/24/10 09/02/22 History acetaminophen 500 mg tablet 500 mg PO HS ##0 09/04/10 09/02/22 History (Tylenol Extra Strength) aspirin 81 mg tablet,delayed 81 mg PO QAM 30 days #30 tabs 02/27/16 09/02/22 History release nitroglycerin 0.4 mg sublingual 0.4 mg buccal DIRECTED PRN 02/27/16 09/02/22 History tablet (Nitrostat) Chest Pain #0 BTLS rosuvastatin 40 mg tablet 40 mg PO PM #0 tabs 02/27/16 09/02/22 History ezetimibe 10 mg tablet 10 mg PO QAM 06/15/20 09/02/22 History furosemide 40 mg tablet (Lasix) 40 mg PO BID #60 tabs 06/25/20 09/02/22 Rx glimepiride 1 mg tablet 1 mg PO DAILYBB 03/07/21 09/02/22 History hydrocortisone 2.5 % topical cream 1 applic topical BID 03/07/21 09/02/22 History potassium chloride 20 mEq 20 meq PO DAILY 03/07/21 09/02/22 History tablet,extended release(part/cryst) (Klor-Con M) docusate sodium 100 mg tablet 100 mg PO BID PRN Constipation 09/02/22 09/02/22 History meclizine 25 mg tablet 25 mg PO TID PRN Vertigo 09/02/22 09/02/22 History metformin 500 mg tablet 1,000 mg PO BID 09/02/22 09/02/22 History tamsulosin 0.4 mg capsule 0.4 mg PO DAILY 09/02/22 09/02/22 History Patient History Medical History Aortic stenosis ASCVD (arteriosclerotic cardiovascular disease) 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 CKD (chronic kidney disease), stage III Combined systolic and diastolic heart failure Diabetes Diabetes mellitus, type II History of hyperkalemia Hypertension Mitral regurgitation Myocardial infarction Persistent atrial fibrillation Skin ulcer of sacrum Surgical History History of hip replacement Hx of tonsillectomy Family History Other Alzheimer disease Cancer Social History Smoking Status: Never smoker Hx Alcohol Use: No Hx Substance Use: No Preferred Language: Tanzanian Communication Ability: Effective Camera Tuning Engineer Required: No Beliefs That Will Affect Care: Yazidi Current Living Situation: Alone Current Living Situation Comment: home health care during days Feels Safe at Home: Yes Safety Concerns: Feels Safe At This Time Assistive Devices: Wheelchair Review of Systems Review of Systems: All systems reviewed & are unremarkable except as noted in HPI & below limited due to underlying dementia/memory lapse Physical Exam Constitutional: + thin; no acute distress Eyes: PERRL, conjunctivae normal, anicteric sclerae ENMT: external ear and nose normal, oropharynx normal Neck: normal visual inspection and trachea midline Respiratory: normal respiratory effort, lungs clear to auscultation Cardiovascular: Rate/Rhythm: regular rate and + irregularly irregular Heart Sounds: normal S1, normal S2 and + murmur (+2-3/6 systolic murmur) Vessels: no JVD Gastrointestinal (Abdomen): normal bowel sounds, soft, nontender, no hepatosplenomegaly Musculoskeletal: Extremities: + limited ROM of extremities (weakness of left arm and leg. ) Skin: no rashes, warm and dry Psychiatric: Orientation: alert and oriented to person poor memory Results & Data ([facility]) Vital Signs (Past 12 Hours) Vital Signs Temp Pulse Pulse Resp BP BP Pulse Ox 09/03/22 08:28 82 24 95 09/03/22 08:28 151/65 H 09/03/22 08:15 91 H 21 95 09/03/22 08:00 83 22 96 09/03/22 08:00 144/72 H 09/03/22 07:50 87 22 97 09/03/22 06:27 36.5 C 96 H 20 141/61 H 96 09/03/22 07:56 09/03/22 07:51 142/70 H 09/03/22 07:27 36.5 C 91 H 20 96 09/03/22 05:27 36.8 C 74 21 134/60 94 09/03/22 04:27 36.4 C L 86 23 131/76 93 09/03/22 03:27 72 21 141/64 H 95 09/03/22 02:27 80 24 140/58 L 95 09/03/22 01:27 36.5 C 85 18 141/70 H 93 09/03/22 00:27 36.5 C 84 18 124/57 L 95 09/03/22 00:21 94 H 09/02/22 23:27 36.8 C 79 20 141/66 H 96 09/02/22 22:27 36.7 C 91 H 21 136/64 96 09/02/22 21:27 85 18 132/55 L 100 09/02/22 21:00 87 14 140/68 97 O2 Del Method 09/03/22 08:28 Room Air 09/03/22 08:28 09/03/22 08:15 09/03/22 08:00 09/03/22 08:00 09/03/22 07:50 09/03/22 06:27 Room Air 09/03/22 07:56 Room Air 09/03/22 07:51 09/03/22 07:27 Room Air 09/03/22 05:27 Room Air 09/03/22 04:27 Room Air 09/03/22 03:27 Room Air 09/03/22 02:27 Room Air 09/03/22 01:27 Room Air 09/03/22 00:27 Room Air 09/03/22 00:21 09/02/22 23:27 Room Air 09/02/22 22:27 Room Air 09/02/22 21:27 Room Air 09/02/22 21:00 Laboratory Results Cardiac Enzymes 09/02/22 Range/Units 11:06 AST 22 (13-39) U/L Troponin I High Sens 31.3 H (0-14) pg/ml Coagulation 09/02/22 Range/Units 11:06 PT 12.4 H (9.0-12.0) Seconds APTT 27.7 (21.0-31.0) Seconds CBC 09/02/22 Range/Units 11:06 WBC 11.15 H (4.8-10.8) K/ul RBC 3.69 L (3.93-5.22) M/uL Hgb 10.7 L (12.0-16.0) g/dl Hct 32.0 L (34.1-44.9) % Plt Count 258 (130-400) K/uL Neut # (Auto) 6.40 (1.4-6.5) K/uL Lymph # (Auto) 3.38 (1.2-3.4) K/uL Gove # (Auto) 1.17 H (0.24-0.82) K/uL Eos # (Auto) 0.09 (0-0.50) K/uL Baso # (Auto) 0.07 (0-0.2) K/uL Comprehensive Metabolic Panel 09/02/22 Range/Units 11:06 Sodium 135 L (136-145) mmol/L Potassium 4.1 (3.5-5.1) mmol/L Chloride 103 (98-107) mmol/L Carbon Dioxide 24 (21-32) mmol/L BUN 24 H (6-23) mg/dl Creatinine 1.03 (0.6-1.2) mg/dl Glucose 152 H (70-99(Fasting)) mg/dl Calcium 9.0 (8.5-10.1) mg/dl AST 22 (13-39) U/L ALT 28 (7-52) U/L Alkaline Phosphatase 46 (34-104) U/L Total Protein 6.0 (6.0-8.3) gm/dl Albumin 3.4 (3.4-5.0) gm/dl Intake and Output 09/02/22 09/03/22 09/03/22 22:59 06:59 14:59 Intake Total 0 / 1432.5 932.5 / 1432.5 Output Total 850 / 1300 450 / 1300 Balance -850 / 132.5 482.5 / 132.5 Intake: IV 932.5 / 1432.5 Normosol-R 1,000 ml @ 75 mls/hr 932.5 / 932.5 IV .[id number] [facility] Rx#:[id number] Oral 0 / 0 Output: Urine Amount (Catheter) 850 / 1300 450 / 1300 Marquez/Indwelling 850 / 1300 450 / 1300 Other: Weight 64.1 kg 64.7 kg Weight Measurement Method Built in [facility]
[2022-09-03] MEDS: METOPROLOL TARTRATE 100 MG TAB PO SCH (09:04)
[2022-09-03] MEDS: TAMSULOSIN HCL 0.4 MG CAP PO SCH (09:04)
--- NOTE | 2022-09-03 10:08 | Neurology Consultation ---
Date of Consultation September 03, 2022 Assessment & Plan (1) Acute right SHAYY stroke: (2) Persistent atrial fibrillation: (3) Carotid stenosis: Plan 87-year-old female presenting with left-sided weakness, leg greater than arm, consistent with right anterior cerebral artery territory infarct as identified on MRI. She did receive TNKase in the emergency department. There is a focus of hemorrhage associated with her acute infarct as well. This acute stroke is probably cardioembolic in light of her history of atrial fibrillation, not on anticoagulation. Other stroke risk factors for this patient include type 2 diabetes mellitus and hypertension. Her CT angiography did reveal a clinically asymptomatic moderate to high-grade stenosis of the left cavernous carotid artery. And a probable incidental 50% stenosis at the origin of the right internal carotid artery. Would hold on re-starting low-dose aspirin given presence of stroke associated hemorrhage as seen on MRI yesterday. Would recommend obtaining a follow-up CT of the head this afternoon to assess stability. We will likely need to delay restarting low-dose aspirin in this patient further until we can ensure stability or resolution of the small focus of hemorrhage. Would also recommend checking an echocardiogram. Furthermore, as patient has had an embolic appearing stroke in the context of atrial fibrillation, would need to consider anticoagulation with Eliquis. Of course, we would need to hold off on starting an anticoagulant until we can ensure that the above hemorrhage has resolved. Allow for permissive hypertension acutely, systolic blood pressure goal range 140 to 160 mmHg. Consultations with PT/OT/speech therapy. History of Present Illness Reason for Consultation: stroke Requesting Physician: Yaritza Diana PA-C Attending Physician: Thalia Tolbert MD History of Present Illness The patient is an 87-year-old female who presented to the emergency department yesterday morning with a chief complaint of left-sided weakness beginning at approximately 9:30 AM. She has a history of atrial fibrillation but does not take an anticoagulant due to fall risk. History also notable for dementia. Patient was found to have a left hemiparesis at the time of her initial assessment, left facial droop, unable to move the left arm or leg, dysarthric speech. She underwent CT of the head including CT angiography of the head and neck. There is no evidence of hemorrhage or acute process. There was a high- grade stenosis of the left cavernous carotid artery and atherosclerotic plaque resulting in 50% stenosis at the origin of the right internal carotid artery. She did have a telestroke consultation and was administered TNKase. A follow-up brain MRI was mildly limited by motion artifact but initially read as normal. I did review the images and was able to identify multiple areas of restricted diffusion within the high right cerebral convexity following the anterior cerebral artery territory. There was an associated focus of hemorrhage seen on gradient echo sequences as well with mild mass-effect. I discussed these findings with radiology, an addendum was made to the initial radiology report. After receiving TNKase, patient has not received any blood thinners. This morning, she continues to endorse left-sided weakness, especially the leg. She denies any associated sensory loss. Her speech is not grossly dysarthric at this time. Allergies Allergy/AdvReac Type Severity Reaction Status Date / Time itraconazole Allergy Intermediate HIVES Verified 03/07/21 08:36 Imidazole Alkylating Agents Allergy Unknown Unknown Unverified 03/07/21 08:36 Iodinated Contrast Media Allergy Unknown ` Verified 03/07/21 08:36 codeine AdvReac Mild N/V Verified 03/07/21 08:36 morphine AdvReac Mild N/V Verified 03/07/21 08:36 Home Medications Medication Instructions Recorded Confirmed Type metoprolol tartrate 50 mg tablet 50 mg PO PM ##0 06/24/10 09/02/22 History metoprolol tartrate 50 mg tablet 100 mg PO QAM ##0 06/24/10 09/02/22 History acetaminophen 500 mg tablet 500 mg PO HS ##0 09/04/10 09/02/22 History (Tylenol Extra Strength) aspirin 81 mg tablet,delayed 81 mg PO QAM 30 days #30 tabs 02/27/16 09/02/22 History release nitroglycerin 0.4 mg sublingual 0.4 mg buccal DIRECTED PRN 02/27/16 09/02/22 History tablet (Nitrostat) Chest Pain #0 BTLS rosuvastatin 40 mg tablet 40 mg PO PM #0 tabs 02/27/16 09/02/22 History ezetimibe 10 mg tablet 10 mg PO QAM 06/15/20 09/02/22 History furosemide 40 mg tablet (Lasix) 40 mg PO BID #60 tabs 06/25/20 09/02/22 Rx glimepiride 1 mg tablet 1 mg PO DAILYBB 03/07/21 09/02/22 History hydrocortisone 2.5 % topical cream 1 applic topical BID 03/07/21 09/02/22 History potassium chloride 20 mEq 20 meq PO DAILY 03/07/21 09/02/22 History tablet,extended release(part/cryst) (Klor-Con M) docusate sodium 100 mg tablet 100 mg PO BID PRN Constipation 09/02/22 09/02/22 History meclizine 25 mg tablet 25 mg PO TID PRN Vertigo 09/02/22 09/02/22 History metformin 500 mg tablet 1,000 mg PO BID 09/02/22 09/02/22 History tamsulosin 0.4 mg capsule 0.4 mg PO DAILY 09/02/22 09/02/22 History Patient History Medical History Aortic stenosis ASCVD (arteriosclerotic cardiovascular disease) 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 CKD (chronic kidney disease), stage III Combined systolic and diastolic heart failure Diabetes Diabetes mellitus, type II History of hyperkalemia Hypertension Mitral regurgitation Myocardial infarction Persistent atrial fibrillation Skin ulcer of sacrum Surgical History History of hip replacement Hx of tonsillectomy Family History Other Alzheimer disease Cancer Social History Smoking Status: Never smoker Hx Alcohol Use: No Hx Substance Use: No Preferred Language: Burmese Communication Ability: Effective Agency Service Representative Required: No Beliefs That Will Affect Care: [facility] Current Living Situation: Alone Current Living Situation Comment: home health care during days Feels Safe at Home: Yes Safety Concerns: Feels Safe At This Time Assistive Devices: Wheelchair Review of Systems Constitutional: no fever and no chills Eyes: no blind spots and no diplopia Ear, Nose, Mouth, Throat: no tinnitus and no hearing loss Respiratory: no cough and no dyspnea Cardiovascular: no chest pain and no palpitations Gastrointestinal: no nausea and no vomiting Genitourinary: no dysuria Musculoskeletal: no neck pain and no myalgia Integumentary: no rash and no lesions Neurologic: as per Subjective / HPI and + localized weakness; no headache(s) Psychiatric: no depression and no anxiety Hematologic / Lymphatic: no easy bleeding and no lymphadenopathy Exam (Neuro) Constitutional: well developed and + frail appearing Eyes: normal visual phelps by confrontation, PERRL and EOM intact bilaterally; no fundoscopic abnormality and no papilledema Cardiovascular: Vessels: normal carotid upstroke; no carotid bruit Neurologic: Oriented to:: Person and Place; negative Time Memory: Remote Intact; negative Short Term Intact Attention: Span Intact; negative Concentration Intact Speech Fluency: negative Dysarthria or Dysfluency Speech Aphasia: negative Aphasia Fund of Knowledge: Past History and Vocabulary; negative Current Events Cranial Nerves: Normal II, III, IV, , V, VII, VIII, IX, X, XI and XII Motor Strength: Hemiplegia (leg>arm) Laterality: Left Motor Tone: Normal Lower Extremities and Normal Upper Extremities Muscle Bulk/Involuntary Movements: No Involuntary Movements; negative Muscle Atrophy Sensation: Light Touch Intact; negative Pain/Temperature Intact or Vibration Intact Coordination: Finger-Nose Abnormal Laterality: Left and Heel-Grier Abnormal Laterality: Left Deep Tendon Reflexes: Rt Triceps: 1+, Lt Triceps: 1+, Rt Biceps: 1+, Lt Biceps: 1+, Rt Brachioradialis: 1+, Lt Brachioradialis: 1+, Rt Patellar: 1+, Lt Patellar: 1+, Rt Ankle: 0 and Lt Ankle: 0 Special Tests: Babinski Present (left) Details: Gait cannot be tested in the context of patient's current neurological status. Results & Data ([facility]) Vital Signs (Past 12 Hours) Vital Signs Temp Pulse Pulse Resp BP BP Pulse Ox 09/03/22 08:28 82 24 95 09/03/22 08:28 151/65 H 09/03/22 08:15 91 H 21 95 09/03/22 08:00 83 22 96 09/03/22 08:00 144/72 H 09/03/22 07:50 87 22 97 09/03/22 06:27 36.5 C 96 H 20 141/61 H 96 09/03/22 07:56 09/03/22 07:51 142/70 H 09/03/22 07:27 36.5 C 91 H 20 96 09/03/22 05:27 36.8 C 74 21 134/60 94 09/03/22 04:27 36.4 C L 86 23 131/76 93 09/03/22 03:27 72 21 141/64 H 95 09/03/22 02:27 80 24 140/58 L 95 09/03/22 01:27 36.5 C 85 18 141/70 H 93 09/03/22 00:27 36.5 C 84 18 124/57 L 95 09/03/22 00:21 94 H 09/02/22 23:27 36.8 C 79 20 141/66 H 96 09/02/22 22:27 36.7 C 91 H 21 136/64 96 O2 Del Method 09/03/22 08:28 Room Air 09/03/22 08:28 09/03/22 08:15 09/03/22 08:00 09/03/22 08:00 09/03/22 07:50 09/03/22 06:27 Room Air 09/03/22 07:56 Room Air 09/03/22 07:51 09/03/22 07:27 Room Air 09/03/22 05:27 Room Air 09/03/22 04:27 Room Air 09/03/22 03:27 Room Air 09/03/22 02:27 Room Air 09/03/22 01:27 Room Air 09/03/22 00:27 Room Air 09/03/22 00:21 09/02/22 23:27 Room Air 09/02/22 22:27 Room Air Laboratory Results WBC 11.15, hemoglobin 10.7, hematocrit 32.0, platelet count 258, sodium 135, potassium 4.1, BUN 24, creatinine 1.03, glucose 152, magnesium 2.1, AST 22, ALT 28, high-sensitivity troponin 31.[address] of the head, CT angiography of the neck, and brain MRI are as described in the history of present illness. I independently reviewed these images. An electrocardiogram reveals atrial flutter with variable AV block. (An electrocardiogram completed in February 2021 revealed atrial fibrillation.) PG Care Time/CCT Total # of Minutes Spent Total Time Spent with Patient: Total time spent is greater than 50% in coordination of care (as documented) at patient's floor/unit and/or counseling patient: Coding Level of Care Code 32995 INT INP/OBS CARE 3/75MIN Diagnoses Acute right SHAYY stroke I63.521 Persistent atrial fibrillation I48.19 Carotid stenosis I65.29
--- NOTE | 2022-09-03 11:09 | Billing Data ---
Date of Service September 03, 2022 Coding Level of Care Code 22014 SUB INP/OBS CARE
--- NOTE | 2022-09-03 12:52 | CT Scan Report ---
CT head/brain wo con CLINICAL HISTORY: r/o hemorrhagic conversion Technique: Contiguous axial CT images of the head were acquired from the base of the skull to the lisesth alysha without intravenous contrast administration. Images were viewed in brain, subdural and bone windo ws. Automated dose lowering techniques and/or adjustment according to patient size were utilized for this exam. Comparison: Comparison is made to CT head 09/02/2022 and MRI brain 09/02/2022 Findings: There are foci of parenchymal hemorrhage in the right frontal lobe. Very ill-defined hypodensity is s een in the right SHAYY distribution compatible with previously noted infarct. Imaged portions of the paranasal sinuses and mastoid air cells are clear. The orbits appear normal. There are no acute fractures of the calvaria or scalp swelling. Impression: Findings are compatible with hemorrhagic conversion of previously noted right SHAYY distribution infarc t. ACT 112: Negative or not required by law. Electronically signed by: Raphael Sage M.D. 09/03/2022 12:49 PM
[2022-09-03 13:12] LABS: Hematocrit (blood only) 32.5 % (34.1-44.9); Hemoglobin 10.9 g/dl (12.0-16.0); Mean Corpuscular Hemoglobin 29.4 pg (25.0-34.0); Mean Corpuscular Hgb Conc 33.5 g/dL (32.0-36.0); Mean Corpuscular Volume 87.6 fL (80.0-100.0); Mean Platelet Volume 10.3 fL (9.4-12.3); Platelet Count 271 K/uL (130-400); RDW Coefficient of Variation 17.4 % (11.5-14.5); RDW Standard Deviation 56.5 fL (36.4-46.3); Red Blood Count 3.71 M/uL (3.93-5.22); White Blood Count 13.03 K/ul (4.8-10.8)
[2022-09-03 13:44] LABS: Troponin I High Sensitivity 46.7 pg/ml (0-14)
[2022-09-03 14:04] LABS: BUN Creatinine Ratio 25.8 (10-20); Calcium 9.3 mg/dl (8.5-10.1); Chol HDL Ratio 2.9 (0-5); Creatinine Clr Calc Pharmacy 36.7 ml/min; Est GFR (Non-African American) 55.3 ml/min; Magnesium 2.3 mg/dl (1.7-2.4); Phosphorus 4.2 mg/dl (2.5-4.9); Potassium 4.4 mmol/L (3.5-5.1)
[2022-09-03 14:53] LABS: Estimated Average Glucose 140 mg/dl; Hemoglobin A1C 6.5 % (4.5-5.6)
--- NOTE | 2022-09-03 14:56 | Fluoroscopy Report ---
FL video swallow CLINICAL HISTORY: assess for aspiration TECHNIQUE: Video fluoroscopy of the pharyngeal region was performed as barium mixtures of varying con sistencies were administered to the patient by the speech pathologist. A formal esophagram was not pe rformed. Comparison: None available at the time of this dictation. FINDINGS: Total fluoroscopy time: 3.1 minutes. The patient swallowed the different barium consistencies without difficulty. Silent aspiration is see n with thin liquid. Pooling of barium was noted in the bilateral piriform sinuses and valleculae. IMPRESSION: Silent aspiration is seen within liquid. Please see the speech pathology report for further details. ACT 112: Negative or not required by law. Electronically signed by: Raphael Sage M.D. 09/03/2022 2:55 PM
--- NOTE | 2022-09-03 15:34 | Communication Note ---
Date of Service: September 03, 2022 Reviewed 24-hour post TNKase CT scan. Areas of focal hemorrhage. Patient's neurological exam is unchanged. Neurology was notified by the resident. Di scussed with family members at bedside. Will defer to neurology initiation of prophylactic antiepileptic medications. Plan on follow-up CT scan without contrast in the morning. Obviously no additional anticoagulants or antiplatelet agents are possible. Should the hemorrhage progress, I think the patient is a poor candidate for aggressive interventions. Confirmed DNR/DNI status. Additional 40 minutes of critical care time managing life-threatening illness Coding Level of Care Code Critical Care kelly addt'l 30 min
--- NOTE | 2022-09-03 17:33 | Hospitalist Progress Note ---
Date of Service September 03, 2022 Assessment & Plan (1) Left-sided weakness: Plan: This is an 87-year-old female with PMH of chronic combined systolic and diastolic heart failure, CAD status post stent placement history of atrial fibrillation not anticoagulated due to fall risk, type 2 diabetes, hypertension, aortic valve stenosis, CAD, CKD 3 presentedto the ER with left-sided weakness and facial drop. Stroke alert was called and TNKase was administered CT head no hemorrhage, mass effect, or evidence of acute territorial ischemia. 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 Atherosclerotic plaque causes approximately 50% focal stenosis at the origin of the right internal carotid artery. CTA head/neck showed no hemorrhage, mass effect, or evidence of acute territorial ischemia. 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 MRI brain showed restricted diffusion identified in the high right frontoparietal cortex consistent with an acute to subacute SHAYY territory infarct. There are foci of hemorrhage within the infarcted territory with mild mass effect. Repeat CT head showed Findings are compatible with hemorrhagic conversion of previously noted right SHAYY distribution infarct ECHO showed echo showed mild to moderate global hypokinesis of the left ventricle. Severe concentric left ventricular hypertrophy. Ejection fraction 40 to 45% Neuro on board recommended to continue to hold on restarting daily low-dose aspirin therapy or anticoagulation. Will get a follow-up noncontrast CT of the head tomorrow morning to continue to ensure stability. Continue permissive hypertension with systolic blood pressure goal range 140 to 160 mmHg. Continue statin PT / OT and speech eval (2) Diabetes mellitus, type II: Plan: Most recent hemoglobin A1c 6.5 Continue to hold home agents SSI while in-patient Continue monitor blood sugar (3) Persistent atrial fibrillation: Plan: Not on anticoagulation historically due to fall risk. [id number] 2 score of 8 with acute stroke. Cardiology recommended anticoagulation once hemorrhagic risk resolved other cardiac issues stable and clear by neurology Continue metoprolol 50mg daily (4) Aortic stenosis: (5) Combined systolic and diastolic heart failure: Plan: No sign of volume overload Continue monitor (6) Hypertension: Plan: Continue permissive hypertensive with systolic blood pressure between 140 to 160 (7) CKD (chronic kidney disease), stage III: Plan: Creatinine at baseline. Stable (8) Skin ulcer of sacrum: Plan: History of sacral skin ulcer Per outpatient chart. Repositioning, wound care nurse as needed Code status: DNR Disposition Will discharge once medically sta.ble . Admission and Anticipated Discharge Date Admission Date: September 02, 2022 Subjective Patient was seen and evaluated for follow-up of stroke Lying in bed with no acute distress with son at bedside Left extremity continue to be weak Denies any chest pain, palpitation, dizziness and SOB Review of Systems Review of Systems: All systems reviewed & are unremarkable except as noted in Subjective Physical Exam Physical Exam: General- No acute distress Head- atraumatic Eyes- PERRL, EOMI, ENT- oropharynx clear Neck- supple, no JVD Lungs- clear to auscultation Heart- irregular rhythm; +murmur Abdomen- normal bowel sounds, soft, nontender Extremities- no calf tenderness Neuro- alert, oriented, PERRL, EOMI; left sided facial droop no dysarthria, LUE and LLE weakness Skin- warm & dry Results & Data Results & Data ([facility]) Vital Signs (Past 12 Hours) Vital Signs Temp Pulse Pulse Resp BP BP Pulse Ox 09/03/22 14:22 84 28 H 90 09/03/22 14:22 145/74 H 09/03/22 14:14 79 22 93 09/03/22 13:00 77 30 H 95 09/03/22 12:30 68 24 96 09/03/22 12:30 146/59 H 09/03/22 12:30 36.6 C 09/03/22 12:00 78 21 97 09/03/22 11:52 97 H 09/03/22 11:30 65 20 93 09/03/22 11:15 61 30 H 97 09/03/22 11:00 88 25 H 95 09/03/22 11:00 99/58 L 09/03/22 10:45 74 25 H 78 L 09/03/22 10:32 132/91 09/03/22 10:32 77 26 H 95 09/03/22 10:30 83 25 H 93 09/03/22 10:32 83 18 132/91 96 09/03/22 08:10 09/03/22 10:15 83 32 H 97 09/03/22 10:01 83 23 96 09/03/22 10:01 158/83 H 09/03/22 10:00 85 26 H 95 09/03/22 09:45 75 21 97 09/03/22 09:32 87 22 94 09/03/22 09:32 137/70 09/03/22 09:30 90 24 97 09/03/22 09:15 87 26 H 94 09/03/22 09:00 85 24 96 09/03/22 09:00 153/74 H 09/03/22 08:45 94 H 25 H 93 09/03/22 08:30 82 22 95 09/03/22 08:28 82 24 95 09/03/22 08:28 151/65 H 09/03/22 08:15 91 H 21 95 09/03/22 08:00 83 22 96 09/03/22 08:00 144/72 H 09/03/22 07:50 87 22 97 09/03/22 06:27 36.5 C 96 H 20 141/61 H 96 09/03/22 07:56 09/03/22 07:51 142/70 H 09/03/22 07:27 36.5 C 91 H 20 96 O2 Del Method 09/03/22 14:22 09/03/22 14:22 09/03/22 14:14 09/03/22 13:00 09/03/22 12:30 09/03/22 12:30 09/03/22 12:30 09/03/22 12:00 09/03/22 11:52 09/03/22 11:30 09/03/22 11:15 09/03/22 11:00 09/03/22 11:00 09/03/22 10:45 09/03/22 10:32 09/03/22 10:32 09/03/22 10:30 09/03/22 10:32 Room Air 09/03/22 08:10 Room Air 09/03/22 10:15 09/03/22 10:01 09/03/22 10:01 09/03/22 10:00 09/03/22 09:45 09/03/22 09:32 09/03/22 09:32 09/03/22 09:30 Room Air 09/03/22 09:15 09/03/22 09:00 09/03/22 09:00 09/03/22 08:45 09/03/22 08:30 09/03/22 08:28 Room Air 09/03/22 08:28 09/03/22 08:15 09/03/22 08:00 09/03/22 08:00 09/03/22 07:50 09/03/22 06:27 Room Air 09/03/22 07:56 Room Air 09/03/22 07:51 09/03/22 07:27 Room Air
[2022-09-03] MEDS: METOPROLOL TARTRATE 50 MG TAB PO SCH (20:43)
[2022-09-03] MEDS: ROSUVASTATIN CALCIUM 20 MG TAB PO SCH (20:43)
[2022-09-04 05:18] LABS: Hematocrit (blood only) 33.2 % (34.1-44.9); Mean Corpuscular Hemoglobin 28.9 pg (25.0-34.0); Mean Corpuscular Hgb Conc 33.1 g/dL (32.0-36.0); Mean Corpuscular Volume 87.4 fL (80.0-100.0); Mean Platelet Volume 10.1 fL (9.4-12.3); Platelet Count 249 K/uL (130-400); RDW Coefficient of Variation 17.7 % (11.5-14.5); RDW Standard Deviation 56.6 fL (36.4-46.3)
[2022-09-04 05:44] LABS: BUN Creatinine Ratio 23.7 (10-20); Calcium 9.2 mg/dl (8.5-10.1); Creatinine Clr Calc Pharmacy 35.2 ml/min; Est GFR (African American) 60.9 ml/min; Est GFR (Non-African American) 52.5 ml/min; Magnesium 2.4 mg/dl (1.7-2.4); Phosphorus 3.7 mg/dl (2.5-4.9); Potassium 4.3 mmol/L (3.5-5.1)
[2022-09-04] MEDS: INSULIN ASPART PER UNIT SC SCH ×4 (07:51→20:49)
[2022-09-04] MEDS: METOPROLOL TARTRATE 100 MG TAB PO SCH (07:51)
[2022-09-04] MEDS: TAMSULOSIN HCL 0.4 MG CAP PO SCH (07:51)
--- NOTE | 2022-09-04 09:44 | Critical Care Progress Note ---
Date of Service September 04, 2022 Assessment & Plan (1) Left-sided weakness: Plan: Reason Critically Ill: 87-year-old female presenting with acute onset of left facial droop and LEFT-sided weakness who received TNKase in the setting of CVA symptoms requiring close hemodynamic monitoring and neuro checks status post thrombolytic administration. NEURO - * CAM ICU: Negative * CVA: * Patient presented with new LEFT-sided weakness and LEFT-sided facial droop. Now s/p TNKase administration. * CT yesterday showed small area of hemorrhagic transformation. The patient remained neurologically stable. Follow-up CT scan this morning showed no evidence of progression of the bleed. Continue to follow clinically. Holding anticoagulation per neurology. * Possible cardiac source in the A. fib patient. Of note, there had been extensive discussion with cardiology during previous admission on 06/22/2020 at the risks for long-term anticoagulation given her frequency of falls and risk for catastrophic bleeding. At that point, shared decision-making was to opt out of of long-term anticoagulation therapy. This will need to be addressed in the long-term as the patient is at risk for recurrent strokes. * Continue with home antihypertensives and statin therapy. * PT/OT evaluation when appropriate. * Appreciate neurology consultation CARDIAC/VASCULAR - * Elevated Troponin: * Of questionable significance at this point in the patient in chronic A. fib w/ CKD III. Trend, however suspect due to demand * EKG w/o acute findings * Echo with reduced EF 40 to 45%. Severe concentric LVH with mild to moderate global hypokinesis. Severe dilatation of the left atrium with moderate dilatation of the right atrium. Moderate AAS with mild AI and severe MR. No evidence of shunt. Management per cardiology * A. fib: * Chronic - managed by [facility] cardiology. Remains in afib on tele. * Continue metoprolol dosing as tolerated. RESPIRATORY - * No h/o pulmonary disease. * Saturating well on room air. GI/NUTRITION - * Silent aspiration noted on swallow study. Per speech therapy. Keep n.p.o. for now RENAL/LYTES - * CKD III * No significant electrolyte derangements at this time. * Gentle hydration while NPO - * Marquez in place - Strict I&Os. ENDO - * DMII: * BSGs per unit protocol. ISS --> gtt per unit policy. HEME - * Stable H&H ID - * No apparent infectious sources at this time. LINES/IV ACCESS - * PIVs x2 * Marquez DVT PROPHYLAXIS - * Hold on chemoprophylaxis s/p TNKase administration. * SCDs The patient has been neurologically stable. Radiographically the intraparenchymal hemorrhage has shown no significant evidence of progression. Continue to hold anticoagulation. This is an overall difficult situation as the patient likely requires anticoagulation due to her A. fib. Holding it would place her at risk of recurrent or additional cardioembolic events. Unfortunately with the hemorrhage, anticoagulation cannot be accomplished. DNR status appropriate. At this point time the patient is stable to transfer out of the intensive care unit back to the hospitalist service on telemetry. Critical care services will sign off. Feel free to contact us with questions or concerns (2) Diabetes mellitus, type II: (3) Persistent atrial fibrillation: (4) Elevated troponin: (5) Skin ulcer of sacrum: Admission and Anticipated Discharge Date Admission Date: September 02, 2022 Subjective Patient seen and examined. EMR reviewed. The patient does not offer any new complaints currently. She denies any vision changes. No headaches. No seizure activity overnight. She is not had much change in her neurological exam. Has been hemodynamically stable. She completed a follow-up CT scan this morning which showed stable intraparenchymal hemorrhages. Review of Systems Review of Systems: All systems reviewed & are unremarkable except as noted in Subjective Physical Exam Physical Exam: General- No acute distress Head- atraumatic Eyes- PERRL, EOMI, ENT- oropharynx clear Neck- supple, no JVD Lungs- clear to auscultation Heart- irregular rhythm; +murmur Abdomen- normal bowel sounds, soft, nontender Extremities- no calf tenderness Neuro- alert, oriented, PERRL, EOMI; left sided facial droop no dysarthria, LUE and LLE weakness Skin- warm & dry Results & Data Results & Data ([facility]) Vital Signs (Past 12 Hours) Vital Signs Temp Pulse Resp BP Pulse Ox O2 Del Method 09/04/22 08:01 79 26 H 94 09/04/22 08:01 144/92 H 09/04/22 08:00 85 23 95 Room Air 09/04/22 07:47 158/63 H 09/04/22 07:47 81 24 94 09/04/22 07:00 80 14 95 09/04/22 07:50 36.6 C 09/04/22 07:50 Room Air 09/04/22 06:00 83 16 95 09/04/22 05:00 88 29 H 95 09/04/22 04:01 84 18 96 09/04/22 04:01 154/79 H 09/04/22 04:00 79 13 96 09/04/22 03:01 78 17 92 09/04/22 03:01 142/93 H 09/04/22 03:00 88 31 H 92 09/04/22 02:01 155/80 H 09/04/22 02:01 93 H 26 H 94 09/04/22 02:00 86 25 H 88 L 09/04/22 01:01 89 29 H 88 L 09/04/22 01:01 139/74 09/04/22 01:00 82 27 H 90 09/04/22 00:01 148/76 H 09/04/22 00:01 76 26 H 88 L 09/04/22 00:00 86 19 90 09/03/22 23:38 77 09/03/22 23:01 37.1 C 81 17 85 L 09/03/22 23:01 131/68 09/03/22 23:00 80 30 H 93 09/03/22 22:01 85 42 H 91 09/03/22 22:01 130/89 09/03/22 22:00 82 14 95 Critical Care Results & Data Vital Signs (Past 12 Hours) Vital Signs Temp Pulse Resp BP Pulse Ox O2 Del Method 09/04/22 08:01 79 26 H 94 09/04/22 08:01 144/92 H 09/04/22 08:00 85 23 95 Room Air 09/04/22 07:47 158/63 H 09/04/22 07:47 81 24 94 09/04/22 07:00 80 14 95 09/04/22 07:50 36.6 C 09/04/22 07:50 Room Air 09/04/22 06:00 83 16 95 09/04/22 05:00 88 29 H 95 09/04/22 04:01 84 18 96 09/04/22 04:01 154/79 H 09/04/22 04:00 79 13 96 09/04/22 03:01 78 17 92 09/04/22 03:01 142/93 H 01/14/23 03:00 88 31 H 92 09/04/22 02:01 155/80 H 09/04/22 02:01 93 H 26 H 94 09/04/22 02:00 86 25 H 88 L 09/04/22 01:01 89 29 H 88 L 09/04/22 01:01 139/74 09/04/22 01:00 82 27 H 90 09/04/22 00:01 148/76 H 09/04/22 00:01 76 26 H 88 L 09/04/22 00:00 86 19 90 09/03/22 23:38 77 09/03/22 23:01 37.1 C 81 17 85 L 09/03/22 23:01 131/68 09/03/22 23:00 80 30 H 93 09/03/22 22:01 85 42 H 91 09/03/22 22:01 130/89 09/03/22 22:00 82 14 95 Lab & Micro Results (Past 24 Hours) RBC 3.80 M/uL (3.93-5.22) L 09/04/22 WBC 12.20 K/ul (4.8-10.8) H 09/04/22 Hgb 11.0 g/dl (12.0-16.0) L 09/04/22 Hct 33.2 % (34.1-44.9) L 09/04/22 MCV 87.4 fL (80.0-100.0) 09/04/22 MCH 28.9 pg (25.0-34.0) 09/04/22 MCHC 33.1 g/dL (32.0-36.0) 09/04/22 RDW Standard Deviation 56.6 fL (36.4-46.3) H 09/04/22 RDW Coefficient of Variation 17.7 % (11.5-14.5) H 09/04/22 Plt Count 249 K/uL (130-400) 09/04/22 MPV 10.1 fL (9.4-12.3) 09/04/22 Na 141 mmol/L (136-145) 09/04/22 K 4.3 mmol/L (3.5-5.1) 09/04/22 Cl 106 mmol/L (98-107) 09/04/22 CO2 26 mmol/L (21-32) 09/04/22 Anion Gap 9 (3-11) 09/04/22 BUN 23 mg/dl (6-23) 09/04/22 Creatinine 0.97 mg/dl (0.6-1.2) 09/04/22 Estimated GFR ( Amer) 60.9 ml/min 09/04/22 Estimated GFR (Non-Af Amer) 52.5 ml/min 09/04/22 BUN/Creatinine Ratio 23.7 (10-20) H 09/04/22 Glu 141 mg/dl (70-99(Fasting)) H 09/04/22 Ca 9.2 mg/dl (8.5-10.1) 09/04/22 Phosphorus Level 3.7 mg/dl (2.5-4.9) 09/04/22 Mg 2.4 mg/dl (1.7-2.4) 09/04/22 04:59 Calcium Level 9.2 mg/dl (8.5-10.1) 09/04/22 04:59 Diagnostic Findings (Past 24 Hours) Head CT 09/03/22 11:30 CT head/brain wo con CLINICAL HISTORY: r/o hemorrhagic conversion Technique: Contiguous axial CT images of the head were acquired from the base of the skull to the vertex without intravenous contrast administration. Images were viewed in brain, subdural and bone windows. Automated dose lowering techniques a nd/or adjustment according to patient size were utilized for this exam. Comparison: Comparison is made to CT head 09/02/2022 and MRI brain 09/02/2022 Findings: There are foci of parenchymal hemorrhage in the right frontal lobe. Very ill- defined hypodensity is seen in the right SHAYY distribution compatible with previously noted infarct. Imaged portions of the paranasal sinuses and mastoid air cells are clear. The orbits appear normal. There are no acute fractures of the calvaria or scalp sw elling. Impression: Findings are compatible with hemorrhagic conversion of previously noted right SHAYY distribution infarct. ACT 112: Negative or not required by law. Electronically signed by: Raphael Sage M.D. 09/03/2022 12:49 PM Videofluoroscopic Swallow 09/03/22 13:30 FL video swallow CLINICAL HISTORY: assess for aspiration TECHNIQUE: Video fluoroscopy of the pharyngeal region was performed as barium mixtures of varying consistencies were administered to the patient by the speech pathologist. A formal esophagram was not performed. Comparison: None available at the time of this dictation. FINDINGS: Total fluoroscopy time: 3.1 minutes. The patient swallowed the different barium consistencies without difficulty. Silent aspiration is seen with thin liquid. Pooling of barium was noted in the bilateral piriform sinuses and valleculae. IMPRESSION: Silent aspiration is seen within liquid. Please see the speech pathology report for further details. ACT 112: Negative or not required by law. Electronically signed by: Raphael Sage M.D. 09/03/2022 2:55 PM I & O Totals 24 Hours 09/03/22 09/04/22 09/05/22 06:59 06:59 06:59 Intake Total 1432.5 / 1432.5 1100 / 1100 Output Total 1300 / 1300 625 / 625 Balance 132.5 / 132.5 475 / 475 -1 / -1 Cumulative 09/02/22 10:31 thru 09/04/22 07:04 Intake Total 2532.5 Output Total 1926 Balance 606.5 RT Ventilator Mngmt (Last Documented) Ventilator Ordered Settings Respiratory Rate 26 09/04/22 08:01 Ventilator - PT Measurements Respiratory Rate 26 Coding Level of Care Code 89601 SUB INP/OBS CARE 3/50MIN Diagnoses Left-sided weakness R53.1 Diabetes mellitus, type II E11.9 Persistent atrial fibrillation I48.19 Elevated troponin R77.8 Skin ulcer of sacrum L98.429
--- NOTE | 2022-09-04 10:04 | Neurology Progress Note ---
Date of Service September 04, 2022 Assessment & Plan (1) Cerebrovascular accident (CVA) with intracranial hemorrhage: (2) Acute right SHAYY stroke: (3) Persistent atrial fibrillation: Plan Acute right SHAYY territory stroke, status post TNKase, complicated by 2 small foci of associated hemorrhage which appear stable on this morning's follow-up CT of the head. Patient's left hemiplegia seems modestly worse this morning. She does not have headache or other new neurologic signs or symptoms. I suspect her weakness is due in part to cytotoxic edema associated with her stroke and subsequent hemorrhage. Would recommend a follow-up noncontrast CT of the head tomorrow morning. Continue to hold aspirin and anticoagulants. Continue to allow for permissive hypertension, systolic blood pressure goal range 140 to 160 mmHg. If the observed hemorrhagic foci are stable tomorrow morning, would then initiate daily low-dose aspirin. Thinking more long-term, however, given that her stroke was likely cardioembolic in the context of atrial fibrillation, would recommend a direct oral ant icoagulant such as Eliquis. However, given the presence of stroke associated hemorrhage, my preference would be to hold off on starting an anticoagulant in this patient for 4 weeks. Would also need to obtain a follow-up CT of the head just prior to starting an anticoagulant to ensure hemorrhage resolution. Would of course need cardiology follow-up as well. Admission and Anticipated Discharge Date Admission Date: September 02, 2022 Subjective Follow-up for right SHAYY stroke status post TNKase The patient continues to endorse significant left-sided weakness, leg greater than arm. No headache, vision change, or other new neurologic symptoms reported. Again, a follow-up CT of the head completed yesterday afternoon revealed 2 foci of hemorrhagic transformation associated with the acute right SHAYY infarct. Antithrombotic/anticoagulant treatments have been on hold. She did have a follow-up CT of the head completed this morning. I independently reviewed these images. Per my review, there is not appear to be any significant change compared with the previous CT done yesterday. The radiologist's interpretation is pending at this time. Review of Systems Constitutional: no fever Eyes: no blind spots and no diplopia Neurologic: as per Subjective / HPI and + localized weakness; no loss of sensation and no headache(s) Results & Data ([facility]) Vital Signs (Past 12 Hours) Vital Signs Temp Pulse Resp BP Pulse Ox O2 Del Method 09/04/22 08:01 79 26 H 94 09/04/22 08:01 144/92 H 09/04/22 08:00 85 23 95 Room Air 09/04/22 07:47 158/63 H 09/04/22 07:47 81 24 94 09/04/22 07:00 80 14 95 09/04/22 07:50 36.6 C 09/04/22 07:50 Room Air 09/04/22 06:00 83 16 95 09/04/22 05:00 88 29 H 95 09/04/22 04:01 84 18 96 09/04/22 04:01 154/79 H 09/04/22 04:00 79 13 96 09/04/22 03:01 78 17 92 09/04/22 03:01 142/93 H 09/04/22 03:00 88 31 H 92 09/04/22 02:01 155/80 H 09/04/22 02:01 93 H 26 H 94 09/04/22 02:00 86 25 H 88 L 09/04/22 01:01 89 29 H 88 L 09/04/22 01:01 139/74 09/04/22 01:00 82 27 H 90 09/04/22 00:01 148/76 H 09/04/22 00:01 76 26 H 88 L 09/04/22 00:00 86 19 90 09/03/22 23:38 77 09/03/22 23:01 37.1 C 81 17 85 L 09/03/22 23:01 131/68 09/03/22 23:00 80 30 H 93 09/03/22 22:01 85 42 H 91 09/03/22 22:01 130/89 09/03/22 22:00 82 14 95 Laboratory Results WBC 12.20, hemoglobin 11.0, hematocrit 33.2, platelet count 249, sodium 141, potassium 4.3, BUN 23, creatinine 0.97, glucose [address] of the head is as described above. An echocardiogram completed yesterday revealed severe concentric left ventricular hypertrophy, mild to moderate global hypokinesis of the left ventricle, EF 40 to 45%, left atrium severely dilated, right atrium moderately dilated, interatrial septum intact with no evidence for an atrial septal defect, injection of contrast documented no interatrial shunt. Exam (Neuro) Neurologic: Oriented to:: Person and Place; negative Time Attention: Span Intact; negative Concentration Intact Speech Fluency: Dysarthria Speech Aphasia: negative Aphasia Fund of Knowledge: Vocabulary Cranial Nerves: Normal II, III, IV, , V, VII, VIII, IX, X, XI and XII Motor Strength: Hemiplegia (Leg>arm) Laterality: Left Hypertonicity: Arms and Legs Muscle Bulk/Involuntary Movements: No Involuntary Movements Sensation: Light Touch Intact Details: Patient has a significant left hemiplegia, leg greater than arm. Minimal grasp for the left hand, unable to fully extend the fingers, is also considerably weak with biceps flexion and triceps extension as well as with shoulder abduction. Left lower extremity is severely weak, no movement. PG Care Time/CCT Total # of Minutes Spent Total Time Spent with Patient: Total time spent is greater than 50% in coordination of care (as documented) at patient's floor/unit and/or counseling patient: Coding Level of Care Code 95475 SUB INP/OBS CARE 235MIN Diagnoses Cerebrovascular accident (CVA) with intracranial hemorrhage I61.9 Acute right SHAYY stroke I63.521 Persistent atrial fibrillation I48.19
--- NOTE | 2022-09-04 10:06 | CT Scan Report ---
CT head/brain wo con CLINICAL HISTORY: hemorrhagic conversion progression Technique: Contiguous axial CT images of the head were acquired from the base of the skull to the lisseth alysha without intravenous contrast administration. Images were viewed in brain, subdural and bone [facility] . Automated dose lowering techniques and/or adjustment according to patient size were utilized for this exam. Comparison: Comparison is made to CT head 09/03/2022 Findings: Areas of decreased attenuation are present in the periventricular and subcortical white matter bilate rally consistent with small vessel ischemic disease. Generalized cerebral volume loss with commensura te enlargement of the ventricles, sulci, and cisterns is also present. In the interval there has been no significant change in the hemorrhagic conversion of the left SHAYY territory stroke. Parenchymal an d subarachnoid hemorrhage is unchanged from prior exam. No intraventricular extension is seen. There is approximately 4 mm leftward midline shift. Imaged portions of the paranasal sinuses and mastoid air cells are clear. The orbits appear normal. There are no acute fractures of the calvaria or scalp swelling. Impression: Interval stability of hemorrhagic transformation of right SHAYY territory stroke. No significant increa se in extent of hemorrhage or midline shift. ACT 112: Negative or not required by law. Electronically signed by: Raphael Sage M.D. 09/04/2022 10:04 AM
[2022-09-04] MEDS: NORMOSOL-R 1,000 ML IV SCH (10:36)
--- NOTE | 2022-09-04 14:47 | Hospitalist Progress Note ---
Date of Service September 04, 2022 Assessment & Plan (1) Left-sided weakness: Plan: This is an 87-year-old female with PMH of chronic combined systolic and diastolic heart failure, CAD status post stent placement history of atrial fibrillation not anticoagulated due to fall risk, type 2 diabetes, hypertension, aortic valve stenosis, CAD, CKD 3 presentedto the ER with left-sided weakness and facial drop. Stroke alert was called and TNKase was administered CT head no hemorrhage, mass effect, or evidence of acute territorial ischemia. 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 Atherosclerotic plaque causes approximately 50% focal stenosis at the origin of the right internal carotid artery. CTA head/neck showed no hemorrhage, mass effect, or evidence of acute territorial ischemia. 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 MRI brain showed restricted diffusion identified in the high right frontoparietal cortex consistent with an acute to subacute SHAYY territory infarct. There are foci of hemorrhage within the infarcted territory with mild mass effect. Repeat CT head showed Findings are compatible with hemorrhagic conversion of previously noted right SHAYY distribution infarct ECHO showed echo showed mild to moderate global hypokinesis of the left ventricle. Severe concentric left ventricular hypertrophy. Ejection fraction 40 to 45% Repeat CT head today showed Interval stability of hemorrhagic transformation of right SHAYY territory stroke. No significant increase in extent of hemorrhage or midline shift. Neuro on board case discussed with neuro that recommended to continue to hold on restarting daily low-dose aspirin therapy or anticoagulation. Neuro recommended to hold on anticoagulant for 4 weeks and to obtain a follow-up CT of the head just prior to starting an anticoagulant to ensure hemorrhage Continue permissive hypertension with systolic blood pressure goal range 140 to 160 mmHg. Continue statin Continue PT / OT and speech eval PT recommended 24hr care or SNF (2) Diabetes mellitus, type II: Plan: Most recent hemoglobin A1c 6.5 Continue to hold home agents SSI while in-patient Continue monitor blood sugar (3) Persistent atrial fibrillation: Plan: Not on anticoagulation historically due to fall risk. [id number] 2 score of 8 with acute stroke. Cardiology recommended anticoagulation once hemorrhagic risk resolved other cardiac issues stable and clear by neurology Continue metoprolol 50mg daily (4) Aortic stenosis: (5) Combined systolic and diastolic heart failure: Plan: No sign of volume overload Continue monitor (6) Hypertension: Plan: Continue permissive hypertensive with systolic blood pressure between 140 to 160 (7) CKD (chronic kidney disease), stage III: Plan: Creatinine at baseline. Stable (8) Skin ulcer of sacrum: Plan: History of sacral skin ulcer Per outpatient chart. Repositioning, wound care nurse as needed Code status: DNR Disposition Will need inpatient therapy Admission and Anticipated Discharge Date Admission Date: September 02, 2022 Subjective Patient was seen and evaluated for follow-up of stroke Lying in bed with no acute distress watching TV Pt said that she feels ok Denies any chest pain, palpitation, dizziness and SOB Review of Systems Review of Systems: All systems reviewed & are unremarkable except as noted in Subjective Physical Exam Physical Exam: General- No acute distress Head- atraumatic Eyes- PERRL, EOMI, ENT- oropharynx clear Neck- supple, no JVD Lungs- clear to auscultation Heart- irregular rhythm; +murmur Abdomen- normal bowel sounds, soft, nontender Extremities- no calf tenderness Neuro- alert, oriented, PERRL, EOMI; no dysarthria, LUE and LLE weakness Skin- warm & dry Results & Data Results & Data ([facility]) Vital Signs (Past 12 Hours) Vital Signs Temp Pulse Resp BP Pulse Ox O2 Del Method 09/04/22 08:01 79 26 H 94 09/04/22 08:01 144/92 H 09/04/22 08:00 85 23 95 Room Air 09/04/22 07:47 158/63 H 09/04/22 07:47 81 24 94 09/04/22 07:00 80 14 95 09/04/22 07:50 36.6 C 09/04/22 07:50 Room Air 09/04/22 06:00 83 16 95 09/04/22 05:00 88 29 H 95 09/04/22 04:01 84 18 96 09/04/22 04:01 154/79 H 09/04/22 04:00 79 13 96 09/04/22 03:01 78 17 92 09/04/22 03:01 142/93 H 09/04/22 03:00 88 31 H 92
[2022-09-04] MEDS: ROSUVASTATIN CALCIUM 20 MG TAB PO SCH (20:50)
[2022-09-04] MEDS: METOPROLOL TARTRATE 50 MG TAB PO SCH (20:50)
[2022-09-05] MEDS: METOPROLOL TARTRATE 100 MG TAB PO SCH (07:50)
[2022-09-05] MEDS: TAMSULOSIN HCL 0.4 MG CAP PO SCH (07:50)
[2022-09-05] MEDS: INSULIN ASPART PER UNIT SC SCH ×4 (07:59→20:37)
[2022-09-05 08:36] LABS: Hematocrit (blood only) 35.2 % (34.1-44.9); Hemoglobin 11.6 g/dl (12.0-16.0); Mean Corpuscular Hemoglobin 28.6 pg (25.0-34.0); Mean Corpuscular Volume 86.7 fL (80.0-100.0); Mean Platelet Volume 10.2 fL (9.4-12.3); Nucleated RBC # (auto) 0.02 K/uL (0-0); Nucleated RBC % (auto) 0.1 %; Platelet Count 230 K/uL (130-400); RDW Coefficient of Variation 17.4 % (11.5-14.5); RDW Standard Deviation 55.3 fL (36.4-46.3); Red Blood Count 4.06 M/uL (3.93-5.22); White Blood Count 13.55 K/ul (4.8-10.8)
--- NOTE | 2022-09-05 09:30 | Neurology Progress Note ---
Date of Service September 05, 2022 Assessment & Plan (1) Cerebrovascular accident (CVA) with intracranial hemorrhage: (2) Hemiplegia of left nondominant side as late effect of cerebral infarction: (3) Persistent atrial fibrillation: (4) Carotid stenosis: Plan: Acute right anterior cerebral artery/right hemispheric stroke, status post TNKase, complicated by 2 small foci of associated hemorrhage with associated cytotoxic edema and mild right to left midline shift. Patient has a dense left hemiplegia, face arm and leg. Her stroke deficits are more than what would typically be encountered from a purely ischemic right SHAYY territory infarct as her face and arm appear to be significantly involved as well. I suspect her degree of stroke deficits is in part related to cytotoxic edema. However, her stroke burden may be greater than what was detected on the initial brain MRI diffusion-weighted sequences. Antiplatelet and anticoagulant therapy has been on hold in light of the above hemorrhage. I would recommend obtaining a follow-up noncontrast CT of the head today to reassess for stability. If there is no significant change, would be appropriate to start daily low-dose aspirin, 81 mg/day. Continue to allow for permissive hypertension, systolic blood pressure goal 140 to 160 mmHg. As discussed previously, this patient has a moderate to high-grade stenosis of the left cavernous carotid artery and a 50% stenosis at the origin of the right internal carotid artery. Neither of these stenoses would be responsible for her acute right hemispheric infarct. Patient should continue with rosuvastatin as ordered. As discussed previously, this patient has a history of atrial fibrillation but had not been on anticoagulant due to fall risk. However, patient would be considered high risk for recurrence of cardioembolic stroke and an anticoagulant would be recommended going forward. I would not start an anticoagulant acutely in this patient, however, given her persistent hemorrhage and cytotoxic edema. An anticoagulant may be safely started in 4 to 8 weeks with stability and resolution of her hemorrhage. Admission and Anticipated Discharge Date Admission Date: September 02, 2022 Subjective Follow-up for stroke The patient continues to exhibit significant left-sided weakness, face arm and leg, she has a rather dense left hemiplegia. Her condition this morning does not seem significantly different compared with yesterday. She is mildly lethargic. She denies headache, vision or sensory loss. She has trace movement of the left hand and foot. A CT of the head completed yesterday revealed stability of the 2 hemorrhagic foci associated with the acute right SHAYY territory infarct. There is a small amount of right to left midline shift as well. Review of Systems Constitutional: no fever and no chills Eyes: no blind spots and no diplopia Neurologic: as per Subjective / HPI and + localized weakness; no loss of sensation and no headache(s) Results & Data ([facility]) Vital Signs (Past 12 Hours) Vital Signs Temp Pulse Pulse Resp BP Pulse Ox O2 Del Method 09/05/22 07:32 37.0 C 90 20 149/83 H 95 Nasal Cannula 09/05/22 03:08 37.6 C H 87 20 143/82 H 97 Nasal Cannula 09/04/22 22:00 36.7 C 94 H 18 117/62 96 Nasal Cannula 09/04/22 22:15 80 09/04/22 21:24 Nasal Cannula O2 Flow Rate 09/05/22 07:32 1 09/05/22 03:08 2 09/04/22 22:00 2 09/04/22 22:15 09/04/22 21:24 1 Laboratory Results WBC 13.55, hemoglobin 11.6, hematocrit 35.2, platelet count [address] of the head completed yesterday as described above. I did independently review these images. Exam (Neuro) Neurologic: Oriented to:: Person Attention: negative Span Intact Speech Fluency: Dysarthria Fund of Knowledge: Vocabulary Cranial Nerves: Normal II and III, IV, ; Abnorm VII (left facial droop noted) Motor Strength: Hemiplegia Laterality: Left PG Care Time/CCT Total # of Minutes Spent Total Time Spent with Patient: Total time spent is greater than 50% in coordination of care (as documented) at patient's floor/unit and/or counseling patient: Coding Level of Care Code 25616 SUB INP/OBS CARE 235MIN Diagnoses Cerebrovascular accident (CVA) with intracranial hemorrhage I61.9 Hemiplegia of left nondominant 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
--- NOTE | 2022-09-05 14:39 | CT Scan Report ---
CT SCAN OF THE BRAIN WITHOUT IV CONTRAST CLINICAL HISTORY: Follow-up stroke/hemorrhage. COMPARISON STUDY: CT of the brain dated 09/04/2022. MRI of the brain dated 09/02/2022. TECHNIQUE: Unenhanced axial CT scan of the brain is performed from the vertex to the skull base. A do se lowering technique was utilized adhering to the principles of ALARA. CT DOSE: 614.27 mGy.cm FINDINGS: Brain parenchyma: Again seen there is diminished attenuation within the right SHAYY territory consisten t with an evolving infarct. Foci of hemorrhagic conversion in the right frontal lobe parenchyma are s imilar to yesterday. These measure up to 1.2 cm, with mild surrounding edema. This causes minimal bul ging of the midline falx. No new foci of hemorrhage are seen. There is age-related involutional nobles e noting moderate to advanced subcortical and periventricular microangiopathic disease. No extra-axi al fluid collection is seen. A hyperdense colloid cyst is again suggested at the roof of the third ve ntricle. Ventricles, sulci, cisterns: Prominent secondary to involutional change. Intracranial vasculature: There is atherosclerotic calcification of the cavernous carotid and vertebr al arteries. Calvarium: Unremarkable. Sinuses and mastoids: The visualized paranasal sinuses are clear. The mastoid air cells are well pneu matized. Orbits: The bony orbits are grossly intact. There are bilateral ocular lens implants. IMPRESSION: 1. Again seen is an evolving right SHAYY territory infarct with foci of hemorrhagic conversion. There i s mild mass effect and this has not significantly changed in appearance from yesterday. 2. No new foci of hemorrhage are identified. ACT 112: Negative or not required by law. Electronically signed by: Brenton Dalal M.D. 09/05/2022 2:36 PM
--- NOTE | 2022-09-05 17:08 | Hospitalist Progress Note ---
Date of Service September 05, 2022 Assessment & Plan (1) Left-sided weakness: Plan: This is an 87-year-old female with PMH of chronic combined systolic and diastolic heart failure, CAD status post stent placement history of atrial fibrillation not anticoagulated due to fall risk, type 2 diabetes, hypertension, aortic valve stenosis, CAD, CKD 3 presentedto the ER with left-sided weakness and facial drop. Stroke alert was called and TNKase was administered CT head no hemorrhage, mass effect, or evidence of acute territorial ischemia. 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 Atherosclerotic plaque causes approximately 50% focal stenosis at the origin of the right internal carotid artery. CTA head/neck showed no hemorrhage, mass effect, or evidence of acute territorial ischemia. 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 MRI brain showed restricted diffusion identified in the high right frontoparietal cortex consistent with an acute to subacute SHAYY territory infarct. There are foci of hemorrhage within the infarcted territory with mild mass effect. Repeat CT head showed Findings are compatible with hemorrhagic conversion of previously noted right SHAYY distribution infarct ECHO showed echo showed mild to moderate global hypokinesis of the left ventricle. Severe concentric left ventricular hypertrophy. Ejection fraction 40 to 45% Repeat CT head on 09/04/22 showed Interval stability of hemorrhagic transformation of right SHAYY territory stroke. No significant increase in extent of hemorrhage or midline shift. CT chest showeddiminished attenuation within the right SHAYY territory consistent with an evolving infarct. Foci of hemorrhagic conversion in the right frontal lobe parenchyma are similar to yesterday. Neuro on board Case discussed with neuro that recommended to continue to hold on restarting daily low-dose aspirin therapy or anticoagulation. If there is no significant change, would be appropriate to start daily low-dose aspirin, 81 mg/day as per neuro Neuro recommended to hold on anticoagulant for 4 weeks and to obtain a follow-up CT of the head just prior to starting an anticoagulant to ensure hemorrhage Continue permissive hypertension with systolic blood pressure goal range 140 to 160 mmHg. Continue statin Continue PT / OT and speech eval PT recommended 24hr care or SNF (2) Diabetes mellitus, type II: Plan: Most recent hemoglobin A1c 6.5 Continue to hold home agents SSI while in-patient Continue monitor blood sugar (3) Persistent atrial fibrillation: Plan: Not on anticoagulation historically due to fall risk. [id number] 2 score of 8 with acute stroke. Cardiology recommended anticoagulation once hemorrhagic risk resolved other cardiac issues stable and clear by neurology Continue metoprolol 50mg daily (4) Aortic stenosis: (5) Combined systolic and diastolic heart failure: Plan: No sign of volume overload Continue monitor (6) Hypertension: Plan: Continue permissive hypertensive with systolic blood pressure between 140 to 160 (7) CKD (chronic kidney disease), stage III: Plan: Creatinine at baseline. Stable (8) Skin ulcer of sacrum: Plan: History of sacral skin ulcer Per outpatient chart. Repositioning, wound care nurse as needed Code status: DNR Disposition Will need inpatient therapy Admission and Anticipated Discharge Date Admission Date: September 02, 2022 Subjective Patient was seen and evaluated for follow-up of stroke Lying in bed with no acute distress watching TV Denies any chest pain, palpitation, dizziness and SOB Review of Systems Review of Systems: All systems reviewed & are unremarkable except as noted in Subjective Physical Exam Physical Exam: General- No acute distress Head- atraumatic Eyes- PERRL, EOMI, ENT- oropharynx clear Neck- supple, no JVD Lungs- clear to auscultation Heart- irregular rhythm; +murmur Abdomen- normal bowel sounds, soft, nontender Extremities- no calf tenderness Neuro- alert, oriented, PERRL, EOMI; no dysarthria, LUE and LLE weakness Skin- warm & dry Results & Data Results & Data ([facility]) Vital Signs (Past 12 Hours) Vital Signs Temp Pulse Resp BP Pulse Ox O2 Del Method O2 Flow Rate 09/05/22 15:36 37.2 C 89 20 135/83 99 Nasal Cannula 1.5 09/05/22 11:18 36.3 C L 77 20 117/72 97 Nasal Cannula 1 09/05/22 08:00 Nasal Cannula 2 09/05/22 07:32 37.0 C 90 20 149/83 H 95 Nasal Cannula 1
[2022-09-05] MEDS: ROSUVASTATIN CALCIUM 20 MG TAB PO SCH (20:37)
[2022-09-05] MEDS: METOPROLOL TARTRATE 50 MG TAB PO SCH (20:37)
[2022-09-06] MEDS ORDERED: LACTATED RINGER'S 1,000 ML IV ONE (06:19)
[2022-09-06 07:15] LABS: BUN Creatinine Ratio 27.7 (10-20); Calcium 8.5 mg/dl (8.5-10.1); Creatinine Clr Calc Pharmacy 35.1 ml/min; Est GFR (African American) 63.2 ml/min; Est GFR (Non-African American) 54.5 ml/min; Potassium 3.4 mmol/L (3.5-5.1)
[2022-09-06] MEDS ORDERED: POTASSIUM CHLORIDE CRTAB 20 MEQ TABCR PO STA (07:56)
[2022-09-06] MEDS: INSULIN ASPART PER UNIT SC SCH ×2 (07:57→12:04)
[2022-09-06] MEDS: METOPROLOL TARTRATE 100 MG TAB PO SCH (07:58)
[2022-09-06] MEDS: TAMSULOSIN HCL 0.4 MG CAP PO SCH (07:58)
--- NOTE | 2022-09-06 09:31 | Pharmacy Report ---
- Date of Service September 06, 2022 - Pharmacy CVA/TIA Medication Review Medications to Prevent Stroke handout has been added to the patients discharge packet. Antiplatelet(s) * Neurology currently recommending holding low dose aspirin or any anticoagulation x 4 weeks due to head CT scan 09/05. They recommend obtaining a follow-CT prior to starting anticoagulant Cholesterol * Plan to continue home rosuvastatin 40 mg daily on discharge Therapeutic Anticoagulation * Persistent atrial fibrillation * Cardiology recommends anticoagulation once hemorrhagic risk resolved and cleared by neurology Type 2 Diabetes * Patient has T2DM and patient is prescribed metformin and glimepiride - A1c within range at 6.5%. * Medications with proven CVD benefit (GLP-1 agonist or SGLT2 inhibitor) could be discussed with patient on outpatient basis. It is reasonable to defer selection to their outpatient provider due to familiarity with risks/benefits of such therapies.
[2022-09-06] MEDS ORDERED: STROKE PATIENT DISCHARGE STA (14:05)
--- NOTE | 2022-09-06 14:10 | Discharge Summary ---
Date of Service September 06, 2022 Admission HPI Per Admitting Provider This is an 87-year-old female with PMH of chronic combined systolic and diastolic heart failure, CAD status post stent placement history of atrial fibrillation not anticoagulated due to fall risk, type 2 diabetes, hypertension, aortic valve stenosis, CAD, CKD 3 and other medical problems listed below who presents with left-sided weakness at 915 this morning. Did wake up at her normal time and had breakfast and took medications without issue. Patient is wheelchair-bound and requires help to transfer but when home health providers were preparing to transfer, they noted profound weakness on left side. Was then brought in by EMS for further evaluation and stroke alert was called. Due to ongoing weakness and facial droop in the ED, patient was administered TNK and underwent Lauren telestroke evaluation. Patient states she is feeling better but still foggy. Is alert and oriented to self, son at bedside. Knows she is in [place] but surprised when she is in the hospital and not oriented to situation. Son states she has history of dementia with intermittent disorientation, especially in moments of stress. Still with weakness and inability to move left upper extremity independently. Also feeling weak in left lower extremity. Denies any fever, chills, recent illness, lightheadedness, chest pain, shortness of breath, nausea, vomiting, abdominal pain, dysuria, diarrhea constipation. Admission Exam Per Admitting Provider General Appearance:WD/WN, vitals as above, NAD, lying in bed, pleasant, able to communicate with slowed response Head: normocephalic, atraumatic Eyes:normal inspection, PERRL, conjunctivae normal, anicteric sclerae ENT: external ear and nose normal, oropharynx normal Neck: normal visual inspection, trachea midline, no thyromegaly Respiratory:normal respiratory effort, lungs clear to auscultation, no wheeze, rales, rhonchi. No accessory muscle use Cardiovascular: irregular rate & rhythm, no murmur, normal peripheral pulses, trace BLE edema. Vessels: no JVD Chest: normal inspection of chest Abdomen/GI: normal bowel sounds, soft, nontender, no hepatosplenomegaly Extremities/Musculoskeletal: no cyanosis or clubbing, extremities motor strength 5/5 Neurologic: PERRL, EOMI, accommodation nl, + left facial droop, speech with mild dysarthria. LUE passive ROM with L hand contracted, 2/5 KEVIN, LLE 3/5 Psychiatric:A+O x self only, euthymic affect Skin: no rashes, normal color, warm/dry Principal Diagnosis Acute stroke with Left-sided weakness: Diabetes mellitus, type II: Persistent atrial fibrillation: Aortic stenosis: Combined systolic and diastolic heart failure: Hypertension: CKD (chronic kidney disease), stage III: Skin ulcer of sacrum: Discharge Exam General- No acute distress Head- atraumatic Eyes- PERRL, EOMI, ENT- oropharynx clear Neck- supple, no JVD Lungs- clear to auscultation Heart- irregular rhythm; +murmur Abdomen- normal bowel sounds, soft, nontender Extremities- no calf tenderness Neuro- alert, oriented, PERRL, EOMI; no dysarthria, LUE and LLE weakness Skin- warm & dry Discharge Data Allergies Allergy/AdvReac Type Severity Reaction Status Date / Time itraconazole Allergy Intermediate HIVES Verified 09/12/22 16:36 Imidazole Alkylating Agents Allergy Unknown Unknown Verified 09/12/22 16:36 Iodinated Contrast Media Allergy Unknown Unknown Verified 09/12/22 16:36 codeine AdvReac Intermediate N/V Verified 09/12/22 16:36 morphine AdvReac Intermediate N/V Verified 09/12/22 16:36 Consultations 09/02/22 11:58 ED Decision to Admit Stat 09/02/22 13:55 Consult Recovery Assistant Routine Consult Neurology Routine 09/02/22 18:56 Consult Cardiology Routine Ordered Studies 09/02/22 10:34 CT angio head w con Stat CT angio neck with con Stat CT head/brain wo con Stat 09/02/22 13:55 MR brain wo/w con Routine 09/03/22 11:30 CT head/brain wo con Urgent 09/03/22 13:30 FL video swallow Routine 09/04/22 09:00 CT head/brain wo con Routine 09/05/22 10:48 CT head/brain wo con Routine Laboratory Results WBC 13.55 K/ul (4.8-10.8) H 09/05/22 08:23 RBC 4.06 M/uL (3.93-5.22) 09/05/22 08:23 Hgb 11.6 g/dl (12.0-16.0) L 09/05/22 08:23 Hct 35.2 % (34.1-44.9) 09/05/22 08: MCV 86.7 fL (80.0-100.0) 09/05/22 08: MCH 28.6 pg (25.0-34.0) 09/05/22 08: MCHC 33.0 g/dL (32.0-36.0) 09/05/22 08: RDW Std Deviation 55.3 fL (36.4-46.3) H 09/05/22 08: RDW Coeff of Matt 17.4 % (11.5-14.5) H 09/05/22 08: Plt Count 230 K/uL (130-400) 09/05/22 08: MPV 10.2 fL (9.4-12.3) 09/05/22 08: Immature Gran % (Auto) 0.4 % 09/02/22 11:06 Neut % (Auto) 57.4 % 09/02/22 11:06 Lymph % (Auto) 30.3 % 09/02/22 11:06 [place] % (Auto) 10.5 % 09/02/22 11:06 Eos % (Auto) 0.8 % 09/02/22 11:06 Baso % (Auto) 0.6 % 09/02/22 11:06 Neut # (Auto) 6.40 K/uL (1.4-6.5) 09/02/22 11:06 Lymph # (Auto) 3.38 K/uL (1.2-3.4) 09/02/22 11:06 [place] # (Auto) 1.17 K/uL (0.24-0.82) H 09/02/22 11:06 Eos # (Auto) 0.09 K/uL (0-0.50) 09/02/22 11:06 Baso # (Auto) 0.07 K/uL (0-0.2) 09/02/22 11:06 Immature Gran # (Auto) 0.04 K/uL (0.00-0.02) H 09/02/22 11:06 Absolute Nucleated RBC 0.02 K/uL (0-0) H 09/05/22 08: Nucleated RBC % (auto) 0.1 % 09/05/22 08:23 PT 12.4 Seconds (9.0-12.0) H 09/02/22 11:06 INR 1.2 (0.9-1.1) H 09/02/22 11:06 APTT 27.7 Seconds (21.0-31.0) 09/02/22 11:06 PTT Ratio 1.0 09/02/22 11:06 Sodium 141 mmol/L (136-145) 09/06/22 06:25 Potassium 3.4 mmol/L (3.5-5.1) L 09/06/22 06:25 Chloride 108 mmol/L (98-107) H 09/06/22 06:25 Carbon Dioxide 29 mmol/L (21-32) 09/06/22 06:25 Anion Gap 4 (3-11) 09/06/22 06:25 BUN 26 mg/dl (6-23) H 09/06/22 06:25 Creatinine 0.94 mg/dl (0.6-1.2) 09/06/22 06:25 Est Cr Clr Drug Dosing 35.1 ml/min 09/06/22 06:25 Est GFR ( Amer) 63.2 ml/min 09/06/22 06:25 Est GFR (Non-Af Amer) 54.5 ml/min 09/06/22 06:25 BUN/Creatinine Ratio 27.7 (10-20) H 09/06/22 06:25 Glucose 144 mg/dl (70-99(Fasting)) H 09/06/22 06:25 POC Glucose 209 mg/dl (70-99) H 09/06/22 11:39 Estimat Average Glucose 140 mg/dl 09/03/22 12:40 Hemoglobin A1c 6.5 % (4.5-5.6) H 09/03/22 12:40 Calcium 8.5 mg/dl (8.5-10.1) 09/06/22 06:25 Phosphorus 3.7 mg/dl (2.5-4.9) 09/04/22 04:59 Magnesium 2.4 mg/dl (1.7-2.4) 09/04/22 04:59 Total Bilirubin 0.5 mg/dl (0.2-1.0) 09/02/22 11:06 AST 22 U/L (13-39) 09/02/22 11:06 ALT 28 U/L (7-52) 09/02/22 11:06 Alkaline Phosphatase 46 U/L (34-104) 09/02/22 11:06 Troponin I High Sens 46.7 pg/ml (0-14) H D 09/03/22 12:40 Total Protein 6.0 gm/dl (6.0-8.3) 09/02/22 11:06 Albumin 3.4 gm/dl (3.4-5.0) 09/02/22 11:06 Globulin 2.6 gm/dl (2.5-4.0) 09/02/22 11:06 Albumin/Globulin Ratio 1.3 (0.9-2) 09/02/22 11:06 Triglycerides 140 mg/dl (0-150) 09/03/22 12:40 Triglycerides Cancelled 09/03/22 12:40 Cholesterol 89 mg/dl (0-200) 09/03/22 12:40 Cholesterol Cancelled 09/03/22 12:40 LDL Cholesterol, Calc 30 mg/dl 09/03/22 12:40 LDL Cholesterol, Calc Cancelled 09/03/22 12:40 VLDL Cholesterol, Calc 28 mg/dl (0-30) 09/03/22 12:40 VLDL Cholesterol, Calc Cancelled 09/03/22 12:40 HDL Cholesterol 31 mg/dl 09/03/22 12:40 HDL Cholesterol Cancelled 09/03/22 12:40 Cholesterol/HDL Ratio 2.9 (0-5) 09/03/22 12:40 Cholesterol/HDL Ratio Cancelled 09/03/22 12:40 Urine Color Yellow 09/02/22 11:55 Urine Appearance Clear (Clear) 09/02/22 11:55 Urine pH 6.0 (4.5-7.5) 09/02/22 11:55 Ur Specific [place] 1.021 (1.000-1.030) 09/02/22 11:55 Urine Protein Trace (Negative) H 09/02/22 11:55 Urine Glucose (UA) Negative (Negative) 09/02/22 11:55 Urine Ketones Negative (Negative) 09/02/22 11:55 Urine Blood Negative (Negative) 09/02/22 11:55 Urine Nitrite Negative (Negative) 09/02/22 11:55 Urine Bilirubin Negative (Negative) 09/02/22 11:55 Urine Urobilinogen Negative (Negative) 09/02/22 11:55 Ur Leukocyte Esterase Negative (Negative) 09/02/22 11:55 Urine WBC (Auto) 1-5 /hpf (0-5) 09/02/22 11:55 Urine RBC (Auto) 0-4 /hpf (0-4) 09/02/22 11:55 U Hyaline Cast (Auto) 1-5 /lpf (0-5) 09/02/22 11:55 U Epithel Cells (Auto) 5-10 /lpf (0-5) H 09/02/22 11:55 Urine Bacteria (Auto) Negative (Negative) 09/02/22 11:55 Nasal Screen MRSA (PCR) Negative (Negative) 09/02/22 Unknown SARS-CoV-2, RNA, NAAT NEGATIVE (NEGATIVE) 09/02/22 11:10 Impressions Chest X-Ray 09/02/22 10:34 XR chest 1V portable CLINICAL HISTORY: neuro deficit, acute stroke suspected TECHNIQUE: Single frontal radiograph of the chest was obtained. Comparison: Comparison is made to chest radiograph 03/07/2021 FINDINGS: No lines and tubes are seen. Cardiomegaly is noted. The aortic arch is calcified. Reticular interstitial opacities are seen. No evidence of pleural effusion or pneumothorax. Extensive degenerative changes are seen in the right shoulder joint. IMPRESSION: No acute chest disease. ACT 112: Negative or not required by law. Electronically signed by: Raphael Sage M.D. 09/02/2022 11:36 AM Head CTA 09/02/22 10:[address] OF THE BRAIN; CT ANGIOGRAM OF THE BRAIN; CT ANGIOGRAM OF THE NECK CLINICAL HISTORY: Strokelike symptoms. Neurological deficits. COMPARISON STUDY: CT of the brain dated 03/07/2021. TECHNIQUE: Unenhanced axial CT scan of the brain is performed. Subsequently, following the IV administration of 108 of Optiray 320, CT angiogram of the head and neck was performed from the aortic arch to the vertex. Images are reviewed in the axial, sagittal, and coronal planes. 3-D MIPS images are created and assessed. IV contrast was administered without complication. All measurements were calculated based on NASCET criteria. A dose lowering technique was ut ilized adhering to the principles of ALARA. CT DOSE: 1538.39 mGy.cm FINDINGS: Brain parenchyma: There is age-related involutional change noting moderate subcortical and periventricular microangiopathic disease. There is no hemorrhage, mass effect, or evidence of acute territorial ischemia by CT criteria. There is no evidence of enhancing mass lesion on the angiogram phase images. The ventricles, sulci, and cisterns are prominent secondary to involutional change. Modi-white matter differentiation is preserved. A subcentimeter colloid cyst is suggested at the roof of the third ventricle. No extra-axial fluid collection is seen. Thoracic aorta: There is atherosclerotic calcification of the thoracic aorta. Visualized portions of the thoracic aorta are normal in caliber. The aortic arch demonstrates standard 3-vessel anatomy. Right carotid arterial system: The right common carotid artery is widely patent. Advanced atherosclerotic plaque in the carotid bulb causes approximately 50% stenosis at the origin of the right internal carotid artery. The remainder of the right internal carotid artery is widely patent, as is the external carotid artery. Left carotid arterial system: The left common carotid artery is widely patent, as are the left internal and external carotid arteries. Atherosclerotic plaque and irregularity is seen throughout. Vertebral arteries: The vertebral arteries are widely patent bilaterally and codominant. Subclavian arteries: Widely patent bilaterally. Intracranial vasculature: There is atherosclerotic calcification of the cavernous carotid and vertebral arteries. The internal carotid arteries are patent at the skull base, as are the anterior and middle cerebral arteries bilaterally. 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 This is difficult to assess due to advanced calcified plaque. The left A1 segment is atretic. There is origin of the right posterior cerebral artery. The vertebrobasilar system and posterior cerebral arteries are patent. Atherosclerotic plaque and irregularity seen throughout both vertebral arteries. The vertebral arteries are codominant. No aneurysm or focal vessel cut off seen throughout the intracranial circulation. Jugular veins: Patent bilaterally. The left transverse sinus is diminutive. Dural sinuses: Patent. Lung apices: Partially visualized upper lobe lung parenchyma appears clear. Soft tissues: The visualized pharyngeal soft tissues are normal in appearance noting angiographic phase technique. The oropharyngeal airway appears widely patent. The salivary and thyroid glands are normal in appearance. No cervical lymphadenopathy is seen. Skeletal structures: The skeletal structures are osteopenic. The calvarium appears intact. The cervical spine is maintained noting advanced spondylosis. No lytic or blastic lesion is seen. Orbits: The bony orbits are intact. Orbital contents are normal as visualized noting bilateral ocular lens implant. Sinuses and mastoids: The paranasal sinuses are clear. The mastoid air cells are well pneumatized. IMPRESSION: 1. There is no hemorrhage, mass effect, or evidence of acute territorial ischemia by CT criteria. 2. 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 3. The remaining intracranial vessels are patent. 4. Atherosclerotic plaque causes approximately 50% focal stenosis at the origin of the right internal carotid artery. 5. Otherwise unremarkable CT angiogram of the neck. ACT 112: Negative or not required by law. Electronically signed by: Brenton Dalal M.D. 09/02/2022 11:10 AM Neck CTA 09/02/22 10:[address] OF THE BRAIN; CT ANGIOGRAM OF THE BRAIN; CT ANGIOGRAM OF THE NECK CLINICAL HISTORY: Strokelike symptoms. Neurological deficits. COMPARISON STUDY: CT of the brain dated 03/07/2021. TECHNIQUE: Unenhanced axial CT scan of the brain is performed. Subsequently, following the IV administration of 108 of Optiray 320, CT angiogram of the head and neck was performed from the aortic arch to the vertex. Images are reviewed in the axial, sagittal, and coronal planes. 3-D MIPS images are created and assessed. IV contrast was administered without complication. All measurements were calculated based on NASCET criteria. A dose lowering technique was utilized adhering to the principles of ALARA. CT DOSE: 1538.39 mGy.cm FINDINGS: Brain parenchyma: There is age-related involutional change noting moderate subcortical and periventricular microangiopathic disease. There is no hemorrhage, mass effect, or evidence of acute territorial ischemia by CT criteria. There is no evidence of enhancing mass lesion on the angiogram phase images. The ventricles, sulci, and cisterns are prominent secondary to involutional change. Modi-white matter differentiation is preserved. A subcentimeter colloid cyst is suggested at the roof of the third ventricle. No extra-axial fluid collection is seen. Thoracic aorta: There is atherosclerotic calcification of the thoracic aorta. Visualized portions of the thoracic aorta are normal in caliber. The aortic arch demonstrates standard 3-vessel anatomy. Right carotid arterial system: The right common carotid artery is widely patent. Advanced atherosclerotic plaque in the carotid bulb causes approximately 50% stenosis at the origin of the right internal carotid artery. The remainder of the right internal carotid artery is widely patent, as is the external carotid artery. Left carotid arterial system: The left common carotid artery is widely patent, as are the left internal and external carotid arteries. Atherosclerotic plaque and irregularity is seen throughout. Vertebral arteries: The vertebral arteries are widely patent bilaterally and codominant. Subclavian arteries: Widely patent bilaterally. Intracranial vasculature: There is atherosclerotic calcification of the cavernous carotid and vertebral arteries. The internal carotid arteries are patent at the skull base, as are the anterior and middle cerebral arteries bilaterally. 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 This is difficult to assess due to advanced calcified plaque. The left A1 segment is atretic. There is origin of the right posterior cerebral artery. The vertebrobasilar system and posterior cerebral arteries are patent. Atherosclerotic plaque and irregularity seen throughout both vertebral arteries. The vertebral arteries are codominant. No aneurysm or focal vessel cut off seen throughout the intracranial circulation. Jugular veins: Patent bilaterally. The left transverse sinus is diminutive. Dural sinuses: Patent. Lung apices: Partially visualized upper lobe lung parenchyma appears clear. Soft tissues: The visualized pharyngeal soft tissues are normal in appearance noting angiographic phase technique. The oropharyngeal airway appears widely patent. The salivary and thyroid glands are normal in appearance. No cervical lymphadenopathy is seen. Skeletal structures: The skeletal structures are osteopenic. The calvarium appears intact. The cervical spine is maintained noting advanced spondylosis. No lytic or blastic lesion is seen. Orbits: The bony orbits are intact. Orbital contents are normal as visualized noting bilateral ocular lens implant. Sinuses and mastoids: The paranasal sinuses are clear. The mastoid air cells are well pneumatized. IMPRESSION: 1. There is no hemorrhage, mass effect, or evidence of acute territorial ischemia by CT criteria. 2. 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 3. The remaining intracranial vessels are patent. 4. Atherosclerotic plaque causes approximately 50% focal stenosis at the origin of the right internal carotid artery. 5. Otherwise unremarkable CT angiogram of the neck. ACT 112: Negative or not required by law. Electronically signed by: Brenton Dalal M.D. 09/02/2022 11:10 AM Brain MRI 09/02/22 13:55 MR brain wo/w con CLINICAL HISTORY: left sided weakness TECHNIQUE: Multiplanar and multisequence MR images of the brain were obtained prior to and following administration of gadolinium contrast. Comparison: Comparison is made to CTA head 09/02/2022 FINDINGS: Exam is limited by patient motion. No abnormal restricted diffusion is identified. Foci of T2 and FLAIR hyperintensity are noted in the paraventricular areas consistent with chronic small vessel ischemic disease. Ex vacuo ventriculomegaly and sulcal enlargement is noted compatible with diffuse encephalomalacia. No mass or abnormal enhancement is seen. There is no mass effect or midline shift. There is no evidence of acute intraparenchymal hemorrhage. No extra axial fluid collections are seen. The corpus callosum, pituitary gland, and cerebellar tonsils appear grossly unremarkable. Flow voids of the major intracranial arterial vessels are identified. The imaged portions of the paranasal sinuses, mastoid air cells, and orbits are unremarkable. IMPRESSION: Highly limited exam due to patient motion. No evidence of acute infarct. ACT 112: Negative or not required by law. Electronically signed by: Raphael Sage M.D. 09/02/2022 10:25 PM Videofluoroscopic Swallow 09/03/22 13:30 FL video swallow CLINICAL HISTORY: assess for aspiration TECHNIQUE: Video fluoroscopy of the pharyngeal region was performed as barium mixtures of varying consistencies were administered to the patient by the speech pathologist. A formal esophagram was not performed. Comparison: None available at the time of this dictation. FINDINGS: Total fluoroscopy time: 3.1 minutes. The patient swallowed the different barium consistencies without difficulty. Silent aspiration is seen with thin liquid. Pooling of barium was noted in the bilateral piriform sinuses and valleculae. IMPRESSION: Silent aspiration is seen within liquid. Please see the speech pathology report for further details. ACT 112: Negative or not required by law. Electronically signed by: Raphael Sage M.D. 09/03/2022 2:[address] 09/05/22 10:48 CT SCAN OF THE BRAIN WITHOUT IV CONTRAST CLINICAL HISTORY: Follow-up stroke/hemorrhage. COMPARISON STUDY: CT of the brain dated 09/04/2022. MRI of the brain dated 09/02/2022. TECHNIQUE: Unenhanced axial CT scan of the brain is performed from the vertex to the skull base. A dose lowering technique was utilized adhering to the principles of ALARA. CT DOSE: 614.27 mGy.cm FINDINGS: Brain parenchyma: Again seen there is diminished attenuation within the right SHAYY territory consistent with an evolving infarct. Foci of hemorrhagic conversion in the right frontal lobe parenchyma are similar to yesterday. These measure up to 1.2 cm, with mild surrounding edema. This causes minimal bulging of the midline falx. No new foci of hemorrhage are seen. There is age-related involutional change noting moderate to advanced subcortical and periventricular microangiopathic disease. No extra-axial fluid collection is seen. A hyperdense colloid cyst is again suggested at the roof of the third ventricle. Ventricles, sulci, cisterns: Prominent secondary to involutional change. Intracranial vasculature: There is atherosclerotic calcification of the cavernous carotid and vertebral arteries. Calvarium: Unremarkable. Sinuses and mastoids: The visualized paranasal sinuses are clear. The mastoid air cells are well pneumatized. Orbits: The bony orbits are grossly intact. There are bilateral ocular lens implants. IMPRESSION: 1. Again seen is an evolving right SHAYY territory infarct with foci of h emorrhagic conversion. There is mild mass effect and this has not significantly changed in appearance from yesterday. 2. No new foci of hemorrhage are identified. ACT 112: Negative or not required by law. Electronically signed by: Brenton Dalal M.D. 09/05/2022 2:36 PM Hospital Course (1) Left-sided weakness: This is an 87-year-old female with PMH of chronic combined systolic and diastolic heart failure, CAD status post stent placement history of atrial fibrillation not anticoagulated due to fall risk, type 2 diabetes, hypertension, aortic valve stenosis, CAD, CKD 3 presentedto the ER with left-sided weakness and facial drop. Stroke alert was called and TNKase was administered CT head no hemorrhage, mass effect, or evidence of acute territorial ischemia. 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 Atherosclerotic plaque causes approximately 50% focal stenosis at the origin of the right internal carotid artery. CTA head/neck showed no hemorrhage, mass effect, or evidence of acute territorial ischemia. 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 MRI brain showed restricted diffusion identified in the high right frontoparietal cortex consistent with an acute to subacute SHAYY territory infarct. There are foci of hemorrhage within the infarcted territory with mild mass effect. Repeat CT head showed Findings are compatible with hemorrhagic conversion of previously noted right SHAYY distribution infarct ECHO showed echo showed mild to moderate global hypokinesis of the left ventricle. Severe concentric left ventricular hypertrophy. Ejection fraction 40 to 45% Repeat CT head on 09/04/22 showed Interval stability of hemorrhagic transformation of right SHAYY territory stroke. No significant increase in extent of hemorrhage or midline shift. CT chest showeddiminished attenuation within the right SHAYY territory consistent with an evolving infarct. Foci of hemorrhagic conversion in the right frontal lobe parenchyma are similar to yesterday. Neuro on board Case discussed with neuro that recommended to continue to hold on restarting daily low-dose aspirin therapy or anticoagulation. If there is no significant change, would be appropriate to start daily low-dose aspirin, 81 mg/day as per neuro Neuro recommended to hold on anticoagulant for 4 weeks and to obtain a follow-up CT of the head just prior to starting an anticoagulant to ensure hemorrhage Continue permissive hypertension with systolic blood pressure goal range 140 to 160 mmHg. Continue statin Continue PT / OT and speech eval PT recommended 24hr care or SNF (2) Diabetes mellitus, type II: Most recent hemoglobin A1c 6.5 Continue to hold home agents SSI while in-patient Continue monitor blood sugar (3) Persistent atrial fibrillation: Not on anticoagulation historically due to fall risk. [id number] 2 score of 8 with acute stroke. Cardiology recommended anticoagulation once hemorrhagic risk resolved other cardiac issues stable and clear by neurology Continue metoprolol 50mg daily (4) Aortic stenosis: (5) Combined systolic and diastolic heart failure: No sign of volume overload Continue monitor (6) Hypertension: Continue permissive hypertensive with systolic blood pressure between 140 to 160 (7) CKD (chronic kidney disease), stage III: Creatinine at baseline. Stable (8) Skin ulcer of sacrum: History of sacral skin ulcer Per outpatient chart. Repositioning, wound care nurse as needed Code status: DNR Disposition Will need inpatient therapy Total Time Total Time Spent Total Time Spent (In Minutes): 35 minutes Discharge Plan Discharge Items Patient Disposition: Transfer Inpatient Rehab Fac Reason For Visit: LEFT SIDED WEAKNESS S/P TNK Discharge Diagnosis: Acute stroke with Left-sided weakness: Diabetes mellitus, type II: Persistent atrial fibrillation: Aortic stenosis: Combined systolic and diastolic heart failure: Hypertension: CKD (chronic kidney disease), stage III: Skin ulcer of sacrum: Activity: Resume your previous activity Non-emergency contact: Primary Care Provider, Molder Setter and Neurologist Call non-emergency contact if: you have any medication questions and your symptoms worsen Follow-up/Referrals: Yesi Huber DO [Primary Care Provider] - Diet: Carb Consistent or DM2 Addtl Attending Provider Instructions: You were admitted at [facility] for left sided weakness due to acute stroke Follow up with primary care provider at the Rehab facility Follow up with Neurology outpatient Follow up with cardiology outpatient You will need a repeat CT head in 4 weeks prior to start anticoagulant to ensure hemorrhage If CT head showed hemorrhagic formation resolves, your provider will start the anticoagulant Continue physical and occupational therapy Continue oxygen supplement with 1 L nasal canula for now Fall precaution Pending Studies at Discharge: No Stand-Alone Forms: My [facility], Medications to Prevent Stroke Skilled Items Patient informed of condition?: Yes DNR: Yes Discharge Level of Care: Acute rehab Communicable Disease: No Discharge Prognosis: Stable Lines: None Urinary Catheter: No Medications and DC Order Prescriptions: Continued metoprolol tartrate 50 mg Tablet 50 mg PO PM Qty: 0 metoprolol tartrate 50 mg Tablet 100 mg PO QAM Qty: 0 acetaminophen [Tylenol Extra Strength] 500 mg Tablet 500 mg PO HS Qty: 0 nitroglycerin [Nitrostat] 0.4 mg Tablet, Sublingual 0.4 mg buccal DIRECTED PRN (Reason: Chest Pain) Qty: 0 rosuvastatin 40 mg Tablet 40 mg PO PM Qty: 0 aspirin 81 mg Tablet,Delayed Release (Dr/Ec) 81 mg PO QAM 30 Days Qty: 30 ezetimibe 10 mg tablet 10 mg PO QAM furosemide [Lasix] 40 mg tablet 40 mg PO BID Qty: 60 3RF glimepiride 1 mg tablet 1 mg PO DAILYBB potassium chloride [Klor-Con M20] 20 mEq tablet,ER particles/crystals 20 meq PO DAILY hydrocortisone 2.5 % cream 1 applic TOPICAL BID tamsulosin 0.4 mg capsule 0.4 mg PO DAILY meclizine 25 mg Tablet 25 mg PO TID PRN (Reason: Vertigo) docusate sodium 100 mg Tablet 100 mg PO BID PRN (Reason: Constipation) metformin 500 mg tablet 1,000 mg PO BID Discharge Orders: Discharge Order (Routine); Ordered 09/06/22 Ordered By: Thalia Elizabeth/Other Patient Handouts: Managing Type 2 Diabetes Admission Data Admit Date/Time: 09/02/22 12:16 Attending Provider: Thalia Tolbert Admit Provider: Jaelyn Belle Primary Care Provider: Yesi Huber Other Providers: [facility] ; Torsten Calero ; Yaw Duke ; Michael Murdock Other Interventions: Discharge Summary Assessment (RN) Last Done: 09/06/22 14:23
== END 2022-09-06 15:40 | DRG 61 ==
LOC: ED 10:43 → SUATTDRO 12:16 → 1E 12:16 → 2N 09-04 15:02
DX: I50.42 Chronic combined systolic (congestive) and diastolic (congestive) heart failure; Z88.8 Allergy status to other drugs, medicaments and biological substances; I48.19 Other persistent atrial fibrillation; Z79.82 Long term (current) use of aspirin; R79.89 Other specified abnormal findings of blood chemistry; I65.29 Occlusion and stenosis of unspecified carotid artery; L98.499 Non-pressure chronic ulcer of skin of other sites with unspecified severity; R53.1 Weakness; N18.30 Chronic kidney disease, stage 3 unspecified; I13.0 Hypertensive heart and chronic kidney disease with heart failure and stage 1 through stage 4 chronic kidney disease, or unspecified chronic kidney disease; I35.0 Nonrheumatic aortic (valve) stenosis; Z95.5 Presence of coronary angioplasty implant and graft; E11.22 Type 2 diabetes mellitus with diabetic chronic kidney disease; Z91.048 Other nonmedicinal substance allergy status; I49.5 Sick sinus syndrome; Z88.5 Allergy status to narcotic agent; F03.90 Unspecified dementia, unspecified severity, without behavioral disturbance, psychotic disturbance, mood disturbance, and anxiety; Z79.84 Long term (current) use of oral hypoglycemic drugs; I61.2 Nontraumatic intracerebral hemorrhage in hemisphere, unspecified; Z99.3 Dependence on wheelchair; I25.10 Atherosclerotic heart disease of native coronary artery without angina pectoris; Z66 Do not resuscitate; Z79.899 Other long term (current) drug therapy; G81.94 Hemiplegia, unspecified affecting left nondominant side; I63.9 Cerebral infarction, unspecified; I25.2 Old myocardial infarction